=== PATIENT | male | born 1945 | race Caucasian/White ===

== ENCOUNTER → 2016-09-19 | Outpatient (CLI) | payer MEDICARE ==
[2016-09-19 12:57] LABS: Basophils # (A) 0.1 k/uL (0-0.2); Basophils % (A) 1 %; CH 29.2; Eosinophils # (A) 0.2 k/uL (0-0.7); Eosinophils % (A) 3 %; HCT 49.7 % (39.0-53.0); HDW 2.55; Luc # (Auto) 0.18; Luc % (Auto) 2; Lymphocytes # (A) 1.7 k/uL (1.0-4.8); Lymphocytes % (A) 22 %; MCH 30.5 pg (25.0-35.0); MCHC 34.2 g/dL (31.0-37.0); MCV 89.1 fL (80.0-100.0); Mean Platelet Volume 6.9; Monocytes # (A) 0.5 k/uL (0-1.0); Monocytes % (A) 6 %; Neutrophils # (A) 5.1 k/uL (1.3-7.7); Neutrophils % (A) 66 %; RBC 5.58 m/uL (4.30-5.90); RDW 13.3 % (11.5-15.5); WBC 7.6 k/uL (3.8-10.6); WBC (Perox) 7.54
[2016-09-19 13:24] LABS: Appearance,Urine Clear (Clear); Bilirubin,Urine Negative (Negative); Glucose,Urine (UA) Negative (Negative); Ketones,Urine Negative (Negative); Leukocyte Esterase,Urine Negative (Negative); Nitrite,Urine Negative (Negative); Protein,Urine Negative (Negative); Specific Gravity,Urine 1.017 (1.001-1.035); UA Billing (MACRO vs. MICRO) CHEM; Urobilinogen,Urine <2.0 mg/dL (<2.0)
[2016-09-19 13:50] LABS: ALT 45 U/L (21-72); AST 31 U/L (17-59); Alkaline Phosphatase 66 U/L (38-126); Anion Gap 12 mmol/L; Blood Urea Nitrogen 20 mg/dL (9-20); C Reactive Protein <5.0 mg/L (<10.0); Calcium 9.8 mg/dL (8.4-10.2); Carbon Dioxide 27 mmol/L (22-30); Chloride 101 mmol/L (98-107); Creatine Kinase 266 U/L (55-170); Glucose 98 mg/dL (74-99); LDH 441 U/L (313-618); Non-African American GFR(MDRD) >60 (>60 ml/min/1.73 sqM); Phosphorous 3.7 mg/dL (2.5-4.5); Potassium 4.7 mmol/L (3.5-5.1); Sodium 140 mmol/L (137-145); Total Bilirubin 0.8 mg/dL (0.2-1.3); Total Protein 7.4 g/dL (6.3-8.2); Uric Acid 5.9 mg/dL (3.5-8.5)
[2016-09-19 13:51] LABS: Rheumatoid Factor, Qnt 19 IU/mL (<12)
[2016-09-19 14:07] LABS: Erythrocyte Sedimentation Rate 8 mm/hr (0-15)
[2016-09-19 14:54] LABS: Vitamin B12 >1000 pg/mL
[2016-09-19 18:04] LABS: Hemoglobin A1C 5.9 % (4.2-6.1)
[2016-09-19 18:56] LABS: Treponemal Ab Non-Reactive (Non-Reactive)
[2016-09-19 19:34] LABS: ANA w/Reflex to Titer NEGATIVE (NEGATIVE); Cyclic Citrull Pep IgG Unit <0.5 U/mL; Cyclic Citrullinated Pep IgG NEGATIVE (NEGATIVE); Tis Transglutaminase IgA Unit <0.5 AI; Tis Transglutaminase IgG Unit <0.8 U/mL
[2016-09-20 13:12] LABS: HLA B27 NEGATIVE; HLA B27 Comment SEEBELOW
[2016-09-20 13:14] LABS: Vitamin D, 1, 25-Dihydroxy 69 pg/mL (20 - 79)
[2016-09-20 15:32] LABS: Hepatits C Virus RNA, Quant <12 IU/mL (<12); LOG HCV IU/mL <1.08 (<1.08)
[2016-09-22 07:28] LABS: Mis test requested (Blood) 14-3-3 eta Protein
[2016-09-22 14:13] LABS: Lyme IgG/IgM 0.1 Index; Lyme IgG/IgM Interp NEGATIVE (NEGATIVE)
== END | disposition home or self-care (01) ==
LOC: LABWHC1 12:14
PROVIDERS: ATTEND Physical Medicine & Rehabilitation
DX: M51.37 Other intervertebral disc degeneration, lumbosacral region (principal); M47.817 Spondylosis without myelopathy or radiculopathy, lumbosacral region; M41.86 Other forms of scoliosis, lumbar region; G60.3 Idiopathic progressive neuropathy; R20.2 Paresthesia of skin
CPT/HCPCS: 36415; 80053; 81003; 82164; 82306; 82310; 82550; 82553; 82607; 82652; 83036; 83516; 83520; 83615; 83970; 84100; 84165; 84207; 84425; 84439; 84443; 84550; 85025; 85652; 86038; 86060; 86140; 86200; 86235; 86431; 86618; 86780; 86812; 87522

== ENCOUNTER → 2017-06-07 | Outpatient (CLI) | payer MEDICARE ==
[2017-06-07 10:32] LABS: HCT 47.8 % (39.0-53.0); HGB 15.4 gm/dL (13.0-17.5); MCH 28.7 pg (25.0-35.0); MCHC 32.2 g/dL (31.0-37.0); MCV 89.1 fL (80.0-100.0); Mean Platelet Volume 7.3; Platelet Count 215 k/uL (150-450); RBC 5.37 m/uL (4.30-5.90); RDW 13.4 % (11.5-15.5); WBC 7.4 k/uL (3.8-10.6)
[2017-06-07 11:05] LABS: ALT 34 U/L (21-72); AST 24 U/L (17-59); Creatine Kinase 170 U/L (55-170)
== END | disposition home or self-care (01) ==
LOC: LABWHC1 10:00
PROVIDERS: ATTEND Physical Medicine & Rehabilitation
DX: M47.817 Spondylosis without myelopathy or radiculopathy, lumbosacral region (principal); M51.37 Other intervertebral disc degeneration, lumbosacral region; M41.86 Other forms of scoliosis, lumbar region; G60.3 Idiopathic progressive neuropathy; R20.2 Paresthesia of skin
CPT/HCPCS: 36415; 82550; 84450; 84460; 85027

== ENCOUNTER → 2017-08-17 | Outpatient (CLI) | payer MEDICARE ==
[2017-08-17 07:53] LABS: Cholesterol 221 mg/dL (<200); HDL Cholesterol 46 mg/dL (40-60); LDL Cholesterol,Calculated 149 mg/dL (0-99); Triglycerides 128 mg/dL (<150)
== END | disposition home or self-care (01) ==
LOC: LABWHC1 07:14
PROVIDERS: ATTEND Nurse Practitioner Adult Health
DX: E78.5 Hyperlipidemia, unspecified (principal)
CPT/HCPCS: 36415; 80061

== ENCOUNTER → 2018-12-12 | Outpatient (CLI) | payer MEDICARE ==
--- NOTE | 2018-12-18 11:05 | HM ---
HOLTER MONITOR REPORT Patient was monitored for 48 hours. The baseline rhythm is a sinus mechanism with borderline fascicular block. The average rate is 79 beats per minute, minimum 41, maximum 116 beats per minute. Ventricular ectopic activity was present in form of rare single PVCs. Supraventricular ectopic activity was present in the form of rare single PACs, episode of 2-to-1 conduction during the night was noted. No diary was available. CONCLUSION: 1. Sinus mechanism baseline rhythm with borderline fascicular AV block. 2. Episode of 2-to-1 conduction at night. 3. Rare ventricular ectopic activity. 4. Rare supraventricular ectopic activity. 5. No diary was available. MMODL / IJN: [id number] /
== END | disposition home or self-care (01) ==
LOC: RADECHMAIN 12:43
PROVIDERS: ATTEND Family Medicine
DX: I49.9 Cardiac arrhythmia, unspecified (principal); R00.2 Palpitations
CPT/HCPCS: 93225; 93226

== ENCOUNTER → 2018-12-25 | Outpatient (CLI) | payer MEDICARE ==
--- NOTE | 2018-12-25 11:08 | XR ---
EXAMINATION TYPE: XR shoulder complete RT DATE OF EXAM: 12/25/2018 CLINICAL HISTORY: Cyst of bone per order. Sensitive lump per patient. TECHNIQUE: Three views of the right shoulder are obtained. COMPARISON: None. FINDINGS: There is no acute fracture/dislocation evident in the right shoulder. No bony destruction is seen. Severe acromioclavicular joint narrowing. [id number] glenohumeral joint narrowing. The visualized ribs are intact and unremarkable. IMPRESSION: As above. Finding could correlate to capsular hypertrophy from advanced AC joint arthropa thy. Correlate clinically.
[2018-12-25 17:31] LABS: Chol/HDL Ratio 4.31; LDL Cholesterol,Calculated 134.2 mg/dL (0.0-131.0); VLDL Calculation 24.8 mg/dL (5.00-40.00)
== END | disposition home or self-care (01) ==
LOC: LABWHC1 10:02
PROVIDERS: ATTEND Internal Medicine Interventional Cardiology
DX: M25.811 Other specified joint disorders, right shoulder (principal); E78.2 Mixed hyperlipidemia
CPT/HCPCS: 36415; 80061; 84450; 84460

== ENCOUNTER → 2020-01-16 | Outpatient (CLI) | payer MEDICARE | END | disposition home or self-care (01) | LOC: LABWHC1 14:00 | PROVIDERS: ATTEND Internal Medicine Sleep Medicine | DX: B44.81 Allergic bronchopulmonary aspergillosis (principal) | CPT/HCPCS: 36415; 82785; 86001; 86003; 86606; 86609 ==

== ENCOUNTER → 2021-03-14 | Outpatient (CLI) | payer MEDICARE | END | disposition home or self-care (01) | LOC: LABWHC1 13:32 | PROVIDERS: ATTEND Family Medicine | DX: E11.9 Type 2 diabetes mellitus without complications (principal) | CPT/HCPCS: 36415; 83036 ==

== ENCOUNTER → 2021-06-22 | Outpatient (CLI) | payer MEDICARE | END | disposition home or self-care (01) | LOC: LABWHC1 12:32 | PROVIDERS: ATTEND Family Medicine | DX: I10 Essential (primary) hypertension (principal) | CPT/HCPCS: 36415; 83036 ==

== ENCOUNTER → 2021-12-27 | Outpatient (CLI) | payer MEDICARE | END | disposition home or self-care (01) | LOC: LABWHC1 10:43 | PROVIDERS: ATTEND Family Medicine | DX: E11.9 Type 2 diabetes mellitus without complications (principal) | CPT/HCPCS: 36415; 83036 ==

== ENCOUNTER 2022-02-12 02:02 | Observation (INO) | payer MEDICARE ==
[2022-02-12 02:09] VITALS: TEMP 98
[2022-02-12] MEDS ORDERED: methylPREDNISolone SOD SUCCI 125 MG/2 ML VIAL IV STA (02:36)
[2022-02-12] MEDS ORDERED: IPRATROPIUM-ALBUTEROL 3 ML NEB INHALATION STA (02:36)
[2022-02-12] MEDS ORDERED: ASPIRIN 81 MG PO STA (02:37)
[2022-02-12 02:46] LABS: Basophils # (A) 0.1 k/uL (0-0.2); Basophils % (A) 1 %; Eosinophils # (A) 0.1 k/uL (0-0.7); Eosinophils % (A) 1 %; HCT 49.9 % (39.0-53.0); HGB 16.3 gm/dL (13.0-17.5); Lymphocytes % (A) 8 %; MCH 29.8 pg (25.0-35.0); MCHC 32.7 g/dL (31.0-37.0); MCV 91.2 fL (80.0-100.0); Monocytes % (A) 8 %; Neutrophils # (A) 9.8 k/uL (1.3-7.7); Neutrophils % (A) 80 %; Platelet Count 171 k/uL (150-450); RBC 5.47 m/uL (4.30-5.90); RDW 13.2 % (11.5-15.5); WBC 12.2 k/uL (3.8-10.6)
[2022-02-12 02:53] LABS: ALT 43 U/L (4-49); African American GFR (CKD) >90 (>60 ml/min/1.73 sqM); Albumin 4.3 g/dL (3.5-5.0); Anion Gap 8 mmol/L; Blood Urea Nitrogen 29 mg/dL (9-20); Carbon Dioxide 25 mmol/L (22-30); Chloride 101 mmol/L (98-107); Glucose 213 mg/dL (74-99); Non-African American GFR(CKD) 88 (>60 ml/min/1.73 sqM); Sodium 134 mmol/L (137-145); Total Bilirubin 0.8 mg/dL (0.2-1.3); Total Protein 7.1 g/dL (6.3-8.2)
[2022-02-12 03:00] LABS: AST 55 U/L (17-59); Potassium 4.8 mmol/L (3.5-5.1)
[2022-02-12 03:01] LABS: Alkaline Phosphatase 78 U/L (38-126); Magnesium 1.9 mg/dL (1.6-2.3)
[2022-02-12 03:05] LABS: Partial Thromboplastin Time 24.6 sec (22.0-30.0); Prothrombin Time 10.9 sec (9.0-12.0)
--- NOTE | 2022-02-12 04:01 | ED ---
General Adult HPI - General Chief complaint: Chest Pain Stated complaint: SOB, Chest Pain Time Seen by Provider: 02/12/22 02:13 Source: patient, RN notes reviewed, old records reviewed Mode of arrival: ambulatory Limitations: no limitations - History of Present Illness Initial comments: Patient is a 76-year-old male with past medical history remarkable for hypertension, asthma, acid reflux, sleep apnea who presents emergency Department complaining of upper respiratory like infection as well as wheezing for the last 3-4 days. Denies nikolay chest pain but states that he does have some discomfort with coughing. States he has been coughing a lot over the last few days. Denies abdominal pain, nausea, vomiting. Denies diarrhea. Patient was also has upper respiratory infectious symptoms. Denies any productive cough. Endorses rhinorrhea. Endorses wheezing as well. States he is on emergency inhalers at home but states he typically does not need them. Is not on oxygen at home. His no other acute complaints at this time. Presents for further evaluation at this time. - Related Data Home Medications Medication Instructions Recorded Confirmed Albuterol Sulfate [Proair Hfa] 1 - 2 puff INHALATION Q6HR PRN 01/21/16 01/27/16 Ascorbic Acid [Vitamin C] 1,000 mg PO HS 01/21/16 01/31/16 Aspirin [Adult Low Dose Aspirin EC] 162 mg PO HS 01/21/16 01/31/16 Cholecalciferol [Vitamin D3 (25 2,000 unit PO HS 01/21/16 01/31/16 Mcg = 1000 Iu)] Citalopram Hydrobromide 20 mg PO HS 01/21/16 01/31/16 [Citalopram HBr] Cyanocobalamin [Vitamin B-12] 1,000 mcg PO HS 01/21/16 01/31/16 Loratadine [Claritin] 10 mg PO HS 01/21/16 01/31/16 Losartan Potassium [Cozaar] 100 mg PO HS 01/21/16 01/31/16 Magnesium 500 mg PO HS 01/21/16 01/31/16 Montelukast Sodium [Singulair] 10 mg PO HS 01/21/16 01/31/16 Hannacroix-3 Fatty Acids/Fish Oil [Fish 1 each PO HS 01/21/16 01/31/16 Oil 1,000 mg Softgel] Ranitidine HCl [Zantac] 150 mg PO HS 01/21/16 01/31/16 Turmeric Root Extract [Turmeric] 500 mg PO HS 01/21/16 01/31/16 Ubidecarenone [Co Q-10] 300 mg PO HS 01/21/16 01/31/16 Zinc 50 mg PO HS 01/21/16 01/31/16 Allergies Allergy/AdvReac Type Severity Reaction Status Date / Time No Known Allergies Allergy Verified 02/12/22 02:09 Review of Systems ROS Statement: Those systems with pertinent positive or pertinent negative responses have been documented in the HPI. Review of Systems: CONST: Denies fever EYES: Denies blurry vision ENT: Endorses nasal congestion C/V: Denies Chest pain RESP: Endorses wheezing GI: Denies abdominal pain : Denies dysuria SKIN: Denies rash. MSK: Denies joint pain. NEURO: Denies headache ROS Other: All systems not noted in ROS Statement are negative. Past Medical History Past Medical History: Asthma, GERD/Reflux, Hypertension, Sleep Apnea/CPAP/BIPAP Additional Past Medical History / Comment(s): SOB w/exertion, supposed to use CPAP History of Any Multi-Drug Resistant Organisms: None Reported Past Surgical History: Joint Replacement, Orthopedic Surgery Additional Past Surgical History / Comment(s): cataract surg., rotator cuff repair, left knee replaced, benign fatty tumor removed Past Anesthesia/Blood Transfusion Reactions: Previous Problems w/ Anesthesia Additional Past Anesthesia/Blood Transfusion Reaction / Comment(s): developed vertigo few days after surg. Past Psychological History: Anxiety Smoking Status: Never smoker Past Alcohol Use History: Rare Past Drug Use History: None Reported - Past Family History Mother Family Medical History: Cancer General Exam - General Exam Comments Initial Comments: General: Appears in no acute distress. HEAD: Normal with no signs of head trauma. EYES: PERRLA, EOMI, conjunctiva normal, no discharge. ENT: Hearing grossly intact, normal oropharynx. RESPIRATORY: Bilateral end expiratory wheezing. Mild hypoxia on room air. No increased work of breathing. C/V: Irregular rate and rhythm. S1 and S2 auscultated, pulses 2+ and intact throughout ABD: Abd is soft, nontender, nondistended EXT: Normal range of motion, no obvious deformity SKIN: No rashes or lesions observed on exposed skin. NEURO: Alert and oriented 4. Limitations: no limitations Course Vital Signs 02/12/22 02/12/22 02/12/22 02:06 02:25 03:00 Temperature 98 F Pulse Rate 84 88 Respiratory 20 18 16 Rate Blood Pressure 168/99 144/82 O2 Sat by Pulse 92 L 95 Oximetry 02/12/22 02/12/22 02/12/22 03:38 03:44 04:00 Temperature Pulse Rate 79 84 85 Respiratory 16 Rate Blood Pressure 147/87 O2 Sat by Pulse 93 L Oximetry Medical Decision Making - Medical Decision Making Based on the patient's presentation and physical exam, appears he is having an asthma exacerbation on top of an upper respiratory infection. Suspect viral but he is on day 3 of azithromycin at this time. We will obtain carp only workup. He was in agreement this plan. We'll symptomatically treated with IV steroids, breathing treatments. EKG shows new onset atrial fibrillation. Chest x-ray shows no acute cardiopulmonary process. No infiltrate, no pneumothorax, no acute bony traumatic injury. Patient's laboratory studies are remarkable for a mild leukocytosis of 12.2. Troponin is undetectable. BNP is within acceptable limits. Covid influenza negative. On reevaluation, patient remains wheezy but improved. He still is requiring low levels of nasal cannula oxygen to maintain adequate saturations. I discussed with him his workup. I believe he is having an asthma exacerbation as well as incidental finding of new-onset atrial fibrillation. He will be placed on a heparin drip and cardiology will be consulted. He was in agreement this plan. He received aspirin. We'll also continue treatment for his asthma exacerbation with IV steroids as well as DuoNeb. Pulmonology was consulted to evaluate the patient. We'll continue his azithromycin as he was already started on it. He'll be admitted. Patient was in agreement this plan. - Lab Data Result diagrams: 02/12/22 02:37 02/12/22 02:37 Lab Results 02/12/22 02/12/22 02/12/22 Range/Units 02:37 02:37 02:37 WBC 12.2 H (3.8-10.6) k/uL RBC 5.47 (4.30-5.90) m/uL Hgb 16.3 (13.0-17.5) gm/dL Hct 49.9 (39.0-53.0) % MCV 91.2 (80.0-100.0) fL MCH 29.8 (25.0-35.0) pg MCHC 32.7 (31.0-37.0) g/dL RDW 13.2 (11.5-15.5) % Plt Count 171 (150-450) k/uL MPV 9.0 Neutrophils % 80 % Lymphocytes % 8 % Monocytes % 8 % Eosinophils % 1 % Basophils % 1 % Neutrophils # 9.8 H (1.3-7.7) k/uL Lymphocytes # 1.0 (1.0-4.8) k/uL Monocytes # 1.0 (0-1.0) k/uL Eosinophils # 0.1 (0-0.7) k/uL Basophils # 0.1 (0-0.2) k/uL PT 10.9 (9.0-12.0) sec INR 1.0 (<1.2) APTT 24.6 (22.0-30.0) sec Sodium 134 L (137-145) mmol/L Potassium 4.8 (3.5-5.1) mmol/L Chloride 101 (98-107) mmol/L Carbon Dioxide 25 (22-30) mmol/L Anion Gap 8 mmol/L BUN 29 H (9-20) mg/dL Creatinine 0.78 (0.66-1.25) mg/dL Est GFR (CKD-EPI)AfAm >90 (>60 ml/min/1.73 sqM) Est GFR (CKD-EPI)NonAf 88 (>60 ml/min/1.73 sqM) Glucose 213 H (74-99) mg/dL Calcium 9.0 (8.4-10.2) mg/dL Magnesium 1.9 (1.6-2.3) mg/dL Total Bilirubin 0.8 (0.2-1.3) mg/dL AST 55 (17-59) U/L ALT 43 (4-49) U/L Alkaline Phosphatase 78 (38-126) U/L Troponin I (0.000-0.034) ng/mL NT-Pro-B Natriuret Pep pg/mL Total Protein 7.1 (6.3-8.2) g/dL Albumin 4.3 (3.5-5.0) g/dL Coronavirus (PCR) (Not Detectd) Influenza Type A RNA (Not Detectd) Influenza Type B (PCR) (Not Detectd) 02/12/22 02/12/22 02/12/22 Range/Units 02:37 02:37 02:42 WBC (3.8-10.6) k/uL RBC (4.30-5.90) m/uL Hgb (13.0-17.5) gm/dL Hct (39.0-53.0) % MCV (80.0-100.0) fL MCH (25.0-35.0) pg MCHC (31.0-37.0) g/dL RDW (11.5-15.5) % Plt Count (150-450) k/uL MPV Neutrophils % % Lymphocytes % % Monocytes % % Eosinophils % % Basophils % % Neutrophils # (1.3-7.7) k/uL Lymphocytes # (1.0-4.8) k/uL Monocytes # (0-1.0) k/uL Eosinophils # (0-0.7) k/uL Basophils # (0-0.2) k/uL PT (9.0-12.0) sec INR (<1.2) APTT (22.0-30.0) sec Sodium (137-145) mmol/L Potassium (3.5-5.1) mmol/L Chloride (98-107) mmol/L Carbon Dioxide (22-30) mmol/L Anion Gap mmol/L BUN (9-20) mg/dL Creatinine (0.66-1.25) mg/dL Est GFR (CKD-EPI)AfAm (>60 ml/min/1.73 sqM) Est GFR (CKD-EPI)NonAf (>60 ml/min/1.73 sqM) Glucose (74-99) mg/dL Calcium (8.4-10.2) mg/dL Magnesium (1.6-2.3) mg/dL Total Bilirubin (0.2-1.3) mg/dL AST (17-59) U/L ALT (4-49) U/L Alkaline Phosphatase (38-126) U/L Troponin I <0.012 (0.000-0.034) ng/mL NT-Pro-B Natriuret Pep 354 pg/mL Total Protein (6.3-8.2) g/dL Albumin (3.5-5.0) g/dL Coronavirus (PCR) (Not Detectd) Influenza Type A RNA Not Detected (Not Detectd) Influenza Type B (PCR) Not Detected (Not Detectd) 02/12/22 Range/Units 02:42 WBC (3.8-10.6) k/uL RBC (4.30-5.90) m/uL Hgb (13.0-17.5) gm/dL Hct (39.0-53.0) % MCV (80.0-100.0) fL MCH (25.0-35.0) pg MCHC (31.0-37.0) g/dL RDW (11.5-15.5) % Plt Count (150-450) k/uL MPV Neutrophils % % Lymphocytes % % Monocytes % % Eosinophils % % Basophils % % Neutrophils # (1.3-7.7) k/uL Lymphocytes # (1.0-4.8) k/uL Monocytes # (0-1.0) k/uL Eosinophils # (0-0.7) k/uL Basophils # (0-0.2) k/uL PT (9.0-12.0) sec INR (<1.2) APTT (22.0-30.0) sec Sodium (137-145) mmol/L Potassium (3.5-5.1) mmol/L Chloride (98-107) mmol/L Carbon Dioxide (22-30) mmol/L Anion Gap mmol/L BUN (9-20) mg/dL Creatinine (0.66-1.25) mg/dL Est GFR (CKD-EPI)AfAm (>60 ml/min/1.73 sqM) Est GFR (CKD-EPI)NonAf (>60 ml/min/1.73 sqM) Glucose (74-99) mg/dL Calcium (8.4-10.2) mg/dL Magnesium (1.6-2.3) mg/dL Total Bilirubin (0.2-1.3) mg/dL AST (17-59) U/L ALT (4-49) U/L Alkaline Phosphatase (38-126) U/L Troponin I (0.000-0.034) ng/mL NT-Pro-B Natriuret Pep pg/mL Total Protein (6.3-8.2) g/dL Albumin (3.5-5.0) g/dL Coronavirus (PCR) Not Detected (Not Detectd) Influenza Type A RNA (Not Detectd) Influenza Type B (PCR) (Not Detectd) - EKG Data -: EKG Interpreted by Me EKG Comments: 12-lead Electrocardiogram Interpretation Note EKG was reviewed and interpreted by myself. 12-lead ECG performed at 0215 is interpreted by me as revealing atrial fibrillation at a rate of 87 beats per minute. Left axis deviation. QRS duration is 102 ms, QTc is 409 ms.. There were no ST or T wave abnormalities to suggest myocardial ischemia or injury. R wave progression across the precordium was satisfactory. By my interpretation this EKG is non-diagnostic for acute ischemia. No prior EKG in our system. No known history of atrial fibrillation. Disposition Clinical Impression: New onset atrial fibrillation, Asthma exacerbation, Bronchitis Disposition: ADMITTED IP TO THIS HOSP Condition: Stable Referrals: Jaylan Desir MD [Primary Care Provider] - 1-2 days Time of Disposition: 04:30
--- NOTE | 2022-02-12 04:19 | XR ---
EXAMINATION TYPE: XR chest 2V DATE OF EXAM: 02/12/2022 COMPARISON: NONE HISTORY: Short of breath TECHNIQUE: 2 view FINDINGS: Heart is normal. Lungs are clear of consolidation. There are no hilar masses. There are dean st leads. Costophrenic angles are clear. Bony thorax is intact. IMPRESSION: No active cardiopulmonary disease. Normal heart.
[2022-02-12] MEDS ORDERED: NALOXONE 0.4 MG/ML 1 ML VIAL IV PRN (04:31)
[2022-02-12] MEDS ORDERED: HEPARIN SODIUM 1,000 UN/ML (10ML VL) IV PRN (04:31)
[2022-02-12] MEDS ORDERED: HEPARIN SODIUM 1,000 UN/ML (10ML VL) IV ONE (04:31)
[2022-02-12] MEDS ORDERED: ALBUTEROL HFA INHALER INHALATION PRN (04:34)
[2022-02-12] MEDS ORDERED: HEPARIN SOD,PORK IN 0.45% NACL 25,000 UNIT in 0.45% NACL 1 250ML.BAG IV SCH (04:45)
[2022-02-12 06:46] VITALS: BP 145/85; PULSE 96; RESP 20
--- NOTE | 2022-02-12 07:10 | ED ---
Medical Decision Making - Medical Decision Making At the end of my shift, I was notified by nursing that the patient wished to leave AGAINST MEDICAL ADVICE. He had ripped off his nasal cannula oxygen and wanted to leave immediately. States he doesn't think he needs to stay. Wants to manage his oxygenation at home. We did both look at his vital signs off oxygen and he did note that he is at 90% occasionally dipping to 89% on room air. I explained to him that this is dangerous to go home with, and I believe she would benefit from remaining in the hospital to further treat his asthma as well as be evaluated by cardiology for his new onset atrial fibrillation. He did express understanding of this but still wishes to go home. He does not want to stay. He believes he'll be fine at home and wishes to follow up outpatient and not be admitted. He understands that there is risk of if he does leave. He does not have oxygen at home. The patient was apprised of the potential risks of leaving the hospital AGAINST MEDICAL ADVICE, including serious complications, permanent disability, and deat h. At the time of my interview the patient, the patient was alert, oriented, and capable. Patient signed AMA form, which was witnessed and signed by nursing staff, and placed in patient's chart. I urged the patient to return to the hospital as soon as possible to complete evaluation and treatment. I did notify the admitting team that the patient left AMA. - Lab Data Result diagrams: 02/12/22 02:37 02/12/22 02:37 Lab Results 02/12/22 02/12/22 02/12/22 Range/Units 02:37 02:37 02:37 WBC 12.2 H (3.8-10.6) k/uL RBC 5.47 (4.30-5.90) m/uL Hgb 16.3 (13.0-17.5) gm/dL Hct 49.9 (39.0-53.0) % MCV 91.2 (80.0-100.0) fL MCH 29.8 (25.0-35.0) pg MCHC 32.7 (31.0-37.0) g/dL RDW 13.2 (11.5-15.5) % Plt Count 171 (150-450) k/uL MPV 9.0 Neutrophils % 80 % Lymphocytes % 8 % Monocytes % 8 % Eosinophils % 1 % Basophils % 1 % Neutrophils # 9.8 H (1.3-7.7) k/uL Lymphocytes # 1.0 (1.0-4.8) k/uL Monocytes # 1.0 (0-1.0) k/uL Eosinophils # 0.1 (0-0.7) k/uL Basophils # 0.1 (0-0.2) k/uL PT 10.9 (9.0-12.0) sec INR 1.0 (<1.2) APTT 24.6 (22.0-30.0) sec Sodium 134 L (137-145) mmol/L Potassium 4.8 (3.5-5.1) mmol/L Chloride 101 (98-107) mmol/L Carbon Dioxide 25 (22-30) mmol/L Anion Gap 8 mmol/L BUN 29 H (9-20) mg/dL Creatinine 0.78 (0.66-1.25) mg/dL Est GFR (CKD-EPI)AfAm >90 (>60 ml/min/1.73 sqM) Est GFR (CKD-EPI)NonAf 88 (>60 ml/min/1.73 sqM) Glucose 213 H (74-99) mg/dL Calcium 9.0 (8.4-10.2) mg/dL Magnesium 1.9 (1.6-2.3) mg/dL Total Bilirubin 0.8 (0.2-1.3) mg/dL AST 55 (17-59) U/L ALT 43 (4-49) U/L Alkaline Phosphatase 78 (38-126) U/L Troponin I (0.000-0.034) ng/mL NT-Pro-B Natriuret Pep pg/mL Total Protein 7.1 (6.3-8.2) g/dL Albumin 4.3 (3.5-5.0) g/dL Coronavirus (PCR) (Not Detectd) Influenza Type A RNA (Not Detectd) Influenza Type B (PCR) (Not Detectd) 02/12/22 02/12/22 02/12/22 Range/Units 02:37 02:37 02:42 WBC (3.8-10.6) k/uL RBC (4.30-5.90) m/uL Hgb (13.0-17.5) gm/dL Hct (39.0-53.0) % MCV (80.0-100.0) fL MCH (25.0-35.0) pg MCHC (31.0-37.0) g/dL RDW (11.5-15.5) % Plt Count (150-450) k/uL MPV Neutrophils % % Lymphocytes % % Monocytes % % Eosinophils % % Basophils % % Neutrophils # (1.3-7.7) k/uL Lymphocytes # (1.0-4.8) k/uL Monocytes # (0-1.0) k/uL Eosinophils # (0-0.7) k/uL Basophils # (0-0.2) k/uL PT (9.0-12.0) sec INR (<1.2) APTT (22.0-30.0) sec Sodium (137-145) mmol/L Potassium (3.5-5.1) mmol/L Chloride (98-107) mmol/L Carbon Dioxide (22-30) mmol/L Anion Gap mmol/L BUN (9-20) mg/dL Creatinine (0.66-1.25) mg/dL Est GFR (CKD-EPI)AfAm (>60 ml/min/1.73 sqM) Est GFR (CKD-EPI)NonAf (>60 ml/min/1.73 sqM) Glucose (74-99) mg/dL Calcium (8.4-10.2) mg/dL Magnesium (1.6-2.3) mg/dL Total Bilirubin (0.2-1.3) mg/dL AST (17-59) U/L ALT (4-49) U/L Alkaline Phosphatase (38-126) U/L Troponin I <0.012 (0.000-0.034) ng/mL NT-Pro-B Natriuret Pep 354 pg/mL Total Protein (6.3-8.2) g/dL Albumin (3.5-5.0) g/dL Coronavirus (PCR) (Not Detectd) Influenza Type A RNA Not Detected (Not Detectd) Influenza Type B (PCR) Not Detected (Not Detectd) 02/12/22 Range/Units 02:42 WBC (3.8-10.6) k/uL RBC (4.30-5.90) m/uL Hgb (13.0-17.5) gm/dL Hct (39.0-53.0) % MCV (80.0-100.0) fL MCH (25.0-35.0) pg MCHC (31.0-37.0) g/dL RDW (11.5-15.5) % Plt Count (150-450) k/uL MPV Neutrophils % % Lymphocytes % % Monocytes % % Eosinophils % % Basophils % % Neutrophils # (1.3-7.7) k/uL Lymphocytes # (1.0-4.8) k/uL Monocytes # (0-1.0) k/uL Eosinophils # (0-0.7) k/uL Basophils # (0-0.2) k/uL PT (9.0-12.0) sec INR (<1.2) APTT (22.0-30.0) sec Sodium (137-145) mmol/L Potassium (3.5-5.1) mmol/L Chloride (98-107) mmol/L Carbon Dioxide (22-30) mmol/L Anion Gap mmol/L BUN (9-20) mg/dL Creatinine (0.66-1.25) mg/dL Est GFR (CKD-EPI)AfAm (>60 ml/min/1.73 sqM) Est GFR (CKD-EPI)NonAf (>60 ml/min/1.73 sqM) Glucose (74-99) mg/dL Calcium (8.4-10.2) mg/dL Magnesium (1.6-2.3) mg/dL Total Bilirubin (0.2-1.3) mg/dL AST (17-59) U/L ALT (4-49) U/L Alkaline Phosphatase (38-126) U/L Troponin I (0.000-0.034) ng/mL NT-Pro-B Natriuret Pep pg/mL Total Protein (6.3-8.2) g/dL Albumin (3.5-5.0) g/dL Coronavirus (PCR) Not Detected (Not Detectd) Influenza Type A RNA (Not Detectd) Influenza Type B (PCR) (Not Detectd) Disposition Clinical Impression: New onset atrial fibrillation, Asthma exacerbation, Bronchitis, Hypoxia Disposition: Left Against Medical Advice Condition: Undetermined Time of Disposition: :05
[2022-02-12] MEDS ORDERED: AZITHROMYCIN 250 MG TAB PO SCH (09:00)
[2022-02-12] MEDS ORDERED: methylPREDNISolone SOD SUCCI 40 MG/ML 1 ML VIAL IV SCH (15:00)
--- NOTE | 2022-02-13 23:10 | P.DS ---
Providers Date of admission: 02/12/22 04:34 Attending physician: Kinga Morillo Consults: 02/12/22 04:31 Consult Physician Routine Consulting Provider: Tommy Thomas Consult Reason/Comments: asthma vs copd exacerbation. bronchitis Do you want consulting provider notified?: Yes Consult Physician Routine Consulting Provider: [facility] Consult Reason/Comments: new onset atrial fibrillation Do you want consulting provider notified?: Yes Primary care physician: Jaylan Santiago [facility] Hospital Course: Patient was admitted to attending group 02/12/22 at 0427 for new onset atrial fibrillation, asthma vs. COPD. Patient was evaluated by EC physician only. He left the Emergency Center against medical advice 02/12/2022 at 0706. Per records admitting team was notified by EC physician that patient left AMA. Again patient was not evaluated by admitting team prior to patient leaving the emergency center. Patient Condition at Discharge: Undetermined Plan - Discharge Summary New Discharge Prescriptions: No Action Cholecalciferol [Vitamin D3 (25 Mcg = 1000 Iu)] 50 mcg PO HS Zinc 50 mg PO HS Ubidecarenone [Co Q-10] 300 mg PO HS [place]-3 Fatty Acids/Fish Oil [Fish Oil 1,000 mg Softgel] 1 cap PO HS Aspirin [Adult Low Dose Aspirin EC] 81 mg PO HS Ascorbic Acid [Vitamin C] 1,000 mg PO HS sitaGLIPtin [Januvia] 100 mg PO HS Losartan [Cozaar] 50 mg PO HS Gabapentin 600 mg PO BID Albuterol Sulfate [Proair Respiclick] 1 puff INHALATION RT-Q6H PRN PRN Reason: Shortness Of Breath Atorvastatin [Lipitor] 40 mg PO HS metFORMIN HCL ER [Glucophage XR] 500 mg PO BID methylPREDNISolone [Medrol Dose Pack] See Taper PO DIRECTED Azithromycin [Zithromax Z Pack] See Taper PO DAILY Discharge Medication List Ascorbic Acid [Vitamin C] 1,000 mg PO HS 01/21/16 [History] Aspirin [Adult Low Dose Aspirin EC] 81 mg PO HS 01/21/16 [History] Cholecalciferol [Vitamin D3 (25 Mcg = 1000 Iu)] 50 mcg PO HS 01/21/16 [History] [place]-3 Fatty Acids/Fish Oil [Fish Oil 1,000 mg Softgel] 1 cap PO HS 01/21/16 [History] Ubidecarenone [Co Q-10] 300 mg PO HS 01/21/16 [History] Zinc 50 mg PO HS 01/21/16 [History] Albuterol Sulfate [Proair Respiclick] 1 puff INHALATION RT-Q6H PRN 02/12/22 [History] Atorvastatin [Lipitor] 40 mg PO HS 02/12/22 [History] Azithromycin [Zithromax Z Pack] See Taper PO DAILY 02/12/22 [History] Gabapentin 600 mg PO BID 02/12/22 [History] Losartan [Cozaar] 50 mg PO HS 02/12/22 [History] metFORMIN HCL ER [Glucophage XR] 500 mg PO BID 02/12/22 [History] methylPREDNISolone [Medrol Dose Pack] See Taper PO DIRECTED 02/12/22 [History] sitaGLIPtin [Januvia] 100 mg PO HS 02/12/22 [History] Follow up Appointment(s)/Referral(s): Jaylan Desir MD [Primary Care Provider] - 1-2 days Discharge Disposition: Left Against Medical Advice
== END 2022-02-12 07:05 | disposition left against medical advice (07) ==
LOC: EC 02:02 → INTOOBSV 04:34 → 3SCARD 04:34 → UNDODISIN 07:05
PROVIDERS: ADMIT Hospitalist; ATTEND Hospitalist
DX: J45.901 Unspecified asthma with (acute) exacerbation (principal); D72.829 Elevated white blood cell count, unspecified; I10 Essential (primary) hypertension; K21.9 Gastro-esophageal reflux disease without esophagitis; F41.9 Anxiety disorder, unspecified; I48.91 Unspecified atrial fibrillation; Z79.899 Other long term (current) drug therapy; Z98.49 Cataract extraction status, unspecified eye; Z96.652 Presence of left artificial knee joint; Z80.9 Family history of malignant neoplasm, unspecified; Z20.822 Contact with and (suspected) exposure to COVID-19; Z53.29 Procedure and treatment not carried out because of patient's decision for other reasons
CPT/HCPCS: 96374; 96375; 99285; 36415; 94640; 93005; 83880; 80053; 83735; 84484; 85025; 85610; 85730; 87502; 87635; 71046; G0378; J2930; J1644 ×2

== ENCOUNTER 2022-02-12 19:14 | Inpatient (IN) | payer MEDICARE ==
[2022-02-12] MEDS ORDERED: SODIUM CHLORIDE 0.9% 500 ML 500 ML IV STA (19:30)
[2022-02-12 19:40] LABS: Glucose,Whole Blood 321 mg/dL (70-110)
[2022-02-12] MEDS ORDERED: IPRATROPIUM-ALBUTEROL 3 ML NEB INHALATION STA ×2 (19:42→23:25)
[2022-02-12] MEDS ORDERED: ALBUTEROL NEB (CONC) 2.5 MG/0.5 ML INHALATION STA (19:42)
--- NOTE | 2022-02-12 19:43 | ED ---
SOB HPI - General Stated Complaint: SOB Time Seen by Provider: 02/12/22 19:21 Source: patient, RN notes reviewed Mode of arrival: EMS Limitations: no limitations - History of Present Illness Initial Comments: This is a 76-year-old male who arrives after leaving AGAINST MEDICAL ADVICE this morning. Apparently the patient was diagnosed with new onset atrial fibrillation, he was heparinized, then elected to leave AGAINST MEDICAL ADVICE. He comes back in respiratory distress. His called the ambulance is having a hard time breathing. She noted to be hypotensive and hypoxemic on initial vital signs. Heart rate between 100--120. Patient tachypneic at 28 breaths per minute when I see him. Patient himself has no complaints. However due deconditioning may be a poor h istorian. No headache, no fever or chills, no changes in vision or hearing, no sore throat or difficulty with speech, no neck pain, no chest painges in urination or bowel movements, no numbness or tingling, no extremity pain, no skin rashes or lesions. Past medical, surgical, social, and family history reviewed. MD Complaint: shortness of breath - Related Data Home Medications Medication Instructions Recorded Confirmed Ascorbic Acid [Vitamin C] 1,000 mg PO HS 01/21/16 02/12/22 Aspirin [Adult Low Dose Aspirin EC] 81 mg PO HS 01/21/16 02/12/22 Cholecalciferol [Vitamin D3 (25 50 mcg PO HS 01/21/16 02/12/22 Mcg = 1000 Iu)] Adrian-3 Fatty Acids/Fish Oil [Fish 1 cap PO HS 01/21/16 02/12/22 Oil 1,000 mg Softgel] Ubidecarenone [Co Q-10] 300 mg PO HS 01/21/16 02/12/22 Zinc 50 mg PO HS 01/21/16 02/12/22 Albuterol Sulfate [Proair 1 puff INHALATION RT-Q6H PRN 02/12/22 02/12/22 Respiclick] Atorvastatin [Lipitor] 40 mg PO HS 02/12/22 02/12/22 Azithromycin [Zithromax Z Pack] See Taper PO DAILY 02/12/22 02/12/22 Gabapentin 600 mg PO BID 02/12/22 02/12/22 Losartan [Cozaar] 50 mg PO HS 02/12/22 02/12/22 metFORMIN HCL ER [Glucophage XR] 500 mg PO BID 02/12/22 02/12/22 methylPREDNISolone [Medrol Dose See Taper PO DIRECTED 02/12/22 02/12/22 Pack] sitaGLIPtin [Januvia] 100 mg PO HS 02/12/22 02/12/22 Allergies Allergy/AdvReac Type Severity Reaction Status Date / Time Milk Containing Products Allergy Congestion/ Verified 02/12/22 20:46 [Dairy] Cough Review of Systems ROS Statement: Those systems with pertinent positive or pertinent negative responses have been documented in the HPI. ROS Other: All systems not noted in ROS Statement are negative. Past Medical History Past Medical History: Asthma, Heart Failure, Diabetes Mellitus (Not listed initially although the patient is on Januvia and metformin per medication list--02/12/2022), GERD/Reflux, Hypertension, Sleep Apnea/CPAP/BIPAP Additional Past Medical History / Comment(s): SOB w/exertion, supposed to use CPAP History of Any Multi-Drug Resistant Organisms: None Reported Past Surgical History: Joint Replacement, Orthopedic Surgery Additional Past Surgical History / Comment(s): cataract surg., rotator cuff repair, left knee replaced, benign fatty tumor removed Past Anesthesia/Blood Transfusion Reactions: Previous Problems w/ Anesthesia Additional Past Anesthesia/Blood Transfusion Reaction / Comment(s): developed vertigo few days after surg. Past Psychological History: Anxiety Smoking Status: Never smoker Past Alcohol Use History: Rare Past Drug Use History: None Reported - Past Family History Mother Family Medical History: Cancer General Exam - General Exam Comments Initial Comments: Patient noted to be tachycardic, tachypneic, and hypoxemic as well as hypotensive initial evaluation. Capillary refill is about 4 seconds. Patient pale in appearance. Limitations: no limitations General appearance: in distress, obese Head exam: Present: atraumatic, normocephalic, normal inspection Eye exam: Present: normal appearance, PERRL, EOMI. Absent: scleral icterus, conjunctival injection, periorbital swelling ENT exam: Present: normal exam, normal oropharynx, mucous membranes dry, mucous membranes moist, normal external ear exam Neck exam: Present: normal inspection, full ROM. Absent: tenderness, meningismus, lymphadenopathy Respiratory exam: Present: respiratory distress, wheezes, rales, accessory muscle use. Absent: stridor, chest wall tenderness, decreased breath sounds, prolonged expiratory Cardiovascular Exam: Present: tachycardia, irregular rhythm, normal heart sounds. Absent: systolic murmur, diastolic murmur, rubs, gallop, clicks GI/Abdominal exam: Present: soft, normal bowel sounds. Absent: distended, tenderness, guarding, rebound, rigid Rectal exam: Present: normal rectal tone, other (Chaperoned rectal examination reveals brown stool, no evidence of blood). Absent: decreased rectal tone Extremities exam: Present: normal inspection, full ROM, normal capillary refill, pedal edema (Scant). Absent: tenderness, joint swelling, calf tenderness Back exam: Present: normal inspection Neurological exam: Present: alert, oriented X3, CN II-XII intact Psychiatric exam: Present: normal affect, normal mood Skin exam: Present: warm, dry, intact, normal color. Absent: rash Course Vital Signs 02/12/22 02/12/22 02/12/22 19:32 19:38 19:41 Temperature Pulse Rate 124 H 117 H 110 H Respiratory 18 32 H 90 H Rate Blood Pressure 86/60 66/42 O2 Sat by Pulse 90 L 90 L 90 L Oximetry Fraction of Inspired Oxygen (FIO2) 02/12/22 02/12/22 02/12/22 19:48 19:49 19:55 Temperature Pulse Rate 96 Respiratory Rate Blood Pressure O2 Sat by Pulse 97 Oximetry Fraction of 35 Inspired Oxygen (FIO2) 02/12/22 02/12/22 02/12/22 20:01 20:08 20:47 Temperature Pulse Rate 116 H 110 H 95 Respiratory 22 21 Rate Blood Pressure 100/82 102/69 O2 Sat by Pulse 94 L 94 L Oximetry Fraction of Inspired Oxygen (FIO2) 02/12/22 02/12/22 23:22 23:30 Temperature 97.5 F L Pulse Rate 104 H Respiratory 22 Rate Blood Pressure 115/79 O2 Sat by Pulse Oximetry Fraction of 35 Inspired Oxygen (FIO2) - Reevaluation(s) Reevaluation #1: 02/12/22 21:02 Patient has a lactic acid of 5.7. Patient will require the sepsis bolas says he now appears to have pneumonia on the left side. Rocephin ordered. 02/12/22 22:14 Patient was initially seen in room 19. Initial blood pressure was in the mid 86 systolic. Then the patient immediately dropped down into a systolic blood pressure of 66 when I was in the room. Diastolic was in the 40s. 193 blood pressure was 86/60, 193, blood pressure 66/42. 02/12/22 23:35 Reevaluation #2: 02/12/22 21:39 Patient's viral testing positive for RSV. Patient was reevaluated and is feeling much better after breathing treatments, IV fluids, patient sitting up in bed on BiPAP. Capillary refill less than 2 seconds. Patient's skin turgor and color appear to be improving. Patient did get a dose of Zosyn as he had been on Zithromax for symptoms of upper respiratory infection. Chest x-ray shows evidence of left lower lobe pneumonia which was not seen this morning. I would order a computed tomography scan based on the patient's clinical findings to ensure we are not missing something. Patient of course, also has new onset atrial fibrillation. Patient meets criteria for severe sepsis Reevaluation #3: 02/12/22 23:25 Patient reevaluated again and is improved. Patient still wheezing. Still has some respiratory distress. On BiPAP. Vital signs have stabilized. We'll order an ABG and a breathing treatment pending critical care/pulmonary consult. - Consultations Consultation #1: Case discussed in detail with the critical care physician, Dr. Thomas who states that there is no current beds in the ICU. Once the patient held here in the emergency department and he will see him in the morning. Procedures - Sepsis Sepsis Focused Exam #1 Time Sepsis Criteria Met: 21:04 Sepsis Focused Exam Date: 02/12/22 Sepsis Focused Exam Time: 21:05 Sepsis Focused Exam Complete: Yes Vital Signs & RN Notes Reviewed: Yes Capillary Refill: > 2 Seconds: Fingers (Approximately 3 seconds), Toes (3 seconds) Peripheral Pulses: Normal: Radial (R), Radial (L), Posterior Tibialis (R), Posterior Tibialis (L), Dorsalis Pedis (R), Dorsalis Pedis (L) Skin Color: Normal for Patient Respiratory Exam: rhonchi Cardiovascular Exam: tachycardia Medical Decision Making - Medical Decision Making Due to the patient's condition, the ED supervising physician, Dr. Hartley was notified immediately of the patient's condition, he was moved from room 19 to trauma 1. Patient will also be assessed by the ED attending physician. ED physician changeover. Case discussed with Dr. Powell in detail. Patient presented after leaving AGAINST MEDICAL ADVICE this morning. Respiratory distress. Hypotension, tachycardia, tachypnea with hypoxemia. Patient was immediately moved to a trauma room. Started on BiPAP. Fluid bolus was initiated. Patient met criteria for septic shock with hypotension. This was corrected after initial fluid bolus. Ordered a complete fluid bolus based on ideal body weight 2500 mL normal saline. Lab run at 130 hours Chest x-ray showed evidence of left lower lobe pneumonia, RSV was positive, we ordered the heparin protocol. CT ordered at this time--10 PM currently. Patient appears to be much improved. Zosyn was ordered for left lower lobe pneumonia. The patient had been on Zithromax as an outpatient. After discussion with the ED attending physician, we initially heparinized patient. However we're going to hold further heparin with the thought that the patient may have some bleeding into left-sided pleural effusion. We'll plan for reassessment. Patient likely has been in atrial fibrillation for quite some time. Patient admitted to [facility]. Case discussed with Amber Casey - Lab Data Result diagrams: 02/12/22 19:42 02/12/22 19:42 Lab Results 02/12/22 02/12/22 02/12/22 Range/Units 19:15 19:38 19:42 WBC 17.7 H (3.8-10.6) k/uL RBC 4.84 (4.30-5.90) m/uL Hgb 14.3 (13.0-17.5) gm/dL Hct 45.4 (39.0-53.0) % MCV 93.8 (80.0-100.0) fL MCH 29.6 (25.0-35.0) pg MCHC 31.5 (31.0-37.0) g/dL RDW 13.3 (11.5-15.5) % Plt Count 211 (150-450) k/uL MPV 9.5 Neutrophils % 83 % Lymphocytes % 7 % Monocytes % 8 % Eosinophils % 1 % Basophils % 1 % Neutrophils # 14.8 H (1.3-7.7) k/uL Lymphocytes # 1.2 (1.0-4.8) k/uL Monocytes # 1.4 H (0-1.0) k/uL Eosinophils # 0.1 (0-0.7) k/uL Basophils # 0.1 (0-0.2) k/uL Hypochromasia Slight PT (9.0-12.0) sec INR (<1.2) APTT (22.0-30.0) sec Sodium (137-145) mmol/L Potassium (3.5-5.1) mmol/L Chloride (98-107) mmol/L Carbon Dioxide (22-30) mmol/L Anion Gap mmol/L BUN (9-20) mg/dL Creatinine (0.66-1.25) mg/dL Est GFR (CKD-EPI)AfAm (>60 ml/min/1.73 sqM) Est GFR (CKD-EPI)NonAf (>60 ml/min/1.73 sqM) Glucose (74-99) mg/dL POC Glucose (mg/dL) 321 H (70-110) mg/dL POC Glu Equipment Engineer Susanne Oconnor Lactic Ac Sepsis Rflx Plasma Lactic Acid Robles (0.7-2.0) mmol/L Calcium (8.4-10.2) mg/dL Magnesium (1.6-2.3) mg/dL Total Bilirubin (0.2-1.3) mg/dL AST (17-59) U/L ALT (4-49) U/L Alkaline Phosphatase (38-126) U/L Troponin I (0.000-0.034) ng/mL NT-Pro-B Natriuret Pep pg/mL Total Protein (6.3-8.2) g/dL Albumin (3.5-5.0) g/dL TSH (0.465-4.680) mIU/L Stool Occult Blood (Negative) Influenza Type A (PCR) Not Detected (Not Detectd) Influenza Type B (PCR) Not Detected (Not Detectd) RSV (PCR) Detected A (Not Detectd) SARS-CoV-2 (PCR) Not Detected (Not Detectd) 02/12/22 02/12/22 02/12/22 Range/Units 19:42 19:42 19:42 WBC (3.8-10.6) k/uL RBC (4.30-5.90) m/uL Hgb (13.0-17.5) gm/dL Hct (39.0-53.0) % MCV (80.0-100.0) fL MCH (25.0-35.0) pg MCHC (31.0-37.0) g/dL RDW (11.5-15.5) % Plt Count (150-450) k/uL MPV Neutrophils % % Lymphocytes % % Monocytes % % Eosinophils % % Basophils % % Neutrophils # (1.3-7.7) k/uL Lymphocytes # (1.0-4.8) k/uL Monocytes # (0-1.0) k/uL Eosinophils # (0-0.7) k/uL Basophils # (0-0.2) k/uL Hypochromasia PT 11.4 (9.0-12.0) sec INR 1.1 (<1.2) APTT 20.5 L (22.0-30.0) sec Sodium 133 L (137-145) mmol/L Potassium 5.1 (3.5-5.1) mmol/L Chloride 98 (98-107) mmol/L Carbon Dioxide 23 (22-30) mmol/L Anion Gap 12 mmol/L BUN 38 H (9-20) mg/dL Creatinine 1.36 H (0.66-1.25) mg/dL Est GFR (CKD-EPI)AfAm 58 (>60 ml/min/1.73 sqM) Est GFR (CKD-EPI)NonAf 50 (>60 ml/min/1.73 sqM) Glucose 360 H (74-99) mg/dL POC Glucose (mg/dL) (70-110) mg/dL POC Glu Equipment Engineer ID Lactic Ac Sepsis Rflx Plasma Lactic Acid Robles 5.7 H* (0.7-2.0) mmol/L Calcium 8.5 (8.4-10.2) mg/dL Magnesium 1.9 (1.6-2.3) mg/dL Total Bilirubin 0.7 (0.2-1.3) mg/dL AST 43 (17-59) U/L ALT 50 H (4-49) U/L Alkaline Phosphatase 53 (38-126) U/L Troponin I (0.000-0.034) ng/mL NT-Pro-B Natriuret Pep pg/mL Total Protein 6.2 L (6.3-8.2) g/dL Albumin 3.8 (3.5-5.0) g/dL TSH 1.470 (0.465-4.680) mIU/L Stool Occult Blood (Negative) Influenza Type A (PCR) (Not Detectd) Influenza Type B (PCR) (Not Detectd) RSV (PCR) (Not Detectd) SARS-CoV-2 (PCR) (Not Detectd) 02/12/22 02/12/22 02/12/22 Range/Units 19:42 19:42 19:51 WBC (3.8-10.6) k/uL RBC (4.30-5.90) m/uL Hgb (13.0-17.5) gm/dL Hct (39.0-53.0) % MCV (80.0-100.0) fL MCH (25.0-35.0) pg MCHC (31.0-37.0) g/dL RDW (11.5-15.5) % Plt Count (150-450) k/uL MPV Neutrophils % % Lymphocytes % % Monocytes % % Eosinophils % % Basophils % % Neutrophils # (1.3-7.7) k/uL Lymphocytes # (1.0-4.8) k/uL Monocytes # (0-1.0) k/uL Eosinophils # (0-0.7) k/uL Basophils # (0-0.2) k/uL Hypochromasia PT (9.0-12.0) sec INR (<1.2) APTT (22.0-30.0) sec Sodium (137-145) mmol/L Potassium (3.5-5.1) mmol/L Chloride (98-107) mmol/L Carbon Dioxide (22-30) mmol/L Anion Gap mmol/L BUN (9-20) mg/dL Creatinine (0.66-1.25) mg/dL Est GFR (CKD-EPI)AfAm (>60 ml/min/1.73 sqM) Est GFR (CKD-EPI)NonAf (>60 ml/min/1.73 sqM) Glucose (74-99) mg/dL POC Glucose (mg/dL) (70-110) mg/dL POC Glu Equipment Engineer ID Lactic Ac Sepsis Rflx Plasma Lactic Acid Robles (0.7-2.0) mmol/L Calcium (8.4-10.2) mg/dL Magnesium (1.6-2.3) mg/dL Total Bilirubin (0.2-1.3) mg/dL AST (17-59) U/L ALT (4-49) U/L Alkaline Phosphatase (38-126) U/L Troponin I <0.012 (0.000-0.034) ng/mL NT-Pro-B Natriuret Pep 546 pg/mL Total Protein (6.3-8.2) g/dL Albumin (3.5-5.0) g/dL TSH (0.465-4.680) mIU/L Stool Occult Blood Negative (Negative) Influenza Type A (PCR) (Not Detectd) Influenza Type B (PCR) (Not Detectd) RSV (PCR) (Not Detectd) SARS-CoV-2 (PCR) (Not Detectd) 02/12/22 Range/Units 20:02 WBC (3.8-10.6) k/uL RBC (4.30-5.90) m/uL Hgb (13.0-17.5) gm/dL Hct (39.0-53.0) % MCV (80.0-100.0) fL MCH (25.0-35.0) pg MCHC (31.0-37.0) g/dL RDW (11.5-15.5) % Plt Count (150-450) k/uL MPV Neutrophils % % Lymphocytes % % Monocytes % % Eosinophils % % Basophils % % Neutrophils # (1.3-7.7) k/uL Lymphocytes # (1.0-4.8) k/uL Monocytes # (0-1.0) k/uL Eosinophils # (0-0.7) k/uL Basophils # (0-0.2) k/uL Hypochromasia PT (9.0-12.0) sec INR (<1.2) APTT (22.0-30.0) sec Sodium (137-145) mmol/L Potassium (3.5-5.1) mmol/L Chloride (98-107) mmol/L Carbon Dioxide (22-30) mmol/L Anion Gap mmol/L BUN (9-20) mg/dL Creatinine (0.66-1.25) mg/dL Est GFR (CKD-EPI)AfAm (>60 ml/min/1.73 sqM) Est GFR (CKD-EPI)NonAf (>60 ml/min/1.73 sqM) Glucose (74-99) mg/dL POC Glucose (mg/dL) (70-110) mg/dL POC Glu Equipment Engineer ID Lactic Ac Sepsis Rflx Y Plasma Lactic Acid Robles (0.7-2.0) mmol/L Calcium (8.4-10.2) mg/dL Magnesium (1.6-2.3) mg/dL Total Bilirubin (0.2-1.3) mg/dL AST (17-59) U/L ALT (4-49) U/L Alkaline Phosphatase (38-126) U/L Troponin I (0.000-0.034) ng/mL NT-Pro-B Natriuret Pep pg/mL Total Protein (6.3-8.2) g/dL Albumin (3.5-5.0) g/dL TSH (0.465-4.680) mIU/L Stool Occult Blood (Negative) Influenza Type A (PCR) (Not Detectd) Influenza Type B (PCR) (Not Detectd) RSV (PCR) (Not Detectd) SARS-CoV-2 (PCR) (Not Detectd) - EKG Data EKG Comments: EKG done at 1940 and review by the ED attending physician reveals atrial fibrillation with rapid ventricular response, 1 ectopic ventricular beat noted. Weight 119. QRS interval 79 ms, QTC 380 ms. No evidence of acute ST or T-wave changes when compared to the previous study from this morning at 2:15 AM. - Radiology Data Radiology results: report reviewed, image reviewed Radiographic images interpreted by me. Patient has evidence of left lower lobe pneumonia. Concur with radiology interpretation. Critical Care Time Critical Care Time: Yes Total Critical Care Time: 45 Critical Care Time: Evaluation of patient, evaluation patient's response to treatment, interpretation of diagnostic tests, severe sepsis with septic shock. Multiple interventions. Discussion with consultants Disposition Clinical Impression: Septic shock, Left lower lobe pneumonia, Atrial fibrillation with rapid ventricular response, Respiratory syncytial virus, Acute kidney injury Disposition: ADMITTED IP TO THIS HOSP Condition: Critical Is patient prescribed a controlled substance at d/c from ED?: No Referrals: Jaylan Desir MD [Primary Care Provider] - 1-2 days Time of Disposition: 21:51 Decision to Admit Reason: Admit from EC Decision Time: 21:51
[2022-02-12 20:03] LABS: AST 43 U/L (17-59); African American GFR (CKD) 58 (>60 ml/min/1.73 sqM); Albumin 3.8 g/dL (3.5-5.0); Alkaline Phosphatase 53 U/L (38-126); Anion Gap 12 mmol/L; Blood Urea Nitrogen 38 mg/dL (9-20); Calcium 8.5 mg/dL (8.4-10.2); Carbon Dioxide 23 mmol/L (22-30); Chloride 98 mmol/L (98-107); Glucose 360 mg/dL (74-99); Magnesium 1.9 mg/dL (1.6-2.3); Non-African American GFR(CKD) 50 (>60 ml/min/1.73 sqM); Potassium 5.1 mmol/L (3.5-5.1); Sodium 133 mmol/L (137-145); Total Bilirubin 0.7 mg/dL (0.2-1.3); Total Protein 6.2 g/dL (6.3-8.2)
[2022-02-12 20:08] LABS: Basophils # (A) 0.1 k/uL (0-0.2); Basophils % (A) 1 %; Eosinophils # (A) 0.1 k/uL (0-0.7); Eosinophils % (A) 1 %; HCT 45.4 % (39.0-53.0); HGB 14.3 gm/dL (13.0-17.5); Hypochromasia Slight; Lymphocytes # (A) 1.2 k/uL (1.0-4.8); Lymphocytes % (A) 7 %; MCH 29.6 pg (25.0-35.0); MCHC 31.5 g/dL (31.0-37.0); MCV 93.8 fL (80.0-100.0); Mean Platelet Volume 9.5; Monocytes # (A) 1.4 k/uL (0-1.0); Monocytes % (A) 8 %; Neutrophils # (A) 14.8 k/uL (1.3-7.7); Neutrophils % (A) 83 %; Platelet Count 211 k/uL (150-450); RBC 4.84 m/uL (4.30-5.90); RDW 13.3 % (11.5-15.5); WBC 17.7 k/uL (3.8-10.6)
[2022-02-12 20:13] LABS: INR 1.1 (<1.2); Partial Thromboplastin Time 20.5 sec (22.0-30.0); Prothrombin Time 11.4 sec (9.0-12.0)
[2022-02-12 20:16] LABS: ALT 50 U/L (4-49)
--- NOTE | 2022-02-12 20:24 | XR ---
EXAMINATION TYPE: XR chest 1V portable DATE OF EXAM: 02/12/2022 COMPARISON: 02/12/2022 HISTORY: Difficulty breathing TECHNIQUE: FINDINGS: There is some airspace consolidation left lower lobe with left pleural effusion the right l sara is clear. IMPRESSION: Normal heart failure. Heart size is normal. There is left lower lobe pneumonia and left p leural effusion which is a significant change compared to exam earlier today. No heart failure.
[2022-02-12] MEDS ORDERED: AZITHROMYCIN 500 MG in SODIUM CHLORIDE 0.9% 250 ML IVPB STA (21:07)
[2022-02-12] MEDS ORDERED: HEPARIN SODIUM 1,000 UN/ML (10ML VL) IV PRN (21:15)
[2022-02-12] MEDS ORDERED: HEPARIN SODIUM 1,000 UN/ML (10ML VL) IV ONE (21:15)
[2022-02-12] MEDS ORDERED: HEPARIN SOD,PORK IN 0.45% NACL 25,000 UNIT in 0.45% NACL 1 250ML.BAG IV SCH (21:15)
[2022-02-12] MEDS ORDERED: PIPERACILLIN-TAZOBACTAM 3.375 GM in SODIUM CHLORIDE 0.9% 100 ML IVPB ONE (21:30)
[2022-02-12] MEDS ORDERED: LORazepam 2 MG/ML INJ IV STA (21:48)
[2022-02-12] MEDS ORDERED: SODIUM CHLORIDE 0.9% 2,000 ML IV ONE (22:18)
--- NOTE | 2022-02-12 22:45 | CT ---
EXAMINATION TYPE: CT chest angio for PE DATE OF EXAM: 02/12/2022 COMPARISON: None HISTORY: SAMEERA CT DLP: 934.1 mGycm Automated exposure control for dose reduction was used. CONTRAST: Performed with IV Contrast, patient injected with 80 mL of Isovue 370. There are 3-D post processed images. There is a large left pleural effusion. There is left lower lobe atelectasis and infiltrate. Heart si ze is normal. No pericardial effusion. There are no hilar masses. No mediastinal adenopathy. Thoracic aorta is intact. No aneurysm. The ascending aorta measures 3.8 cm. No dissection. Mild increased int erstitial density in the right lung. No evidence of filling defect in the pulmonary arteries. The thoracic spine is intact. No compression fracture. There is mild degenerative spur formation. Chadwick rnum is intact. No evidence of rib fracture. Shoulder joints are intact. 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 IMPRESSION: No evidence of pulmonary embolism. Left large pleural effusion and left lower lobe infiltrate and ate lectasis.
[2022-02-12] MEDS ORDERED: ACETAMINOPHEN TAB 325 MG TAB PO PRN (23:51)
[2022-02-12] MEDS ORDERED: IPRATROPIUM-ALBUTEROL 3 ML NEB INHALATION PRN (23:51)
[2022-02-12] MEDS ORDERED: NALOXONE 0.4 MG/ML 1 ML VIAL IV PRN (23:51)
[2022-02-13 00:31] LABS: ABG Base Excess -2.8 mmol/L; ABG HCO3 23 mmol/L (21-25); ABG Oxygen Saturation 96.6 % (94-97); ABG PCO2 44 mmHg (35-45); ABG PH 7.33 (7.35-7.45); ABG PO2 87 mmHg (83-108); ABG TCO2 25 mmol/L (19-24); Allen Test Performed? Yes
[2022-02-13] MEDS: IPRATROPIUM-ALBUTEROL 3 ML NEB INHALATION SCH ×6 (00:35→19:37)
[2022-02-13] MEDS ORDERED: DEXTROSE 50% SYRINGE 50 ML IVP PRN ×4 (01:14→17:01)
[2022-02-13] MEDS ORDERED: INSULIN ASPART (NovoLOG) 100 UNIT/ML VIAL SQ SCH (01:15)
[2022-02-13 01:20] LABS: Glucose,Whole Blood 305 mg/dL (70-110)
[2022-02-13] MEDS: SODIUM CHLORIDE 0.9% 1,000 ML IV SCH ×3 (01:45→17:14)
[2022-02-13] MEDS: PANTOPRAZOLE 40 MG/10 ML VIAL IV SCH ×2 (03:06→10:45)
[2022-02-13 03:43] LABS: Calcium 8.2 mg/dL (8.4-10.2); Magnesium 1.9 mg/dL (1.6-2.3); Phosphorus 5.4 mg/dL (2.5-4.5); Potassium 4.6 mmol/L (3.5-5.1)
[2022-02-13 03:48] LABS: Partial Thromboplastin Time 21.3 sec (22.0-30.0); Prothrombin Time 10.9 sec (9.0-12.0)
[2022-02-13 03:49] LABS: Basophils % (A) 0 %; Eosinophils % (A) 0 %; HCT 41.5 % (39.0-53.0); HGB 13.3 gm/dL (13.0-17.5); Hypochromasia Slight; Lymphocytes # (A) 1.6 k/uL (1.0-4.8); Lymphocytes % (A) 8 %; MCH 29.7 pg (25.0-35.0); MCV 92.9 fL (80.0-100.0); Monocytes # (A) 1.8 k/uL (0-1.0); Monocytes % (A) 10 %; Neutrophils % (A) 80 %; Platelet Count 206 k/uL (150-450); RBC 4.46 m/uL (4.30-5.90); RDW 13.4 % (11.5-15.5); WBC 18.7 k/uL (3.8-10.6)
[2022-02-13] MEDS ORDERED: PIPERACILLIN-TAZOBACTAM 3.375 GM in SODIUM CHLORIDE 0.9% 100 ML IVPB SCH (06:00)
[2022-02-13 06:39] LABS: Glucose,Whole Blood 254 mg/dL (70-110)
[2022-02-13] MEDS: INSULIN ASPART (NovoLOG) 100 UNIT/ML VIAL SQ SCH ×2 (06:41→12:08)
--- NOTE | 2022-02-13 10:20 | P.CRDCN ---
History of Present Illness Consult date: 02/13/22 Consult reason: atrial fibrillation History of present illness: The patient is a 76-year-old male who presented to the emergency room yesterday with symptoms of an upper respiratory infection. He was found to be positive for RSV as well as having a new diagnosis of atrial fibrillation. He left AGAINST MEDICAL ADVICE after receiving breathing treatments, but returned to the emergency room later that evening with worsening shortness of breath. Chest x- ray shows large left pleural effusion, which was a significant change from initial x-ray. The patient was placed on BiPAP and transferred to the ICU. He is currently on a heparin drip. DIAGNOSTICS: EKG shows A. fib with heart rate in the 120s Chest x-ray shows left lower lobe pneumonia with pleural effusion CT of the chest shows no evidence of pulmonary embolism. Large large pleural effusion and left lower lobe infiltrates. Vital signs: Blood pressure 104/91, heart rate 115, SpO2 92% on BiPAP, respiratory rate 18 Lab data WBC 18.7, hemoglobin 13.3, hematocrit 41.5, platelet 206, sodium 133, potassium 4.6, BUN 39, creatinine 1.16, hemoglobin A1c 9.6, lactic acid 4.2, phosphorus 5.4, magnesium 1.9 PAST MEDICAL HISTORY: Diabetes mellitus, asthma, hypertension, dyslipidemia REVIEW OF SYSTEMS: Positive for fever or chills. Positive for cough or expectoration. No diaphoresis. Patient denies headache, dizziness, blurred vision, double vision. Patient denies any stomach discomfort. No nausea, vomiting. No hematochezia. No hematemesis. Denies any black stools or blood in his stools. Denies dysuria or hematuria. Positive for muscle weakness or numbness. Positive for shortness of breath. Denies chest pain PHYSICAL EXAMINATION: This is a 76-year-old male in mild respiratory distress at the time of my examination. FINAL ASSESSMENT AND PLAN: A. fib with heart rate in the 120s Pneumonia, positive for RSV Hypertension Diabetes mellitus Dyslipidemia PLAN: Continue IV heparin and consider transitioning to oral anticoagulation tomorrow Start cardizem PO for rate control Continue supportive treatment Further recommendations. Based on clinical course I am dictating on behalf of Dr Domingo Mars's history/physical and assessment/plan. Past Medical History Past Medical History: Asthma, COPD, Diabetes Mellitus, GERD/Reflux, Hypertension, Memory Impairment, Sleep Apnea/CPAP/BIPAP Additional Past Medical History / Comment(s): SOB w/exertion, supposed to use CPAP, peripheral neuropathy History of Any Multi-Drug Resistant Organisms: None Reported Past Surgical History: Joint Replacement, Orthopedic Surgery Additional Past Surgical History / Comment(s): cataract surg., rotator cuff repair, left knee replaced, benign fatty tumor removed, broke back without surgery Past Anesthesia/Blood Transfusion Reactions: Previous Problems w/ Anesthesia Additional Past Anesthesia/Blood Transfusion Reaction / Comment(s): developed vertigo few days after surg. Past Psychological History: Anxiety Smoking Status: Former smoker Past Alcohol Use History: Rare Additional Past Alcohol Use History / Comment(s): quit smoking 40 yrs. ago, smoked for 7-8 yrs. Past Drug Use History: None Reported - Past Family History Mother Family Medical History: Cancer Medications and Allergies Home Medications Medication Instructions Recorded Confirmed Type Ascorbic Acid [Vitamin C] 1,000 mg PO HS 01/21/16 02/12/22 History Aspirin [Adult Low Dose Aspirin EC] 81 mg PO HS 01/21/16 02/12/22 History Cholecalciferol [Vitamin D3 (25 50 mcg PO HS 01/21/16 02/12/22 History Mcg = 1000 Iu)] [place]-3 Fatty Acids/Fish Oil [Fish 1 cap PO HS 01/21/16 02/12/22 History Oil 1,000 mg Softgel] Ubidecarenone [Co Q-10] 300 mg PO HS 01/21/16 02/12/22 History Zinc 50 mg PO HS 01/21/16 02/12/22 History Albuterol Sulfate [Proair 1 puff INHALATION RT-Q6H PRN 02/12/22 02/12/22 History Respiclick] Atorvastatin [Lipitor] 40 mg PO HS 02/12/22 02/12/22 History Azithromycin [Zithromax Z Pack] See Taper PO DAILY 02/12/22 02/12/22 History Gabapentin 600 mg PO BID 02/12/22 02/12/22 History Losartan [Cozaar] 50 mg PO HS 02/12/22 02/12/22 History metFORMIN HCL ER [Glucophage XR] 500 mg PO BID 02/12/22 02/12/22 History methylPREDNISolone [Medrol Dose See Taper PO DIRECTED 02/12/22 02/12/22 History Pack] sitaGLIPtin [Januvia] 100 mg PO HS 02/12/22 02/12/22 History Allergies Allergy/AdvReac Type Severity Reaction Status Date / Time Milk Containing Products Allergy Congestion/ Verified 02/12/22 20:46 [Dairy] Cough Physical Exam Vitals: Vital Signs Temp Pulse Resp BP BP Pulse Ox FiO2 02/13/22 07:43 78 18 35 02/13/22 06:00 115 H 14 104/91 92 L 02/13/22 05:30 105 H 26 H 112/78 91 L 02/13/22 05:00 124 H 23 114/95 92 L 35 02/13/22 04:30 121 H 28 H 110/79 93 L 35 02/13/22 04:24 135 H 02/13/22 04:00 97.9 F 107 H 23 121/93 91 L 02/13/22 03:30 123 H 29 H 140/87 91 L 02/13/22 03:00 104 H 24 127/99 93 L 02/13/22 02:45 110 H 27 H 128/77 93 L 02/13/22 02:30 130 H 73 H 130/89 93 L 02/13/22 02:15 114 H 27 H 124/110 93 L 02/13/22 02:00 121 H 28 H 123/85 92 L 02/13/22 01:45 112 H 32 H 132/83 93 L 02/13/22 01:30 97.7 F 114 H 34 H 117/82 92 L 35 02/13/22 01:20 35 02/13/22 01:01 118 H 23 132/104 97 02/13/22 00:40 139 H 26 H 129/86 96 02/13/22 00:29 135 H 02/13/22 00:18 101 H 26 H 116/82 93 L 02/12/22 23:30 97.5 F L 104 H 22 115/79 02/12/22 23:22 35 02/12/22 20:47 95 21 102/69 94 L 02/12/22 20:08 110 H 22 100/82 94 L 02/12/22 20:01 116 H 02/12/22 19:55 97 02/12/22 19:49 96 02/12/22 19:48 35 02/12/22 19:41 110 H 90 H 90 L 02/12/22 19:38 117 H 32 H 66/42 90 L 02/12/22 19:32 124 H 18 86/60 90 L Intake and Output 02/12/22 02/13/22 02/13/22 22:59 06:59 14:59 Intake Total 650 Output Total 350 Balance 300 Intake: IV 650 Sodium Chloride 0.9% 1, 650 000 ml @ 130 mls/hr IV . Q7H42M [facility] Rx#:[id number] Output: Urine 350 Other: Voiding Method Urinal Urinal Weight 117.934 kg 117.934 kg Results 02/13/22 03:21 02/13/22 03:21 Cardiac Enzymes 02/12/22 02/12/22 Range/Units 19:42 19:42 AST 43 (17-59) U/L Troponin I <0.012 (0.000-0.034) ng/mL Coagulation 02/12/22 02/13/22 Range/Units 19:42 03:21 PT 11.4 10.9 (9.0-12.0) sec APTT 20.5 L 21.3 L (22.0-30.0) sec CBC 02/12/22 02/13/22 Range/Units 19:42 03:21 WBC 17.7 H 18.7 H (3.8-10.6) k/uL RBC 4.84 4.46 (4.30-5.90) m/uL Hgb 14.3 13.3 (13.0-17.5) gm/dL Hct 45.4 41.5 (39.0-53.0) % Plt Count 211 206 (150-450) k/uL Comprehensive Metabolic Panel 02/12/22 02/13/22 Range/Units 19:42 03:21 Sodium 133 L 133 L (137-145) mmol/L Potassium 5.1 4.6 (3.5-5.1) mmol/L Chloride 98 99 (98-107) mmol/L Carbon Dioxide 23 25 (22-30) mmol/L BUN 38 H 39 H (9-20) mg/dL Creatinine 1.36 H 1.16 (0.66-1.25) mg/dL Glucose 360 H 302 H (74-99) mg/dL Calcium 8.5 8.2 L (8.4-10.2) mg/dL AST 43 (17-59) U/L ALT 50 H (4-49) U/L Alkaline Phosphatase 53 (38-126) U/L Total Protein 6.2 L (6.3-8.2) g/dL Albumin 3.8 (3.5-5.0) g/dL Current Medications Generic Name Dose Route Start Last Admin Trade Name Freq PRN Reason Stop Dose Admin Acetaminophen 650 mg 02/12/22 23:51 Acetaminophen Tab 325 Mg Tab PO Q4HR PRN Fever and/or Mild Pain Albuterol/Ipratropium 3 ml 02/12/22 23:51 Ipratropium-Albuterol 3 Ml Neb INHALATION RT-Q2H PRN Shortness Of Breath Or Wheezing Albuterol/Ipratropium 3 ml 02/13/22 00:00 02/13/22 07:43 Ipratropium-Albuterol 3 Ml Neb INHALATION 3 ml RT-Q4H ENDER Administration Dextrose/Water 25 ml 02/13/22 01:14 Dextrose 50% Syringe 50 Ml IVP PER PROTOCOL PRN Hypoglycemia Protocol Dextrose/Water 50 ml 02/13/22 01:14 Dextrose 50% Syringe 50 Ml IVP PER PROTOCOL PRN Hypoglycemia Protocol Piperacillin Sod/Tazobactam 100 mls @ 25 mls/hr 02/13/22 06:00 02/13/22 05:55 Sod 3.375 gm/ Sodium Chloride IVPB 25 mls/hr Q8H ENDER Administration Protocol Sodium Chloride 1,000 mls @ 130 mls/hr 02/12/22 23:45 02/13/22 01:45 Saline 0.9% IV 130 mls/hr .Q7H42M ENDER Administration Insulin Aspart 0 unit 02/13/22 07:30 02/13/22 06:41 Insulin Aspart (Novolog) 100 Unit/Ml Vial SQ 6 unit ACHS ENDER Administration Protocol Naloxone HCl 0.2 mg 02/12/22 23:51 Naloxone 0.4 Mg/Ml 1 Ml Vial IV Q2M PRN Opioid Reversal Pantoprazole Sodium 40 mg 02/12/22 23:45 02/13/22 03:06 Pantoprazole 40 Mg/10 Ml Vial IV Not Given DAILY ENDER Intake and Output 02/12/22 02/13/22 02/13/22 22:59 06:59 14:59 Intake Total 650 Output Total 350 Balance 300 Intake: IV 650 Sodium Chloride 0.9% 1, 650 000 ml @ 130 mls/hr IV . Q7H42M [facility] Rx#:[id number] Output: Urine 350 Other: Voiding Method Urinal Urinal Weight 117.934 kg 117.934 kg 02/13/22 03:21 02/13/22 03:21
[2022-02-13] MEDS ORDERED: VANCOMYCIN IV PER PHARMACY 1 EACH MISC MISCELLANE PRN (10:25)
[2022-02-13] MEDS ORDERED: HYDROmorphone 1 MG/ML 1 ML SYRINGE IVP PRN (10:27)
[2022-02-13] MEDS ORDERED: metFORMIN 500 MG TAB PO SCH (10:30)
--- NOTE | 2022-02-13 10:36 | P.CNPUL ---
History of Present Illness Consult date: 02/13/22 Reason for consult: dyspnea, pleural effusion History of present illness: This is a 76-year-old male patient who arrived to the emergency department yesterday at 02/12/2022 1920 PM after leaving the hospital AMA the day before. The patient presented again for shortness of breath. He was also noted to be hypoxic and hypotensive. His heart rate was tachycardic ranging between 100- 120. He was tachypneic. Ejection the patient is obese. The patient is also known to have hypertension, obstructive sleep apnea and history of bronchial ast hma and hypertension. His initial presentation was essentially related to symptoms of URI and wheezing that was going on for the past 3-4 days. He denied having any chest pain. He was having some chest the for discomfort along with coughing. He was seen by Dr. Powell in the emergency department. At that time, his examination was the patient was completing a course of antibiotics that was given Tylenol patient bases in the form of Zithromax. In emergency, the patient was found to be in new onset atrial fibrillation with RVR and he was given a diagnosis of bronchitis and asthma exacerbation. He was advised to stay in the hospital he decided to leave AGAINST MEDICAL ADVICE. He came back to the hospital within 24 hours in the white cell count was elevated at 18.7 with a hemoglobin of 15.3. His blood gas showed a pH of 7.33 with a pCO2 of 44 and pO2 of 87 this was on FiO2 of 35%. Blood sugar was 302 and a sodium level was at 133 with a potassium level of 4.6 and a BUN of 39 and creatinine of 1.1. His viral screen was positive for RSV, influenza and Covid 19 testing was negative. Troponins were negative. ProBNP level was 546. TSH was at 1.4. He was given a CT angiogram that showed no evidence of any pulmonary embolism and there was a moderate-sized left-sided pleural effusion and for now, the patient remained nature fibrillation. His rate is still slightly tachycardic. The patient was receiving IV heparin and this was discontinued Review of Systems Constitutional: Denies chills, Denies fever Eyes: denies as per HPI, denies blurred vision, denies bulging eye, denies decreased vision, denies diplopia, denies discharge, denies dry eye, denies irritation, denies itching, denies pain, denies photophobia, denies loss of peripheral vision, denies loss of vision, denies tunnel vision/blind spots Ears: deny: decreased hearing, ear discharge, earache, tinnitus Ears, nose, mouth and throat: Reports as per HPI Breasts: absent: as per HPI, gynecomastia Cardiovascular: Reports decreased exercise tolerance, Reports dyspnea on exertion, Reports shortness of breath Respiratory: Reports as per HPI, Reports cough, Reports wheezing Gastrointestinal: Reports as per HPI Genitourinary: Reports as per HPI Musculoskeletal: Reports as per HPI Musculoskeletal: absent: ankle pain, ankle stiffness, ankle swelling Integumentary: Reports as per HPI Neurological: Reports as per HPI Psychiatric: Reports as per HPI Endocrine: Reports as per HPI, Reports high blood sugars Hematologic/Lymphatic: Reports as per HPI Allergic/Immunologic: Reports as per HPI Past Medical History Past Medical History: Asthma, COPD, Diabetes Mellitus, GERD/Reflux, Hypertension, Memory Impairment, Sleep Apnea/CPAP/BIPAP Additional Past Medical History / Comment(s): SOB w/exertion, supposed to use CPAP, peripheral neuropathy History of Any Multi-Drug Resistant Organisms: None Reported Past Surgical History: Joint Replacement, Orthopedic Surgery Additional Past Surgical History / Comment(s): cataract surg., rotator cuff repair, left knee replaced, benign fatty tumor removed, broke back without surgery Past Anesthesia/Blood Transfusion Reactions: Previous Problems w/ Anesthesia Additional Past Anesthesia/Blood Transfusion Reaction / Comment(s): developed vertigo few days after surg. Past Psychological History: Anxiety Smoking Status: Former smoker Past Alcohol Use History: Rare Additional Past Alcohol Use History / Comment(s): quit smoking 40 yrs. ago, sm oked for 7-8 yrs. Past Drug Use History: None Reported - Past Family History Mother Family Medical History: Cancer Medications and Allergies Home Medications Medication Instructions Recorded Confirmed Type RX: Ascorbic Acid [Vitamin C] 1,000 mg PO HS 01/21/16 02/12/22 History RX: Aspirin [Adult Low Dose 81 mg PO HS 01/21/16 02/12/22 History Aspirin EC] RX: Cholecalciferol [Vitamin D3 50 mcg PO HS 01/21/16 02/12/22 History (25 Mcg = 1000 Iu)] RX: [place]-3 Fatty Acids/Fish Oil 1 cap PO HS 01/21/16 02/12/22 History [Fish Oil 1,000 mg Softgel] RX: Ubidecarenone [Co Q-10] 300 mg PO HS 01/21/16 02/12/22 History RX: Zinc 50 mg PO HS 01/21/16 02/12/22 History Albuterol Sulfate [Proair 1 puff INHALATION RT-Q6H PRN 02/12/22 02/12/22 History Respiclick] Atorvastatin [Lipitor] 40 mg PO HS 02/12/22 02/12/22 History Azithromycin [Zithromax Z Pack] See Taper PO DAILY 02/12/22 02/12/22 History Losartan [Cozaar] 50 mg PO HS 02/12/22 02/12/22 History RX: Gabapentin 600 mg PO BID 02/12/22 02/12/22 History metFORMIN HCL ER [Glucophage XR] 500 mg PO BID 02/12/22 02/12/22 History methylPREDNISolone [Medrol Dose See Taper PO DIRECTED 02/12/22 02/12/22 History Pack] sitaGLIPtin [Januvia] 100 mg PO HS 02/12/22 02/12/22 History Allergies Allergy/AdvReac Type Severity Reaction Status Date / Time Milk Containing Products Allergy Congestion/ Verified 02/12/22 20:46 [Dairy] Cough Physical Exam Vitals: Vital Signs Temp Pulse Resp BP BP Pulse Ox FiO2 02/13/22 09:30 107 H 29 H 112/91 90 L 02/13/22 09:00 121 H 19 108/84 89 L 02/13/22 08:30 107 H 24 111/89 90 L 02/13/22 08:00 97.9 F 116 H 20 117/83 90 L 02/13/22 07:43 78 18 35 02/13/22 07:00 116 H 24 128/93 92 L 02/13/22 06:30 99 14 112/71 92 L 02/13/22 06:00 115 H 14 104/91 92 L 02/13/22 05:30 105 H 26 H 112/78 91 L 02/13/22 05:00 124 H 23 114/95 92 L 35 02/13/22 04:30 121 H 28 H 110/79 93 L 35 02/13/22 04:24 135 H 02/13/22 04:00 97.9 F 107 H 23 121/93 91 L 02/13/22 03:30 123 H 29 H 140/87 91 L 02/13/22 03:00 104 H 24 127/99 93 L 02/13/22 02:45 110 H 27 H 128/77 93 L 02/13/22 02:30 130 H 73 H 130/89 93 L 02/13/22 02:15 114 H 27 H 124/110 93 L 02/13/22 02:00 121 H 28 H 123/85 92 L 02/13/22 01:45 112 H 32 H 132/83 93 L 02/13/22 01:30 97.7 F 114 H 34 H 117/82 92 L 35 02/13/22 01:20 35 02/13/22 01:01 118 H 23 132/104 97 02/13/22 00:40 139 H 26 H 129/86 96 02/13/22 00:29 135 H 02/13/22 00:18 101 H 26 H 116/82 93 L 02/12/22 23:30 97.5 F L 104 H 22 115/79 02/12/22 23:22 35 02/12/22 20:47 95 21 102/69 94 L 02/12/22 20:08 110 H 22 100/82 94 L 02/12/22 20:01 116 H 02/12/22 19:55 97 02/12/22 19:49 96 02/12/22 19:48 35 02/12/22 19:41 110 H 90 H 90 L 02/12/22 19:38 117 H 32 H 66/42 90 L 02/12/22 19:32 124 H 18 86/60 90 L Intake and Output 02/12/22 02/13/22 02/13/22 22:59 06:59 14:59 Intake Total 650 390 Output Total 350 Balance 300 390 Intake: IV 650 390 Sodium Chloride 0.9% 1, 650 390 000 ml @ 130 mls/hr IV . Q7H42M [facility] Rx#:[id number] Output: Urine 350 Other: Voiding Method Urinal Urinal Weight 117.934 kg 117.934 kg Obese, uncomfortable, in respiratory distress with increased shortness of breath even at rest currently on oxygen at 4 L Head exam was generally normal. There was no scleral icterus or corneal arcus. Mucous membranes were moist. Neck was supple and without jugular venous distension, thyromegaly, or carotid bruits. Carotids were easily palpable bilaterally. There was no adenopathy. Significant crowding of the posterior pharynx and metastatic is 4 Lungs sounds are diminished in left lung base and the patient has dullness to percussion left lung base. The patient also diffuse expiratory wheezes as well as lung briscoe bilaterally. There is also prolongation of the sedation phase of breathing and the patient is breathing in interrupted because of frequent cough Heart sounds are irregular, tachycardic, positive S1-S2, overall heart sounds are distant Abdominal exam revealed normal bowel sounds. The abdomen was soft, non-tender, and without masses, organomegaly, or appreciable enlargement of the abdominal aorta. Examination of the extremities revealed easily palpable radial, femoral and pedal pulses. There was no cyanosis, clubbing or edema. Examination of the skin revealed no evidence of significant rashes, suspicious appearing nevi or other concerning lesions. Neurologically, the patient is awake and alert and the patient does not have any focal neurological deficit. Cranial nerves are essentially intact. Results - Laboratory Findings CBC and BMP: 02/13/22 03:21 02/13/22 03:21 ABG ABG pH 7.33 (7.35-7.45) L 02/13/22 00:29 ABG pCO2 44 mmHg (35-45) 02/13/22 00:29 ABG pO2 87 mmHg (83-108) 02/13/22 00:29 ABG O2 Saturation 96.6 % (94-97) 02/13/22 00:29 PT/INR, D-dimer PT 10.9 sec (9.0-12.0) 02/13/22 03:21 INR 1.0 (<1.2) 02/13/22 03:21 Abnormal lab findings: Abnormal Labs 02/12/22 02/12/22 02/12/22 19:15 19:38 19:42 WBC 17.7 H Neutrophils # 14.8 H Monocytes # 1.4 H APTT ABG pH ABG Total CO2 Sodium BUN Creatinine Glucose POC Glucose (mg/dL) 321 H Hemoglobin A1c Plasma Lactic Acid [place] Calcium Phosphorus ALT Total Protein RSV (PCR) Detected A 02/12/22 02/12/22 02/12/22 19:42 19:42 19:42 WBC Neutrophils # Monocytes # APTT 20.5 L ABG pH ABG Total CO2 Sodium 133 L BUN 38 H Creatinine 1.36 H Glucose 360 H POC Glucose (mg/dL) Hemoglobin A1c Plasma Lactic Acid [place] 5.7 H* Calcium Phosphorus ALT 50 H Total Protein 6.2 L RSV (PCR) 02/13/22 02/13/22 02/13/22 00:29 00:30 01:18 WBC Neutrophils # Monocytes # APTT ABG pH 7.33 L ABG Total CO2 25 H Sodium BUN Creatinine Glucose POC Glucose (mg/dL) 305 H Hemoglobin A1c Plasma Lactic Acid Robles 4.6 H* Calcium Phosphorus ALT Total Protein RSV (PCR) 02/13/22 02/13/22 02/13/22 03:21 03:21 03:21 WBC 18.7 H Neutrophils # 15.0 H Monocytes # 1.8 H APTT 21.3 L ABG pH ABG Total CO2 Sodium 133 L BUN 39 H Creatinine Glucose 302 H POC Glucose (mg/dL) Hemoglobin A1c Plasma Lactic Acid [place] Calcium 8.2 L Phosphorus 5.4 H ALT Total Protein RSV (PCR) 02/13/22 02/13/22 02/13/22 03:21 03:21 06:37 WBC Neutrophils # Monocytes # APTT ABG pH ABG Total CO2 Sodium BUN Creatinine Glucose POC Glucose (mg/dL) 254 H Hemoglobin A1c 9.6 H Plasma Lactic Acid [place] 4.2 H* Calcium Phosphorus ALT Total Protein RSV (PCR) 02/13/22 08:30 WBC Neutrophils # Monocytes # APTT ABG pH ABG Total CO2 Sodium BUN Creatinine Glucose POC Glucose (mg/dL) Hemoglobin A1c Plasma Lactic Acid [place] 3.5 H* Calcium Phosphorus ALT Total Protein RSV (PCR) - Diagnostic Findings Chest x-ray: image reviewed CT scan - chest: image reviewed Assessment and Plan Plan: Acute hypoxic respiratory failure, currently on 4 L of oxygen by nasal cannula Acute pleurisy with extensive pleuritic left-sided chest pain along the left lateral chest wall and shoulder blade, could be pneumonia especially the patient has developed a new onset left-sided pleural effusion that was not present on initial chest x-ray that was done on 02/12/2022. This is a rapid accumulation of left-sided pleural effusion. Underlying bloody effusion/pneumothorax is felt to be less likely Acute lactic acidosis, improving and the patient is currently on IV fluids Acute RSV infection with possible superinfection with a bacteria as the patient's presentation most consistent with an acute bacterial infection Acute I amV left-sided pleural effusion Acute asthma exacerbation secondary to above Acute leukocytosis Acute atrial fibrillation with rapid ventricular response currently off anticoagulation Diabetes mellitus Obesity Obstructive sleep apnea Peripheral neuropathy from diabetes mellitus Plan Keep the patient oxygen and titrate oxygen flow to maintain a saturation above 90% will check pro calcitonin level, check blood culture check urine for Legionella antigen Start the patient on a combination of cefepime and vancomycin Set up this patient for a thoracentesis of the left lung Continue bronchodilators Continue IV Solu-Medrol Restart blood sugar medication and insulin coverage and use insulin drip if needed The patient will need a thoracentesis on the left lung We'll start the patient on IV heparin after thoracentesis. Will not committed to long-term anticoagulants yet We'll continue to follow
[2022-02-13] MEDS: DILTIAZEM ORAL 30 MG TAB PO SCH ×3 (10:44→22:23)
[2022-02-13] MEDS: HYDROmorphone 0.5 MG/0.5 ML SYRINGE IVP PRN ×3 (11:00→20:02)
[2022-02-13] MEDS ORDERED: LIDOCAINE 2% (PF) 20 MG/ML 5 ML VIAL ONE ×2 (11:05→11:06)
[2022-02-13 11:11] VITALS: BMI 35.2
--- NOTE | 2022-02-13 11:18 | P.PCN ---
Date of Procedure: 02/13/22 Preoperative Diagnosis: Left pleural effusion Postoperative Diagnosis: Left hemothorax Anesthesia: local Surgeon: Jordan Martinez Operative Findings: A time out was performed and the chest x-ray was reviewed, the appropriate side was confirmed and marked. My hands were washed immediately prior to the procedure. I wore a surgical cap, mask with protective eyewear, sterile gown and sterile gloves throughout the procedure. The patient was prepped and draped in a sterile manner using chlorhexidine scrub after the appropriate level was percussed and confirmed by ultrasound. 1% lidocaine was used to anesthesize the skin, subcutaneous tissue, superior aspect of the rib periosteum and parietal pleura. A finder needle was then introduced over the superior aspect of the rib to locate the pleural fluid; 2colored fluid was aspirated at a depth of approximately 2 cm. A 10-blade scalpel was used to kanchan the skin at the insertion site. The [id number] needle was then introduced through the skin incision into the pleural space using negative aspiration pressure and the red colometric indicator to confirm appropriate positioning of the needle. The thoracentesis catheter was then threaded without difficulty. 5 ml of blood was aspirated that immediately clotted off and was not possible to do any further drainage. As such, the diagnosis is most consistent with traumatic left-sided pneumothorax
[2022-02-13 11:58] LABS: Glucose,Whole Blood 298 mg/dL (70-110)
[2022-02-13] MEDS: HEPARIN SODIUM,PORCINE/PF 5,000 UNIT/0.5 ML SYRINGE SQ SCH ×2 (11:58→20:57)
[2022-02-13] MEDS: VANCOMYCIN 1,750 MG in SODIUM CHLORIDE 0.9% 500 ML 500 ML IVPB SCH (12:07)
[2022-02-13] MEDS: methylPREDNISolone SOD SUCCI 125 MG/2 ML VIAL IV SCH ×2 (12:08→17:11)
--- NOTE | 2022-02-13 12:30 | P.GSCN ---
History of Present Illness Consult date: 02/13/22 Reason for Consult: Hemothorax Requesting physician: Jordan Martinez History of present illness: This is a 76-year-old gentleman who follows in an outpatient basis with Dr. Desir for primary care. He has a previous medical history of asthma, diabetes, hypertension, sleep apnea, and previous tobacco dependence. He presented to the emergency room yesterday with complaints of shortness of breath and cough. He was found to be in new onset A. fib with RVR as well as having acute eczema exacerbation. He denies any known history of atrial fibrillation and was not on anticoagulation prior to admission. He was to be admitted and placed on heparin with cardiology consult, however patient left AGAINST MEDICAL ADVICE. He reported back to the emergency room via EMS last night with similar complaints, with worsening shortness of breath. He was found to be hypotensive and tachycardic. Serology revealed that he was positive for RSV. WBC was elevated and 17.7, BUN 88, lactic acid 5.7, troponins were negative, BNP negligible. Chest x-ray was completed demonstrating change from the previous x-ray done in the morning. Evening x-ray demonstrated left lower lobe pleural effusion which was not present on prior chest x-ray. CTA of the chest was also completed with no evidence of pulmonary embolism, however there was a large left-sided pleural effusion and left lower lobe infiltrate with atelectasis. Patient was admitted for evaluation and treatment with consult for cardiology for new onset atrial fibrillation, as well as pulmonology for chest x-ray/CT findings. Thoracentesis was attempted today by Dr. Martinez but was unsuccessful as fluid was too thick to be aspirated, felt to have traumatic left-sided hemothorax, although patient denies any trauma. There is bruising present to the left flank area which patient is unsure how it got there. Due to these findings consultation was placed to interventional radiology for pigtail catheter placement for lytic instillation as well as thoracic surgery for potential surgical washout. Review of Systems Review of systems was completed and was negative except as noted. Of note patient is a poor historian, is very short of breath, is oriented to person and place only. - Respiratory Reports as per HPI, Reports cough, Reports dyspnea Past Medical History Past Medical History: Asthma, COPD, Diabetes Mellitus, GERD/Reflux, Hypertension, Memory Impairment, Sleep Apnea/CPAP/BIPAP Additional Past Medical History / Comment(s): SOB w/exertion, supposed to use CPAP, peripheral neuropathy; new onset atrial fibrillation this admission History of Any Multi-Drug Resistant Organisms: None Reported Past Surgical History: Joint Replacement, Orthopedic Surgery Additional Past Surgical History / Comment(s): cataract surg., rotator cuff repair, left knee replaced, benign fatty tumor removed, broke back without surgery Past Anesthesia/Blood Transfusion Reactions: Previous Problems w/ Anesthesia Additional Past Anesthesia/Blood Transfusion Reaction / Comm: developed vertigo few days after surg. Past Psychological History: Anxiety Smoking Status: Former smoker Past Alcohol Use History: Rare Additional Past Alcohol Use History / Comment(s): quit smoking 40 yrs. ago, smoked for 7-8 yrs. Past Drug Use History: None Reported - Past Family History Mother Family Medical History: Cancer Father Family Medical History: CVA/TIA Medications and Allergies Home Medications Medication Instructions Recorded Confirmed Type Ascorbic Acid [Vitamin C] 1,000 mg PO HS 01/21/16 02/12/22 History Aspirin [Adult Low Dose Aspirin EC] 81 mg PO HS 01/21/16 02/12/22 History Cholecalciferol [Vitamin D3 (25 50 mcg PO HS 01/21/16 02/12/22 History Mcg = 1000 Iu)] [place]-3 Fatty Acids/Fish Oil [Fish 1 cap PO HS 01/21/16 02/12/22 History Oil 1,000 mg Softgel] Ubidecarenone [Co Q-10] 300 mg PO HS 01/21/16 02/12/22 History Zinc 50 mg PO HS 01/21/16 02/12/22 History Albuterol Sulfate [Proair 1 puff INHALATION RT-Q6H PRN 02/12/22 02/12/22 History Respiclick] Atorvastatin [Lipitor] 40 mg PO HS 02/12/22 02/12/22 History Azithromycin [Zithromax Z Pack] See Taper PO DAILY 02/12/22 02/12/22 History Gabapentin 600 mg PO BID 02/12/22 02/12/22 History Losartan [Cozaar] 50 mg PO HS 02/12/22 02/12/22 History metFORMIN HCL ER [Glucophage XR] 500 mg PO BID 02/12/22 02/12/22 History methylPREDNISolone [Medrol Dose See Taper PO DIRECTED 02/12/22 02/12/22 History Pack] sitaGLIPtin [Januvia] 100 mg PO HS 02/12/22 02/12/22 History Allergies Allergy/AdvReac Type Severity Reaction Status Date / Time Milk Containing Products Allergy Congestion/ Verified 02/12/22 20:46 [Dairy] Cough Surgical - Exam Vital Signs Pulse Resp BP Pulse Ox 124 H 18 86/60 90 L 02/12/22 19:32 02/12/22 19:32 02/12/22 19:32 02/12/22 19:32 CONSTITUTIONAL: Awake but drowsy, appears short of breath at rest, cooperative, well-developed, well-nourished EYES: Pupils equal, round, reactive to light, normal ocular movement ENT: Moist mucous membranes dry NECK: No masses, no bruits, trachea midline RESPIRATORY: Lungs sounds very diminished on the left side. Respirations somewhat labored. Currently on 3 L nasal cannula with oxygen saturation 91%. Strong cough. No chest wall deformities. No clubbing or cyanosis present CARDIOVASCULAR: S1, S2 present. Tachy, irregular rate and rhythm, uncontrolled atrial fibrillation on telemetry. Palpable peripheral pulses bilaterally. Trace lower extremity edema present. No calf pain or tenderness noted. GASTROINTESTINAL: Abdomen soft, nontender, nondistended without masses or organomegaly noted. There is no rebound or guarding present. Active bowel sounds present 4 quadrants. GENITOURINARY: Deferred INTEGUMENTARY: Skin is warm and dry NEUROLOGIC: Cranial nerves II through XII intact MUSKULOSKELETAL: Able to move all extremities, strength equal bilaterally PSYCHIATRIC: Oriented to person and place, flat affect Results - Labs 02/14/22 05:57 02/14/22 05:57 Abnormal Lab Results - Last 24 Hours (Table) 02/12/22 02/12/22 02/12/22 Range/Units 19:15 19:38 19:42 WBC 17.7 H (3.8-10.6) k/uL Neutrophils # 14.8 H (1.3-7.7) k/uL Monocytes # 1.4 H (0-1.0) k/uL APTT (22.0-30.0) sec ABG pH (7.35-7.45) ABG Total CO2 (19-24) mmol/L Sodium (137-145) mmol/L BUN (9-20) mg/dL Creatinine (0.66-1.25) mg/dL Glucose (74-99) mg/dL POC Glucose (mg/dL) 321 H (70-110) mg/dL Hemoglobin A1c (0.0-6.0) % Plasma Lactic Acid Rob[place] (0.7-2.0) mmol/L Calcium (8.4-10.2) mg/dL Phosphorus (2.5-4.5) mg/dL ALT (4-49) U/L Total Protein (6.3-8.2) g/dL RSV (PCR) Detected A (Not Detectd) 02/12/22 02/12/22 02/12/22 Range/Units 19:42 19:42 19:42 WBC (3.8-10.6) k/uL Neutrophils # (1.3-7.7) k/uL Monocytes # (0-1.0) k/uL APTT 20.5 L (22.0-30.0) sec ABG pH (7.35-7.45) ABG Total CO2 (19-24) mmol/L Sodium 133 L (137-145) mmol/L BUN 38 H (9-20) mg/dL Creatinine 1.36 H (0.66-1.25) mg/dL Glucose 360 H (74-99) mg/dL POC Glucose (mg/dL) (70-110) mg/dL Hemoglobin A1c (0.0-6.0) % Plasma Lactic Acid Robles 5.7 H* (0.7-2.0) mmol/L Calcium (8.4-10.2) mg/dL Phosphorus (2.5-4.5) mg/dL ALT 50 H (4-49) U/L Total Protein 6.2 L (6.3-8.2) g/dL RSV (PCR) (Not Detectd) 02/13/22 02/13/22 02/13/22 Range/Units 00:29 00:30 01:18 WBC (3.8-10.6) k/uL Neutrophils # (1.3-7.7) k/uL Monocytes # (0-1.0) k/uL APTT (22.0-30.0) sec ABG pH 7.33 L (7.35-7.45) ABG Total CO2 25 H (19-24) mmol/L Sodium (137-145) mmol/L BUN (9-20) mg/dL Creatinine (0.66-1.25) mg/dL Glucose (74-99) mg/dL POC Glucose (mg/dL) 305 H (70-110) mg/dL Hemoglobin A1c (0.0-6.0) % Plasma Lactic Acid Robles 4.6 H* (0.7-2.0) mmol/L Calcium (8.4-10.2) mg/dL Phosphorus (2.5-4.5) mg/dL ALT (4-49) U/L Total Protein (6.3-8.2) g/dL RSV (PCR) (Not Detectd) 02/13/22 02/13/22 02/13/22 Range/Units 03:21 03:21 03:21 WBC 18.7 H (3.8-10.6) k/uL Neutrophils # 15.0 H (1.3-7.7) k/uL Monocytes # 1.8 H (0-1.0) k/uL APTT 21.3 L (22.0-30.0) sec ABG pH (7.35-7.45) ABG Total CO2 (19-24) mmol/L Sodium 133 L (137-145) mmol/L BUN 39 H (9-20) mg/dL Creatinine (0.66-1.25) mg/dL Glucose 302 H (74-99) mg/dL POC Glucose (mg/dL) (70-110) mg/dL Hemoglobin A1c (0.0-6.0) % Plasma Lactic Acid Robles (0.7-2.0) mmol/L Calcium 8.2 L (8.4-10.2) mg/dL Phosphorus 5.4 H (2.5-4.5) mg/dL ALT (4-49) U/L Total Protein (6.3-8.2) g/dL RSV (PCR) (Not Detectd) 02/13/22 02/13/22 02/13/22 Range/Units 03:21 03:21 06:37 WBC (3.8-10.6) k/uL Neutrophils # (1.3-7.7) k/uL Monocytes # (0-1.0) k/uL APTT (22.0-30.0) sec ABG pH (7.35-7.45) ABG Total CO2 (19-24) mmol/L Sodium (137-145) mmol/L BUN (9-20) mg/dL Creatinine (0.66-1.25) mg/dL Glucose (74-99) mg/dL POC Glucose (mg/dL) 254 H (70-110) mg/dL Hemoglobin A1c 9.6 H (0.0-6.0) % Plasma Lactic Acid Robles 4.2 H* (0.7-2.0) mmol/L Calcium (8.4-10.2) mg/dL Phosphorus (2.5-4.5) mg/dL ALT (4-49) U/L Total Protein (6.3-8.2) g/dL RSV (PCR) (Not Detectd) 02/13/22 02/13/22 Range/Units 08:30 11:56 WBC (3.8-10.6) k/uL Neutrophils # (1.3-7.7) k/uL Monocytes # (0-1.0) k/uL APTT (22.0-30.0) sec ABG pH (7.35-7.45) ABG Total CO2 (19-24) mmol/L Sodium (137-145) mmol/L BUN (9-20) mg/dL Creatinine (0.66-1.25) mg/dL Glucose (74-99) mg/dL POC Glucose (mg/dL) 298 H (70-110) mg/dL Hemoglobin A1c (0.0-6.0) % Plasma Lactic Acid Robles 3.5 H* (0.7-2.0) mmol/L Calcium (8.4-10.2) mg/dL Phosphorus (2.5-4.5) mg/dL ALT (4-49) U/L Total Protein (6.3-8.2) g/dL RSV (PCR) (Not Detectd) Diabetes panel 02/12/22 02/13/22 02/13/22 Range/Units 19:42 03:21 03:21 Sodium 133 L 133 L (137-145) mmol/L Potassium 5.1 4.6 (3.5-5.1) mmol/L Chloride 98 99 (98-107) mmol/L Carbon Dioxide 23 25 (22-30) mmol/L BUN 38 H 39 H (9-20) mg/dL Creatinine 1.36 H 1.16 (0.66-1.25) mg/dL Glucose 360 H 302 H (74-99) mg/dL Hemoglobin A1c 9.6 H (0.0-6.0) % Calcium 8.5 8.2 L (8.4-10.2) mg/dL AST 43 (17-59) U/L ALT 50 H (4-49) U/L Alkaline Phosphatase 53 (38-126) U/L Total Protein 6.2 L (6.3-8.2) g/dL Albumin 3.8 (3.5-5.0) g/dL Thyroid panel 02/12/22 Range/Units 19:42 TSH 1.470 (0.465-4.680) mIU/L Calcium panel 02/12/22 02/13/22 Range/Units 19:42 03:21 Calcium 8.5 8.2 L (8.4-10.2) mg/dL Phosphorus 5.4 H (2.5-4.5) mg/dL Albumin 3.8 (3.5-5.0) g/dL Pituitary panel 02/12/22 02/13/22 Range/Units 19:42 03:21 Sodium 133 L 133 L (137-145) mmol/L Potassium 5.1 4.6 (3.5-5.1) mmol/L Chloride 98 99 (98-107) mmol/L Carbon Dioxide 23 25 (22-30) mmol/L BUN 38 H 39 H (9-20) mg/dL Creatinine 1.36 H 1.16 (0.66-1.25) mg/dL Glucose 360 H 302 H (74-99) mg/dL Calcium 8.5 8.2 L (8.4-10.2) mg/dL TSH 1.470 (0.465-4.680) mIU/L Adrenal panel 02/12/22 02/13/22 Range/Units 19:42 03:21 Sodium 133 L 133 L (137-145) mmol/L Potassium 5.1 4.6 (3.5-5.1) mmol/L Chloride 98 99 (98-107) mmol/L Carbon Dioxide 23 25 (22-30) mmol/L BUN 38 H 39 H (9-20) mg/dL Creatinine 1.36 H 1.16 (0.66-1.25) mg/dL Glucose 360 H 302 H (74-99) mg/dL Calcium 8.5 8.2 L (8.4-10.2) mg/dL Total Bilirubin 0.7 (0.2-1.3) mg/dL AST 43 (17-59) U/L ALT 50 H (4-49) U/L Alkaline Phosphatase 53 (38-126) U/L Total Protein 6.2 L (6.3-8.2) g/dL Albumin 3.8 (3.5-5.0) g/dL - Imaging Chest x-ray: report reviewed, image reviewed CT scan - chest: report reviewed, image reviewed Assessment and Plan Assessment: 1. Hemothorax, possibly traumatic although patient denies any trauma 2. Acute hypoxic respiratory failure 3. New-onset A. fib with RVR 4. Acute RSV infection 5. Acute asthma exacerbation 6. Shortness of breath secondary to above 7. Lactic acidosis present on admission 8. History of diabetes 9. History of hypertension 10. History of sleep apnea 11. Previous tobacco dependence Plan: The patient was seen and examined at the bedside with Dr. Martinez. Chart/diagnostics were reviewed. The case will be discussed in detail with Dr. Melton. Recommend attempting pigtail catheter placement by interventional radiology in order to thin out the fluid with lytics. Patient is not a good surgical candidate at this time due to current acute respiratory compromise. We will instill lytic therapy if pigtail catheter able to be placed. Management of atrial fibrillation per cardiology. Management of other comorbidities per internal medicine, pulmonology. Wean O2 as tolerated. Thank you Dr. Martinez for this consult. More recommendations to follow based on patient's progress. I have seen and examined this patient, performed the assessment and plan as documented. Number of minutes spent on the patient: 25. YADIRA Bradshaw I have seen and examined the patient, reviewed and agree with the assessment and plan as documented by the nurse practitioner. Number of minutes spent on patient: 35. Dr. Joel Melton MD
--- NOTE | 2022-02-13 15:33 | CT ---
EXAMINATION TYPE: CT chest tube insertion DATE OF EXAM: 02/13/2022 COMPARISON: 02/12/2021 HISTORY: left side chest tube insertion for hemothorax. CT DLP: 1920 mGycm The procedure is discussed with the patient, the risks, complications, benefits and alternatives, wer e discussed and any questions were answered. Informed consent was obtained. The patient is placed i n lateral position on the CT table, prepped and draped in the usual sterile fashion. Utilizing a 22-gauge Chiba needle access into left pleural space was achieved with passage of 0.018 w lorie. Conversion to an 0.035 system. Serial dilation to 8 Russian and placement of an 8 Russian drainage catheter. All elements of maximal barrier technique were utilized. The patient remained stable thro ughout the procedure with no immediate postprocedural complication. IMPRESSION: 1. Successful CT guided chest tube placement for hemothorax.
[2022-02-13 16:06] LABS: Appearance,Urine Clear (Clear); Bilirubin,Urine Negative (Negative); Blood,Urine Negative (Negative); Color,Urine Yellow; Glucose,Urine (UA) 4+ (Negative); Ketones,Urine Trace (Negative); Leukocyte Esterase,Urine Negative (Negative); Nitrite,Urine Negative (Negative); PH, Urine 5.5 (5.0-8.0); Protein,Urine Trace (Negative); Specific Gravity,Urine 1.032 (1.001-1.035); Urobilinogen,Urine <2.0 mg/dL (<2.0)
[2022-02-13 16:31] LABS: Glucose,Whole Blood 443 mg/dL (70-110)
[2022-02-13] MEDS: CEFEPIME 2 GM in SODIUM CHLORIDE 0.9% 100 ML IVPB SCH (16:40)
[2022-02-13] MEDS ORDERED: ALTEPLASE 10 MG in SODIUM CHLORIDE 0.9% 50 ML IRRIGATION ONE (16:45)
[2022-02-13] MEDS ORDERED: DORNASE ALFA 5 MG in SODIUM CHLORIDE 0.9% 50 ML IRRIGATION ONE (16:45)
--- NOTE | 2022-02-13 17:16 | CA ---
Transthoracic Echo Report Name: Ambrocio Govea Age: 76 Gender: M : 1945 Exam Date: 02/13/2022 16:20 Exam Location: [facility] Ht (in): 72 Wt (lb): 260 Ordering Physician: Katelin Astudillo Attending/Referring Phys: [place] Block Setter Yesica Domínguez RDCS Procedure CPT: Indications: Atrial fib RVR, CHF Cardiac Hx: Technical Quality: Technically difficult study Contrast 1: Lumason Total Dose (mL): 3 Contrast 2: Total Dose (mL): MEASUREMENTS (Male / Female) Normal Values 2D ECHO LV Diastolic Diameter PLAX 4.0 cm 4.2 - 5.9 / 3.9 - 5.3 cm LV Systolic Diameter PLAX 2.9 cm IVS Diastolic Thickness 1.4 cm 0.6 - 1.0 / 0.6 - 0.9 cm LVPW Diastolic Thickness 1.3 cm 0.6 - 1.0 / 0.6 - 0.9 cm LV Relative Wall Thickness 0.7 RV Internal Dim ED PLAX 2.6 cm LA Systolic Diameter LX 4.0 cm 3.0 - 4.0 / 2.7 - 3.8 cm M-MODE Aortic Root Diameter MM 3.3 cm MV E Point Septal Separation 0.5 cm AV Cusp Separation MM 2.5 cm DOPPLER AV Peak Velocity 123.6 cm/s AV Peak Gradient 6.1 mmHg MV Area PHT 4.1 cm??? MV Deceleration Time 159.6 ms TR Peak Velocity 239.3 cm/s TR Peak Gradient 22.9 mmHg Right Ventricular Systolic Press 37.8 mmHg FINDINGS Left Ventricle Left ventricular ejection fraction is estimated at 60 %. Moderately increased left ventricular wall thickness. Left ventricular cavity size normal. Right Ventricle Normal right ventricular size. Right ventricular systolic pressure estimated at 37 mm hg. Right Atrium Right atrium not well visualized. Left Atrium Normal left atrial size. Mitral Valve Mitral valve not well visualized. No mitral stenosis, regurgitation or prolapse. Aortic Valve Trileaflet aortic valve. Focal thickening of the aortic valve cusps. Tricuspid Valve Mild tricuspid regurgitation. Tricuspid valve not well visualized. Pulmonic Valve Trace to mild pulmonic regurgitation. Pericardium Normal pericardium. No pericardial effusion. Aorta Normal size aortic root and proximal ascending aorta. CONCLUSIONS Left ventricular ejection fraction 60% Moderately increased left ventricular wall thickness RVSP 37 Mild tricuspid regurgitation RVSP 38 No pericardial effusion Previewed by: Dr. Randy Reece DO (Electronically Signed) Final Date: 13 February 2022 17:16
[2022-02-13 17:28] LABS: Glucose,Whole Blood 281 mg/dL (70-110)
[2022-02-13] MEDS: INSULIN REGULAR 100 UNIT in SODIUM CHLORIDE 0.9% 100 ML IV SCH (17:30)
[2022-02-13 18:49] LABS: Glucose,Whole Blood 271 mg/dL (70-110)
[2022-02-13 20:21] LABS: Glucose,Whole Blood 336 mg/dL (70-110)
[2022-02-13 20:21] LABS: Glucose,Whole Blood 286 mg/dL (70-110)
[2022-02-13] MEDS: ASCORBIC ACID 500 MG TAB PO SCH (20:51)
[2022-02-13] MEDS: GABAPENTIN 300 MG CAP PO SCH (20:51)
[2022-02-13] MEDS: ATORVASTATIN 40 MG TAB PO SCH (20:51)
[2022-02-13] MEDS: ZINC SULFATE 220 MG CAP PO SCH (20:51)
[2022-02-13] MEDS: LOSARTAN 50 MG TAB PO SCH (20:51)
[2022-02-13] MEDS: CHOLECALCIFEROL 25 MCG (1000 IU) TABLET PO SCH (20:51)
[2022-02-13] MEDS: ASPIRIN 81 MG PO SCH (20:57)
[2022-02-13] MEDS ORDERED: LINAGLIPTIN 5 MG TABLET PO SCH (21:00)
[2022-02-13] MEDS ORDERED: NON FORMULARY DRUG (Ubidecarenone [Co Q-10] 300 MG Capsule) PO SCH (21:00)
[2022-02-13] MEDS ORDERED: NON FORMULARY DRUG (Omega-3 Fatty Acids/Fish Oil [Fish Oil 1,000 Mg Softgel] 1 EACH Capsul PO SCH (21:00)
--- NOTE | 2022-02-13 21:00 | HP ---
HISTORY AND PHYSICAL CHIEF COMPLAINT: Shortness of breath. HISTORY OF PRESENT ILLNESS: This is a 76-year-old gentleman with a past medical history of asthma and COPD, was not feeling well over the past several days. The patient came to the ER yesterday and ended up going AMA. Because of increasing shortness of breath, the patient came back, and the patient was found to have left-sided pneumonia as well as pleural effusion. The patient is monitored in the ICU at this time. Dr. Martinez is planning possible thoracocentesis. Otherwise, the patient also had RSV positive. There is no history of any fever, rigor, or chills. The patient is slightly sedated. The patient is complaining of severe pain because of pleurisy. PAST MEDICAL HISTORY: Reviewed and incudes asthma and COPD. The rest of the history and the whole chart is reviewed. HOME MEDICATIONS: Medrol Dosepak. Dose and rest of the medications were reviewed. ALLERGIES: Milk. FAMILY HISTORY: History of cancer. SOCIAL HISTORY: Could not be taken because of change in mental status. REVIEW OF SYSTEMS: Could not be taken because of change in mental status. PHYSICAL EXAMINATION: VITAL SIGNS: Pulse is 121, blood pressure 108/84, respirations 19, the pulse ox is 89% on 3 L. HEENT: Conjunctivae are normal. NECK: No jugular venous distention. CARDIOVASCULAR: S1 and S2. RESPIRATORY: Few scattered rhonchi and crackles. ABDOMEN: Soft and obese. LEGS: No edema. NERVOUS SYSTEM: Diffusely weak. SKIN: No ulcer or rash. JOINTS: No active deformity. LYMPHATICS: No lymphadenopathy. LABORATORY DATA: Reviewed. Lactic acid 4.2. ASSESSMENT: 1. Acute left lower lobe pneumonia, community-acquired, with possible acute hypoxic respiratory failure. 2. Acute respiratory syncytial virus. 3. Left pleural effusion. 4. Asthma and chronic obstructive pulmonary disease acute exacerbation. 5. Diabetes mellitus, type 2. 6. Hypertension. 7. Multiple medical issues. RECOMMENDATIONS AND DISCUSSION: This is a 76-year-old gentleman, who presented with multiple complex medical issues. We will monitor the patient closely. The patient's cefepime has been started. We will continue with bronchodilators and steroids also. Monitor blood sugars closely. Repeat labs. DVT prophylaxis. Proton-pump inhibitors. Prognosis is guarded because of multiple complex medical issues. Further recommendations to follow. MMODL / IJN: [id number] /
[2022-02-13 21:23] LABS: Glucose,Whole Blood 286 mg/dL (70-110)
[2022-02-13 22:20] LABS: Glucose,Whole Blood 257 mg/dL (70-110)
[2022-02-13 23:13] LABS: Glucose,Whole Blood 237 mg/dL (70-110)
--- NOTE | 2022-02-13 23:24 | P.CONS ---
History of Present Illness - Reason for Consult Consult date: 02/13/22 Pneumonia Requesting physician: Kinga Morillo - Chief Complaint Left-sided chest pain and shortness of breath x one day - History of Present Illness Patient is a 76-year male presenting to the ER last night for evaluation of increasing shortness of breath patient was initially diagnosed with A. fib new onset was heparinized however the patient left AGAINST MEDICAL ADVICE patient was subsequently brought back to the hospital for evaluation of increasing shortness of breath patient was noticed to be hypotensive and hypoxic and also tachycardic on arrival to the ER the patient was afebrile and no fever have been recorded subsequently patient did have white out of 17 point 7 repeat is 18.7 with a left shift did have elevated lactic acid creatinine has been n ormal liver exams are normal urine is negative COVID testing was negative he did have positive RSV PCR influenza PCR was negative patient did have a chest x-ray left lower lobe pneumonia and left effusion patient also have a CT angiogram of the chest no evidence of PE diffuse large pleural effusion and left lower lobe infiltrate the patient is status post chest tube placement and noticed to have s ignificant hemothorax patient be started on cefepime and vancomycin,Concerning for pneumonia infectious disease was consulted for further management of antibiotic therapy concerning for sepsis, patient apparently has been complaining of increasing shortness of breath for the last few days patient also have a cough mild to moderate intensity with occasional sputum per the who provided most of the history no history of nausea vomiting diarrhea or choking on the food and no high-grade fever has been recorded at home Review of Systems Positive point has been mentioned in the HPI rest of the systems are negative Past Medical History Past Medical History: Asthma, COPD, Diabetes Mellitus, GERD/Reflux, Hypertension, Memory Impairment, Sleep Apnea/CPAP/BIPAP Additional Past Medical History / Comment(s): SOB w/exertion, supposed to use CPAP, peripheral neuropathy; new onset atrial fibrillation this admission History of Any Multi-Drug Resistant Organisms: None Reported Past Surgical History: Joint Replacement, Orthopedic Surgery Additional Past Surgical History / Comment(s): cataract surg., rotator cuff repair, left knee replaced, benign fatty tumor removed, broke back without surgery Past Anesthesia/Blood Transfusion Reactions: Previous Problems w/ Anesthesia Additional Past Anesthesia/Blood Transfusion Reaction / Comm: developed vertigo few days after surg. Past Psychological History: Anxiety Smoking Status: Former smoker Past Alcohol Use History: Rare Additional Past Alcohol Use History / Comment(s): quit smoking 40 yrs. ago, smoked for 7-8 yrs. Past Drug Use History: None Reported - Past Family History Mother Family Medical History: Cancer Father Family Medical History: CVA/TIA Medications and Allergies Home Medications Medication Instructions Recorded Confirmed Type Ascorbic Acid [Vitamin C] 1,000 mg PO HS 01/21/16 02/12/22 History Aspirin [Adult Low Dose Aspirin EC] 81 mg PO HS 01/21/16 02/12/22 History Cholecalciferol [Vitamin D3 (25 50 mcg PO HS 01/21/16 02/12/22 History Mcg = 1000 Iu)] [place]-3 Fatty Acids/Fish Oil [Fish 1 cap PO HS 01/21/16 02/12/22 History Oil 1,000 mg Softgel] Ubidecarenone [Co Q-10] 300 mg PO HS 01/21/16 02/12/22 History Zinc 50 mg PO HS 01/21/16 02/12/22 History Albuterol Sulfate [Proair 1 puff INHALATION RT-Q6H PRN 02/12/22 02/12/22 History Respiclick] Atorvastatin [Lipitor] 40 mg PO HS 02/12/22 02/12/22 History Azithromycin [Zithromax Z Pack] See Taper PO DAILY 02/12/22 02/12/22 History Gabapentin 600 mg PO BID 02/12/22 02/12/22 History Losartan [Cozaar] 50 mg PO HS 02/12/22 02/12/22 History metFORMIN HCL ER [Glucophage XR] 500 mg PO BID 02/12/22 02/12/22 History methylPREDNISolone [Medrol Dose See Taper PO DIRECTED 02/12/22 02/12/22 History Pack] sitaGLIPtin [Januvia] 100 mg PO HS 02/12/22 02/12/22 History Allergies Allergy/AdvReac Type Severity Reaction Status Date / Time Milk Containing Products Allergy Congestion/ Verified 02/12/22 20:46 [Dairy] Cough Physical Exam Vitals: Vital Signs Temp Pulse Pulse Pulse Resp BP BP 02/13/22 17:30 103 H 20 128/81 02/13/22 17:00 135 H 19 139/83 02/13/22 16:30 101 H 21 155/104 02/13/22 16:28 90 18 02/13/22 16:16 97 18 02/13/22 16:00 101 H 98 106 H 30 H 155/94 02/13/22 15:30 89 18 145/94 02/13/22 15:15 98 20 152/108 02/13/22 15:00 106 H 22 152/108 02/13/22 14:45 107 H 24 02/13/22 14:31 114 H 28 H 148/97 02/13/22 14:00 90 21 124/77 02/13/22 13:30 89 23 131/76 02/13/22 13:00 98 18 125/89 02/13/22 12:30 98 23 109/90 02/13/22 12:00 98.5 F 112 H 24 137/77 02/13/22 11:46 101 H 16 02/13/22 11:34 102 H 16 02/13/22 11:30 113 H 28 H 133/97 02/13/22 11:00 134 H 22 143/93 02/13/22 10:30 115 H 26 H 116/89 02/13/22 10:00 101 H 24 134/83 02/13/22 09:30 107 H 29 H 112/91 02/13/22 09:00 121 H 19 108/84 02/13/22 08:30 107 H 24 111/89 02/13/22 08:00 97.9 F 116 H 20 117/83 02/13/22 07:43 78 18 02/13/22 07:00 116 H 24 128/93 02/13/22 06:30 99 14 112/71 02/13/22 06:00 115 H 14 104/91 02/13/22 05:30 105 H 26 H 112/78 02/13/22 05:00 124 H 23 114/95 02/13/22 04:30 121 H 28 H 110/79 02/13/22 04:24 135 H 02/13/22 04:00 97.9 F 107 H 23 121/93 02/13/22 03:30 123 H 29 H 140/87 02/13/22 03:00 104 H 24 127/99 02/13/22 02:45 110 H 27 H 128/77 02/13/22 02:30 130 H 73 H 130/89 02/13/22 02:15 114 H 27 H 124/110 02/13/22 02:00 121 H 28 H 123/85 02/13/22 01:45 112 H 32 H 132/83 02/13/22 01:30 97.7 F 114 H 34 H 117/82 02/13/22 01:20 02/13/22 01:01 118 H 23 132/104 02/13/22 00:40 139 H 26 H 129/86 02/13/22 00:29 135 H 02/13/22 00:18 101 H 26 H 116/82 02/12/22 23:30 97.5 F L 104 H 22 115/79 02/12/22 23:22 02/12/22 20:47 95 21 102/69 02/12/22 20:08 110 H 22 100/82 02/12/22 20:01 116 H 02/12/22 19:55 02/12/22 19:49 96 02/12/22 19:48 02/12/22 19:41 110 H 90 H 02/12/22 19:38 117 H 32 H 66/42 02/12/22 19:32 124 H 18 86/60 Pulse Ox FiO2 02/13/22 17:30 92 L 02/13/22 17:00 91 L 02/13/22 16:30 91 L 02/13/22 16:28 02/13/22 16:16 92 L 02/13/22 16:00 91 L 02/13/22 15:30 89 L 02/13/22 15:15 92 L 02/13/22 15:00 90 L 02/13/22 14:45 90 L 02/13/22 14:31 90 L 02/13/22 14:00 91 L 02/13/22 13:30 90 L 02/13/22 13:00 90 L 02/13/22 12:30 88 L 02/13/22 12:00 90 L 02/13/22 11:46 02/13/22 11:34 02/13/22 11:30 91 L 02/13/22 11:00 93 L 02/13/22 10:30 92 L 02/13/22 10:00 91 L 02/13/22 09:30 90 L 02/13/22 09:00 89 L 02/13/22 08:30 90 L 02/13/22 08:00 90 L 02/13/22 07:43 35 02/13/22 07:00 92 L 02/13/22 06:30 92 L 02/13/22 06:00 92 L 02/13/22 05:30 91 L 02/13/22 05:00 92 L 35 02/13/22 04:30 93 L 35 02/13/22 04:24 02/13/22 04:00 91 L 02/13/22 03:30 91 L 02/13/22 03:00 93 L 02/13/22 02:45 93 L 02/13/22 02:30 93 L 02/13/22 02:15 93 L 02/13/22 02:00 92 L 02/13/22 01:45 93 L 02/13/22 01:30 92 L 35 02/13/22 01:20 35 02/13/22 01:01 97 02/13/22 00:40 96 02/13/22 00:29 02/13/22 00:18 93 L 02/12/22 23:30 02/12/22 23:22 35 02/12/22 20:47 94 L 02/12/22 20:08 94 L 02/12/22 20:01 02/12/22 19:55 97 02/12/22 19:49 02/12/22 19:48 35 02/12/22 19:41 90 L 02/12/22 19:38 90 L 02/12/22 19:32 90 L Intake and Output 02/13/22 02/13/22 02/13/22 06:59 14:59 22:59 Intake Total 650 1408 130 Output Total 350 505 Balance 300 1408 -375 Intake: IV 650 910 130 Sodium Chloride 0.9% 1, 650 910 130 000 ml @ 60 mls/hr IV . [id number] [facility] Rx#:[id number] Intake, IV Titration 498 Amount Vancomycin 1,750 mg In 498 Sodium Chloride 0.9% 500 ml 500 ml @ 167 mls/hr IVPB Q16H [facility] Rx#: [id number] Output: Chest Tube Drainage 155 Chest Tube Left Posterior 155 Chest Urine 350 350 Other: Voiding Method Urinal Urinal Urinal Weight 117.934 kg 117.934 kg GENERAL DESCRIPTION: An elderly male lying in bed, no distress. No tachypnea or accessory muscle of respiration use. HEENT: Shows Pallor , no scleral icterus. Oral mucous membrane is dry. No pharyngeal erythema or thrush NECK: Trachea central, no thyromegaly. LUNGS: Unlabored breathing. Decreased breaths in the bases. No wheeze or crackle. HEART: S1, S2, regular rate and rhythm. No loud murmur ABDOMEN: Soft, no tenderness , guarding or rigidity, no organomegaly EXTREMITIES: No edema of feet. SKIN: No rash, no masses palpable. NEUROLOGICAL: The patient is awake, alert, oriented x3, mood and affect normal. Results CBC & Chem 7: 02/16/22 08:20 02/16/22 08:20 Labs: Abnormal Lab Results - Last 24 Hours (Table) 02/12/22 02/12/22 02/12/22 Range/Units 19:15 19:38 19:42 WBC 17.7 H (3.8-10.6) k/uL Neutrophils # 14.8 H (1.3-7.7) k/uL Monocytes # 1.4 H (0-1.0) k/uL APTT (22.0-30.0) sec ABG pH (7.35-7.45) ABG Total CO2 (19-24) mmol/L Sodium (137-145) mmol/L BUN (9-20) mg/dL Creatinine (0.66-1.25) mg/dL Glucose (74-99) mg/dL POC Glucose (mg/dL) 321 H (70-110) mg/dL Hemoglobin A1c (0.0-6.0) % Plasma Lactic Acid Robles (0.7-2.0) mmol/L Calcium (8.4-10.2) mg/dL Phosphorus (2.5-4.5) mg/dL ALT (4-49) U/L Total Protein (6.3-8.2) g/dL Urine Protein (Negative) Urine Glucose (UA) (Negative) Urine Ketones (Negative) RSV (PCR) Detected A (Not Detectd) 02/12/22 02/12/22 02/12/22 Range/Units 19:42 19:42 19:42 WBC (3.8-10.6) k/uL Neutrophils # (1.3-7.7) k/uL Monocytes # (0-1.0) k/uL APTT 20.5 L (22.0-30.0) sec ABG pH (7.35-7.45) ABG Total CO2 (19-24) mmol/L Sodium 133 L (137-145) mmol/L BUN 38 H (9-20) mg/dL Creatinine 1.36 H (0.66-1.25) mg/dL Glucose 360 H (74-99) mg/dL POC Glucose (mg/dL) (70-110) mg/dL Hemoglobin A1c (0.0-6.0) % Plasma Lactic Acid Robles 5.7 H* (0.7-2.0) mmol/L Calcium (8.4-10.2) mg/dL Phosphorus (2.5-4.5) mg/dL ALT 50 H (4-49) U/L Total Protein 6.2 L (6.3-8.2) g/dL Urine Protein (Negative) Urine Glucose (UA) (Negative) Urine Ketones (Negative) RSV (PCR) (Not Detectd) 02/13/22 02/13/22 02/13/22 Range/Units 00:29 00:30 01:18 WBC (3.8-10.6) k/uL Neutrophils # (1.3-7.7) k/uL Monocytes # (0-1.0) k/uL APTT (22.0-30.0) sec ABG pH 7.33 L (7.35-7.45) ABG Total CO2 25 H (19-24) mmol/L Sodium (137-145) mmol/L BUN (9-20) mg/dL Creatinine (0.66-1.25) mg/dL Glucose (74-99) mg/dL POC Glucose (mg/dL) 305 H (70-110) mg/dL Hemoglobin A1c (0.0-6.0) % Plasma Lactic Acid Rob[place] 4.6 H* (0.7-2.0) mmol/L Calcium (8.4-10.2) mg/dL Phosphorus (2.5-4.5) mg/dL ALT (4-49) U/L Total Protein (6.3-8.2) g/dL Urine Protein (Negative) Urine Glucose (UA) (Negative) Urine Ketones (Negative) RSV (PCR) (Not Detectd) 02/13/22 02/13/22 02/13/22 Range/Units 03:21 03:21 03:21 WBC 18.7 H (3.8-10.6) k/uL Neutrophils # 15.0 H (1.3-7.7) k/uL Monocytes # 1.8 H (0-1.0) k/uL APTT 21.3 L (22.0-30.0) sec ABG pH (7.35-7.45) ABG Total CO2 (19-24) mmol/L Sodium 133 L (137-145) mmol/L BUN 39 H (9-20) mg/dL Creatinine (0.66-1.25) mg/dL Glucose 302 H (74-99) mg/dL POC Glucose (mg/dL) (70-110) mg/dL Hemoglobin A1c (0.0-6.0) % Plasma Lactic Acid Robles (0.7-2.0) mmol/L Calcium 8.2 L (8.4-10.2) mg/dL Phosphorus 5.4 H (2.5-4.5) mg/dL ALT (4-49) U/L Total Protein (6.3-8.2) g/dL Urine Protein (Negative) Urine Glucose (UA) (Negative) Urine Ketones (Negative) RSV (PCR) (Not Detectd) 02/13/22 02/13/22 02/13/22 Range/Units 03:21 03:21 06:37 WBC (3.8-10.6) k/uL Neutrophils # (1.3-7.7) k/uL Monocytes # (0-1.0) k/uL APTT (22.0-30.0) sec ABG pH (7.35-7.45) ABG Total CO2 (19-24) mmol/L Sodium (137-145) mmol/L BUN (9-20) mg/dL Creatinine (0.66-1.25) mg/dL Glucose (74-99) mg/dL POC Glucose (mg/dL) 254 H (70-110) mg/dL Hemoglobin A1c 9.6 H (0.0-6.0) % Plasma Lactic Acid Robles 4.2 H* (0.7-2.0) mmol/L Calcium (8.4-10.2) mg/dL Phosphorus (2.5-4.5) mg/dL ALT (4-49) U/L Total Protein (6.3-8.2) g/dL Urine Protein (Negative) Urine Glucose (UA) (Negative) Urine Ketones (Negative) RSV (PCR) (Not Detectd) 02/13/22 02/13/22 02/13/22 Range/Units 08:30 11:56 16:29 WBC (3.8-10.6) k/uL Neutrophils # (1.3-7.7) k/uL Monocytes # (0-1.0) k/uL APTT (22.0-30.0) sec ABG pH (7.35-7.45) ABG Total CO2 (19-24) mmol/L Sodium (137-145) mmol/L BUN (9-20) mg/dL Creatinine (0.66-1.25) mg/dL Glucose (74-99) mg/dL POC Glucose (mg/dL) 298 H 443 H (70-110) mg/dL Hemoglobin A1c (0.0-6.0) % Plasma Lactic Acid Robles 3.5 H* (0.7-2.0) mmol/L Calcium (8.4-10.2) mg/dL Phosphorus (2.5-4.5) mg/dL ALT (4-49) U/L Total Protein (6.3-8.2) g/dL Urine Protein (Negative) Urine Glucose (UA) (Negative) Urine Ketones (Negative) RSV (PCR) (Not Detectd) 02/13/22 02/13/22 Range/Units 17:25 Unknown WBC (3.8-10.6) k/uL Neutrophils # (1.3-7.7) k/uL Monocytes # (0-1.0) k/uL APTT (22.0-30.0) sec ABG pH (7.35-7.45) ABG Total CO2 (19-24) mmol/L Sodium (137-145) mmol/L BUN (9-20) mg/dL Creatinine (0.66-1.25) mg/dL Glucose (74-99) mg/dL POC Glucose (mg/dL) 281 H (70-110) mg/dL Hemoglobin A1c (0.0-6.0) % Plasma Lactic Acid Rob[place] (0.7-2.0) mmol/L Calcium (8.4-10.2) mg/dL Phosphorus (2.5-4.5) mg/dL ALT (4-49) U/L Total Protein (6.3-8.2) g/dL Urine Protein Trace H (Negative) Urine Glucose (UA) 4+ H (Negative) Urine Ketones Trace H (Negative) RSV (PCR) (Not Detectd) Assessment and Plan (1) Left lower lobe pneumonia Current Visit: Yes Status: Acute Code(s): J18.9 - PNEUMONIA, UNSPECIFIED ORGANISM SNOMED Code(s): 553476026 Plan: 1patient presented to hospital with increasing shortness of breath which is likely multifactorial in this patient noticed to have a significant left-sided pleural effusion s/p chest tube placement with evidence of mostly bloody drainage on insertion of the chest tube questionably traumatic as the patient did have a significant bruising to that area however no clear history of any fall underlying pneumonia less likely but not entirely excluded. 2we will obtain sputum for gram stain and culture check a CRP and a procalcitonin level. 3continue with the vancomycin and cefepime will waiting for conditions to stabilize and culture to finalize 4treatment for RSV will be mostly supportive Family the bedside question were answered We will follow on clinical condition and cultures to further adjust medication if needed Thank you for this consultation will follow this patient along with you Time with Patient: Greater than 30
[2022-02-14] MEDS: methylPREDNISolone SOD SUCCI 125 MG/2 ML VIAL IV SCH ×4 (00:15→18:14)
[2022-02-14] MEDS: CEFEPIME 2 GM in SODIUM CHLORIDE 0.9% 100 ML IVPB SCH ×3 (00:16→15:58)
[2022-02-14] MEDS: SODIUM CHLORIDE 0.9% 1,000 ML IV SCH (00:16)
[2022-02-14 00:24] LABS: Glucose,Whole Blood 196 mg/dL (70-110)
[2022-02-14] MEDS: IPRATROPIUM-ALBUTEROL 3 ML NEB INHALATION SCH ×7 (00:53→19:33)
[2022-02-14 01:27] LABS: Glucose,Whole Blood 207 mg/dL (70-110)
[2022-02-14 02:31] LABS: Glucose,Whole Blood 188 mg/dL (70-110)
[2022-02-14] MEDS: VANCOMYCIN 1,750 MG in SODIUM CHLORIDE 0.9% 500 ML 500 ML IVPB SCH (03:22)
[2022-02-14 03:34] LABS: Glucose,Whole Blood 178 mg/dL (70-110)
[2022-02-14] MEDS: INSULIN REGULAR 100 UNIT in SODIUM CHLORIDE 0.9% 100 ML IV SCH ×2 (04:32→14:02)
[2022-02-14 04:36] LABS: Glucose,Whole Blood 161 mg/dL (70-110)
[2022-02-14 05:22] LABS: Glucose,Whole Blood 159 mg/dL (70-110)
[2022-02-14 06:34] LABS: Glucose,Whole Blood 153 mg/dL (70-110)
[2022-02-14 06:51] LABS: Basophils # (A) 0.1 k/uL (0-0.2); Basophils % (A) 1 %; Eosinophils # (A) 0.1 k/uL (0-0.7); Eosinophils % (A) 0 %; HCT 35.9 % (39.0-53.0); HGB 12.1 gm/dL (13.0-17.5); Lymphocytes # (A) 1.2 k/uL (1.0-4.8); Lymphocytes % (A) 4 %; MCH 30.5 pg (25.0-35.0); MCHC 33.7 g/dL (31.0-37.0); MCV 90.5 fL (80.0-100.0); Mean Platelet Volume 10.2; Monocytes # (A) 1.3 k/uL (0-1.0); Monocytes % (A) 5 %; Neutrophils # (A) 23.3 k/uL (1.3-7.7); Neutrophils % (A) 89 %; Platelet Count 206 k/uL (150-450); RBC 3.97 m/uL (4.30-5.90); RDW 13.3 % (11.5-15.5); WBC 26.3 k/uL (3.8-10.6)
[2022-02-14 07:06] LABS: ALT 29 U/L (4-49); AST 31 U/L (17-59); African American GFR (CKD) >90 (>60 ml/min/1.73 sqM); Albumin 3.2 g/dL (3.5-5.0); Alkaline Phosphatase 35 U/L (38-126); Anion Gap 7 mmol/L; Blood Urea Nitrogen 32 mg/dL (9-20); Calcium 8.3 mg/dL (8.4-10.2); Carbon Dioxide 27 mmol/L (22-30); Chloride 101 mmol/L (98-107); Glucose 158 mg/dL (74-99); Non-African American GFR(CKD) >90 (>60 ml/min/1.73 sqM); Sodium 135 mmol/L (137-145); Total Bilirubin 0.8 mg/dL (0.2-1.3); Total Protein 5.4 g/dL (6.3-8.2)
--- NOTE | 2022-02-14 07:59 | XR ---
EXAMINATION TYPE: XR chest 1V portable DATE OF EXAM: 02/14/2022 6:06 AM COMPARISON: Chest radiographs from 02/12/2022, CTA chest 02/12/2022, CT chest tube insertion 02/14/20. TECHNIQUE: XR chest 1V portable Frontal view of the chest. CLINICAL INDICATION:Male, 76 years old with history of Reassess hemothorax; FINDINGS: Lungs/Pleura: Low lung volumes. No sizable pneumothorax. Small left pleural effusion. No new focal co nsolidation. Pulmonary vascularity: Unremarkable. Heart/mediastinum: Cardiomediastinal silhouette is enlarged and stable. Atherosclerotic calcificatio ns are seen in the aorta. Musculoskeletal: No acute osseous pathology. Other findings: None Lines/Tubes: Pigtail catheter overlies the left lower lung. IMPRESSION: 1. Small left pleural effusion with pigtail catheter in place. 2. Low lung volumes with cardiomegaly.
[2022-02-14] MEDS ORDERED: ALTEPLASE 10 MG in SODIUM CHLORIDE 0.9% 50 ML IRRIGATION ONE (08:09)
[2022-02-14] MEDS ORDERED: DORNASE ALFA 5 MG in SODIUM CHLORIDE 0.9% 50 ML IRRIGATION ONE (08:09)
[2022-02-14] MEDS: GABAPENTIN 300 MG CAP PO SCH (08:31)
[2022-02-14] MEDS: DILTIAZEM ORAL 30 MG TAB PO SCH ×2 (08:31→18:10)
[2022-02-14 09:07] LABS: Glucose,Whole Blood 258 mg/dL (70-110)
[2022-02-14] MEDS: DEXMEDETOMIDINE/0.9% NACL(PMX) 400 MCG in EMPTY BAG 1 BAG IV SCH ×3 (09:08→23:40)
[2022-02-14] MEDS: HEPARIN SODIUM,PORCINE/PF 5,000 UNIT/0.5 ML SYRINGE SQ SCH ×2 (09:17→21:35)
--- NOTE | 2022-02-14 09:29 | P.PN ---
Subjective Progress Note Date: 02/14/22 The patient is 76-year-old male who is currently admitted to the hospital with RSV infection and A. fib with RVR. He was also found to have a large left pleural effusion. CT surgery was consulted as bedside chest tube could not be placed. It is assumed that this is a traumatic hemothorax. He underwent chest tube placement yesterday through interventional radiology. Follow-up chest x- ray today shows significant improvement with small left pleural effusion. He was also started on oral Cardizem yesterday. His heart rates have been better controlled overnight. PHYSICAL EXAMINATION: This is a 76-year-old male in mild respiratory distress at the time of my examination. VITALS: Blood pressure 142/58, heart rate 95, SpO2 in the low 90s on 70% and 50 L high flow nasal cannula TELEMETRY: Persistent atrial fibrillation with heart rates in the 90s to low 100s LABS: Sodium 135, potassium 5.0, BUN 32, creatinine 0.67, AST 31, ALT 29, WBC 26.3, hemoglobin 12.1, hematocrit 35.9, platelet 206 IMPRESSION: A. fib with heart rate in the 120s Pneumonia, positive for RSV Hypertension Diabetes mellitus Dyslipidemia PLAN: Start oral anticoagulation after chest tube removal Continue oral Cardizem for rate control Continue supportive treatment Further recommendations. Based on clinical course I am dictating on behalf of Dr Domingo Mars's history/physical and assessment/plan. Objective - Vital Signs Vital signs: Vital Signs Temp 98.5 F 02/13/22 12:00 Pulse 92 02/14/22 08:33 Resp 20 02/14/22 05:00 BP 142/58 02/14/22 07:00 Pulse Ox 86 L 02/14/22 07:00 FiO2 70 02/14/22 07:34 Intake & Output 02/13/22 02/14/22 02/14/22 18:59 06:59 18:59 Intake Total 1217.203 2837.123 Output Total 1255 900 950 Balance 286.687 263.123 -950 Weight 117.934 kg Intake: IV 1040 60 Sodium Chloride 0.9% 1, 1040 60 000 ml @ 60 mls/hr IV . [id number] Rx#:[id number] Intake, IV Titration 201.516 9204.123 Amount Cefepime 2 gm In Sodium 100 Chloride 0.9% 100 ml @ 25 mls/hr IVPB Q8HR [facility] Rx# :[id number] Insulin Regular 100 unit 3.687 83.123 In Sodium Chloride 0.9% 100 ml @ Titrate IV .Q0M [facility] Rx#:[id number] Sodium Chloride 0.9% 1, 420 000 ml @ 60 mls/hr IV . [id number] [facility] Rx#:[id number] Vancomycin 1,750 mg In 498 500 Sodium Chloride 0.9% 500 ml 500 ml @ 167 mls/hr IVPB Q16H [facility] Rx#: [id number] Output: Chest Tube Drainage 755 950 Chest Tube Left Posterior 755 950 Chest Urine 500 900 Other: Voiding Method Urinal Urinal - Labs CBC & Chem 7: 02/14/22 05:57 02/14/22 05:57 Labs: Abnormal Lab Results - Last 24 Hours (Table) 02/13/22 02/13/22 02/13/22 Range/Units 03:21 11:56 16:29 WBC (3.8-10.6) k/uL RBC (4.30-5.90) m/uL Hgb (13.0-17.5) gm/dL Hct (39.0-53.0) % Neutrophils # (1.3-7.7) k/uL Monocytes # (0-1.0) k/uL Sodium (137-145) mmol/L BUN (9-20) mg/dL Glucose (74-99) mg/dL POC Glucose (mg/dL) 298 H 443 H (70-110) mg/dL Calcium (8.4-10.2) mg/dL Alkaline Phosphatase (38-126) U/L Total Protein (6.3-8.2) g/dL Albumin (3.5-5.0) g/dL Procalcitonin 0.16 H (0.02-0.09) ng/mL Urine Protein (Negative) Urine Glucose (UA) (Negative) Urine Ketones (Negative) 02/13/22 02/13/22 02/13/22 Range/Units 17:25 18:47 20:15 WBC (3.8-10.6) k/uL RBC (4.30-5.90) m/uL Hgb (13.0-17.5) gm/dL Hct (39.0-53.0) % Neutrophils # (1.3-7.7) k/uL Monocytes # (0-1.0) k/uL Sodium (137-145) mmol/L BUN (9-20) mg/dL Glucose (74-99) mg/dL POC Glucose (mg/dL) 281 H 271 H 286 H (70-110) mg/dL Calcium (8.4-10.2) mg/dL Alkaline Phosphatase (38-126) U/L Total Protein (6.3-8.2) g/dL Albumin (3.5-5.0) g/dL Procalcitonin (0.02-0.09) ng/mL Urine Protein (Negative) Urine Glucose (UA) (Negative) Urine Ketones (Negative) 02/13/22 02/13/22 02/13/22 Range/Units 20:17 21:22 22:19 WBC (3.8-10.6) k/uL RBC (4.30-5.90) m/uL Hgb (13.0-17.5) gm/dL Hct (39.0-53.0) % Neutrophils # (1.3-7.7) k/uL Monocytes # (0-1.0) k/uL Sodium (137-145) mmol/L BUN (9-20) mg/dL Glucose (74-99) mg/dL POC Glucose (mg/dL) 336 H 286 H 257 H (70-110) mg/dL Calcium (8.4-10.2) mg/dL Alkaline Phosphatase (38-126) U/L Total Protein (6.3-8.2) g/dL Albumin (3.5-5.0) g/dL Procalcitonin (0.02-0.09) ng/mL Urine Protein (Negative) Urine Glucose (UA) (Negative) Urine Ketones (Negative) 02/13/22 02/13/22 02/14/22 Range/Units 23:12 Unknown 00:23 WBC (3.8-10.6) k/uL RBC (4.30-5.90) m/uL Hgb (13.0-17.5) gm/dL Hct (39.0-53.0) % Neutrophils # (1.3-7.7) k/uL Monocytes # (0-1.0) k/uL Sodium (137-145) mmol/L BUN (9-20) mg/dL Glucose (74-99) mg/dL POC Glucose (mg/dL) 237 H 196 H (70-110) mg/dL Calcium (8.4-10.2) mg/dL Alkaline Phosphatase (38-126) U/L Total Protein (6.3-8.2) g/dL Albumin (3.5-5.0) g/dL Procalcitonin (0.02-0.09) ng/mL Urine Protein Trace H (Negative) Urine Glucose (UA) 4+ H (Negative) Urine Ketones Trace H (Negative) 02/14/22 02/14/22 02/14/22 Range/Units 01:26 02:29 03:32 WBC (3.8-10.6) k/uL RBC (4.30-5.90) m/uL Hgb (13.0-17.5) gm/dL Hct (39.0-53.0) % Neutrophils # (1.3-7.7) k/uL Monocytes # (0-1.0) k/uL Sodium (137-145) mmol/L BUN (9-20) mg/dL Glucose (74-99) mg/dL POC Glucose (mg/dL) 207 H 188 H 178 H (70-110) mg/dL Calcium (8.4-10.2) mg/dL Alkaline Phosphatase (38-126) U/L Total Protein (6.3-8.2) g/dL Albumin (3.5-5.0) g/dL Procalcitonin (0.02-0.09) ng/mL Urine Protein (Negative) Urine Glucose (UA) (Negative) Urine Ketones (Negative) 02/14/22 02/14/22 02/14/22 Range/Units 04:34 05:20 05:57 WBC 26.3 H (3.8-10.6) k/uL RBC 3.97 L (4.30-5.90) m/uL Hgb 12.1 L (13.0-17.5) gm/dL Hct 35.9 L (39.0-53.0) % Neutrophils # 23.3 H (1.3-7.7) k/uL Monocytes # 1.3 H (0-1.0) k/uL Sodium (137-145) mmol/L BUN (9-20) mg/dL Glucose (74-99) mg/dL POC Glucose (mg/dL) 161 H 159 H (70-110) mg/dL Calcium (8.4-10.2) mg/dL Alkaline Phosphatase (38-126) U/L Total Protein (6.3-8.2) g/dL Albumin (3.5-5.0) g/dL Procalcitonin (0.02-0.09) ng/mL Urine Protein (Negative) Urine Glucose (UA) (Negative) Urine Ketones (Negative) 02/14/22 02/14/22 02/14/22 Range/Units 05:57 06:33 09:05 WBC (3.8-10.6) k/uL RBC (4.30-5.90) m/uL Hgb (13.0-17.5) gm/dL Hct (39.0-53.0) % Neutrophils # (1.3-7.7) k/uL Monocytes # (0-1.0) k/uL Sodium 135 L (137-145) mmol/L BUN 32 H (9-20) mg/dL Glucose 158 H (74-99) mg/dL POC Glucose (mg/dL) 153 H 258 H (70-110) mg/dL Calcium 8.3 L (8.4-10.2) mg/dL Alkaline Phosphatase 35 L (38-126) U/L Total Protein 5.4 L (6.3-8.2) g/dL Albumin 3.2 L (3.5-5.0) g/dL Procalcitonin (0.02-0.09) ng/mL Urine Protein (Negative) Urine Glucose (UA) (Negative) Urine Ketones (Negative) Microbiology - Last 24 Hours (Table) 02/13/22 00:30 Blood Culture - Preliminary Blood No Growth after 24 hours 02/13/22 00:15 Blood Culture - Preliminary Blood No Growth after 24 hours 02/13/22 17:37 Sputum Culture - Preliminary Sputum
[2022-02-14] MEDS: PANTOPRAZOLE 40 MG/10 ML VIAL IV SCH (09:37)
--- NOTE | 2022-02-14 10:07 | CDI ---
Documentation Clarification Form Date: 02/14/2022 09:48:00 AM From: Melba Tovar CCS, CCDS Admit Date: 02/13/2022 12:29:00 AM Patient Name: Ambrocio Govea Visit Number: [id number] Discharge Date: ATTENTION: The Clinical Documentation Specialists (CDI) and [facility] Coding Staff appreciate your assistance in clarifying documentation. Please respond to the clarification below the line at the bottom and electronically sign. The CDI & [facility] Coding staff will review the response and follow-up if needed. Please note: Queries are made part of the Legal Health Record. If you have any questions, please contact the author of this message via ITS. Dr. Kinga Morillo: The patient presented with the following clinical indicators. Additional clarification regarding the etiology/cause of the clinical indicators is requested. Sepsis is documented in the 02/12 ED Note: Patient will require the Sepsis bolus, now appears to have Pneumonia on the left side. Patient meets criteria for Severe Sepsis. Treat severe Sepsis and Septic Shock. Sepsis is also documented in the 02/13 Infectious Disease Consult: Concerning for Pneumonia infectious disease was consulted for further management of antibiotic therapy concerning for Sepsis. History/Risk Factors per the 02/13 H/P: Asthma, COPD, Hypertension, Diabetes Mellitus Type 2. Clinical Indicators: Presented to the ED on 02/12 via EMS with SOB. The patient was in the ED this morning, diagnosed with New Onset Atrial Fibrillation, was Heparinized and left AMA. Comes back in respiratory distress. Hypotensive & Hypoxemic, Tachypneic & Tachycardic. Admit with Septic Shock, Left lower lobe Pneumonia, Atrial Fibrillation with RVR, RSV +, HELADIO. 02/12 VS: T ( ), P 124, R 18, 32; BP 86/60, 66/42; PO 90 2% venti mask, BMI: 35.3. 02/12 LAB: WBC 17.7, Neutrophils 14.8, Monocytes 1.4; APTT 20.5; Na 133, BUN 38, Creatinine 1.36, Glucose 360, Lactic Acid 5.7, ALT 50, BNP 546, Total Protein 6.2. Serology: Infl A/B: negative, RSV +, COVID: neg. 02/12 CXR: Normal heart, Left lower lobe pneumonia and left pleural effusion. No heart failure. Treatment 02/12 - : Blood glucose monitoring, Blood cultures, Sputum culture, O2 ventimask - 2Lnc - 35% BiPAP, IV Na Chl 500 mls @ 999 mls/hr q31M, INH Ventolin 5 mg x1, INH Duoneb 3ml x1, IV Heparin drip, IV Zosyn/Tazobactam 100 mls @ 25 mls/hr x1, IV Ativan 0.5 mg x1, IV Na Chl 2,000 mls @ 999 mls/hr q2H. Consults: Pulmonary/Critical Care: ICU, Septic shock, Pneumonia, HELADIO; Infectious Disease: Pneumonia; Cardiothoracic Surgery: Hemothorax; Cardiology: New onset Atrial Fibrillation, Sepsis. In your professional opinion, please clarify if these findings signify one of the following conditions: [ ] Sepsis POA [ ] Sepsis, Not POA [ ] Severe Sepsis with Septic Shock [ ] Sepsis ruled out [ ] Other, please specify: [ ] Unable to determine (Template Last Reviewed: April 2020) Sepsis POA MTDD
[2022-02-14 10:08] LABS: Glucose,Whole Blood 275 mg/dL (70-110)
--- NOTE | 2022-02-14 10:14 | CDI ---
Documentation Clarification Form Date: 02/14/2022 10:10:00 AM From: Melba Tovar CCS, CCDS Admit Date: 02/13/2022 12:29:00 AM Patient Name: Ambrocio Govea Visit Number: [id number] Discharge Date: ATTENTION: The Clinical Documentation Specialists (CDI) and [facility] Coding Staff appreciate your assistance in clarifying documentation. Please respond to the clarification below the line at the bottom and electronically sign. The CDI & [facility] Coding staff will review the response and follow-up if needed. Please note: Queries are made part of the Legal Health Record. If you have any questions, please contact the author of this message via ITS. Dr. Jordan Martinez: Per the 02/12 ED Note, the 02/13 Cardiology Consult and the 02/13 Pulmonary Consult, the patient has a history of Asthma. Per the 02/13 Pulmonary Consult: Acute asthma exacerbation is documented without further specificity of the type of Asthma. Additional clarification regarding the Type of Asthma is requested. History/Risk Factors per the 02/13 H/P: Asthma, COPD, Hypertension, Diabetes Mellitus Type 2. Clinical Indicators: Presented to the ED on 02/12 via EMS with SOB. The patient was in the ED this morning, diagnosed with New Onset Atrial Fibrillation, was Heparinized and left AMA. Comes back in respiratory distress, Wheezing, Hypotensive & Hypoxemic, Tachypneic & Tachycardic. Admit with Septic Shock, Left lower lobe Pneumonia, Atrial Fibrillation with RVR, RSV +, HELADIO. 02/12 VS: T ( ), P 124, R 18, 32; BP 86/60, 66/42; PO 90 2% venti mask, BMI: 35.3. 02/12 LAB: WBC 17.7, Neutrophils 14.8, Monocytes 1.4; APTT 20.5; Na 133, BUN 38, Creatinine 1.36, Glucose 360, Lactic Acid 5.7, ALT 50, BNP 546, Total Protein 6.2. Serology: Infl A/B: negative, RSV +, COVID: neg. 02/12 CXR: Normal heart, Left lower lobe pneumonia and left pleural effusion. No heart failure. Treatment 02/12 - : Blood glucose monitoring, Blood cultures, Sputum culture, O2 ventimask - 2Lnc - 35% BiPAP, IV Na Chl 500 mls @ 999 mls/hr q31M, INH Ventolin 5 mg x1, INH Duoneb 3ml x1, IV Heparin drip, IV Zosyn/Tazobactam 100 mls @ 25 mls/hr x1, IV Ativan 0.5 mg x1, IV Na Chl 2,000 mls @ 999 mls/hr q2H. Please clarify the Type and Severity of Asthma, if known: [ ] Extrinsic asthma [ ] with exacerbation [ ] without exacerbation [ ] Intrinsic asthma [ ] with exacerbation [ ] without exacerbation [ ] Mild intermittent asthma [ ] with exacerbation [ ] without exacerbation [ ] Mild persistent asthma [ ] with exacerbation [ ] without exacerbation [ ] Moderate persistent asthma [ ] with exacerbation [ ] without exacerbation [x ] Severe persistent asthma [ x] with exacerbation [ ] without exacerbation [ ] Other, please specify ____ [ ] Unable to determine (Template Last Revised: May 2020) MTDD
--- NOTE | 2022-02-14 10:25 | P.PN ---
Subjective Progress Note Date: 02/14/22 Principal diagnosis: Hemothorax, possibly traumatic, acute hypoxic respiratory failure, new-onset A. fib with RVR, acute RSV infection, acute asthma exacerbation, lactic acidosis p resent on admission. History of diabetes, hypertension, sleep apnea, previous tobacco dependence POD #1 placement of left-sided pigtail catheter by interventional radiology The patient was seen and examined this morning sitting up in bed on AirVo. Remains in atrial fibrillation, mild respiratory distress with increasing oxygen demands. Remains somewhat confused and agitated. Left pigtail catheter was placed yesterday by interventional radiology, patient has had 1.75 L of bloody drainage so far after instillation of alteplase/dornase yesterday. Chest x-ray reviewed, appears slightly improved. Objective - Vital Signs Vital signs: Vital Signs Temp 98.5 F 02/13/22 12:00 Pulse 92 02/14/22 08:33 Resp 20 02/14/22 05:00 BP 142/58 02/14/22 07:00 Pulse Ox 86 L 02/14/22 07:00 FiO2 70 02/14/22 07:34 Intake & Output 02/13/22 02/14/22 02/14/22 18:59 06:59 18:59 Intake Total 6467.924 5545.123 Output Total 1255 900 950 Balance 286.687 263.123 -950 Weight 117.934 kg Intake: IV 1040 60 Sodium Chloride 0.9% 1, 1040 60 000 ml @ 60 mls/hr IV . [id number] [facility] Rx#:[id number] Intake, IV Titration 095.781 7885.123 Amount Cefepime 2 gm In Sodium 100 Chloride 0.9% 100 ml @ 25 mls/hr IVPB Q8HR [facility] Rx# :[id number] Insulin Regular 100 unit 3.687 83.123 In Sodium Chloride 0.9% 100 ml @ Titrate IV .Q0M [facility] Rx#:[id number] Sodium Chloride 0.9% 1, 420 000 ml @ 60 mls/hr IV . [id number] [facility] Rx#:[id number] Vancomycin 1,750 mg In 498 500 Sodium Chloride 0.9% 500 ml 500 ml @ 167 mls/hr IVPB Q16H [facility] Rx#: [id number] Output: Chest Tube Drainage 755 950 Chest Tube Left Posterior 755 950 Chest Urine 500 900 Other: Voiding Method Urinal Urinal - Exam CONSTITUTIONAL: Appears somewhat comfortable although fidgety/slightly agitated RESPIRATORY: Lungs sounds diminished bilaterally with expiratory wheezes present. Respirations even, slightly labored. Currently on AirVo 50 L/m/70% FiO2 with oxygen saturation mid 90s. Strong cough. CARDIOVASCULAR: S1, S2 present. Irregular rate and rhythm, atrial fibrillation on telemetry. Palpable peripheral pulses bilaterally. Bilateral lower extremity trace edema present. No calf pain or tenderness noted. GASTROINTESTINAL: Abdomen soft, nontender, nondistended. Active bowel sounds present 4 quadrants. GENITOURINARY: Continues to void INTEGUMENTARY: Skin is warm and dry NEUROLOGIC: Cranial nerves II through XII intact MUSKULOSKELETAL: Able to move all extremities, strength equal bilaterally PSYCHIATRIC: Alert and oriented to person, place, flat affect INVASIVE LINES AND TUBES: Left sided pigtail catheter present and connected to wall suction, no air leaks present, 950 mL bloody drainage overnight, 1750 mL since insertion yesterday - Allied health notes Allied health notes reviewed: nursing - Labs CBC & Chem 7: 02/14/22 05:57 02/14/22 05:57 Labs: Abnormal Lab Results - Last 24 Hours (Table) 02/13/22 02/13/22 02/13/22 Range/Units 03:21 11:56 16:29 WBC (3.8-10.6) k/uL RBC (4.30-5.90) m/uL Hgb (13.0-17.5) gm/dL Hct (39.0-53.0) % Neutrophils # (1.3-7.7) k/uL Monocytes # (0-1.0) k/uL Sodium (137-145) mmol/L BUN (9-20) mg/dL Glucose (74-99) mg/dL POC Glucose (mg/dL) 298 H 443 H (70-110) mg/dL Calcium (8.4-10.2) mg/dL Alkaline Phosphatase (38-126) U/L Total Protein (6.3-8.2) g/dL Albumin (3.5-5.0) g/dL Procalcitonin 0.16 H (0.02-0.09) ng/mL Urine Protein (Negative) Urine Glucose (UA) (Negative) Urine Ketones (Negative) 02/13/22 02/13/22 02/13/22 Range/Units 17:25 18:47 20:15 WBC (3.8-10.6) k/uL RBC (4.30-5.90) m/uL Hgb (13.0-17.5) gm/dL Hct (39.0-53.0) % Neutrophils # (1.3-7.7) k/uL Monocytes # (0-1.0) k/uL Sodium (137-145) mmol/L BUN (9-20) mg/dL Glucose (74-99) mg/dL POC Glucose (mg/dL) 281 H 271 H 286 H (70-110) mg/dL Calcium (8.4-10.2) mg/dL Alkaline Phosphatase (38-126) U/L Total Protein (6.3-8.2) g/dL Albumin (3.5-5.0) g/dL Procalcitonin (0.02-0.09) ng/mL Urine Protein (Negative) Urine Glucose (UA) (Negative) Urine Ketones (Negative) 02/13/22 02/13/22 02/13/22 Range/Units 20:17 21:22 22:19 WBC (3.8-10.6) k/uL RBC (4.30-5.90) m/uL Hgb (13.0-17.5) gm/dL Hct (39.0-53.0) % Neutrophils # (1.3-7.7) k/uL Monocytes # (0-1.0) k/uL Sodium (137-145) mmol/L BUN (9-20) mg/dL Glucose (74-99) mg/dL POC Glucose (mg/dL) 336 H 286 H 257 H (70-110) mg/dL Calcium (8.4-10.2) mg/dL Alkaline Phosphatase (38-126) U/L Total Protein (6.3-8.2) g/dL Albumin (3.5-5.0) g/dL Procalcitonin (0.02-0.09) ng/mL Urine Protein (Negative) Urine Glucose (UA) (Negative) Urine Ketones (Negative) 02/13/22 02/13/22 02/14/22 Range/Units 23:12 Unknown 00:23 WBC (3.8-10.6) k/uL RBC (4.30-5.90) m/uL Hgb (13.0-17.5) gm/dL Hct (39.0-53.0) % Neutrophils # (1.3-7.7) k/uL Monocytes # (0-1.0) k/uL Sodium (137-145) mmol/L BUN (9-20) mg/dL Glucose (74-99) mg/dL POC Glucose (mg/dL) 237 H 196 H (70-110) mg/dL Calcium (8.4-10.2) mg/dL Alkaline Phosphatase (38-126) U/L Total Protein (6.3-8.2) g/dL Albumin (3.5-5.0) g/dL Procalcitonin (0.02-0.09) ng/mL Urine Protein Trace H (Negative) Urine Glucose (UA) 4+ H (Negative) Urine Ketones Trace H (Negative) 02/14/22 02/14/22 02/14/22 Range/Units 01:26 02:29 03:32 WBC (3.8-10.6) k/uL RBC (4.30-5.90) m/uL Hgb (13.0-17.5) gm/dL Hct (39.0-53.0) % Neutrophils # (1.3-7.7) k/uL Monocytes # (0-1.0) k/uL Sodium (137-145) mmol/L BUN (9-20) mg/dL Glucose (74-99) mg/dL POC Glucose (mg/dL) 207 H 188 H 178 H (70-110) mg/dL Calcium (8.4-10.2) mg/dL Alkaline Phosphatase (38-126) U/L Total Protein (6.3-8.2) g/dL Albumin (3.5-5.0) g/dL Procalcitonin (0.02-0.09) ng/mL Urine Protein (Negative) Urine Glucose (UA) (Negative) Urine Ketones (Negative) 02/14/22 02/14/22 02/14/22 Range/Units 04:34 05:20 05:57 WBC 26.3 H (3.8-10.6) k/uL RBC 3.97 L (4.30-5.90) m/uL Hgb 12.1 L (13.0-17.5) gm/dL Hct 35.9 L (39.0-53.0) % Neutrophils # 23.3 H (1.3-7.7) k/uL Monocytes # 1.3 H (0-1.0) k/uL Sodium (137-145) mmol/L BUN (9-20) mg/dL Glucose (74-99) mg/dL POC Glucose (mg/dL) 161 H 159 H (70-110) mg/dL Calcium (8.4-10.2) mg/dL Alkaline Phosphatase (38-126) U/L Total Protein (6.3-8.2) g/dL Albumin (3.5-5.0) g/dL Procalcitonin (0.02-0.09) ng/mL Urine Protein (Negative) Urine Glucose (UA) (Negative) Urine Ketones (Negative) 02/14/22 02/14/22 02/14/22 Range/Units 05:57 06:33 09:05 WBC (3.8-10.6) k/uL RBC (4.30-5.90) m/uL Hgb (13.0-17.5) gm/dL Hct (39.0-53.0) % Neutrophils # (1.3-7.7) k/uL Monocytes # (0-1.0) k/uL Sodium 135 L (137-145) mmol/L BUN 32 H (9-20) mg/dL Glucose 158 H (74-99) mg/dL POC Glucose (mg/dL) 153 H 258 H (70-110) mg/dL Calcium 8.3 L (8.4-10.2) mg/dL Alkaline Phosphatase 35 L (38-126) U/L Total Protein 5.4 L (6.3-8.2) g/dL Albumin 3.2 L (3.5-5.0) g/dL Procalcitonin (0.02-0.09) ng/mL Urine Protein (Negative) Urine Glucose (UA) (Negative) Urine Ketones (Negative) 02/14/22 Range/Units 10:06 WBC (3.8-10.6) k/uL RBC (4.30-5.90) m/uL Hgb (13.0-17.5) gm/dL Hct (39.0-53.0) % Neutrophils # (1.3-7.7) k/uL Monocytes # (0-1.0) k/uL Sodium (137-145) mmol/L BUN (9-20) mg/dL Glucose (74-99) mg/dL POC Glucose (mg/dL) 275 H (70-110) mg/dL Calcium (8.4-10.2) mg/dL Alkaline Phosphatase (38-126) U/L Total Protein (6.3-8.2) g/dL Albumin (3.5-5.0) g/dL Procalcitonin (0.02-0.09) ng/mL Urine Protein (Negative) Urine Glucose (UA) (Negative) Urine Ketones (Negative) Microbiology - Last 24 Hours (Table) 02/13/22 17:37 Gram Stain - Preliminary Sputum Sputum Culture - Preliminary 02/13/22 00:30 Blood Culture - Preliminary Blood No Growth after 24 hours 02/13/22 00:15 Blood Culture - Preliminary Blood No Growth after 24 hours - Imaging and Cardiology Chest x-ray: report reviewed, image reviewed Assessment and Plan Assessment: 1. Hemothorax, possibly traumatic although patient denies any trauma, status post left-sided pigtail catheter placement with drainage of bloody fluid 2. Acute hypoxic respiratory failure, currently on AirVo 3. New-onset A. fib with RVR 4. Acute RSV infection 5. Acute asthma exacerbation 6. Shortness of breath secondary to above 7. Lactic acidosis present on admission 8. History of diabetes 9. History of hypertension 10. History of sleep apnea 11. Previous tobacco dependence Plan: 1. Alteplase/dornase instilled again today, second dose. Clamp tube for 1 hour dwell time then continue to suction 2. No indication for surgical washout 3. Wean O2 as tolerated 4. A. fib management per cardiology. No anticoagulation chest tube removed 5. Management of other comorbidities per internal medicine, pulmonology 6. More recommendations to follow
[2022-02-14 11:15] LABS: Glucose,Whole Blood 286 mg/dL (70-110)
[2022-02-14 12:07] LABS: Glucose,Whole Blood 237 mg/dL (70-110)
[2022-02-14 12:58] LABS: Glucose,Whole Blood 193 mg/dL (70-110)
[2022-02-14 13:55] LABS: Glucose,Whole Blood 149 mg/dL (70-110)
--- NOTE | 2022-02-14 15:02 | P.PN ---
Subjective Progress Note Date: 02/14/22 This is a 76-year-old male patient who arrived to the emergency department yesterday at 02/12/2022 1920 PM after leaving the hospital AMA the day before. The patient presented again for shortness of breath. He was also noted to be hypoxic and hypotensive. His heart rate was tachycardic ranging between 100- 120. He was tachypneic. Ejection the patient is obese. The patient is also known to have hypertension, obstructive sleep apnea and history of bronchial asthma and hypertension. His initial presentation was essentially related to symptoms of URI and wheezing that was going on for the past 3-4 days. He denied having any chest pain. He was having some chest the for discomfort along with coughing. He was seen by Dr. Powell in the emergency department. At that time, his examination was the patient was completing a course of antibiotics that was given Tylenol patient bases in the form of Zithromax. In emergency, the patient was found to be in new onset atrial fibrillation with RVR and he was given a diagnosis of bronchitis and asthma exacerbation. He was advised to stay in the hospital he decided to leave AGAINST MEDICAL ADVICE. He came back to the hospital within 24 hours in the white cell count was elevated at 18.7 with a hemoglobin of 15.3. His blood gas showed a pH of 7.33 with a pCO2 of 44 and pO2 of 87 this was on FiO2 of 35%. Blood sugar was 302 and a sodium level was at 133 with a potassium level of 4.6 and a BUN of 39 and creatinine of 1.1. His viral screen was positive for RSV, influenza and Covid 19 testing was negative. Troponins were negative. ProBNP level was 546. TSH was at 1.4. He was given a CT angiogram that showed no evidence of any pulmonary embolism and there was a moderate-sized left-sided pleural effusion and for now, the patient remained nature fibrillation. His rate is still slightly tachycardic. The patient was receiving IV heparin and this was discontinued On today's evaluation of 02/14/2022, the patient is being seen for a follow-up. Earlier today, the patient became slightly agitated and he became restless. I ordered Precedex. The medication was not started as the patient's mentation gradually improved and agitation settled down. Note that, the patient had a traumatic bloody left-sided pleural effusion. I I attempted to do a thoracentesis and I was unable to pull any bloody effusion. The blood was well formed. A pigtail catheter was inserted. He was infused into the leftand the patient immediately had a 1 L output coming out from the left chest tube. The repeat chest x-ray from today, shows improvement in the volume status and the my motion of the left-sided pleural effusion. A second treatment will be done today. Meanwhile, the patient was transitioned to high flow oxygen and the patient is currently on 50 L an FiO2 of 75%. His pro calcitonin level is at 0.16. There is an obvious bruise over the left lateral chest area and is a traumatic pleural effusion other than Malignant. Meanwhile, the patient was started on insulin drip at 10 units an hour for that blood sugar control. The patient is on normal saline at rate of 50 mL an hour. The patient wasn't thousand 26 with a hemoglobin of 12.1 and a platelet of 206, and the patient has a sodium of 135 with a potassium level of 5 and a BUN of 32 with a creatinine of 0.6. The patient is less short of breath compared to yesterday. The patient remains on DuoNeb about treatments [id number]. The patient remains on IV cefepime. The patient remains on IV Solu-Medrol 60 mg IV push every 6 hours. Objective - Vital Signs Vital signs: Vital Signs Temp 98.5 F 02/13/22 12:00 Pulse 92 02/14/22 08:33 Resp 20 02/14/22 05:00 BP 142/58 02/14/22 07:00 Pulse Ox 86 L 02/14/22 07:00 FiO2 70 02/14/22 07:34 Intake & Output 02/13/22 02/14/22 02/14/22 18:59 06:59 18:59 Intake Total 9375.040 6120.123 Output Total 1255 900 950 Balance 286.687 263.123 -950 Weight 117.934 kg Intake: IV 1040 60 Sodium Chloride 0.9% 1, 1040 60 000 ml @ 60 mls/hr IV . [id number] [facility] Rx#:[id number] Intake, IV Titration 541.161 8803.123 Amount Cefepime 2 gm In Sodium 100 Chloride 0.9% 100 ml @ 25 mls/hr IVPB Q8HR [facility] Rx# :[id number] Insulin Regular 100 unit 3.687 83.123 In Sodium Chloride 0.9% 100 ml @ Titrate IV .Q0M [facility] Rx#:[id number] Sodium Chloride 0.9% 1, 420 000 ml @ 60 mls/hr IV . [id number] [facility] Rx#:[id number] Vancomycin 1,750 mg In 498 500 Sodium Chloride 0.9% 500 ml 500 ml @ 167 mls/hr IVPB Q16H [facility] Rx#: [id number] Output: Chest Tube Drainage 755 950 Chest Tube Left Posterior 755 950 Chest Urine 500 900 Other: Voiding Method Urinal Urinal - Exam Obese, uncomfortable, in respiratory distress with increased shortness of breath even at rest currently on oxygen at airvo 50liters, Fio0 75% Head exam was generally normal. There was no scleral icterus or corneal arcus. Mucous membranes were moist. Neck was supple and without jugular venous distension, thyromegaly, or carotid bruits. Carotids were easily palpable bilaterally. There was no adenopathy. Significant crowding of the posterior pharynx and metastatic is 4 Lungs sounds are diminished in left lung base and the patient has dullness to percussion left lung base. The patient also diffuse expiratory wheezes as well as lung briscoe bilaterally. There is also prolongation of the sedation phase of breathing and the patient is breathing in interrupted because of frequent cough , the patient has a left-sided chest tube in place with bloody output. Heart sounds are irregular, tachycardic, positive S1-S2, overall heart sounds ar e distant Abdominal exam revealed normal bowel sounds. The abdomen was soft, non-tender, and without masses, organomegaly, or appreciable enlargement of the abdominal aorta. Examination of the extremities revealed easily palpable radial, femoral and pedal pulses. There was no cyanosis, clubbing or edema. Examination of the skin revealed no evidence of significant rashes, suspicious appearing nevi or other concerning lesions. Neurologically, the patient is awake and alert and the patient does not have any focal neurological deficit. Cranial nerves are essentially intact. - Labs CBC & Chem 7: 02/14/22 05:57 02/14/22 05:57 Labs: Abnormal Lab Results - Last 24 Hours (Table) 02/13/22 02/13/22 02/13/22 Range/Units 03:21 03:21 08:30 WBC (3.8-10.6) k/uL RBC (4.30-5.90) m/uL Hgb (13.0-17.5) gm/dL Hct (39.0-53.0) % Neutrophils # (1.3-7.7) k/uL Monocytes # (0-1.0) k/uL Sodium (137-145) mmol/L BUN (9-20) mg/dL Glucose (74-99) mg/dL POC Glucose (mg/dL) (70-110) mg/dL Hemoglobin A1c 9.6 H (0.0-6.0) % Plasma Lactic Acid Robles 3.5 H* (0.7-2.0) mmol/L Calcium (8.4-10.2) mg/dL Alkaline Phosphatase (38-126) U/L Total Protein (6.3-8.2) g/dL Albumin (3.5-5.0) g/dL Procalcitonin 0.16 H (0.02-0.09) ng/mL Urine Protein (Negative) Urine Glucose (UA) (Negative) Urine Ketones (Negative) 02/13/22 02/13/22 02/13/22 Range/Units 11:56 16:29 17:25 WBC (3.8-10.6) k/uL RBC (4.30-5.90) m/uL Hgb (13.0-17.5) gm/dL Hct (39.0-53.0) % Neutrophils # (1.3-7.7) k/uL Monocytes # (0-1.0) k/uL Sodium (137-145) mmol/L BUN (9-20) mg/dL Glucose (74-99) mg/dL POC Glucose (mg/dL) 298 H 443 H 281 H (70-110) mg/dL Hemoglobin A1c (0.0-6.0) % Plasma Lactic Acid Robles (0.7-2.0) mmol/L Calcium (8.4-10.2) mg/dL Alkaline Phosphatase (38-126) U/L Total Protein (6.3-8.2) g/dL Albumin (3.5-5.0) g/dL Procalcitonin (0.02-0.09) ng/mL Urine Protein (Negative) Urine Glucose (UA) (Negative) Urine Ketones (Negative) 02/13/22 02/13/22 02/13/22 Range/Units 18:47 20:15 20:17 WBC (3.8-10.6) k/uL RBC (4.30-5.90) m/uL Hgb (13.0-17.5) gm/dL Hct (39.0-53.0) % Neutrophils # (1.3-7.7) k/uL Monocytes # (0-1.0) k/uL Sodium (137-145) mmol/L BUN (9-20) mg/dL Glucose (74-99) mg/dL POC Glucose (mg/dL) 271 H 286 H 336 H (70-110) mg/dL Hemoglobin A1c (0.0-6.0) % Plasma Lactic Acid Robles (0.7-2.0) mmol/L Calcium (8.4-10.2) mg/dL Alkaline Phosphatase (38-126) U/L Total Protein (6.3-8.2) g/dL Albumin (3.5-5.0) g/dL Procalcitonin (0.02-0.09) ng/mL Urine Protein (Negative) Urine Glucose (UA) (Negative) Urine Ketones (Negative) 02/13/22 02/13/22 02/13/22 Range/Units 21:22 22:19 23:12 WBC (3.8-10.6) k/uL RBC (4.30-5.90) m/uL Hgb (13.0-17.5) gm/dL Hct (39.0-53.0) % Neutrophils # (1.3-7.7) k/uL Monocytes # (0-1.0) k/uL Sodium (137-145) mmol/L BUN (9-20) mg/dL Glucose (74-99) mg/dL POC Glucose (mg/dL) 286 H 257 H 237 H (70-110) mg/dL Hemoglobin A1c (0.0-6.0) % Plasma Lactic Acid Robles (0.7-2.0) mmol/L Calcium (8.4-10.2) mg/dL Alkaline Phosphatase (38-126) U/L Total Protein (6.3-8.2) g/dL Albumin (3.5-5.0) g/dL Procalcitonin (0.02-0.09) ng/mL Urine Protein (Negative) Urine Glucose (UA) (Negative) Urine Ketones (Negative) 02/13/22 02/14/22 02/14/22 Range/Units Unknown 00:23 01:26 WBC (3.8-10.6) k/uL RBC (4.30-5.90) m/uL Hgb (13.0-17.5) gm/dL Hct (39.0-53.0) % Neutrophils # (1.3-7.7) k/uL Monocytes # (0-1.0) k/uL Sodium (137-145) mmol/L BUN (9-20) mg/dL Glucose (74-99) mg/dL POC Glucose (mg/dL) 196 H 207 H (70-110) mg/dL Hemoglobin A1c (0.0-6.0) % Plasma Lactic Acid Robles (0.7-2.0) mmol/L Calcium (8.4-10.2) mg/dL Alkaline Phosphatase (38-126) U/L Total Protein (6.3-8.2) g/dL Albumin (3.5-5.0) g/dL Procalcitonin (0.02-0.09) ng/mL Urine Protein Trace H (Negative) Urine Glucose (UA) 4+ H (Negative) Urine Ketones Trace H (Negative) 02/14/22 02/14/22 02/14/22 Range/Units 02:29 03:32 04:34 WBC (3.8-10.6) k/uL RBC (4.30-5.90) m/uL Hgb (13.0-17.5) gm/dL Hct (39.0-53.0) % Neutrophils # (1.3-7.7) k/uL Monocytes # (0-1.0) k/uL Sodium (137-145) mmol/L BUN (9-20) mg/dL Glucose (74-99) mg/dL POC Glucose (mg/dL) 188 H 178 H 161 H (70-110) mg/dL Hemoglobin A1c (0.0-6.0) % Plasma Lactic Acid Robles (0.7-2.0) mmol/L Calcium (8.4-10.2) mg/dL Alkaline Phosphatase (38-126) U/L Total Protein (6.3-8.2) g/dL Albumin (3.5-5.0) g/dL Procalcitonin (0.02-0.09) ng/mL Urine Protein (Negative) Urine Glucose (UA) (Negative) Urine Ketones (Negative) 02/14/22 02/14/22 02/14/22 Range/Units 05:20 05:57 05:57 WBC 26.3 H (3.8-10.6) k/uL RBC 3.97 L (4.30-5.90) m/uL Hgb 12.1 L (13.0-17.5) gm/dL Hct 35.9 L (39.0-53.0) % Neutrophils # 23.3 H (1.3-7.7) k/uL Monocytes # 1.3 H (0-1.0) k/uL Sodium 135 L (137-145) mmol/L BUN 32 H (9-20) mg/dL Glucose 158 H (74-99) mg/dL POC Glucose (mg/dL) 159 H (70-110) mg/dL Hemoglobin A1c (0.0-6.0) % Plasma Lactic Acid Robles (0.7-2.0) mmol/L Calcium 8.3 L (8.4-10.2) mg/dL Alkaline Phosphatase 35 L (38-126) U/L Total Protein 5.4 L (6.3-8.2) g/dL Albumin 3.2 L (3.5-5.0) g/dL Procalcitonin (0.02-0.09) ng/mL Urine Protein (Negative) Urine Glucose (UA) (Negative) Urine Ketones (Negative) 02/14/22 Range/Units 06:33 WBC (3.8-10.6) k/uL RBC (4.30-5.90) m/uL Hgb (13.0-17.5) gm/dL Hct (39.0-53.0) % Neutrophils # (1.3-7.7) k/uL Monocytes # (0-1.0) k/uL Sodium (137-145) mmol/L BUN (9-20) mg/dL Glucose (74-99) mg/dL POC Glucose (mg/dL) 153 H (70-110) mg/dL Hemoglobin A1c (0.0-6.0) % Plasma Lactic Acid Robles (0.7-2.0) mmol/L Calcium (8.4-10.2) mg/dL Alkaline Phosphatase (38-126) U/L Total Protein (6.3-8.2) g/dL Albumin (3.5-5.0) g/dL Procalcitonin (0.02-0.09) ng/mL Urine Protein (Negative) Urine Glucose (UA) (Negative) Urine Ketones (Negative) Microbiology - Last 24 Hours (Table) 02/13/22 00:30 Blood Culture - Preliminary Blood No Growth after 24 hours 02/13/22 00:15 Blood Culture - Preliminary Blood No Growth after 24 hours 02/13/22 17:37 Sputum Culture - Preliminary Sputum Assessment and Plan Plan: Acute hypoxic respiratory failure, currently on airvo 50 liters, fio2 75% L of oxygen by nasal cannula Acute traumatic left-sided bloody pleural effusion/hemothorax post pigtail catheter insertion with TPA infusion with adequate drainage of the left-sided pleural effusion fluids/pneumothorax and the patient showed improvement in the chest x-ray findings on today's evaluation. Acute lactic acidosis, improving and the patient is currently on IV fluids, improved Acute RSV infection with possible superinfection with a bacteria as the patient's presentation most consistent with an acute bacterial infection Acute asthma exacerbation secondary to above, the patient has severe persistent chronic bronchial asthma Acute leukocytosis, secondary to above Acute atrial fibrillation with rapid ventricular response currently off anticoagulation, rate is under better control Diabetes mellitus, with certain use hyperglycemia and the patient is currently on insulin drip Obesity Obstructive sleep apnea 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 Keep the patient in intensive care unit for now for further monitoring. Will monitor the white cell count. Will monitor his overall progress.
[2022-02-14 15:07] LABS: Glucose,Whole Blood 119 mg/dL (70-110)
[2022-02-14] MEDS ORDERED: VANCOMYCIN 1,750 MG in SODIUM CHLORIDE 0.9% 500 ML 500 ML IVPB SCH (16:00)
[2022-02-14 16:04] LABS: Glucose,Whole Blood 184 mg/dL (70-110)
[2022-02-14 16:40] LABS: Glucose,Whole Blood 162 mg/dL (70-110)
[2022-02-14 17:33] LABS: ABG Base Excess 2.8 mmol/L; ABG HCO3 28 mmol/L (21-25); ABG Oxygen Saturation 89.6 % (94-97); ABG PCO2 51 mmHg (35-45); ABG PH 7.35 (7.35-7.45); ABG TCO2 30 mmol/L (19-24); Allen Test Performed? Yes
[2022-02-14 17:35] LABS: ABG PO2 56 mmHg (83-108)
[2022-02-14 18:14] LABS: Glucose,Whole Blood 142 mg/dL (70-110)
[2022-02-14 18:59] LABS: Glucose,Whole Blood 139 mg/dL (70-110)
[2022-02-14 20:15] LABS: Glucose,Whole Blood 235 mg/dL (70-110)
[2022-02-14 21:24] LABS: Glucose,Whole Blood 243 mg/dL (70-110)
[2022-02-14] MEDS: ASPIRIN 81 MG PO SCH (21:34)
[2022-02-14 21:59] LABS: ABG Base Excess 1.3 mmol/L; ABG HCO3 28 mmol/L (21-25); ABG PCO2 62 mmHg (35-45); ABG PH 7.27 (7.35-7.45); ABG PO2 88 mmHg (83-108); ABG TCO2 30 mmol/L (19-24); Allen Test Performed? Yes
[2022-02-14 23:00] LABS: Glucose,Whole Blood 268 mg/dL (70-110)
[2022-02-15] MEDS: IPRATROPIUM-ALBUTEROL 3 ML NEB INHALATION SCH ×6 (00:33→21:59)
[2022-02-15] MEDS ORDERED: HALOPERIDOL LACTATE 5 MG/ML 1 ML VIAL IVP PRN (00:36)
[2022-02-15 00:37] LABS: Glucose,Whole Blood 226 mg/dL (70-110)
[2022-02-15 01:03] LABS: Glucose,Whole Blood 222 mg/dL (70-110)
[2022-02-15 02:13] LABS: Glucose,Whole Blood 181 mg/dL (70-110)
[2022-02-15] MEDS: CHOLECALCIFEROL 25 MCG (1000 IU) TABLET PO SCH ×2 (02:32→23:29)
[2022-02-15] MEDS: ASCORBIC ACID 500 MG TAB PO SCH ×2 (02:32→23:29)
[2022-02-15] MEDS: ATORVASTATIN 40 MG TAB PO SCH ×2 (02:32→23:30)
[2022-02-15] MEDS: LOSARTAN 50 MG TAB PO SCH ×2 (02:33→23:29)
[2022-02-15] MEDS: GABAPENTIN 300 MG CAP PO SCH ×4 (02:33→23:30)
[2022-02-15] MEDS: DILTIAZEM ORAL 30 MG TAB PO SCH ×4 (02:33→23:29)
[2022-02-15] MEDS: ZINC SULFATE 220 MG CAP PO SCH ×2 (02:33→23:32)
[2022-02-15] MEDS: CEFEPIME 2 GM in SODIUM CHLORIDE 0.9% 100 ML IVPB SCH ×3 (02:37→16:34)
[2022-02-15] MEDS: methylPREDNISolone SOD SUCCI 125 MG/2 ML VIAL IV SCH ×5 (02:38→23:32)
--- NOTE | 2022-02-15 02:46 | PN ---
PROGRESS NOTE DATE OF SERVICE: 02/14/2022 SUBJECTIVE: This 76-year-old gentleman was admitted with acute left lower pneumonia, also had left pleural effusion. The patient had a pigtail catheter introduced on the left side by Radiology, about 1.75 L bloody drainage was noted. The patient was also confused as well and combative. PAST MEDICAL HISTORY: Reviewed. REVIEW OF SYSTEMS: A 14-point review is negative as mentioned earlier. CURRENT MEDICATIONS: Reviewed include DuoNeb, dose and rest of medications noted. PHYSICAL EXAMINATION: VITAL SIGNS: Pulse is 76, blood pressure 180/50, respirations 18. HEENT: Conjunctivae normal. NECK: No JVD. CARDIOVASCULAR: S1, S2 muffled. RESPIRATIONS: Bilateral scattered rhonchi and crackles. ABDOMEN: Soft. NERVOUS SYSTEM: No focal deficits. LABS: Accu-Cheks noted, rest of the labs are noted. Chest x-ray noted personally. ASSESSMENT: 1. Acute left lower lobe pneumonia, possibly community-acquired with possible acute hypoxic respiratory failure. 2. Left pneumothorax, status post pigtail catheter drainage. 3. Acute RSV infection. 4. Asthma, chronic obstructive pulmonary disease acute exacerbation. 5. Diabetes mellitus, type 2. 6. Hypertension. 7. Multiple medical issues. RECOMMENDATIONS: Recommended to continue current management and continue symptomatic treatment. Continue with drainage. Add small dose of Risperdal. Prognosis guarded because of multiple complex medical issues, antibiotics, follow the cultures. Infectious Disease following the patient closely. Further recommendations to follow. Dr. Martinez is also following the patient in ICU for further condition. See orders for details. MMODL / IJN: [id number] /
[2022-02-15] MEDS: DEXMEDETOMIDINE/0.9% NACL(PMX) 400 MCG in EMPTY BAG 1 BAG IV SCH ×5 (03:00→13:41)
[2022-02-15 03:04] LABS: Glucose,Whole Blood 159 mg/dL (70-110)
[2022-02-15 04:06] LABS: Glucose,Whole Blood 139 mg/dL (70-110)
[2022-02-15 05:09] LABS: Glucose,Whole Blood 185 mg/dL (70-110)
[2022-02-15] MEDS: SODIUM CHLORIDE 0.9% 1,000 ML IV SCH (05:33)
[2022-02-15 06:07] LABS: Glucose,Whole Blood 173 mg/dL (70-110)
[2022-02-15 07:02] LABS: Glucose,Whole Blood 201 mg/dL (70-110)
[2022-02-15 07:58] LABS: Basophils # (A) 0.1 k/uL (0-0.2); Basophils % (A) 0 %; Eosinophils # (A) 0.2 k/uL (0-0.7); Eosinophils % (A) 1 %; HCT 35.7 % (39.0-53.0); Hypochromasia Moderate; Lymphocytes # (A) 1.3 k/uL (1.0-4.8); Lymphocytes % (A) 5 %; MCH 29.4 pg (25.0-35.0); MCHC 30.9 g/dL (31.0-37.0); MCV 95.1 fL (80.0-100.0); Mean Platelet Volume 9.2; Monocytes % (A) 4 %; Neutrophils # (A) 23.9 k/uL (1.3-7.7); Neutrophils % (A) 90 %; Platelet Count 203 k/uL (150-450); RBC 3.75 m/uL (4.30-5.90); RDW 13.5 % (11.5-15.5); WBC 26.6 k/uL (3.8-10.6)
[2022-02-15 08:07] LABS: Glucose,Whole Blood 157 mg/dL (70-110)
[2022-02-15 08:12] LABS: African American GFR (CKD) >90 (>60 ml/min/1.73 sqM); Anion Gap 4 mmol/L; Blood Urea Nitrogen 46 mg/dL (9-20); Calcium 7.5 mg/dL (8.4-10.2); Carbon Dioxide 28 mmol/L (22-30); Chloride 102 mmol/L (98-107); Glucose 182 mg/dL (74-99); Non-African American GFR(CKD) 84 (>60 ml/min/1.73 sqM); Potassium 5.8 mmol/L (3.5-5.1); Sodium 134 mmol/L (137-145)
[2022-02-15] MEDS: HEPARIN SODIUM,PORCINE/PF 5,000 UNIT/0.5 ML SYRINGE SQ SCH ×2 (08:13→23:32)
--- NOTE | 2022-02-15 08:21 | XR ---
EXAMINATION TYPE: XR chest 1V portable DATE OF EXAM: 02/15/2022 6:24 AM COMPARISON: Chest radiograph from one day prior. TECHNIQUE: XR chest 1V portable Portable AP radiograph of the chest. CLINICAL INDICATION:Male, 76 years old with history of effusion; FINDINGS: Lungs/Pleura: There is no evidence of focal consolidation, or pneumothorax. No definitive large effus ion identified bilaterally low lung volumes are present. Pulmonary vascularity: Unremarkable. Heart/mediastinum: Cardiomediastinal silhouette is enlarged and stable. Atherosclerotic calcificatio ns are seen in the aorta. Musculoskeletal: No acute osseous pathology. Lines: Left pigtail catheter is in stable position. IMPRESSION: Stable left pigtail catheter without large pleural effusion identified. No pneumothorax.
[2022-02-15 08:51] LABS: Glucose,Whole Blood 162 mg/dL (70-110)
[2022-02-15] MEDS: PANTOPRAZOLE 40 MG/10 ML VIAL IV SCH (08:51)
[2022-02-15] MEDS: INSULIN REGULAR 100 UNIT in SODIUM CHLORIDE 0.9% 100 ML IV SCH (09:22)
[2022-02-15 10:01] LABS: Glucose,Whole Blood 177 mg/dL (70-110)
--- NOTE | 2022-02-15 10:17 | P.PN ---
Subjective Progress Note Date: 02/15/22 Principal diagnosis: Hemothorax, possibly traumatic, acute hypoxic respiratory failure, new-onset A. fib with RVR, acute RSV infection, acute asthma exacerbation, lactic acidosis p resent on admission. History of diabetes, hypertension, sleep apnea, previous tobacco dependence POD #2 placement of left-sided pigtail catheter by interventional radiology The patient was seen and examined this morning laying in bed on bipap. Remains in atrial fibrillation, less respiratory distress. Apparently he became very agitated overnight with multiple phone caused to the family as well as to Dr. Martinez, ultimately he was made a no code. Left pigtail catheter in place, patient had 550 mL of bloody drainage in the last 24 hours. Chest x-ray reviewed, appears improved. Pigtail catheter will likely be pulled tomorrow per pulmonology, no lytics to be instilled today. Objective - Vital Signs Vital signs: Vital Signs Temp 97.7 F 02/15/22 08:00 Pulse 76 02/15/22 10:00 Resp 27 H 02/15/22 10:00 BP 111/76 02/15/22 10:00 Pulse Ox 94 L 02/15/22 10:00 FiO2 75 02/15/22 08:00 Intake & Output 02/14/22 02/15/22 02/15/22 18:59 06:59 18:59 Intake Total 4553.964 8369.583 450.408 Output Total 2300 670 635 Balance -792.573 479.583 -184.592 Weight 135.5 kg Intake: IV 860 760 340 Cefepime 2 gm In Sodium 200 100 100 Chloride 0.9% 100 ml @ 25 mls/hr IVPB Q8HR [facility] Rx# :[id number] Sodium Chloride 0.9% 1, 660 660 240 000 ml @ 60 mls/hr IV . [id number] [facility] Rx#:[id number] Intake, IV Titration 197.427 389.583 110.408 Amount Dexmedetomidine/0.9% NaCl 62.407 346.583 99.950 (Pmx) 400 mcg In Empty Bag 1 bag @ 0.2 MCG/KG/HR 5.897 mls/hr IV .[id number] [facility] Rx#:[id number] Insulin Regular 100 unit 135.020 43.00 10.458 In Sodium Chloride 0.9% 100 ml @ Titrate IV .Q0M [facility] Rx#:[id number] Oral 450 Output: Chest Tube Drainage 1200 Chest Tube Left Posterior 1200 Chest Drainage 310 Left Posterior Chest 310 Urine 1100 670 325 Other: Voiding Method External Catheter Indwelling Catheter # Voids 1 - Exam CONSTITUTIONAL: Appears somewhat comfortable laying in bed on BiPAP RESPIRATORY: Lungs sounds diminished bilaterally. Respirations even, non-lab ored. Currently on BiPAP, 50% FiO2, 12/5, with oxygen saturation low 90s. CARDIOVASCULAR: S1, S2 present. Irregular rate and rhythm, atrial fibrillation on telemetry. Palpable peripheral pulses bilaterally. Bilateral lower extremity trace edema present. No calf pain or tenderness noted. GASTROINTESTINAL: Abdomen soft, nontender, nondistended. Active bowel sounds present 4 quadrants. GENITOURINARY: Santana catheter present with clear yellow urine INTEGUMENTARY: Skin is warm and dry NEUROLOGIC: Cranial nerves II through XII intact MUSKULOSKELETAL: Able to move all extremities, strength equal bilaterally PSYCHIATRIC: Alert and oriented to person, place, flat affect INVASIVE LINES AND TUBES: Left sided pigtail catheter present and connected to wall suction, no air leaks present, 550 mL bloody drainage in the last 24 hours - Allied health notes Allied health notes reviewed: nursing - Labs CBC & Chem 7: 02/15/22 07:40 02/15/22 07:40 Labs: Abnormal Lab Results - Last 24 Hours (Table) 02/14/22 02/14/22 02/14/22 Range/Units 11:14 12:06 12:57 WBC (3.8-10.6) k/uL RBC (4.30-5.90) m/uL Hgb (13.0-17.5) gm/dL Hct (39.0-53.0) % MCHC (31.0-37.0) g/dL Neutrophils # (1.3-7.7) k/uL ABG pH (7.35-7.45) ABG pCO2 (35-45) mmHg ABG pO2 (83-108) mmHg ABG HCO3 (21-25) mmol/L ABG Total CO2 (19-24) mmol/L ABG O2 Saturation (94-97) % Sodium (137-145) mmol/L Potassium (3.5-5.1) mmol/L BUN (9-20) mg/dL Glucose (74-99) mg/dL POC Glucose (mg/dL) 286 H 237 H 193 H (70-110) mg/dL Calcium (8.4-10.2) mg/dL 02/14/22 02/14/22 02/14/22 Range/Units 13:53 15:05 16:03 WBC (3.8-10.6) k/uL RBC (4.30-5.90) m/uL Hgb (13.0-17.5) gm/dL Hct (39.0-53.0) % MCHC (31.0-37.0) g/dL Neutrophils # (1.3-7.7) k/uL ABG pH (7.35-7.45) ABG pCO2 (35-45) mmHg ABG pO2 (83-108) mmHg ABG HCO3 (21-25) mmol/L ABG Total CO2 (19-24) mmol/L ABG O2 Saturation (94-97) % Sodium (137-145) mmol/L Potassium (3.5-5.1) mmol/L BUN (9-20) mg/dL Glucose (74-99) mg/dL POC Glucose (mg/dL) 149 H 119 H 184 H (70-110) mg/dL Calcium (8.4-10.2) mg/dL 02/14/22 02/14/22 02/14/22 Range/Units 16:39 17:29 18:12 WBC (3.8-10.6) k/uL RBC (4.30-5.90) m/uL Hgb (13.0-17.5) gm/dL Hct (39.0-53.0) % MCHC (31.0-37.0) g/dL Neutrophils # (1.3-7.7) k/uL ABG pH (7.35-7.45) ABG pCO2 51 H (35-45) mmHg ABG pO2 56 L* (83-108) mmHg ABG HCO3 28 H (21-25) mmol/L ABG Total CO2 30 H (19-24) mmol/L ABG O2 Saturation 89.6 L (94-97) % Sodium (137-145) mmol/L Potassium (3.5-5.1) mmol/L BUN (9-20) mg/dL Glucose (74-99) mg/dL POC Glucose (mg/dL) 162 H 142 H (70-110) mg/dL Calcium (8.4-10.2) mg/dL 02/14/22 02/14/22 02/14/22 Range/Units 18:58 20:13 21:22 WBC (3.8-10.6) k/uL RBC (4.30-5.90) m/uL Hgb (13.0-17.5) gm/dL Hct (39.0-53.0) % MCHC (31.0-37.0) g/dL Neutrophils # (1.3-7.7) k/uL ABG pH (7.35-7.45) ABG pCO2 (35-45) mmHg ABG pO2 (83-108) mmHg ABG HCO3 (21-25) mmol/L ABG Total CO2 (19-24) mmol/L ABG O2 Saturation (94-97) % Sodium (137-145) mmol/L Potassium (3.5-5.1) mmol/L BUN (9-20) mg/dL Glucose (74-99) mg/dL POC Glucose (mg/dL) 139 H 235 H 243 H (70-110) mg/dL Calcium (8.4-10.2) mg/dL 02/14/22 02/14/22 02/15/22 Range/Units 21:53 22:59 00:35 WBC (3.8-10.6) k/uL RBC (4.30-5.90) m/uL Hgb (13.0-17.5) gm/dL Hct (39.0-53.0) % MCHC (31.0-37.0) g/dL Neutrophils # (1.3-7.7) k/uL ABG pH 7.27 L (7.35-7.45) ABG pCO2 62 H (35-45) mmHg ABG pO2 (83-108) mmHg ABG HCO3 28 H (21-25) mmol/L ABG Total CO2 30 H (19-24) mmol/L ABG O2 Saturation (94-97) % Sodium (137-145) mmol/L Potassium (3.5-5.1) mmol/L BUN (9-20) mg/dL Glucose (74-99) mg/dL POC Glucose (mg/dL) 268 H 226 H (70-110) mg/dL Calcium (8.4-10.2) mg/dL 02/15/22 02/15/22 02/15/22 Range/Units 01:01 02:11 03:03 WBC (3.8-10.6) k/uL RBC (4.30-5.90) m/uL Hgb (13.0-17.5) gm/dL Hct (39.0-53.0) % MCHC (31.0-37.0) g/dL Neutrophils # (1.3-7.7) k/uL ABG pH (7.35-7.45) ABG pCO2 (35-45) mmHg ABG pO2 (83-108) mmHg ABG HCO3 (21-25) mmol/L ABG Total CO2 (19-24) mmol/L ABG O2 Saturation (94-97) % Sodium (137-145) mmol/L Potassium (3.5-5.1) mmol/L BUN (9-20) mg/dL Glucose (74-99) mg/dL POC Glucose (mg/dL) 222 H 181 H 159 H (70-110) mg/dL Calcium (8.4-10.2) mg/dL 02/15/22 02/15/22 02/15/22 Range/Units 04:04 05:07 06:04 WBC (3.8-10.6) k/uL RBC (4.30-5.90) m/uL Hgb (13.0-17.5) gm/dL Hct (39.0-53.0) % MCHC (31.0-37.0) g/dL Neutrophils # (1.3-7.7) k/uL ABG pH (7.35-7.45) ABG pCO2 (35-45) mmHg ABG pO2 (83-108) mmHg ABG HCO3 (21-25) mmol/L ABG Total CO2 (19-24) mmol/L ABG O2 Saturation (94-97) % Sodium (137-145) mmol/L Potassium (3.5-5.1) mmol/L BUN (9-20) mg/dL Glucose (74-99) mg/dL POC Glucose (mg/dL) 139 H 185 H 173 H (70-110) mg/dL Calcium (8.4-10.2) mg/dL 02/15/22 02/15/22 02/15/22 Range/Units 07:01 07:40 07:40 WBC 26.6 H (3.8-10.6) k/uL RBC 3.75 L (4.30-5.90) m/uL Hgb 11.0 L (13.0-17.5) gm/dL Hct 35.7 L (39.0-53.0) % MCHC 30.9 L (31.0-37.0) g/dL Neutrophils # 23.9 H (1.3-7.7) k/uL ABG pH (7.35-7.45) ABG pCO2 (35-45) mmHg ABG pO2 (83-108) mmHg ABG HCO3 (21-25) mmol/L ABG Total CO2 (19-24) mmol/L ABG O2 Saturation (94-97) % Sodium 134 L (137-145) mmol/L Potassium 5.8 H (3.5-5.1) mmol/L BUN 46 H (9-20) mg/dL Glucose 182 H (74-99) mg/dL POC Glucose (mg/dL) 201 H (70-110) mg/dL Calcium 7.5 L (8.4-10.2) mg/dL 02/15/22 02/15/22 02/15/22 Range/Units 08:05 08:50 09:59 WBC (3.8-10.6) k/uL RBC (4.30-5.90) m/uL Hgb (13.0-17.5) gm/dL Hct (39.0-53.0) % MCHC (31.0-37.0) g/dL Neutrophils # (1.3-7.7) k/uL ABG pH (7.35-7.45) ABG pCO2 (35-45) mmHg ABG pO2 (83-108) mmHg ABG HCO3 (21-25) mmol/L ABG Total CO2 (19-24) mmol/L ABG O2 Saturation (94-97) % Sodium (137-145) mmol/L Potassium (3.5-5.1) mmol/L BUN (9-20) mg/dL Glucose (74-99) mg/dL POC Glucose (mg/dL) 157 H 162 H 177 H (70-110) mg/dL Calcium (8.4-10.2) mg/dL Microbiology - Last 24 Hours (Table) 02/13/22 00:30 Blood Culture - Preliminary Blood No Growth after 48 hours 02/13/22 00:15 Blood Culture - Preliminary Blood No Growth after 48 hours 02/13/22 17:37 Gram Stain - Preliminary Sputum Sputum Culture - Preliminary - Imaging and Cardiology Chest x-ray: report reviewed, image reviewed Assessment and Plan Assessment: 1. Hemothorax, possibly traumatic although patient denies any trauma, status post left-sided pigtail catheter placement with drainage of bloody fluid 2. Acute hypoxic respiratory failure, currently on AirVo 3. New-onset A. fib with RVR 4. Acute RSV infection 5. Acute asthma exacerbation 6. Shortness of breath secondary to above 7. Lactic acidosis present on admission 8. History of diabetes 9. History of hypertension 10. History of sleep apnea 11. Previous tobacco dependence Plan: 1. No lytics today. Pigtail catheter likely to be discontinued tomorrow per pulmonology 2. No indication for surgical washout 3. Wean O2 as tolerated 4. A. fib management per cardiology. No anticoagulation chest tube removed 5. Management of other comorbidities per internal medicine, pulmonology 6. Will sign off, please reconsult if needed
[2022-02-15 11:00] LABS: ABG Base Excess 3.8 mmol/L; ABG HCO3 30 mmol/L (21-25); ABG Oxygen Saturation 95.7 % (94-97); ABG PCO2 56 mmHg (35-45); ABG PH 7.33 (7.35-7.45); ABG PO2 75 mmHg (83-108); ABG TCO2 31 mmol/L (19-24)
[2022-02-15 11:03] LABS: Allen Test Performed? Yes
[2022-02-15 11:23] LABS: Glucose,Whole Blood 202 mg/dL (70-110)
[2022-02-15] MEDS: THIAMINE 100 MG TAB PO SCH (12:12)
[2022-02-15] MEDS: FOLIC ACID 1 MG TAB PO SCH (12:12)
[2022-02-15] MEDS: MULTIVITAMINS, THERA 1 EACH TAB PO SCH (12:12)
[2022-02-15 13:07] LABS: Glucose,Whole Blood 221 mg/dL (70-110)
[2022-02-15 13:55] LABS: Glucose,Whole Blood 197 mg/dL (70-110)
[2022-02-15 15:07] LABS: Glucose,Whole Blood 176 mg/dL (70-110)
[2022-02-15 16:06] LABS: Glucose,Whole Blood 156 mg/dL (70-110)
--- NOTE | 2022-02-15 16:24 | P.PN ---
Subjective Progress Note Date: 02/15/22 This is a 76-year-old male patient who arrived to the emergency department yesterday at 02/12/2022 1920 PM after leaving the hospital AMA the day before. The patient presented again for shortness of breath. He was also noted to be hypoxic and hypotensive. His heart rate was tachycardic ranging between 100- 120. He was tachypneic. Ejection the patient is obese. The patient is also known to have hypertension, obstructive sleep apnea and history of bronchial asthma and hypertension. His initial presentation was essentially related to symptoms of URI and wheezing that was going on for the past 3-4 days. He denied having any chest pain. He was having some chest the for discomfort along with coughing. He was seen by Dr. Powell in the emergency department. At that time, his examination was the patient was completing a course of antibiotics that was given Tylenol patient bases in the form of Zithromax. In emergency, the patient was found to be in new onset atrial fibrillation with RVR and he was given a diagnosis of bronchitis and asthma exacerbation. He was advised to stay in the hospital he decided to leave AGAINST MEDICAL ADVICE. He came back to the hospital within 24 hours in the white cell count was elevated at 18.7 with a hemoglobin of 15.3. His blood gas showed a pH of 7.33 with a pCO2 of 44 and pO2 of 87 this was on FiO2 of 35%. Blood sugar was 302 and a sodium level was at 133 with a potassium level of 4.6 and a BUN of 39 and creatinine of 1.1. His viral screen was positive for RSV, influenza and Covid 19 testing was negative. Troponins were negative. ProBNP level was 546. TSH was at 1.4. He was given a CT angiogram that showed no evidence of any pulmonary embolism and there was a moderate-sized left-sided pleural effusion and for now, the patient remained nature fibrillation. His rate is still slightly tachycardic. The patient was receiving IV heparin and this was discontinued On today's evaluation of 02/14/2022, the patient is being seen for a follow-up. Earlier today, the patient became slightly agitated and he became restless. I ordered Precedex. The medication was not started as the patient's mentation gradually improved and agitation settled down. Note that, the patient had a traumatic bloody left-sided pleural effusion. I I attempted to do a thoracentesis and I was unable to pull any bloody effusion. The blood was well formed. A pigtail catheter was inserted. He was infused into the leftand the patient immediately had a 1 L output coming out from the left chest tube. The repeat chest x-ray from today, shows improvement in the volume status and the my motion of the left-sided pleural effusion. A second treatment will be done today. Meanwhile, the patient was transitioned to high flow oxygen and the patient is currently on 50 L an FiO2 of 75%. His pro calcitonin level is at 0.16. There is an obvious bruise over the left lateral chest area and is a traumatic pleural effusion other than Malignant. Meanwhile, the patient was started on insulin drip at 10 units an hour for that blood sugar control. The patient is on normal saline at rate of 50 mL an hour. The patient wasn't thousand 26 with a hemoglobin of 12.1 and a platelet of 206, and the patient has a sodium of 135 with a potassium level of 5 and a BUN of 32 with a creatinine of 0.6. The patient is less short of breath compared to yesterday. The patient remains on DuoNeb about treatments [id number]. The patient remains on IV cefepime. The patient remains on IV Solu-Medrol 60 mg IV push every 6 hours. on 02/15/2022, the patient is being seen for a follow-up. Overnight, the patient became progressively more agitated and intermedius. I made recommendations for this patient to be intubated. However, the patient's family decided not to and a switch the CODE STATUS to DNR/DNI. Based on that, the patient was kept on Precedex forAnd the patient was started on a BiPAP treatment. The high flow oxygen was discontinued. The patient otherwise is doing well for now. This morning, he is while sedated. The patient is on a BiP AP at a pressure of 12/5 cm of water with FiO2 of 75%. His tidal volume generated on the machine is more than 500 and his minute ventilation is around 12 L/m. His chest tube output has been only 350 mL over the past 12 hours. I reviewed the chest x-ray from today and there is no sizable left-sided pleural effusion. In fact left hemidiaphragm can be seen adequately. There is cardiomegaly. The patient also has some limited atelectatic changes in lung base bilaterally more so on the left. The patient remains on IV cefepime. The patient remains on IV Solu-Medrol 60 mg every 6 hours. The patient remains on DuoNeb nebulized treatments [id number]. The patient remains on insulin drip for blood sugar control. A follow-up blood gas was done and the patient was found to have a pH of 7.33 with a pCO2 of 56 and pO2 of 75. The white cycles of 26 with a hemoglobin of 11 and a platelet count of 203. The patient also had a sodium level of 134, potassium level of 5.8, BUN of 46 and a creatinine of 0.88. Blood sugars at 182. Cultures are all negative for now. The patient tested positive for RSV. He is arousable. He withdraws to painful stimulation. The Precedex those will need to be tapered off . Noted the patient also received a dose of Haldol overnight. Objective - Vital Signs Vital signs: Vital Signs Temp 97.7 F 02/15/22 08:00 Pulse 84 02/15/22 09:00 Resp 24 02/15/22 09:00 BP 111/76 02/15/22 09:00 Pulse Ox 93 L 02/15/22 09:00 FiO2 75 02/15/22 08:00 Intake & Output 02/14/22 02/15/22 02/15/22 18:59 06:59 18:59 Intake Total 1638.413 5013.583 381.759 Output Total 2300 670 535 Balance -792.573 479.583 -153.241 Weight 135.5 kg Intake: IV 860 760 280 Cefepime 2 gm In Sodium 200 100 100 Chloride 0.9% 100 ml @ 25 mls/hr IVPB Q8HR [facility] Rx# :[id number] Sodium Chloride 0.9% 1, 660 660 180 000 ml @ 60 mls/hr IV . [id number] [facility] Rx#:[id number] Intake, IV Titration 197.427 389.583 101.759 Amount Dexmedetomidine/0.9% NaCl 62.407 346.583 91.301 (Pmx) 400 mcg In Empty Bag 1 bag @ 0.2 MCG/KG/HR 5.897 mls/hr IV .[id number] [facility] Rx#:[id number] Insulin Regular 100 unit 135.020 43.00 10.458 In Sodium Chloride 0.9% 100 ml @ Titrate IV .Q0M [facility] Rx#:[id number] Oral 450 Output: Chest Tube Drainage 1200 Chest Tube Left Posterior 1200 Chest Drainage 310 Left Posterior Chest 310 Urine 1100 670 225 Other: Voiding Method External Catheter Indwelling Catheter # Voids 1 - Exam Obese, uncomfortable, in respiratory distress with increased shortness of breath even at rest currently on BiPAP at a pressures of 12/5 cm of water Head exam was generally normal. There was no scleral icterus or corneal arcus. Mucous membranes were moist. Neck was supple and without jugular venous distension, thyromegaly, or carotid bruits. Carotids were easily palpable bilaterally. There was no adenopathy. Significant crowding of the posterior pharynx and metastatic is 4 Lungs sounds are diminished in left lung base and the patient has dullness to percussion left lung base. The patient also diffuse expiratory wheezes as well as lung briscoe bilaterally. There is also prolongation of the sedation phase of breathing and the patient is breathing in interrupted because of frequent cough , the patient has a left-sided chest tube in place with bloody output. Heart sounds are irregular, tachycardic, positive S1-S2, overall heart sounds are distant Abdominal exam revealed normal bowel sounds. The abdomen was soft, non-tender, and without masses, organomegaly, or appreciable enlargement of the abdominal aorta. Examination of the extremities revealed easily palpable radial, femoral and pedal pulses. There was no cyanosis, clubbing or edema. Examination of the skin revealed no evidence of significant rashes, suspicious appearing nevi or other concerning lesions. Neurologically, the patient is awake and alert and the patient does not have any focal neurological deficit. Cranial nerves are essentially intact.the patient is sedated with Precedex - Labs CBC & Chem 7: 02/15/22 07:40 02/15/22 07:40 Labs: Abnormal Lab Results - Last 24 Hours (Table) 02/14/22 02/14/22 02/14/22 Range/Units 10:06 11:14 12:06 WBC (3.8-10.6) k/uL RBC (4.30-5.90) m/uL Hgb (13.0-17.5) gm/dL Hct (39.0-53.0) % MCHC (31.0-37.0) g/dL Neutrophils # (1.3-7.7) k/uL ABG pH (7.35-7.45) ABG pCO2 (35-45) mmHg ABG pO2 (83-108) mmHg ABG HCO3 (21-25) mmol/L ABG Total CO2 (19-24) mmol/L ABG O2 Saturation (94-97) % Sodium (137-145) mmol/L Potassium (3.5-5.1) mmol/L BUN (9-20) mg/dL Glucose (74-99) mg/dL POC Glucose (mg/dL) 275 H 286 H 237 H (70-110) mg/dL Calcium (8.4-10.2) mg/dL 02/14/22 02/14/22 02/14/22 Range/Units 12:57 13:53 15:05 WBC (3.8-10.6) k/uL RBC (4.30-5.90) m/uL Hgb (13.0-17.5) gm/dL Hct (39.0-53.0) % MCHC (31.0-37.0) g/dL Neutrophils # (1.3-7.7) k/uL ABG pH (7.35-7.45) ABG pCO2 (35-45) mmHg ABG pO2 (83-108) mmHg ABG HCO3 (21-25) mmol/L ABG Total CO2 (19-24) mmol/L ABG O2 Saturation (94-97) % Sodium (137-145) mmol/L Potassium (3.5-5.1) mmol/L BUN (9-20) mg/dL Glucose (74-99) mg/dL POC Glucose (mg/dL) 193 H 149 H 119 H (70-110) mg/dL Calcium (8.4-10.2) mg/dL 02/14/22 02/14/22 02/14/22 Range/Units 16:03 16:39 17:29 WBC (3.8-10.6) k/uL RBC (4.30-5.90) m/uL Hgb (13.0-17.5) gm/dL Hct (39.0-53.0) % MCHC (31.0-37.0) g/dL Neutrophils # (1.3-7.7) k/uL ABG pH (7.35-7.45) ABG pCO2 51 H (35-45) mmHg ABG pO2 56 L* (83-108) mmHg ABG HCO3 28 H (21-25) mmol/L ABG Total CO2 30 H (19-24) mmol/L ABG O2 Saturation 89.6 L (94-97) % Sodium (137-145) mmol/L Potassium (3.5-5.1) mmol/L BUN (9-20) mg/dL Glucose (74-99) mg/dL POC Glucose (mg/dL) 184 H 162 H (70-110) mg/dL Calcium (8.4-10.2) mg/dL 02/14/22 02/14/22 02/14/22 Range/Units 18:12 18:58 20:13 WBC (3.8-10.6) k/uL RBC (4.30-5.90) m/uL Hgb (13.0-17.5) gm/dL Hct (39.0-53.0) % MCHC (31.0-37.0) g/dL Neutrophils # (1.3-7.7) k/uL ABG pH (7.35-7.45) ABG pCO2 (35-45) mmHg ABG pO2 (83-108) mmHg ABG HCO3 (21-25) mmol/L ABG Total CO2 (19-24) mmol/L ABG O2 Saturation (94-97) % Sodium (137-145) mmol/L Potassium (3.5-5.1) mmol/L BUN (9-20) mg/dL Glucose (74-99) mg/dL POC Glucose (mg/dL) 142 H 139 H 235 H (70-110) mg/dL Calcium (8.4-10.2) mg/dL 02/14/22 02/14/22 02/14/22 Range/Units 21:22 21:53 22:59 WBC (3.8-10.6) k/uL RBC (4.30-5.90) m/uL Hgb (13.0-17.5) gm/dL Hct (39.0-53.0) % MCHC (31.0-37.0) g/dL Neutrophils # (1.3-7.7) k/uL ABG pH 7.27 L (7.35-7.45) ABG pCO2 62 H (35-45) mmHg ABG pO2 (83-108) mmHg ABG HCO3 28 H (21-25) mmol/L ABG Total CO2 30 H (19-24) mmol/L ABG O2 Saturation (94-97) % Sodium (137-145) mmol/L Potassium (3.5-5.1) mmol/L BUN (9-20) mg/dL Glucose (74-99) mg/dL POC Glucose (mg/dL) 243 H 268 H (70-110) mg/dL Calcium (8.4-10.2) mg/dL 02/15/22 02/15/22 02/15/22 Range/Units 00:35 01:01 02:11 WBC (3.8-10.6) k/uL RBC (4.30-5.90) m/uL Hgb (13.0-17.5) gm/dL Hct (39.0-53.0) % MCHC (31.0-37.0) g/dL Neutrophils # (1.3-7.7) k/uL ABG pH (7.35-7.45) ABG pCO2 (35-45) mmHg ABG pO2 (83-108) mmHg ABG HCO3 (21-25) mmol/L ABG Total CO2 (19-24) mmol/L ABG O2 Saturation (94-97) % Sodium (137-145) mmol/L Potassium (3.5-5.1) mmol/L BUN (9-20) mg/dL Glucose (74-99) mg/dL POC Glucose (mg/dL) 226 H 222 H 181 H (70-110) mg/dL Calcium (8.4-10.2) mg/dL 02/15/22 02/15/22 02/15/22 Range/Units 03:03 04:04 05:07 WBC (3.8-10.6) k/uL RBC (4.30-5.90) m/uL Hgb (13.0-17.5) gm/dL Hct (39.0-53.0) % MCHC (31.0-37.0) g/dL Neutrophils # (1.3-7.7) k/uL ABG pH (7.35-7.45) ABG pCO2 (35-45) mmHg ABG pO2 (83-108) mmHg ABG HCO3 (21-25) mmol/L ABG Total CO2 (19-24) mmol/L ABG O2 Saturation (94-97) % Sodium (137-145) mmol/L Potassium (3.5-5.1) mmol/L BUN (9-20) mg/dL Glucose (74-99) mg/dL POC Glucose (mg/dL) 159 H 139 H 185 H (70-110) mg/dL Calcium (8.4-10.2) mg/dL 02/15/22 02/15/22 02/15/22 Range/Units 06:04 07:01 07:40 WBC 26.6 H (3.8-10.6) k/uL RBC 3.75 L (4.30-5.90) m/uL Hgb 11.0 L (13.0-17.5) gm/dL Hct 35.7 L (39.0-53.0) % MCHC 30.9 L (31.0-37.0) g/dL Neutrophils # 23.9 H (1.3-7.7) k/uL ABG pH (7.35-7.45) ABG pCO2 (35-45) mmHg ABG pO2 (83-108) mmHg ABG HCO3 (21-25) mmol/L ABG Total CO2 (19-24) mmol/L ABG O2 Saturation (94-97) % Sodium (137-145) mmol/L Potassium (3.5-5.1) mmol/L BUN (9-20) mg/dL Glucose (74-99) mg/dL POC Glucose (mg/dL) 173 H 201 H (70-110) mg/dL Calcium (8.4-10.2) mg/dL 02/15/22 02/15/22 02/15/22 Range/Units 07:40 08:05 08:50 WBC (3.8-10.6) k/uL RBC (4.30-5.90) m/uL Hgb (13.0-17.5) gm/dL Hct (39.0-53.0) % MCHC (31.0-37.0) g/dL Neutrophils # (1.3-7.7) k/uL ABG pH (7.35-7.45) ABG pCO2 (35-45) mmHg ABG pO2 (83-108) mmHg ABG HCO3 (21-25) mmol/L ABG Total CO2 (19-24) mmol/L ABG O2 Saturation (94-97) % Sodium 134 L (137-145) mmol/L Potassium 5.8 H (3.5-5.1) mmol/L BUN 46 H (9-20) mg/dL Glucose 182 H (74-99) mg/dL POC Glucose (mg/dL) 157 H 162 H (70-110) mg/dL Calcium 7.5 L (8.4-10.2) mg/dL Microbiology - Last 24 Hours (Table) 02/13/22 00:30 Blood Culture - Preliminary Blood No Growth after 48 hours 02/13/22 00:15 Blood Culture - Preliminary Blood No Growth after 48 hours 02/13/22 17:37 Gram Stain - Preliminary Sputum Sputum Culture - Preliminary Assessment and Plan Plan: Acute hypoxic respiratory failure, currently on Bipap 12/5 , 75%, there is no significant decompensation the patient's respiratory status. I wanted to intubate the patient yesterday. Nevertheless, the patient's family opted to make him a DO NOT INTUBATE CODE STATUS. As such, we kept him on Precedex which is still running at a rate of 0.8 microvascular kilogram per hour. The patient is also on a BiPAP at pressures of 12/5 cm of water with FiO2 of 75%. Acute traumatic left-sided bloody pleural effusion/hemothorax post pigtail catheter insertion with TPA infusion with adequate drainage of the left-sided pleural effusion fluids/pneumothorax and the patient showed improvement and output since the last shift is in order of 310 mL. The patient has already received a total of 2 doses of TPA instilled through the pigtail catheter. Encephalopathy/delirium, consider possibility of alcohol withdrawal. The patient is currently on Precedex Acute lactic acidosis, improving and the patient is currently on IV fluids, improved Acute RSV infection with possible superinfection with a bacteria as the patient's presentation most consistent with an acute bacterial infection Acute asthma exacerbation secondary to above, the patient has severe persistent chronic bronchial asthma Acute leukocytosis, secondary to above Acute atrial fibrillation with rapid ventricular response currently off ant icoagulation, rate is under better control Diabetes mellitus, with certain use hyperglycemia and the patient is currently on insulin drip @ 2 Units/hr Obesity Obstructive sleep apnea 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 We may remove the chest tube tomorrow if the fluid output remains minimal. DuoNeb Cultures are negative for now Continue cefepime Continue insulin drip for blood sugar control Continue bronchodilators Continue IV Solu-Medrol Precedex for agitation Keep the patient in intensive care unit for now for further monitoring. Will monitor the white cell count. Will monitor his overall progress. cor status is DNR/DNI as the patient's family did not want any intubation critical care evaluation that was done in more than 30 minutes, long-term prognosis poor based above-mentioned comorbidities Time with Patient: Greater than 30
[2022-02-15 17:03] LABS: Glucose,Whole Blood 144 mg/dL (70-110)
[2022-02-15 18:00] LABS: Glucose,Whole Blood 161 mg/dL (70-110)
[2022-02-15 19:00] LABS: Glucose,Whole Blood 146 mg/dL (70-110)
[2022-02-15 20:14] LABS: Glucose,Whole Blood 151 mg/dL (70-110)
[2022-02-15] MEDS ORDERED: NOREPINEPHRINE 4 MG in SODIUM CHLORIDE 0.9% 250 ML IV SCH (21:00)
[2022-02-15 21:18] LABS: Glucose,Whole Blood 130 mg/dL (70-110)
[2022-02-15 22:12] LABS: Glucose,Whole Blood 140 mg/dL (70-110)
[2022-02-15 23:23] LABS: Glucose,Whole Blood 138 mg/dL (70-110)
[2022-02-15] MEDS: ASPIRIN 81 MG PO SCH (23:29)
[2022-02-15 23:59] LABS: Glucose,Whole Blood 141 mg/dL (70-110)
--- NOTE | 2022-02-16 00:28 | PN ---
PROGRESS NOTE DATE OF SERVICE: 02/15/2022 SUBJECTIVE: This 76-year-old gentleman, admitted with RSV pneumonia as well as community-acquired pneumonia. He is on antibiotics. Patient also has hemothorax, patient on mechanical ventilation. The patient is closely monitored. PAST MEDICAL HISTORY: Reviewed. REVIEW OF SYSTEMS: Not taken as the patient is drowsy. HOME MEDICATIONS: Reviewed include DuoNeb, dose and rest of medication noted. PHYSICAL EXAMINATION: VITAL SIGNS: Pulse is 71, blood pressure 120/85, respirations 30. HEENT: Conjunctivae normal. NECK: No JVD. CARDIOVASCULAR: S1, S2 RESPIRATIONS: Breath sounds diminished at the bases. Few scattered rhonchi and crackles. ABDOMEN: Soft, nontender. LEGS: No edema. NERVOUS SYSTEM: Nonfocal. LYMPHATICS: No lymphadenopathy. LABS: Reviewed. ASSESSMENT: 1. Acute left lower pneumonia, possibly community-acquired with possible acute hypoxic respiratory failure, on high-flow nasal oxygen. 2. Left hemothorax, status post pigtail catheter drainage. 3. Acute RSV infection. 4. Asthma, chronic obstructive pulmonary disease acute exacerbation. 5. Diabetes mellitus, type 2. 6. Hypertension. 7. Multiple medical issues. RECOMMENDATIONS: Recommended to continue current medications. Continue bronchodilators. Continue rest of medications. Continue the antibiotics. Continue with high-flow oxygen. Closely follow with Dr. Martinez. The patient will be closely monitor in the ICU. Guarded prognosis. MMODL / IJN: [id number] /
[2022-02-16] MEDS: CEFEPIME 2 GM in SODIUM CHLORIDE 0.9% 100 ML IVPB SCH ×4 (00:36→23:24)
[2022-02-16 01:01] LABS: Glucose,Whole Blood 187 mg/dL (70-110)
[2022-02-16] MEDS: SODIUM CHLORIDE 0.9% 1,000 ML IV SCH ×2 (01:17→21:13)
[2022-02-16] MEDS: DEXMEDETOMIDINE/0.9% NACL(PMX) 400 MCG in EMPTY BAG 1 BAG IV SCH ×4 (01:17→17:22)
[2022-02-16 02:07] LABS: Glucose,Whole Blood 200 mg/dL (70-110)
[2022-02-16 03:01] LABS: Glucose,Whole Blood 173 mg/dL (70-110)
[2022-02-16] MEDS: IPRATROPIUM-ALBUTEROL 3 ML NEB INHALATION SCH ×7 (04:05→23:19)
[2022-02-16 04:07] LABS: Glucose,Whole Blood 150 mg/dL (70-110)
[2022-02-16 05:07] LABS: Glucose,Whole Blood 161 mg/dL (70-110)
[2022-02-16] MEDS: INSULIN REGULAR 100 UNIT in SODIUM CHLORIDE 0.9% 100 ML IV SCH (06:00)
[2022-02-16] MEDS: methylPREDNISolone SOD SUCCI 125 MG/2 ML VIAL IV SCH ×2 (06:00→20:54)
[2022-02-16 06:08] LABS: Glucose,Whole Blood 150 mg/dL (70-110)
[2022-02-16 06:57] LABS: Glucose,Whole Blood 173 mg/dL (70-110)
--- NOTE | 2022-02-16 07:41 | XR ---
EXAMINATION TYPE: XR chest 1V portable DATE OF EXAM: 02/16/2022 COMPARISON: 02/15/2022 HISTORY: Shortness of breath TECHNIQUE: Single frontal view of the chest is obtained. FINDINGS: The retrocardiac opacity seen on the prior study has cleared in the interval. The heart si ze is normal. There is persistent mild to moderate pulmonary vascular congestion. There is no large p leural effusion and no pneumothorax. There are chronic rotator cuff tears of both shoulders. IMPRESSION: 1. Resolution of the retrocardiac opacity. 2. Persistent mild to moderate pulmonary vascular congestion.
[2022-02-16 08:29] LABS: Glucose,Whole Blood 164 mg/dL (70-110)
[2022-02-16] MEDS: HEPARIN SODIUM,PORCINE/PF 5,000 UNIT/0.5 ML SYRINGE SQ SCH ×2 (08:34→21:13)
[2022-02-16 09:04] LABS: ALT 30 U/L (4-49); AST 36 U/L (17-59); African American GFR (CKD) >90 (>60 ml/min/1.73 sqM); Albumin 2.9 g/dL (3.5-5.0); Alkaline Phosphatase 32 U/L (38-126); Anion Gap 5 mmol/L; Blood Urea Nitrogen 35 mg/dL (9-20); Calcium 7.5 mg/dL (8.4-10.2); Carbon Dioxide 28 mmol/L (22-30); Chloride 102 mmol/L (98-107); Glucose 157 mg/dL (74-99); Non-African American GFR(CKD) >90 (>60 ml/min/1.73 sqM); Potassium 4.7 mmol/L (3.5-5.1); Sodium 135 mmol/L (137-145); Total Protein 5.2 g/dL (6.3-8.2)
[2022-02-16 09:04] LABS: Glucose,Whole Blood 145 mg/dL (70-110)
[2022-02-16] MEDS: GABAPENTIN 300 MG CAP PO SCH ×2 (09:21→20:53)
[2022-02-16 09:27] LABS: Basophils # (A) 0.1 k/uL (0-0.2); Basophils % (A) 0 %; Eosinophils % (A) 0 %; HCT 33.2 % (39.0-53.0); HGB 10.4 gm/dL (13.0-17.5); Hypochromasia Moderate; Lymphocytes # (A) 0.8 k/uL (1.0-4.8); Lymphocytes % (A) 4 %; MCH 29.8 pg (25.0-35.0); MCHC 31.4 g/dL (31.0-37.0); MCV 94.8 fL (80.0-100.0); Mean Platelet Volume 8.7; Monocytes # (A) 0.7 k/uL (0-1.0); Monocytes % (A) 4 %; Neutrophils # (A) 17.3 k/uL (1.3-7.7); Neutrophils % (A) 91 %; Platelet Count 185 k/uL (150-450); RDW 13.5 % (11.5-15.5)
[2022-02-16] MEDS: DILTIAZEM ORAL 30 MG TAB PO SCH ×3 (09:51→20:55)
[2022-02-16] MEDS ORDERED: FUROSEMIDE 10 MG/ML 4 ML VIAL IV STA (10:13)
[2022-02-16 11:00] LABS: Glucose,Whole Blood 175 mg/dL (70-110)
[2022-02-16] MEDS: PANTOPRAZOLE 40 MG/10 ML VIAL IV SCH (12:26)
[2022-02-16] MEDS: THIAMINE 100 MG TAB PO SCH ×2 (12:27→12:33)
[2022-02-16] MEDS: FOLIC ACID 1 MG TAB PO SCH ×2 (12:27→12:33)
[2022-02-16] MEDS: MULTIVITAMINS, THERA 1 EACH TAB PO SCH ×2 (12:27→12:33)
[2022-02-16 12:56] LABS: Glucose,Whole Blood 148 mg/dL (70-110)
--- NOTE | 2022-02-16 14:53 | P.PN ---
Subjective Progress Note Date: 02/16/22 This is a 76-year-old male patient who arrived to the emergency department yesterday at 02/12/2022 1920 PM after leaving the hospital AMA the day before. The patient presented again for shortness of breath. He was also noted to be hypoxic and hypotensive. His heart rate was tachycardic ranging between 100- 120. He was tachypneic. Ejection the patient is obese. The patient is also known to have hypertension, obstructive sleep apnea and history of bronchial asthma and hypertension. His initial presentation was essentially related to symptoms of URI and wheezing that was going on for the past 3-4 days. He denied having any chest pain. He was having some chest the for discomfort along with coughing. He was seen by Dr. Powell in the emergency department. At that time, his examination was the patient was completing a course of antibiotics that was given Tylenol patient bases in the form of Zithromax. In emergency, the patient was found to be in new onset atrial fibrillation with RVR and he was given a diagnosis of bronchitis and asthma exacerbation. He was advised to stay in the hospital he decided to leave AGAINST MEDICAL ADVICE. He came back to the hospital within 24 hours in the white cell count was elevated at 18.7 with a hemoglobin of 15.3. His blood gas showed a pH of 7.33 with a pCO2 of 44 and pO2 of 87 this was on FiO2 of 35%. Blood sugar was 302 and a sodium level was at 133 with a potassium level of 4.6 and a BUN of 39 and creatinine of 1.1. His viral screen was positive for RSV, influenza and Covid 19 testing was negative. Troponins were negative. ProBNP level was 546. TSH was at 1.4. He was given a CT angiogram that showed no evidence of any pulmonary embolism and there was a moderate-sized left-sided pleural effusion and for now, the patient remained nature fibrillation. His rate is still slightly tachycardic. The patient was receiving IV heparin and this was discontinued On today's evaluation of 02/14/2022, the patient is being seen for a follow-up. Earlier today, the patient became slightly agitated and he became restless. I ordered Precedex. The medication was not started as the patient's mentation gradually improved and agitation settled down. Note that, the patient had a traumatic bloody left-sided pleural effusion. I I attempted to do a thoracentesis and I was unable to pull any bloody effusion. The blood was well formed. A pigtail catheter was inserted. He was infused into the leftand the patient immediately had a 1 L output coming out from the left chest tube. The repeat chest x-ray from today, shows improvement in the volume status and the my motion of the left-sided pleural effusion. A second treatment will be done today. Meanwhile, the patient was transitioned to high flow oxygen and the patient is currently on 50 L an FiO2 of 75%. His pro calcitonin level is at 0.16. There is an obvious bruise over the left lateral chest area and is a traumatic pleural effusion other than Malignant. Meanwhile, the patient was started on insulin drip at 10 units an hour for that blood sugar control. The patient is on normal saline at rate of 50 mL an hour. The patient wasn't thousand 26 with a hemoglobin of 12.1 and a platelet of 206, and the patient has a sodium of 135 with a potassium level of 5 and a BUN of 32 with a creatinine of 0.6. The patient is less short of breath compared to yesterday. The patient remains on DuoNeb about treatments [id number]. The patient remains on IV cefepime. The patient remains on IV Solu-Medrol 60 mg IV push every 6 hours. on 02/15/2022, the patient is being seen for a follow-up. Overnight, the patient became progressively more agitated and intermedius. I made recommendations for this patient to be intubated. However, the patient's family decided not to and a switch the CODE STATUS to DNR/DNI. Based on that, the patient was kept on Precedex forAnd the patient was started on a BiPAP treatment. The high flow oxygen was discontinued. The patient otherwise is doing well for now. This morning, he is while sedated. The patient is on a BiP AP at a pressure of 12/5 cm of water with FiO2 of 75%. His tidal volume generated on the machine is more than 500 and his minute ventilation is around 12 L/m. His chest tube output has been only 350 mL over the past 12 hours. I reviewed the chest x-ray from today and there is no sizable left-sided pleural effusion. In fact left hemidiaphragm can be seen adequately. There is cardiomegaly. The patient also has some limited atelectatic changes in lung base bilaterally more so on the left. The patient remains on IV cefepime. The patient remains on IV Solu-Medrol 60 mg every 6 hours. The patient remains on DuoNeb nebulized treatments [id number]. The patient remains on insulin drip for blood sugar control. A follow-up blood gas was done and the patient was found to have a pH of 7.33 with a pCO2 of 56 and pO2 of 75. The white cycles of 26 with a hemoglobin of 11 and a platelet count of 203. The patient also had a sodium level of 134, potassium level of 5.8, BUN of 46 and a creatinine of 0.88. Blood sugars at 182. Cultures are all negative for now. The patient tested positive for RSV. He is arousable. He withdraws to painful stimulation. The Precedex those will need to be tapered off . Noted the patient also received a dose of Haldol overnight. On 02/16/2022, the patient is being seen for a follow-up. This morning, the patient seems to much more comfortable. Note that yesterday, the patient was started on Precedex which is still running at 0.5 mcg/kg/h. The patient is also receiving Estrada as-needed basis. He seems to more appropriate. His current mental status is stable and the patient is following some simple commands. He remains drowsy or sleepy and the Precedex to be tapered. Meanwhile, the patient's left-sided chest tube was not draining at all and there is adequate expansion of the left lung on follow-up chest x-ray. No evidence of any ongoing issues with hemothorax. No major bronchospasm wheezing on today's evaluation. The chest x-ray showing some mild pulmonary vascular congestion. The white cell count was at 19 with a hemoglobin of 10.4 and a platelet count of 185. Sodium is at 135 and a potassium level is at 4.7 with a BUN of 35 and a creatinine of 0.6. The patient is otherwise doing better less agitated compared to yesterday. Remains on bronchodilators. Remains on steroids. Remains on IV cefepime. Cultures are negative thus far. His cardiac rhythm is atrial fibrillation with a controlled rate. The patient also is an insulin drip for blood sugar control. Objective - Vital Signs Vital signs: Vital Signs Temp 96.3 F L 02/16/22 12:00 Pulse 75 02/16/22 12:00 Resp 21 02/16/22 12:00 BP 140/76 02/16/22 12:00 Pulse Ox 95 02/16/22 12:00 FiO2 50 02/16/22 11:09 Intake & Output 02/15/22 02/16/22 02/16/22 18:59 06:59 18:59 Intake Total 6617.919 4059.416 484.275 Output Total 1635 1225 475 Balance -523.621 -79.584 9.275 Weight 137.5 kg Intake: IV 920 880 400 Cefepime 2 gm In Sodium 200 100 100 Chloride 0.9% 100 ml @ 25 mls/hr IVPB Q8HR [facility] Rx# :[id number] Sodium Chloride 0.9% 1, 720 780 300 000 ml @ 10 mls/hr IV . Q24H [facility] Rx#:[id number] Intake, IV Titration 191.379 265.416 84.275 Amount Dexmedetomidine/0.9% NaCl 170.121 176.216 84.275 (Pmx) 400 mcg In Empty Bag 1 bag @ 0.2 MCG/KG/HR 5.897 mls/hr IV .[id number] [facility] Rx#:[id number] Insulin Regular 100 unit 21.258 89.200 In Sodium Chloride 0.9% 100 ml @ Titrate IV .Q0M [facility] Rx#:[id number] Output: Chest Tube Drainage 50 130 Chest Tube Left Posterior 50 130 Chest Drainage 310 Left Posterior Chest 310 Urine 1275 1095 475 Other: Voiding Method Indwelling Catheter Indwelling Catheter - Exam Obese, uncomfortable, in respiratory distress with increased shortness of breath even at rest currently on BiPAP at a pressures of 12/5 cm of water, with an FiO2 of 50%. The patient is able to generate adequate volumes while being on a BiPAP without any major leaks. Head exam was generally normal. There was no scleral icterus or corneal arcus. Mucous membranes were moist. Neck was supple and without jugular venous distension, thyromegaly, or carotid bruits. Carotids were easily palpable bilaterally. There was no adenopathy. Significant crowding of the posterior pharynx and metastatic is 4 Lungs sounds are diminished in left lung base and the patient has dullness to percussion left lung base. The patient also diffuse expiratory wheezes as well as lung briscoe bilaterally. There is also prolongation of the sedation phase of breathing and the patient is breathing in interrupted because of frequent cough , the patient has a left-sided chest tube in place with bloody output. Heart sounds are irregular, tachycardic, positive S1-S2, overall heart sounds are distant Abdominal exam revealed normal bowel sounds. The abdomen was soft, non-tender, and without masses, organomegaly, or appreciable enlargement of the abdominal aorta. Examination of the extremities revealed easily palpable radial, femoral and pedal pulses. There was no cyanosis, clubbing or edema. Examination of the skin revealed no evidence of significant rashes, suspicious appearing nevi or other concerning lesions. Neurologically, the patient is awake and alert and the patient does not have any focal neurological deficit. Cranial nerves are essentially intact.the patient is sedated with Precedex - Labs CBC & Chem 7: 02/16/22 08:20 02/16/22 08:20 Labs: Abnormal Lab Results - Last 24 Hours (Table) 02/15/22 02/15/22 02/15/22 Range/Units 15:04 16:04 17:00 WBC (3.8-10.6) k/uL RBC (4.30-5.90) m/uL Hgb (13.0-17.5) gm/dL Hct (39.0-53.0) % Neutrophils # (1.3-7.7) k/uL Lymphocytes # (1.0-4.8) k/uL Sodium (137-145) mmol/L BUN (9-20) mg/dL Glucose (74-99) mg/dL POC Glucose (mg/dL) 176 H 156 H 144 H (70-110) mg/dL Calcium (8.4-10.2) mg/dL Alkaline Phosphatase (38-126) U/L Total Protein (6.3-8.2) g/dL Albumin (3.5-5.0) g/dL 02/15/22 02/15/22 02/15/22 Range/Units 17:58 18:59 20:13 WBC (3.8-10.6) k/uL RBC (4.30-5.90) m/uL Hgb (13.0-17.5) gm/dL Hct (39.0-53.0) % Neutrophils # (1.3-7.7) k/uL Lymphocytes # (1.0-4.8) k/uL Sodium (137-145) mmol/L BUN (9-20) mg/dL Glucose (74-99) mg/dL POC Glucose (mg/dL) 161 H 146 H 151 H (70-110) mg/dL Calcium (8.4-10.2) mg/dL Alkaline Phosphatase (38-126) U/L Total Protein (6.3-8.2) g/dL Albumin (3.5-5.0) g/dL 02/15/22 02/15/22 02/15/22 Range/Units 21:17 22:10 23:22 WBC (3.8-10.6) k/uL RBC (4.30-5.90) m/uL Hgb (13.0-17.5) gm/dL Hct (39.0-53.0) % Neutrophils # (1.3-7.7) k/uL Lymphocytes # (1.0-4.8) k/uL Sodium (137-145) mmol/L BUN (9-20) mg/dL Glucose (74-99) mg/dL POC Glucose (mg/dL) 130 H 140 H 138 H (70-110) mg/dL Calcium (8.4-10.2) mg/dL Alkaline Phosphatase (38-126) U/L Total Protein (6.3-8.2) g/dL Albumin (3.5-5.0) g/dL 02/15/22 02/16/22 02/16/22 Range/Units 23:58 00:59 02:05 WBC (3.8-10.6) k/uL RBC (4.30-5.90) m/uL Hgb (13.0-17.5) gm/dL Hct (39.0-53.0) % Neutrophils # (1.3-7.7) k/uL Lymphocytes # (1.0-4.8) k/uL Sodium (137-145) mmol/L BUN (9-20) mg/dL Glucose (74-99) mg/dL POC Glucose (mg/dL) 141 H 187 H 200 H (70-110) mg/dL Calcium (8.4-10.2) mg/dL Alkaline Phosphatase (38-126) U/L Total Protein (6.3-8.2) g/dL Albumin (3.5-5.0) g/dL 02/16/22 02/16/22 02/16/22 Range/Units 02:58 04:06 05:05 WBC (3.8-10.6) k/uL RBC (4.30-5.90) m/uL Hgb (13.0-17.5) gm/dL Hct (39.0-53.0) % Neutrophils # (1.3-7.7) k/uL Lymphocytes # (1.0-4.8) k/uL Sodium (137-145) mmol/L BUN (9-20) mg/dL Glucose (74-99) mg/dL POC Glucose (mg/dL) 173 H 150 H 161 H (70-110) mg/dL Calcium (8.4-10.2) mg/dL Alkaline Phosphatase (38-126) U/L Total Protein (6.3-8.2) g/dL Albumin (3.5-5.0) g/dL 02/16/22 02/16/22 02/16/22 Range/Units 06:06 06:55 08:20 WBC 19.0 H (3.8-10.6) k/uL RBC 3.50 L (4.30-5.90) m/uL Hgb 10.4 L (13.0-17.5) gm/dL Hct 33.2 L (39.0-53.0) % Neutrophils # 17.3 H (1.3-7.7) k/uL Lymphocytes # 0.8 L (1.0-4.8) k/uL Sodium (137-145) mmol/L BUN (9-20) mg/dL Glucose (74-99) mg/dL POC Glucose (mg/dL) 150 H 173 H (70-110) mg/dL Calcium (8.4-10.2) mg/dL Alkaline Phosphatase (38-126) U/L Total Protein (6.3-8.2) g/dL Albumin (3.5-5.0) g/dL 02/16/22 02/16/22 02/16/22 Range/Units 08:20 08:27 09:02 WBC (3.8-10.6) k/uL RBC (4.30-5.90) m/uL Hgb (13.0-17.5) gm/dL Hct (39.0-53.0) % Neutrophils # (1.3-7.7) k/uL Lymphocytes # (1.0-4.8) k/uL Sodium 135 L (137-145) mmol/L BUN 35 H (9-20) mg/dL Glucose 157 H (74-99) mg/dL POC Glucose (mg/dL) 164 H 145 H (70-110) mg/dL Calcium 7.5 L (8.4-10.2) mg/dL Alkaline Phosphatase 32 L (38-126) U/L Total Protein 5.2 L (6.3-8.2) g/dL Albumin 2.9 L (3.5-5.0) g/dL 02/16/22 02/16/22 Range/Units 10:58 12:54 WBC (3.8-10.6) k/uL RBC (4.30-5.90) m/uL Hgb (13.0-17.5) gm/dL Hct (39.0-53.0) % Neutrophils # (1.3-7.7) k/uL Lymphocytes # (1.0-4.8) k/uL Sodium (137-145) mmol/L BUN (9-20) mg/dL Glucose (74-99) mg/dL POC Glucose (mg/dL) 175 H 148 H (70-110) mg/dL Calcium (8.4-10.2) mg/dL Alkaline Phosphatase (38-126) U/L Total Protein (6.3-8.2) g/dL Albumin (3.5-5.0) g/dL Microbiology - Last 24 Hours (Table) 02/13/22 00:15 Blood Culture - Preliminary Blood No Growth after 72 hours 02/13/22 00:30 Blood Culture - Preliminary Blood No Growth after 72 hours 02/14/22 13:19 Blood Culture - Preliminary Blood No Growth after 24 hours 02/13/22 17:37 Gram Stain - Final Sputum Sputum Culture - Final Assessment and Plan Plan: Acute hypoxic respiratory failure, currently on Bipap 02/27 , 50 %, and the patient's condition is stable while being on a BiPAP. He is also on Precedex to control his agitation and maintain 60 with BiPAP. Chest x-ray shows resolution opacity in the left sciatica still in place. Acute traumatic left-sided bloody pleural effusion/hemothorax post pigtail catheter insertion with TPA infusion 2 with adequate evacuation a left-sided pneumothorax Encephalopathy/delirium, consider possibility of alcohol withdrawal. The patient is currently on Precedex and Haldol, improving Acute lactic acidosis, improving and the patient is currently on IV fluids, improved Acute RSV infection with possible superinfection with a bacteria as the pat ient's presentation most consistent with an acute bacterial infection Acute asthma exacerbation secondary to above, the patient has severe persistent chronic bronchial asthma, improving Acute leukocytosis, secondary to above, improved compared to yesterday Acute atrial fibrillation with rapid ventricular response currently off anticoagulation, rate is under better control Diabetes mellitus, with certain use hyperglycemia and the patient is currently on insulin drip @ 2 Units/hr Obesity Obstructive sleep apnea 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 This is at the bedside. Clinically improved. Repeat labs in the morning. We'll keep in ICU for another 24 hours. DNR/DNI CODE STATUS. critical care evaluation that was done in more than 30 minutes, long-term prognosis poor based above-mentioned comorbidities Time with Patient: Greater than 30
[2022-02-16 15:15] LABS: Glucose,Whole Blood 121 mg/dL (70-110)
[2022-02-16 16:03] LABS: Glucose,Whole Blood 134 mg/dL (70-110)
[2022-02-16 17:04] LABS: Glucose,Whole Blood 187 mg/dL (70-110)
[2022-02-16 18:04] LABS: Glucose,Whole Blood 212 mg/dL (70-110)
[2022-02-16 18:58] LABS: Glucose,Whole Blood 249 mg/dL (70-110)
[2022-02-16 20:33] LABS: Glucose,Whole Blood 215 mg/dL (70-110)
[2022-02-16] MEDS: ASCORBIC ACID 500 MG TAB PO SCH (20:52)
[2022-02-16] MEDS: ATORVASTATIN 40 MG TAB PO SCH (20:53)
[2022-02-16] MEDS: ASPIRIN 81 MG PO SCH (20:53)
[2022-02-16] MEDS: LOSARTAN 50 MG TAB PO SCH (20:53)
[2022-02-16] MEDS: CHOLECALCIFEROL 25 MCG (1000 IU) TABLET PO SCH (20:53)
[2022-02-16] MEDS: ZINC SULFATE 220 MG CAP PO SCH (20:54)
[2022-02-16 21:36] LABS: Glucose,Whole Blood 211 mg/dL (70-110)
--- NOTE | 2022-02-16 22:42 | P.PN ---
Subjective Progress Note Date: 02/14/22 Principal diagnosis: Pneumonia Patient is a 76-year-old male presenting to the hospital with increasing shortness of breath with new onset A. fib left-sided effusion status post chest tube mostly bloodstained secretion. On today's evaluation that is 02/14/2022, the patient is afebrile patient is currently on high flow nasal cannula oxygen denies any worsening chest pain or cough or sputum production no vomiting or diarrhea Objective - Vital Signs Vital signs: Vital Signs Temp 97.7 F 02/14/22 08:00 Pulse 85 02/14/22 13:00 Resp 18 02/14/22 13:00 BP 89/65 02/14/22 13:00 Pulse Ox 91 L 02/14/22 13:00 FiO2 70 02/14/22 10:38 Intake & Output 02/13/22 02/14/22 02/14/22 18:59 06:59 18:59 Intake Total 6503.990 1168.123 961.178 Output Total 8770 138 0649 Balance 286.687 263.123 -538.822 Weight 117.934 kg Intake: IV 1040 60 400 Cefepime 2 gm In Sodium 100 Chloride 0.9% 100 ml @ 25 mls/hr IVPB Q8HR [facility] Rx# :[id number] Sodium Chloride 0.9% 1, 1040 60 300 000 ml @ 60 mls/hr IV . [id number] [facility] Rx#:[id number] Intake, IV Titration 056.514 2165.123 111.178 Amount Cefepime 2 gm In Sodium 100 Chloride 0.9% 100 ml @ 25 mls/hr IVPB Q8HR [facility] Rx# :[id number] Dexmedetomidine/0.9% NaCl 27.028 (Pmx) 400 mcg In Empty Bag 1 bag @ 0.2 MCG/KG/HR 5.897 mls/hr IV .[id number] [facility] Rx#:[id number] Insulin Regular 100 unit 3.687 83.123 84.150 In Sodium Chloride 0.9% 100 ml @ Titrate IV .Q0M [facility] Rx#:[id number] Sodium Chloride 0.9% 1, 420 000 ml @ 60 mls/hr IV . [id number] [facility] Rx#:[id number] Vancomycin 1,750 mg In 498 500 Sodium Chloride 0.9% 500 ml 500 ml @ 167 mls/hr IVPB Q16H [facility] Rx#: [id number] Oral 450 Output: Chest Tube Drainage 755 1050 Chest Tube Left Posterior 755 1050 Chest Urine 500 900 450 Other: Voiding Method Urinal Urinal External Catheter # Voids 1 - Exam GENERAL DESCRIPTION: An elderly male lying in bed in no distress RESPIRATORY SYSTEM: Unlabored breathing , decreased breath sounds at bases HEART: S1 S2 regular rate and rhythm , ABDOMEN: Soft , no tenderness EXTREMITIES: No edema feet - Labs CBC & Chem 7: 02/16/22 08:20 02/16/22 08:20 Labs: Abnormal Lab Results - Last 24 Hours (Table) 02/13/22 02/13/22 02/13/22 Range/Units 03:21 16:29 17:25 WBC (3.8-10.6) k/uL RBC (4.30-5.90) m/uL Hgb (13.0-17.5) gm/dL Hct (39.0-53.0) % Neutrophils # (1.3-7.7) k/uL Monocytes # (0-1.0) k/uL Sodium (137-145) mmol/L BUN (9-20) mg/dL Glucose (74-99) mg/dL POC Glucose (mg/dL) 443 H 281 H (70-110) mg/dL Calcium (8.4-10.2) mg/dL Alkaline Phosphatase (38-126) U/L Total Protein (6.3-8.2) g/dL Albumin (3.5-5.0) g/dL Procalcitonin 0.16 H (0.02-0.09) ng/mL Urine Protein (Negative) Urine Glucose (UA) (Negative) Urine Ketones (Negative) 02/13/22 02/13/22 02/13/22 Range/Units 18:47 20:15 20:17 WBC (3.8-10.6) k/uL RBC (4.30-5.90) m/uL Hgb (13.0-17.5) gm/dL Hct (39.0-53.0) % Neutrophils # (1.3-7.7) k/uL Monocytes # (0-1.0) k/uL Sodium (137-145) mmol/L BUN (9-20) mg/dL Glucose (74-99) mg/dL POC Glucose (mg/dL) 271 H 286 H 336 H (70-110) mg/dL Calcium (8.4-10.2) mg/dL Alkaline Phosphatase (38-126) U/L Total Protein (6.3-8.2) g/dL Albumin (3.5-5.0) g/dL Procalcitonin (0.02-0.09) ng/mL Urine Protein (Negative) Urine Glucose (UA) (Negative) Urine Ketones (Negative) 02/13/22 02/13/22 02/13/22 Range/Units 21:22 22:19 23:12 WBC (3.8-10.6) k/uL RBC (4.30-5.90) m/uL Hgb (13.0-17.5) gm/dL Hct (39.0-53.0) % Neutrophils # (1.3-7.7) k/uL Monocytes # (0-1.0) k/uL Sodium (137-145) mmol/L BUN (9-20) mg/dL Glucose (74-99) mg/dL POC Glucose (mg/dL) 286 H 257 H 237 H (70-110) mg/dL Calcium (8.4-10.2) mg/dL Alkaline Phosphatase (38-126) U/L Total Protein (6.3-8.2) g/dL Albumin (3.5-5.0) g/dL Procalcitonin (0.02-0.09) ng/mL Urine Protein (Negative) Urine Glucose (UA) (Negative) Urine Ketones (Negative) 02/13/22 02/14/22 02/14/22 Range/Units Unknown 00:23 01:26 WBC (3.8-10.6) k/uL RBC (4.30-5.90) m/uL Hgb (13.0-17.5) gm/dL Hct (39.0-53.0) % Neutrophils # (1.3-7.7) k/uL Monocytes # (0-1.0) k/uL Sodium (137-145) mmol/L BUN (9-20) mg/dL Glucose (74-99) mg/dL POC Glucose (mg/dL) 196 H 207 H (70-110) mg/dL Calcium (8.4-10.2) mg/dL Alkaline Phosphatase (38-126) U/L Total Protein (6.3-8.2) g/dL Albumin (3.5-5.0) g/dL Procalcitonin (0.02-0.09) ng/mL Urine Protein Trace H (Negative) Urine Glucose (UA) 4+ H (Negative) Urine Ketones Trace H (Negative) 02/14/22 02/14/22 02/14/22 Range/Units 02:29 03:32 04:34 WBC (3.8-10.6) k/uL RBC (4.30-5.90) m/uL Hgb (13.0-17.5) gm/dL Hct (39.0-53.0) % Neutrophils # (1.3-7.7) k/uL Monocytes # (0-1.0) k/uL Sodium (137-145) mmol/L BUN (9-20) mg/dL Glucose (74-99) mg/dL POC Glucose (mg/dL) 188 H 178 H 161 H (70-110) mg/dL Calcium (8.4-10.2) mg/dL Alkaline Phosphatase (38-126) U/L Total Protein (6.3-8.2) g/dL Albumin (3.5-5.0) g/dL Procalcitonin (0.02-0.09) ng/mL Urine Protein (Negative) Urine Glucose (UA) (Negative) Urine Ketones (Negative) 02/14/22 02/14/22 02/14/22 Range/Units 05:20 05:57 05:57 WBC 26.3 H (3.8-10.6) k/uL RBC 3.97 L (4.30-5.90) m/uL Hgb 12.1 L (13.0-17.5) gm/dL Hct 35.9 L (39.0-53.0) % Neutrophils # 23.3 H (1.3-7.7) k/uL Monocytes # 1.3 H (0-1.0) k/uL Sodium 135 L (137-145) mmol/L BUN 32 H (9-20) mg/dL Glucose 158 H (74-99) mg/dL POC Glucose (mg/dL) 159 H (70-110) mg/dL Calcium 8.3 L (8.4-10.2) mg/dL Alkaline Phosphatase 35 L (38-126) U/L Total Protein 5.4 L (6.3-8.2) g/dL Albumin 3.2 L (3.5-5.0) g/dL Procalcitonin (0.02-0.09) ng/mL Urine Protein (Negative) Urine Glucose (UA) (Negative) Urine Ketones (Negative) 02/14/22 02/14/22 02/14/22 Range/Units 06:33 09:05 10:06 WBC (3.8-10.6) k/uL RBC (4.30-5.90) m/uL Hgb (13.0-17.5) gm/dL Hct (39.0-53.0) % Neutrophils # (1.3-7.7) k/uL Monocytes # (0-1.0) k/uL Sodium (137-145) mmol/L BUN (9-20) mg/dL Glucose (74-99) mg/dL POC Glucose (mg/dL) 153 H 258 H 275 H (70-110) mg/dL Calcium (8.4-10.2) mg/dL Alkaline Phosphatase (38-126) U/L Total Protein (6.3-8.2) g/dL Albumin (3.5-5.0) g/dL Procalcitonin (0.02-0.09) ng/mL Urine Protein (Negative) Urine Glucose (UA) (Negative) Urine Ketones (Negative) 02/14/22 02/14/22 02/14/22 Range/Units 11:14 12:06 12:57 WBC (3.8-10.6) k/uL RBC (4.30-5.90) m/uL Hgb (13.0-17.5) gm/dL Hct (39.0-53.0) % Neutrophils # (1.3-7.7) k/uL Monocytes # (0-1.0) k/uL Sodium (137-145) mmol/L BUN (9-20) mg/dL Glucose (74-99) mg/dL POC Glucose (mg/dL) 286 H 237 H 193 H (70-110) mg/dL Calcium (8.4-10.2) mg/dL Alkaline Phosphatase (38-126) U/L Total Protein (6.3-8.2) g/dL Albumin (3.5-5.0) g/dL Procalcitonin (0.02-0.09) ng/mL Urine Protein (Negative) Urine Glucose (UA) (Negative) Urine Ketones (Negative) Microbiology - Last 24 Hours (Table) 02/13/22 17:37 Gram Stain - Preliminary Sputum Sputum Culture - Preliminary 02/13/22 00:30 Blood Culture - Preliminary Blood No Growth after 24 hours 02/13/22 00:15 Blood Culture - Preliminary Blood No Growth after 24 hours Assessment and Plan (1) Left lower lobe pneumonia Current Visit: Yes Status: Acute Code(s): J18.9 - PNEUMONIA, UNSPECIFIED ORGANISM SNOMED Code(s): 756217315 (2) Respiratory syncytial virus Current Visit: Yes Status: Acute Code(s): B33.8 - OTHER SPECIFIED VIRAL DISEASES SNOMED Code(s): 18681249 Plan: 1patient presented to hospital with increasing shortness of breath which is likely multifactorial in this patient noticed to have a significant left-sided pleural effusion s/p chest tube placement with evidence of mostly bloody drainage on insertion of the chest tube questionably traumatic as the patient did have a significant bruising to that area however no clear history of any fall underlying pneumonia less likely but not entirely excluded. 2 sputum for gram stain and culture are currently pending, procalcitonin level is mildly elevated at 0.16. 3patient to continue with the vancomycin and cefepime will waiting for conditions to stabilize and culture to finalize 4treatment for RSV will be mostly supportive
--- NOTE | 2022-02-16 22:44 | P.PN ---
Subjective This is a pleasant 76 years old male with multiple medical problems admitted with acute hypoxic respiratory failure, currently is on BiPAP and well of BiPAP he is on 8 L/m of oxygen via nasal cannula. His CT of the chest was negative for PE but showing left lower lobe infiltrate and pleural effusion, ejection fraction 60% Currently covered with cefepime and insulin drip and IV Solu-Medrol 40 mg twice daily Also he is on multiple vitamins D, vitamin C and zinc. For his arcus V bilateral infection. Patient remains on BiPAP this morning while his monitored in the ICU WBC 19,000, hemoglobin 10 Objective - Vital Signs Vital signs: Vital Signs Temp 97.8 F 02/16/22 04:00 Pulse 65 02/16/22 08:23 Resp 20 02/16/22 08:23 BP 111/65 02/16/22 07:00 Pulse Ox 99 02/16/22 08:14 FiO2 50 02/16/22 08:16 Intake & Output 02/15/22 02/16/22 02/16/22 18:59 06:59 18:59 Intake Total 0816.664 6599.416 Output Total 1635 1225 Balance -523.621 -79.584 Weight 137.5 kg Intake: IV 920 880 Cefepime 2 gm In Sodium 200 100 Chloride 0.9% 100 ml @ 25 mls/hr IVPB Q8HR [facility] Rx# :[id number] Sodium Chloride 0.9% 1, 720 780 000 ml @ 60 mls/hr IV . [id number] [facility] Rx#:[id number] Intake, IV Titration 191.379 265.416 Amount Dexmedetomidine/0.9% NaCl 170.121 176.216 (Pmx) 400 mcg In Empty Bag 1 bag @ 0.2 MCG/KG/HR 5.897 mls/hr IV .[id number] [facility] Rx#:[id number] Insulin Regular 100 unit 21.258 89.200 In Sodium Chloride 0.9% 100 ml @ Titrate IV .Q0M [facility] Rx#:[id number] Output: Chest Tube Drainage 50 130 Chest Tube Left Posterior 50 130 Chest Drainage 310 Left Posterior Chest 310 Urine 1275 1095 Other: Voiding Method Indwelling Catheter Indwelling Catheter - Exam -GENERAL: The patient is awake but confused, not in any acute distress. Well developed, well nourished. HEENT: Pupils are round and equally reacting to light. EOMI. No scleral icterus. No conjunctival pallor. Normocephalic, atraumatic. No pharyngeal erythema. No thyromegaly. CARDIOVASCULAR: S1 and S2 present. No murmurs, rubs, or gallops. -PULMONARY: Chest is clear to auscultation scattered wheezing or crepitation, especially on the left side ABDOMEN: Soft, nontender, nondistended, normoactive bowel sounds. No palpable organomegaly. MUSCULOSKELETAL: No joint swelling or deformity. EXTREMITIES: No cyanosis, clubbing, or pedal edema. NEUROLOGICAL: Gross neurological examination did not reveal any focal deficits. SKIN: No rashes. no petechiae. - Labs CBC & Chem 7: 02/16/22 08:20 02/16/22 08:20 Labs: Abnormal Lab Results - Last 24 Hours (Table) 02/15/22 02/15/22 02/15/22 Range/Units 09:59 10:59 11:22 WBC (3.8-10.6) k/uL RBC (4.30-5.90) m/uL Hgb (13.0-17.5) gm/dL Hct (39.0-53.0) % Neutrophils # (1.3-7.7) k/uL Lymphocytes # (1.0-4.8) k/uL ABG pH 7.33 L (7.35-7.45) ABG pCO2 56 H (35-45) mmHg ABG pO2 75 L (83-108) mmHg ABG HCO3 30 H (21-25) mmol/L ABG Total CO2 31 H (19-24) mmol/L Sodium (137-145) mmol/L BUN (9-20) mg/dL Glucose (74-99) mg/dL POC Glucose (mg/dL) 177 H 202 H (70-110) mg/dL Calcium (8.4-10.2) mg/dL Alkaline Phosphatase (38-126) U/L Total Protein (6.3-8.2) g/dL Albumin (3.5-5.0) g/dL 02/15/22 02/15/22 02/15/22 Range/Units 13:05 13:53 15:04 WBC (3.8-10.6) k/uL RBC (4.30-5.90) m/uL Hgb (13.0-17.5) gm/dL Hct (39.0-53.0) % Neutrophils # (1.3-7.7) k/uL Lymphocytes # (1.0-4.8) k/uL ABG pH (7.35-7.45) ABG pCO2 (35-45) mmHg ABG pO2 (83-108) mmHg ABG HCO3 (21-25) mmol/L ABG Total CO2 (19-24) mmol/L Sodium (137-145) mmol/L BUN (9-20) mg/dL Glucose (74-99) mg/dL POC Glucose (mg/dL) 221 H 197 H 176 H (70-110) mg/dL Calcium (8.4-10.2) mg/dL Alkaline Phosphatase (38-126) U/L Total Protein (6.3-8.2) g/dL Albumin (3.5-5.0) g/dL 02/15/22 02/15/22 02/15/22 Range/Units 16:04 17:00 17:58 WBC (3.8-10.6) k/uL RBC (4.30-5.90) m/uL Hgb (13.0-17.5) gm/dL Hct (39.0-53.0) % Neutrophils # (1.3-7.7) k/uL Lymphocytes # (1.0-4.8) k/uL ABG pH (7.35-7.45) ABG pCO2 (35-45) mmHg ABG pO2 (83-108) mmHg ABG HCO3 (21-25) mmol/L ABG Total CO2 (19-24) mmol/L Sodium (137-145) mmol/L BUN (9-20) mg/dL Glucose (74-99) mg/dL POC Glucose (mg/dL) 156 H 144 H 161 H (70-110) mg/dL Calcium (8.4-10.2) mg/dL Alkaline Phosphatase (38-126) U/L Total Protein (6.3-8.2) g/dL Albumin (3.5-5.0) g/dL 02/15/22 02/15/22 02/15/22 Range/Units 18:59 20:13 21:17 WBC (3.8-10.6) k/uL RBC (4.30-5.90) m/uL Hgb (13.0-17.5) gm/dL Hct (39.0-53.0) % Neutrophils # (1.3-7.7) k/uL Lymphocytes # (1.0-4.8) k/uL ABG pH (7.35-7.45) ABG pCO2 (35-45) mmHg ABG pO2 (83-108) mmHg ABG HCO3 (21-25) mmol/L ABG Total CO2 (19-24) mmol/L Sodium (137-145) mmol/L BUN (9-20) mg/dL Glucose (74-99) mg/dL POC Glucose (mg/dL) 146 H 151 H 130 H (70-110) mg/dL Calcium (8.4-10.2) mg/dL Alkaline Phosphatase (38-126) U/L Total Protein (6.3-8.2) g/dL Albumin (3.5-5.0) g/dL 02/15/22 02/15/22 02/15/22 Range/Units 22:10 23:22 23:58 WBC (3.8-10.6) k/uL RBC (4.30-5.90) m/uL Hgb (13.0-17.5) gm/dL Hct (39.0-53.0) % Neutrophils # (1.3-7.7) k/uL Lymphocytes # (1.0-4.8) k/uL ABG pH (7.35-7.45) ABG pCO2 (35-45) mmHg ABG pO2 (83-108) mmHg ABG HCO3 (21-25) mmol/L ABG Total CO2 (19-24) mmol/L Sodium (137-145) mmol/L BUN (9-20) mg/dL Glucose (74-99) mg/dL POC Glucose (mg/dL) 140 H 138 H 141 H (70-110) mg/dL Calcium (8.4-10.2) mg/dL Alkaline Phosphatase (38-126) U/L Total Protein (6.3-8.2) g/dL Albumin (3.5-5.0) g/dL 02/16/22 02/16/22 02/16/22 Range/Units 00:59 02:05 02:58 WBC (3.8-10.6) k/uL RBC (4.30-5.90) m/uL Hgb (13.0-17.5) gm/dL Hct (39.0-53.0) % Neutrophils # (1.3-7.7) k/uL Lymphocytes # (1.0-4.8) k/uL ABG pH (7.35-7.45) ABG pCO2 (35-45) mmHg ABG pO2 (83-108) mmHg ABG HCO3 (21-25) mmol/L ABG Total CO2 (19-24) mmol/L Sodium (137-145) mmol/L BUN (9-20) mg/dL Glucose (74-99) mg/dL POC Glucose (mg/dL) 187 H 200 H 173 H (70-110) mg/dL Calcium (8.4-10.2) mg/dL Alkaline Phosphatase (38-126) U/L Total Protein (6.3-8.2) g/dL Albumin (3.5-5.0) g/dL 02/16/22 02/16/22 02/16/22 Range/Units 04:06 05:05 06:06 WBC (3.8-10.6) k/uL RBC (4.30-5.90) m/uL Hgb (13.0-17.5) gm/dL Hct (39.0-53.0) % Neutrophils # (1.3-7.7) k/uL Lymphocytes # (1.0-4.8) k/uL ABG pH (7.35-7.45) ABG pCO2 (35-45) mmHg ABG pO2 (83-108) mmHg ABG HCO3 (21-25) mmol/L ABG Total CO2 (19-24) mmol/L Sodium (137-145) mmol/L BUN (9-20) mg/dL Glucose (74-99) mg/dL POC Glucose (mg/dL) 150 H 161 H 150 H (70-110) mg/dL Calcium (8.4-10.2) mg/dL Alkaline Phosphatase (38-126) U/L Total Protein (6.3-8.2) g/dL Albumin (3.5-5.0) g/dL 11/02/16/22 02/16/22 Range/Units 06:55 08:20 08:20 WBC 19.0 H (3.8-10.6) k/uL RBC 3.50 L (4.30-5.90) m/uL Hgb 10.4 L (13.0-17.5) gm/dL Hct 33.2 L (39.0-53.0) % Neutrophils # 17.3 H (1.3-7.7) k/uL Lymphocytes # 0.8 L (1.0-4.8) k/uL ABG pH (7.35-7.45) ABG pCO2 (35-45) mmHg ABG pO2 (83-108) mmHg ABG HCO3 (21-25) mmol/L ABG Total CO2 (19-24) mmol/L Sodium 135 L (137-145) mmol/L BUN 35 H (9-20) mg/dL Glucose 157 H (74-99) mg/dL POC Glucose (mg/dL) 173 H (70-110) mg/dL Calcium 7.5 L (8.4-10.2) mg/dL Alkaline Phosphatase 32 L (38-126) U/L Total Protein 5.2 L (6.3-8.2) g/dL Albumin 2.9 L (3.5-5.0) g/dL 02/16/22 02/16/22 Range/Units 08:27 09:02 WBC (3.8-10.6) k/uL RBC (4.30-5.90) m/uL Hgb (13.0-17.5) gm/dL Hct (39.0-53.0) % Neutrophils # (1.3-7.7) k/uL Lymphocytes # (1.0-4.8) k/uL ABG pH (7.35-7.45) ABG pCO2 (35-45) mmHg ABG pO2 (83-108) mmHg ABG HCO3 (21-25) mmol/L ABG Total CO2 (19-24) mmol/L Sodium (137-145) mmol/L BUN (9-20) mg/dL Glucose (74-99) mg/dL POC Glucose (mg/dL) 164 H 145 H (70-110) mg/dL Calcium (8.4-10.2) mg/dL Alkaline Phosphatase (38-126) U/L Total Protein (6.3-8.2) g/dL Albumin (3.5-5.0) g/dL Microbiology - Last 24 Hours (Table) 02/13/22 00:15 Blood Culture - Preliminary Blood No Growth after 72 hours 02/13/22 00:30 Blood Culture - Preliminary Blood No Growth after 72 hours 02/14/22 13:19 Blood Culture - Preliminary Blood No Growth after 24 hours 02/13/22 17:37 Gram Stain - Final Sputum Sputum Culture - Final Assessment and Plan Assessment: Left lower lobe pneumonia Acute COPD exacerbation Acute hypoxemic respiratory failure Metabolic/toxic encephalopathy Alcohol abuse and risk of fall, withdrawal RSV bilateral infection A. fib and RVR, not on anticoagulation Diabetes mellitus with hyperglycemia Plan: Continue with cefepime Continue with insulin drip Continue on IV Solu-Medrol Patient is on multiple vitamins Pulmonary team and infectious disease consult Labs and medication were reviewed.. Continue same treatment. Continue with symptomatic treatment. Resume home medication. Monitor lytes and vitals. DVT and GI prophylaxis. Further recommendations as per clinical course of the patient DVT prophylaxis: Subcutaneous heparin GI Prophylaxis: Ppi PT/OT: Pending Prognosis is guarded
--- NOTE | 2022-02-16 22:44 | P.PN ---
Subjective Progress Note Date: 02/15/22 Principal diagnosis: Pneumonia Patient is a 76-year-old male presenting to the hospital with increasing shortness of breath with new onset A. fib left-sided effusion status post chest tube mostly bloodstained secretion. On today's evaluation that is 02/15/2022, the patient remains to be afebrile patient is currently on BiPAP, the patient is lethargic and not good historian no vomiting or diarrhea has been reported by the nursing staff Objective - Vital Signs Vital signs: Vital Signs Temp 97.8 F 02/15/22 12:00 Pulse 67 02/15/22 13:00 Resp 69 H 02/15/22 13:00 BP 122/83 02/15/22 13:00 Pulse Ox 94 L 02/15/22 13:00 FiO2 75 02/15/22 12:00 Intake & Output 02/14/22 02/15/22 02/15/22 18:59 06:59 18:59 Intake Total 7722.916 4353.583 641.208 Output Total 2300 670 1085 Balance -792.573 479.583 -443.792 Weight 135.5 kg Intake: IV 860 760 520 Cefepime 2 gm In Sodium 200 100 100 Chloride 0.9% 100 ml @ 25 mls/hr IVPB Q8HR [facility] Rx# :[id number] Sodium Chloride 0.9% 1, 660 660 420 000 ml @ 60 mls/hr IV . [id number] [facility] Rx#:[id number] Intake, IV Titration 197.427 389.583 121.208 Amount Dexmedetomidine/0.9% NaCl 62.407 346.583 99.950 (Pmx) 400 mcg In Empty Bag 1 bag @ 0.2 MCG/KG/HR 5.897 mls/hr IV .[id number] [facility] Rx#:[id number] Insulin Regular 100 unit 135.020 43.00 21.258 In Sodium Chloride 0.9% 100 ml @ Titrate IV .Q0M [facility] Rx#:[id number] Oral 450 Output: Chest Tube Drainage 1200 50 Chest Tube Left Posterior 1200 50 Chest Drainage 310 Left Posterior Chest 310 Urine 1100 670 725 Other: Voiding Method External Catheter Indwelling Catheter Indwelling Catheter # Voids 1 - Exam GENERAL DESCRIPTION: An elderly male lying in bed in no distress RESPIRATORY SYSTEM: Unlabored breathing , decreased breath sounds at bases HEART: S1 S2 regular rate and rhythm , ABDOMEN: Soft , no tenderness EXTREMITIES: No edema feet - Labs CBC & Chem 7: 02/16/22 08:20 02/16/22 08:20 Labs: Abnormal Lab Results - Last 24 Hours (Table) 02/14/22 02/14/22 02/14/22 Range/Units 13:53 15:05 16:03 WBC (3.8-10.6) k/uL RBC (4.30-5.90) m/uL Hgb (13.0-17.5) gm/dL Hct (39.0-53.0) % MCHC (31.0-37.0) g/dL Neutrophils # (1.3-7.7) k/uL ABG pH (7.35-7.45) ABG pCO2 (35-45) mmHg ABG pO2 (83-108) mmHg ABG HCO3 (21-25) mmol/L ABG Total CO2 (19-24) mmol/L ABG O2 Saturation (94-97) % Sodium (137-145) mmol/L Potassium (3.5-5.1) mmol/L BUN (9-20) mg/dL Glucose (74-99) mg/dL POC Glucose (mg/dL) 149 H 119 H 184 H (70-110) mg/dL Calcium (8.4-10.2) mg/dL 02/14/22 02/14/22 02/14/22 Range/Units 16:39 17:29 18:12 WBC (3.8-10.6) k/uL RBC (4.30-5.90) m/uL Hgb (13.0-17.5) gm/dL Hct (39.0-53.0) % MCHC (31.0-37.0) g/dL Neutrophils # (1.3-7.7) k/uL ABG pH (7.35-7.45) ABG pCO2 51 H (35-45) mmHg ABG pO2 56 L* (83-108) mmHg ABG HCO3 28 H (21-25) mmol/L ABG Total CO2 30 H (19-24) mmol/L ABG O2 Saturation 89.6 L (94-97) % Sodium (137-145) mmol/L Potassium (3.5-5.1) mmol/L BUN (9-20) mg/dL Glucose (74-99) mg/dL POC Glucose (mg/dL) 162 H 142 H (70-110) mg/dL Calcium (8.4-10.2) mg/dL 02/14/22 02/14/22 02/14/22 Range/Units 18:58 20:13 21:22 WBC (3.8-10.6) k/uL RBC (4.30-5.90) m/uL Hgb (13.0-17.5) gm/dL Hct (39.0-53.0) % MCHC (31.0-37.0) g/dL Neutrophils # (1.3-7.7) k/uL ABG pH (7.35-7.45) ABG pCO2 (35-45) mmHg ABG pO2 (83-108) mmHg ABG HCO3 (21-25) mmol/L ABG Total CO2 (19-24) mmol/L ABG O2 Saturation (94-97) % Sodium (137-145) mmol/L Potassium (3.5-5.1) mmol/L BUN (9-20) mg/dL Glucose (74-99) mg/dL POC Glucose (mg/dL) 139 H 235 H 243 H (70-110) mg/dL Calcium (8.4-10.2) mg/dL 02/14/22 02/14/22 02/15/22 Range/Units 21:53 22:59 00:35 WBC (3.8-10.6) k/uL RBC (4.30-5.90) m/uL Hgb (13.0-17.5) gm/dL Hct (39.0-53.0) % MCHC (31.0-37.0) g/dL Neutrophils # (1.3-7.7) k/uL ABG pH 7.27 L (7.35-7.45) ABG pCO2 62 H (35-45) mmHg ABG pO2 (83-108) mmHg ABG HCO3 28 H (21-25) mmol/L ABG Total CO2 30 H (19-24) mmol/L ABG O2 Saturation (94-97) % Sodium (137-145) mmol/L Potassium (3.5-5.1) mmol/L BUN (9-20) mg/dL Glucose (74-99) mg/dL POC Glucose (mg/dL) 268 H 226 H (70-110) mg/dL Calcium (8.4-10.2) mg/dL 02/15/22 02/15/22 02/15/22 Range/Units 01:01 02:11 03:03 WBC (3.8-10.6) k/uL RBC (4.30-5.90) m/uL Hgb (13.0-17.5) gm/dL Hct (39.0-53.0) % MCHC (31.0-37.0) g/dL Neutrophils # (1.3-7.7) k/uL ABG pH (7.35-7.45) ABG pCO2 (35-45) mmHg ABG pO2 (83-108) mmHg ABG HCO3 (21-25) mmol/L ABG Total CO2 (19-24) mmol/L ABG O2 Saturation (94-97) % Sodium (137-145) mmol/L Potassium (3.5-5.1) mmol/L BUN (9-20) mg/dL Glucose (74-99) mg/dL POC Glucose (mg/dL) 222 H 181 H 159 H (70-110) mg/dL Calcium (8.4-10.2) mg/dL 02/15/22 02/15/22 02/15/22 Range/Units 04:04 05:07 06:04 WBC (3.8-10.6) k/uL RBC (4.30-5.90) m/uL Hgb (13.0-17.5) gm/dL Hct (39.0-53.0) % MCHC (31.0-37.0) g/dL Neutrophils # (1.3-7.7) k/uL ABG pH (7.35-7.45) ABG pCO2 (35-45) mmHg ABG pO2 (83-108) mmHg ABG HCO3 (21-25) mmol/L ABG Total CO2 (19-24) mmol/L ABG O2 Saturation (94-97) % Sodium (137-145) mmol/L Potassium (3.5-5.1) mmol/L BUN (9-20) mg/dL Glucose (74-99) mg/dL POC Glucose (mg/dL) 139 H 185 H 173 H (70-110) mg/dL Calcium (8.4-10.2) mg/dL 02/15/22 02/15/22 02/15/22 Range/Units 07:01 07:40 07:40 WBC 26.6 H (3.8-10.6) k/uL RBC 3.75 L (4.30-5.90) m/uL Hgb 11.0 L (13.0-17.5) gm/dL Hct 35.7 L (39.0-53.0) % MCHC 30.9 L (31.0-37.0) g/dL Neutrophils # 23.9 H (1.3-7.7) k/uL ABG pH (7.35-7.45) ABG pCO2 (35-45) mmHg ABG pO2 (83-108) mmHg ABG HCO3 (21-25) mmol/L ABG Total CO2 (19-24) mmol/L ABG O2 Saturation (94-97) % Sodium 134 L (137-145) mmol/L Potassium 5.8 H (3.5-5.1) mmol/L BUN 46 H (9-20) mg/dL Glucose 182 H (74-99) mg/dL POC Glucose (mg/dL) 201 H (70-110) mg/dL Calcium 7.5 L (8.4-10.2) mg/dL 02/15/22 02/15/22 02/15/22 Range/Units 08:05 08:50 09:59 WBC (3.8-10.6) k/uL RBC (4.30-5.90) m/uL Hgb (13.0-17.5) gm/dL Hct (39.0-53.0) % MCHC (31.0-37.0) g/dL Neutrophils # (1.3-7.7) k/uL ABG pH (7.35-7.45) ABG pCO2 (35-45) mmHg ABG pO2 (83-108) mmHg ABG HCO3 (21-25) mmol/L ABG Total CO2 (19-24) mmol/L ABG O2 Saturation (94-97) % Sodium (137-145) mmol/L Potassium (3.5-5.1) mmol/L BUN (9-20) mg/dL Glucose (74-99) mg/dL POC Glucose (mg/dL) 157 H 162 H 177 H (70-110) mg/dL Calcium (8.4-10.2) mg/dL 02/15/22 02/15/22 02/15/22 Range/Units 10:59 11:22 13:05 WBC (3.8-10.6) k/uL RBC (4.30-5.90) m/uL Hgb (13.0-17.5) gm/dL Hct (39.0-53.0) % MCHC (31.0-37.0) g/dL Neutrophils # (1.3-7.7) k/uL ABG pH 7.33 L (7.35-7.45) ABG pCO2 56 H (35-45) mmHg ABG pO2 75 L (83-108) mmHg ABG HCO3 30 H (21-25) mmol/L ABG Total CO2 31 H (19-24) mmol/L ABG O2 Saturation (94-97) % Sodium (137-145) mmol/L Potassium (3.5-5.1) mmol/L BUN (9-20) mg/dL Glucose (74-99) mg/dL POC Glucose (mg/dL) 202 H 221 H (70-110) mg/dL Calcium (8.4-10.2) mg/dL Microbiology - Last 24 Hours (Table) 02/13/22 00:30 Blood Culture - Preliminary Blood No Growth after 48 hours 02/13/22 00:15 Blood Culture - Preliminary Blood No Growth after 48 hours 02/13/22 17:37 Gram Stain - Preliminary Sputum Sputum Culture - Preliminary Assessment and Plan (1) Left lower lobe pneumonia Current Visit: Yes Status: Acute Code(s): J18.9 - PNEUMONIA, UNSPECIFIED ORGANISM SNOMED Code(s): 523608885 (2) Respiratory syncytial virus Current Visit: Yes Status: Acute Code(s): B33.8 - OTHER SPECIFIED VIRAL DISEASES SNOMED Code(s): 95198229 Plan: 1patient presented to hospital with increasing shortness of breath which is likely multifactorial in this patient noticed to have a significant left-sided pleural effusion s/p chest tube placement with evidence of mostly bloody drainage on insertion of the chest tube questionably traumatic as the patient did have a significant bruising to that area however no clear history of any fall underlying pneumonia less likely but not entirely excluded. 2 sputum for gram stain and culture are currently pending, procalcitonin level is mildly elevated at 0.16. 3patient respiratory status remains to be guarded, to continue with the vancomycin and cefepime will waiting for conditions to stabilize and culture to finalize
--- NOTE | 2022-02-16 22:45 | P.PN ---
Subjective Progress Note Date: 02/16/22 Principal diagnosis: Pneumonia Patient is a 76-year-old male presenting to the hospital with increasing shortness of breath with new onset A. fib left-sided effusion status post chest tube mostly bloodstained secretion. On today's evaluation that is 02/16/2022, the patient continues to be afebrile patient remains to be BiPAP dependent, the patient is lethargic and not good historian no vomiting diarrhea or any other changes has been reported by the nursing staff Objective - Vital Signs Vital signs: Vital Signs Temp 98.1 F 02/16/22 20:00 Pulse 75 02/16/22 21:00 Resp 26 H 02/16/22 21:00 BP 126/90 02/16/22 21:00 Pulse Ox 95 02/16/22 21:32 FiO2 50 02/16/22 20:05 Intake & Output 02/16/22 02/16/22 02/17/22 06:59 18:59 06:59 Intake Total 2881.477 3050.699 98.539 Output Total 1225 2550 330 Balance -79.584 -1517.301 -231.461 Weight 137.5 kg Intake: IV 880 560 30 Cefepime 2 gm In Sodium 100 200 Chloride 0.9% 100 ml @ 25 mls/hr IVPB Q8HR [facility] Rx# :[id number] Sodium Chloride 0.9% 1, 780 360 30 000 ml @ 10 mls/hr IV . Q24H [facility] Rx#:[id number] Intake, IV Titration 265.416 222.699 68.539 Amount Dexmedetomidine/0.9% NaCl 176.216 156.757 56.806 (Pmx) 400 mcg In Empty Bag 1 bag @ 0.2 MCG/KG/HR 5.897 mls/hr IV .[id number] [facility] Rx#:[id number] Insulin Regular 100 unit 89.200 65.942 11.733 In Sodium Chloride 0.9% 100 ml @ Titrate IV .Q0M [facility] Rx#:[id number] Oral 250 Output: Chest Tube Drainage 130 Chest Tube Left Posterior 130 Chest Urine 1095 2550 330 Other: Voiding Method Indwelling Catheter Indwelling Catheter - Exam GENERAL DESCRIPTION: An elderly male lying in bed in no distress RESPIRATORY SYSTEM: Unlabored breathing , decreased breath sounds at bases HEART: S1 S2 regular rate and rhythm , ABDOMEN: Soft , no tenderness EXTREMITIES: No edema feet - Labs CBC & Chem 7: 02/16/22 08:20 02/16/22 08:20 Labs: Abnormal Lab Results - Last 24 Hours (Table) 02/15/22 02/15/22 02/15/22 Range/Units 22:10 23:22 23:58 WBC (3.8-10.6) k/uL RBC (4.30-5.90) m/uL Hgb (13.0-17.5) gm/dL Hct (39.0-53.0) % Neutrophils # (1.3-7.7) k/uL Lymphocytes # (1.0-4.8) k/uL Sodium (137-145) mmol/L BUN (9-20) mg/dL Glucose (74-99) mg/dL POC Glucose (mg/dL) 140 H 138 H 141 H (70-110) mg/dL Calcium (8.4-10.2) mg/dL Alkaline Phosphatase (38-126) U/L Total Protein (6.3-8.2) g/dL Albumin (3.5-5.0) g/dL 02/16/22 02/16/22 02/16/22 Range/Units 00:59 02:05 02:58 WBC (3.8-10.6) k/uL RBC (4.30-5.90) m/uL Hgb (13.0-17.5) gm/dL Hct (39.0-53.0) % Neutrophils # (1.3-7.7) k/uL Lymphocytes # (1.0-4.8) k/uL Sodium (137-145) mmol/L BUN (9-20) mg/dL Glucose (74-99) mg/dL POC Glucose (mg/dL) 187 H 200 H 173 H (70-110) mg/dL Calcium (8.4-10.2) mg/dL Alkaline Phosphatase (38-126) U/L Total Protein (6.3-8.2) g/dL Albumin (3.5-5.0) g/dL 02/16/22 02/16/22 02/16/22 Range/Units 04:06 05:05 06:06 WBC (3.8-10.6) k/uL RBC (4.30-5.90) m/uL Hgb (13.0-17.5) gm/dL Hct (39.0-53.0) % Neutrophils # (1.3-7.7) k/uL Lymphocytes # (1.0-4.8) k/uL Sodium (137-145) mmol/L BUN (9-20) mg/dL Glucose (74-99) mg/dL POC Glucose (mg/dL) 150 H 161 H 150 H (70-110) mg/dL Calcium (8.4-10.2) mg/dL Alkaline Phosphatase (38-126) U/L Total Protein (6.3-8.2) g/dL Albumin (3.5-5.0) g/dL 02/16/22 02/16/22 02/16/22 Range/Units 06:55 08:20 08:20 WBC 19.0 H (3.8-10.6) k/uL RBC 3.50 L (4.30-5.90) m/uL Hgb 10.4 L (13.0-17.5) gm/dL Hct 33.2 L (39.0-53.0) % Neutrophils # 17.3 H (1.3-7.7) k/uL Lymphocytes # 0.8 L (1.0-4.8) k/uL Sodium 135 L (137-145) mmol/L BUN 35 H (9-20) mg/dL Glucose 157 H (74-99) mg/dL POC Glucose (mg/dL) 173 H (70-110) mg/dL Calcium 7.5 L (8.4-10.2) mg/dL Alkaline Phosphatase 32 L (38-126) U/L Total Protein 5.2 L (6.3-8.2) g/dL Albumin 2.9 L (3.5-5.0) g/dL 02/16/22 02/16/22 02/16/22 Range/Units 08:27 09:02 10:58 WBC (3.8-10.6) k/uL RBC (4.30-5.90) m/uL Hgb (13.0-17.5) gm/dL Hct (39.0-53.0) % Neutrophils # (1.3-7.7) k/uL Lymphocytes # (1.0-4.8) k/uL Sodium (137-145) mmol/L BUN (9-20) mg/dL Glucose (74-99) mg/dL POC Glucose (mg/dL) 164 H 145 H 175 H (70-110) mg/dL Calcium (8.4-10.2) mg/dL Alkaline Phosphatase (38-126) U/L Total Protein (6.3-8.2) g/dL Albumin (3.5-5.0) g/dL 02/16/22 02/16/22 02/16/22 Range/Units 12:54 15:14 16:01 WBC (3.8-10.6) k/uL RBC (4.30-5.90) m/uL Hgb (13.0-17.5) gm/dL Hct (39.0-53.0) % Neutrophils # (1.3-7.7) k/uL Lymphocytes # (1.0-4.8) k/uL Sodium (137-145) mmol/L BUN (9-20) mg/dL Glucose (74-99) mg/dL POC Glucose (mg/dL) 148 H 121 H 134 H (70-110) mg/dL Calcium (8.4-10.2) mg/dL Alkaline Phosphatase (38-126) U/L Total Protein (6.3-8.2) g/dL Albumin (3.5-5.0) g/dL 02/16/22 02/16/22 02/16/22 Range/Units 17:02 18:02 18:56 WBC (3.8-10.6) k/uL RBC (4.30-5.90) m/uL Hgb (13.0-17.5) gm/dL Hct (39.0-53.0) % Neutrophils # (1.3-7.7) k/uL Lymphocytes # (1.0-4.8) k/uL Sodium (137-145) mmol/L BUN (9-20) mg/dL Glucose (74-99) mg/dL POC Glucose (mg/dL) 187 H 212 H 249 H (70-110) mg/dL Calcium (8.4-10.2) mg/dL Alkaline Phosphatase (38-126) U/L Total Protein (6.3-8.2) g/dL Albumin (3.5-5.0) g/dL 02/16/22 02/16/22 Range/Units 20:30 21:35 WBC (3.8-10.6) k/uL RBC (4.30-5.90) m/uL Hgb (13.0-17.5) gm/dL Hct (39.0-53.0) % Neutrophils # (1.3-7.7) k/uL Lymphocytes # (1.0-4.8) k/uL Sodium (137-145) mmol/L BUN (9-20) mg/dL Glucose (74-99) mg/dL POC Glucose (mg/dL) 215 H 211 H (70-110) mg/dL Calcium (8.4-10.2) mg/dL Alkaline Phosphatase (38-126) U/L Total Protein (6.3-8.2) g/dL Albumin (3.5-5.0) g/dL Microbiology - Last 24 Hours (Table) 02/14/22 13:19 Blood Culture - Preliminary Blood No Growth after 48 hours 02/13/22 00:15 Blood Culture - Preliminary Blood No Growth after 72 hours 02/13/22 00:30 Blood Culture - Preliminary Blood No Growth after 72 hours Assessment and Plan (1) Left lower lobe pneumonia Current Visit: Yes Status: Acute Code(s): J18.9 - PNEUMONIA, UNSPECIFIED ORGANISM SNOMED Code(s): 565463475 (2) Respiratory syncytial virus Current Visit: Yes Status: Acute Code(s): B33.8 - OTHER SPECIFIED VIRAL DISEASES SNOMED Code(s): 44027843 Plan: 1patient presented to hospital with increasing shortness of breath which is likely multifactorial in this patient noticed to have a significant left-sided pleural effusion s/p chest tube placement with evidence of mostly bloody drainage on insertion of the chest tube questionably traumatic as the patient did have a significant bruising to that area however no clear history of any fall underlying pneumonia less likely but not entirely excluded. 2 sputum for gram stain and negative for any resistant pathogen, procalcitonin level is mildly elevated at 0.16. 3patient to continue with cefepime along with supportive treatment and monitor clinical course closely
[2022-02-16 23:00] LABS: Glucose,Whole Blood 234 mg/dL (70-110)
[2022-02-17] LABS: Glucose,Whole Blood 220 mg/dL (70-110)
[2022-02-17] MEDS: INSULIN REGULAR 100 UNIT in SODIUM CHLORIDE 0.9% 100 ML IV SCH (00:07)
[2022-02-17 00:59] LABS: Glucose,Whole Blood 156 mg/dL (70-110)
[2022-02-17 02:02] LABS: Glucose,Whole Blood 145 mg/dL (70-110)
[2022-02-17 03:01] LABS: Glucose,Whole Blood 231 mg/dL (70-110)
[2022-02-17] MEDS: IPRATROPIUM-ALBUTEROL 3 ML NEB INHALATION SCH ×6 (03:58→23:13)
[2022-02-17 03:59] LABS: Glucose,Whole Blood 260 mg/dL (70-110)
[2022-02-17 05:00] LABS: Glucose,Whole Blood 195 mg/dL (70-110)
[2022-02-17 05:58] LABS: Glucose,Whole Blood 189 mg/dL (70-110)
[2022-02-17 06:51] LABS: Glucose,Whole Blood 179 mg/dL (70-110)
[2022-02-17 08:00] LABS: Glucose,Whole Blood 161 mg/dL (70-110)
[2022-02-17] MEDS: methylPREDNISolone SOD SUCCI 125 MG/2 ML VIAL IV SCH (08:18)
[2022-02-17] MEDS: GABAPENTIN 300 MG CAP PO SCH ×2 (08:20→19:54)
[2022-02-17] MEDS: DILTIAZEM ORAL 30 MG TAB PO SCH ×3 (08:21→19:54)
[2022-02-17] MEDS: CEFEPIME 2 GM in SODIUM CHLORIDE 0.9% 100 ML IVPB SCH ×3 (08:22→23:29)
[2022-02-17] MEDS: HEPARIN SODIUM,PORCINE/PF 5,000 UNIT/0.5 ML SYRINGE SQ SCH ×2 (08:22→19:54)
[2022-02-17] MEDS: PANTOPRAZOLE 40 MG/10 ML VIAL IV SCH (08:22)
--- NOTE | 2022-02-17 09:16 | XR ---
EXAMINATION TYPE: XR chest 1V portable DATE OF EXAM: 02/17/2022 Comparison: 02/16/2022 Clinical History: 76-year-old male pleural effusion Findings: Low lung volumes with crowded vascular markings. Heart size is accentuated likely borderline enlarged . Patchy retrocardiac and left basilar opacity is similar. Interstitial is similar to slightly improv ed. There may be trace effusion on the left. The previous left-sided pigtail pleural catheter at the lung bases no longer seen. Impression: Previous left basilar pigtail pleural catheter no longer seen. There may be a trace left pleural effu kimmy. Marked hypoventilatory changes. Patchy left basilar opacity remains.
[2022-02-17 09:26] LABS: Glucose,Whole Blood 268 mg/dL (70-110)
[2022-02-17] MEDS ORDERED: FUROSEMIDE 10 MG/ML 4 ML VIAL IV STA (09:55)
--- NOTE | 2022-02-17 10:01 | P.PN ---
Subjective Progress Note Date: 02/17/22 This is a 76-year-old male patient who arrived to the emergency department yesterday at 02/12/2022 1920 PM after leaving the hospital AMA the day before. The patient presented again for shortness of breath. He was also noted to be hypoxic and hypotensive. His heart rate was tachycardic ranging between 100- 120. He was tachypneic. Ejection the patient is obese. The patient is also known to have hypertension, obstructive sleep apnea and history of bronchial asthma and hypertension. His initial presentation was essentially related to symptoms of URI and wheezing that was going on for the past 3-4 days. He denied having any chest pain. He was having some chest the for discomfort along with coughing. He was seen by Dr. Powell in the emergency department. At that time, his examination was the patient was completing a course of antibiotics that was given Tylenol patient bases in the form of Zithromax. In emergency, the patient was found to be in new onset atrial fibrillation with RVR and he was given a diagnosis of bronchitis and asthma exacerbation. He was advised to stay in the hospital he decided to leave AGAINST MEDICAL ADVICE. He came back to the hospital within 24 hours in the white cell count was elevated at 18.7 with a hemoglobin of 15.3. His blood gas showed a pH of 7.33 with a pCO2 of 44 and pO2 of 87 this was on FiO2 of 35%. Blood sugar was 302 and a sodium level was at 133 with a potassium level of 4.6 and a BUN of 39 and creatinine of 1.1. His viral screen was positive for RSV, influenza and Covid 19 testing was negative. Troponins were negative. ProBNP level was 546. TSH was at 1.4. He was given a CT angiogram that showed no evidence of any pulmonary embolism and there was a moderate-sized left-sided pleural effusion and for now, the patient remained nature fibrillation. His rate is still slightly tachycardic. The patient was receiving IV heparin and this was discontinued On today's evaluation of 02/14/2022, the patient is being seen for a follow-up. Earlier today, the patient became slightly agitated and he became restless. I ordered Precedex. The medication was not started as the patient's mentation gradually improved and agitation settled down. Note that, the patient had a traumatic bloody left-sided pleural effusion. I I attempted to do a thoracentesis and I was unable to pull any bloody effusion. The blood was well formed. A pigtail catheter was inserted. He was infused into the leftand the patient immediately had a 1 L output coming out from the left chest tube. The repeat chest x-ray from today, shows improvement in the volume status and the my motion of the left-sided pleural effusion. A second treatment will be done today. Meanwhile, the patient was transitioned to high flow oxygen and the patient is currently on 50 L an FiO2 of 75%. His pro calcitonin level is at 0.16. There is an obvious bruise over the left lateral chest area and is a traumatic pleural effusion other than Malignant. Meanwhile, the patient was started on insulin drip at 10 units an hour for that blood sugar control. The patient is on normal saline at rate of 50 mL an hour. The patient wasn't thousand 26 with a hemoglobin of 12.1 and a platelet of 206, and the patient has a sodium of 135 with a potassium level of 5 and a BUN of 32 with a creatinine of 0.6. The patient is less short of breath compared to yesterday. The patient remains on DuoNeb about treatments [id number]. The patient remains on IV cefepime. The patient remains on IV Solu-Medrol 60 mg IV push every 6 hours. on 02/15/2022, the patient is being seen for a follow-up. Overnight, the patient became progressively more agitated and intermedius. I made recommendations for this patient to be intubated. However, the patient's family decided not to and a switch the CODE STATUS to DNR/DNI. Based on that, the patient was kept on Precedex forAnd the patient was started on a BiPAP treatment. The high flow oxygen was discontinued. The patient otherwise is doing well for now. This morning, he is while sedated. The patient is on a BiP AP at a pressure of 12/5 cm of water with FiO2 of 75%. His tidal volume generated on the machine is more than 500 and his minute ventilation is around 12 L/m. His chest tube output has been only 350 mL over the past 12 hours. I reviewed the chest x-ray from today and there is no sizable left-sided pleural effusion. In fact left hemidiaphragm can be seen adequately. There is cardiomegaly. The patient also has some limited atelectatic changes in lung base bilaterally more so on the left. The patient remains on IV cefepime. The patient remains on IV Solu-Medrol 60 mg every 6 hours. The patient remains on DuoNeb nebulized treatments [id number]. The patient remains on insulin drip for blood sugar control. A follow-up blood gas was done and the patient was found to have a pH of 7.33 with a pCO2 of 56 and pO2 of 75. The white cycles of 26 with a hemoglobin of 11 and a platelet count of 203. The patient also had a sodium level of 134, potassium level of 5.8, BUN of 46 and a creatinine of 0.88. Blood sugars at 182. Cultures are all negative for now. The patient tested positive for RSV. He is arousable. He withdraws to painful stimulation. The Precedex those will need to be tapered off . Noted the patient also received a dose of Haldol overnight. On 02/16/2022, the patient is being seen for a follow-up. This morning, the patient seems to much more comfortable. Note that yesterday, the patient was started on Precedex which is still running at 0.5 mcg/kg/h. The patient is also receiving Estrada as-needed basis. He seems to more appropriate. His current mental status is stable and the patient is following some simple commands. He remains drowsy or sleepy and the Precedex to be tapered. Meanwhile, the patient's left-sided chest tube was not draining at all and there is adequate expansion of the left lung on follow-up chest x-ray. No evidence of any ongoing issues with hemothorax. No major bronchospasm wheezing on today's evaluation. The chest x-ray showing some mild pulmonary vascular congestion. The white cell count was at 19 with a hemoglobin of 10.4 and a platelet count of 185. Sodium is at 135 and a potassium level is at 4.7 with a BUN of 35 and a creatinine of 0.6. The patient is otherwise doing better less agitated compared to yesterday. Remains on bronchodilators. Remains on steroids. Remains on IV cefepime. Cultures are negative thus far. His cardiac rhythm is atrial fibrillation with a controlled rate. The patient also is an insulin drip for blood sugar control. 02/17/2022, the patient's off Precedex and he was taken off Precedex this morning at around 1 AM. The patient was also taken off the BiPAP at around 2 AM and is currently on 6 L O2 nasal cannula. Chest x-ray shows no the recommendation of the left-sided hemothorax. He is also a 2. His calm and comfortable. He remained nature fibrillation. He remains on insulin drip at 8 units an hour. Less focused spastic and less wheezy on today's evaluation. Sitting up on a chair and is calm and comfortable. His blood work is still pending for now. Chest x-ray from today was noted. No fever. No chills. No other significant events. Chest tube was removed yesterday. Objective - Vital Signs Vital signs: Vital Signs Temp 97.8 F 02/17/22 08:00 Pulse 129 H 02/17/22 09:00 Resp 19 02/17/22 09:00 BP 108/65 02/17/22 09:00 Pulse Ox 93 L 02/17/22 09:00 FiO2 50 02/16/22 20:05 Intake & Output 02/16/22 02/17/22 02/17/22 18:59 06:59 18:59 Intake Total 1032.699 371.056 31.25 Output Total 2550 1310 175 Balance -1517.301 -938.944 -143.75 Weight 137.7 kg Intake: IV 560 230 10 Cefepime 2 gm In Sodium 200 100 Chloride 0.9% 100 ml @ 25 mls/hr IVPB Q8HR [facility] Rx# :[id number] Sodium Chloride 0.9% 1, 360 130 10 000 ml @ 10 mls/hr IV . Q24H [facility] Rx#:[id number] Intake, IV Titration 222.699 141.056 21.25 Amount Dexmedetomidine/0.9% NaCl 156.757 80.294 (Pmx) 400 mcg In Empty Bag 1 bag @ 0.2 MCG/KG/HR 5.897 mls/hr IV .[id number] [facility] Rx#:[id number] Insulin Regular 100 unit 65.942 60.762 21.25 In Sodium Chloride 0.9% 100 ml @ Titrate IV .Q0M [facility] Rx#:[id number] Oral 250 Output: Urine 2550 1310 175 Other: Voiding Method Indwelling Catheter Indwelling Catheter - Exam Obese, calm and comfortable and the patient is currently off Precedex and off the BiPAP on 6 L O2 nasal cannula Head exam was generally normal. There was no scleral icterus or corneal arcus. Mucous membranes were moist. Neck was supple and without jugular venous distension, thyromegaly, or carotid bruits. Carotids were easily palpable bilaterally. There was no adenopathy. Significant crowding of the posterior pharynx and metastatic is 4 Lungs sounds are diminished in left lung base and the patient has dullness to percussion left lung base. The patient has minimal expiratory wheezes as well as lung briscoe bilaterally. There is also prolongation of the sedation phase of breathing and the patient is breathing in interrupted because of frequent cough , the patient has a left-sided chest tube has been removed Heart sounds are irregular, tachycardic, positive S1-S2, overall heart sounds are distant Abdominal exam revealed normal bowel sounds. The abdomen was soft, non-tender, and without masses, organomegaly, or appreciable enlargement of the abdominal aorta. Examination of the extremities revealed easily palpable radial, femoral and pedal pulses. There was no cyanosis, clubbing or edema. Examination of the skin revealed no evidence of significant rashes, suspicious appearing nevi or other concerning lesions. Neurologically, the patient is awake and alert and he is away 2 and his moldable 4 extremities without any limitation - Labs CBC & Chem 7: 02/16/22 08:20 02/16/22 08:20 Labs: Abnormal Lab Results - Last 24 Hours (Table) 02/16/22 02/16/22 02/16/22 Range/Units 10:58 12:54 15:14 POC Glucose (mg/dL) 175 H 148 H 121 H (70-110) mg/dL 02/16/22 02/16/22 02/16/22 Range/Units 16:01 17:02 18:02 POC Glucose (mg/dL) 134 H 187 H 212 H (70-110) mg/dL 02/16/22 02/16/22 02/16/22 Range/Units 18:56 20:30 21:35 POC Glucose (mg/dL) 249 H 215 H 211 H (70-110) mg/dL 02/16/22 02/16/22 02/17/22 Range/Units 22:58 23:58 00:58 POC Glucose (mg/dL) 234 H 220 H 156 H (70-110) mg/dL 02/17/22 02/17/22 02/17/22 Range/Units 02:01 02:58 03:57 POC Glucose (mg/dL) 145 H 231 H 260 H (70-110) mg/dL 02/17/22 02/17/22 02/17/22 Range/Units 04:57 05:57 06:49 POC Glucose (mg/dL) 195 H 189 H 179 H (70-110) mg/dL 02/17/22 02/17/22 Range/Units 07:58 09:25 POC Glucose (mg/dL) 161 H 268 H (70-110) mg/dL Microbiology - Last 24 Hours (Table) 02/13/22 00:30 Blood Culture - Preliminary Blood No Growth after 96 hours 02/13/22 00:15 Blood Culture - Preliminary Blood No Growth after 96 hours 02/14/22 13:19 Blood Culture - Preliminary Blood No Growth after 48 hours Assessment and Plan Plan: Acute hypoxic respiratory failure, currently on oxygen at 6 L and the patient was taken off the BiPAP Acute traumatic left-sided bloody pleural effusion/hemothorax post pigtail catheter insertion with TPA infusion 2 with adequate evacuation a left-sided pneumothorax, recovered and the chest tube has been removed Encephalopathy/delirium, consider possibility of alcohol withdrawal. The patient is improving and the patient is currently off Precedex Acute lactic acidosis, improving and the patient is currently on IV fluids, improved Acute RSV infection with possible superinfection with a bacteria as the patient's presentation most consistent with an acute bacterial infection Acute asthma exacerbation secondary to above, the patient has severe persistent chronic bronchial asthma, improving Acute leukocytosis, secondary to above, improved compared to yesterday Acute atrial fibrillation with rapid ventricular response currently off anticoagulation, rate is under better control Diabetes mellitus, with certain use hyperglycemia and the patient is currently on insulin drip @ 2 Units/hr Obesity Obstructive sleep apnea Peripheral neuropathy from diabetes mellitus Plan Wean the FiO2 as tolerated to maintain saturation above 90% Chest tube was not removed Continue IV cefepime Stop the insulin drip and put the patient on Levemir insulin 20 units and a sliding scale coverage Discontinue the IV Solu-Medrol and put the patient prednisone burst taper starting with 40 mg Start The patient metoprolol for rate control 25 mg by mouth twice a day No coagulation for now as the patient the recent hemothorax Give the patient does of Lasix 40 mg IV push Continue the rest of the supportive care. This is at the bedside. Clinically improved. Repeat labs in the morning. We'll keep in ICU for another 24 hours. DNR/DNI CODE STATUS.
[2022-02-17] MEDS ORDERED: DEXTROSE 50% SYRINGE 50 ML IVP PRN ×2 (10:33)
[2022-02-17 10:35] LABS: Glucose,Whole Blood 268 mg/dL (70-110)
[2022-02-17] MEDS: METOPROLOL TARTRATE 25 MG TAB PO SCH ×2 (10:36→19:53)
[2022-02-17] MEDS: INSULIN DETEMIR (LEVEMIR) 100 UNIT/ML SYR SQ SCH (11:17)
[2022-02-17] MEDS: FOLIC ACID 1 MG TAB PO SCH (11:55)
[2022-02-17] MEDS: THIAMINE 100 MG TAB PO SCH (11:55)
[2022-02-17] MEDS: MULTIVITAMINS, THERA 1 EACH TAB PO SCH (11:55)
[2022-02-17 11:59] LABS: Glucose,Whole Blood 268 mg/dL (70-110)
[2022-02-17] MEDS: INSULIN ASPART (NovoLOG) 100 UNIT/ML VIAL SQ SCH ×3 (12:02→19:55)
[2022-02-17 12:21] LABS: HCT 37.3 % (39.0-53.0); Hypochromasia Slight; MCH 29.9 pg (25.0-35.0); MCHC 32.3 g/dL (31.0-37.0); MCV 92.7 fL (80.0-100.0); Mean Platelet Volume 9.1; Platelet Count 267 k/uL (150-450); RBC 4.02 m/uL (4.30-5.90); RDW 14.1 % (11.5-15.5); WBC 23.5 k/uL (3.8-10.6)
[2022-02-17 12:42] LABS: African American GFR (CKD) >90 (>60 ml/min/1.73 sqM); Anion Gap 7 mmol/L; Blood Urea Nitrogen 35 mg/dL (9-20); Calcium 7.8 mg/dL (8.4-10.2); Carbon Dioxide 30 mmol/L (22-30); Chloride 96 mmol/L (98-107); Glucose 285 mg/dL (74-99); Non-African American GFR(CKD) 87 (>60 ml/min/1.73 sqM); Potassium 4.7 mmol/L (3.5-5.1); Sodium 133 mmol/L (137-145)
[2022-02-17 13:30] LABS: Glucose,Whole Blood 356 mg/dL (70-110)
[2022-02-17] MEDS ORDERED: INSULIN DETEMIR (LEVEMIR) 100 UNIT/ML SYR SQ ONE ×2 (14:30→15:02)
[2022-02-17 15:28] LABS: Band Neutrophils % 1 %; Lymphocytes # (M) 1.41 k/uL (1.0-4.8); Metamyelocytes # (M) 0.24 k/uL (0); Metamyelocytes % 1 %; Monocytes # (M) 1.88 k/uL (0-1.0); Myelocytes # (M) 0.24 k/uL (0); Myelocytes % 1 %; Neutrophils % (M) 85 %; Nucleated Red Blood Cells 0 /100 WBC (0-0); Total Cells Counted 200
[2022-02-17 16:07] LABS: Glucose,Whole Blood 220 mg/dL (70-110)
[2022-02-17 16:50] LABS: Glucose,Whole Blood 235 mg/dL (70-110)
[2022-02-17 19:50] LABS: Glucose,Whole Blood 307 mg/dL (70-110)
[2022-02-17] MEDS: ASCORBIC ACID 500 MG TAB PO SCH (19:53)
[2022-02-17] MEDS: ASPIRIN 81 MG PO SCH (19:53)
[2022-02-17] MEDS: ZINC SULFATE 220 MG CAP PO SCH (19:53)
[2022-02-17] MEDS: CHOLECALCIFEROL 25 MCG (1000 IU) TABLET PO SCH (19:54)
[2022-02-17] MEDS: ATORVASTATIN 40 MG TAB PO SCH (19:54)
[2022-02-17] MEDS: LOSARTAN 50 MG TAB PO SCH (19:55)
--- NOTE | 2022-02-17 21:22 | P.PN ---
Subjective This is a pleasant 76 years old male with multiple medical problems admitted with acute hypoxic respiratory failure, currently is on BiPAP and well of BiPAP he is on 8 L/m of oxygen via nasal cannula. His CT of the chest was negative for PE but showing left lower lobe infiltrate and pleural effusion, ejection fraction 60% Currently covered with cefepime and insulin drip and IV Solu-Medrol 40 mg twice daily Also he is on multiple vitamins D, vitamin C and zinc. For his arcus V bilateral infection. Patient remains on BiPAP this morning while his monitored in the ICU WBC 19,000, hemoglobin 10 02/17/2022 Patient currently feels better, less dyspneic, oxygen requirement down to 3 L/m, Slightly tachycardic Glucose more than 200, insulin drip and switched to Levemir 20 units Continue with IV cefepime and prednisone 40 mg starting today Objective - Vital Signs Vital signs: Vital Signs Temp 97.8 F 02/17/22 08:00 Pulse 129 H 02/17/22 09:00 Resp 19 02/17/22 09:00 BP 108/65 02/17/22 09:00 Pulse Ox 93 L 02/17/22 09:00 FiO2 50 02/16/22 20:05 Intake & Output 02/16/22 02/17/22 02/17/22 18:59 06:59 18:59 Intake Total 1032.699 371.056 31.25 Output Total 2550 1310 175 Balance -1517.301 -938.944 -143.75 Weight 137.7 kg Intake: IV 560 230 10 Cefepime 2 gm In Sodium 200 100 Chloride 0.9% 100 ml @ 25 mls/hr IVPB Q8HR [facility] Rx# :[id number] Sodium Chloride 0.9% 1, 360 130 10 000 ml @ 10 mls/hr IV . Q24H [facility] Rx#:[id number] Intake, IV Titration 222.699 141.056 21.25 Amount Dexmedetomidine/0.9% NaCl 156.757 80.294 (Pmx) 400 mcg In Empty Bag 1 bag @ 0.2 MCG/KG/HR 5.897 mls/hr IV .[id number] [facility] Rx#:[id number] Insulin Regular 100 unit 65.942 60.762 21.25 In Sodium Chloride 0.9% 100 ml @ Titrate IV .Q0M [facility] Rx#:[id number] Oral 250 Output: Urine 2550 1310 175 Other: Voiding Method Indwelling Catheter Indwelling Catheter - Exam -GENERAL: The patient is awake but confused, not in any acute distress. Well developed, well nourished. HEENT: Pupils are round and equally reacting to light. EOMI. No scleral icterus. No conjunctival pallor. Normocephalic, atraumatic. No pharyngeal erythema. No thyromegaly. CARDIOVASCULAR: S1 and S2 present. No murmurs, rubs, or gallops. -PULMONARY: Chest is clear to auscultation scattered wheezing or crepitation, especially on the left side ABDOMEN: Soft, nontender, nondistended, normoactive bowel sounds. No palpable organomegaly. MUSCULOSKELETAL: No joint swelling or deformity. EXTREMITIES: No cyanosis, clubbing, or pedal edema. NEUROLOGICAL: Gross neurological examination did not reveal any focal deficits. SKIN: No rashes. no petechiae. - Labs CBC & Chem 7: 02/17/22 11:51 02/17/22 11:51 Labs: Abnormal Lab Results - Last 24 Hours (Table) 02/16/22 02/16/22 02/16/22 Range/Units 10:58 12:54 15:14 POC Glucose (mg/dL) 175 H 148 H 121 H (70-110) mg/dL 02/16/22 02/16/22 02/16/22 Range/Units 16:01 17:02 18:02 POC Glucose (mg/dL) 134 H 187 H 212 H (70-110) mg/dL 02/16/22 02/16/22 02/16/22 Range/Units 18:56 20:30 21:35 POC Glucose (mg/dL) 249 H 215 H 211 H (70-110) mg/dL 02/16/22 02/16/22 02/17/22 Range/Units 22:58 23:58 00:58 POC Glucose (mg/dL) 234 H 220 H 156 H (70-110) mg/dL 02/17/22 02/17/22 02/17/22 Range/Units 02:01 02:58 03:57 POC Glucose (mg/dL) 145 H 231 H 260 H (70-110) mg/dL 02/17/22 02/17/22 02/17/22 Range/Units 04:57 05:57 06:49 POC Glucose (mg/dL) 195 H 189 H 179 H (70-110) mg/dL 02/17/22 02/17/22 Range/Units 07:58 09:25 POC Glucose (mg/dL) 161 H 268 H (70-110) mg/dL Microbiology - Last 24 Hours (Table) 02/13/22 00:30 Blood Culture - Preliminary Blood No Growth after 96 hours 02/13/22 00:15 Blood Culture - Preliminary Blood No Growth after 96 hours 02/14/22 13:19 Blood Culture - Preliminary Blood No Growth after 48 hours Assessment and Plan Assessment: Left lower lobe pneumonia Acute COPD exacerbation Acute hypoxemic respiratory failure Metabolic/toxic encephalopathy Alcohol abuse and risk of fall, withdrawal RSV bilateral infection A. fib and RVR, not on anticoagulation Diabetes mellitus with hyperglycemia Plan: Continue with antibiotics Continue with insulin Levemir and insulin sliding scale Continue on oral steroids Patient is on multiple vitamins Pulmonary team and infectious disease consult Labs and medication were reviewed.. Continue same treatment. Continue with symptomatic treatment. Resume home medication. Monitor lytes and vitals. DVT and GI prophylaxis. Further recommendations as per clinical course of the patient DVT prophylaxis: Subcutaneous heparin GI Prophylaxis: Ppi PT/OT: Pending Prognosis is guarded
[2022-02-17] MEDS: SODIUM CHLORIDE 0.9% 1,000 ML IV SCH (23:29)
--- NOTE | 2022-02-17 23:53 | P.PN ---
Subjective Progress Note Date: 02/17/22 Principal diagnosis: Pneumonia Patient is a 76-year-old male presenting to the hospital with increasing shortness of breath with new onset A. fib left-sided effusion status post chest tube mostly bloodstained secretion. On today's evaluation that is 02/17/2022 patient remains to be afebrile, the patient is more awake and alert is currently breathing comfortably on nasal cannula oxygen with FiO2 down to 50% patient denies having any chest pain and no worsening cough or sputum production no abdominal pain no diarrhea Objective - Vital Signs Vital signs: Vital Signs Temp 97.8 F 02/17/22 08:00 Pulse 89 02/17/22 11:24 Resp 20 02/17/22 11:00 BP 137/91 02/17/22 11:00 Pulse Ox 96 02/17/22 11:00 FiO2 50 02/17/22 11:01 Intake & Output 02/16/22 02/17/22 02/17/22 18:59 06:59 18:59 Intake Total 1032.699 371.056 156.25 Output Total 2550 1310 175 Balance -1517.301 -938.944 -18.75 Weight 137.7 kg Intake: IV 560 230 135 Cefepime 2 gm In Sodium 200 100 Chloride 0.9% 100 ml @ 25 mls/hr IVPB Q8HR [facility] Rx# :[id number] Sodium Chloride 0.9% 1, 360 130 135 000 ml @ 10 mls/hr IV . Q24H [facility] Rx#:[id number] Intake, IV Titration 222.699 141.056 21.25 Amount Dexmedetomidine/0.9% NaCl 156.757 80.294 (Pmx) 400 mcg In Empty Bag 1 bag @ 0.2 MCG/KG/HR 5.897 mls/hr IV .[id number] [facility] Rx#:[id number] Insulin Regular 100 unit 65.942 60.762 21.25 In Sodium Chloride 0.9% 100 ml @ Titrate IV .Q0M [facility] Rx#:[id number] Oral 250 Output: Urine 2550 1310 175 Other: Voiding Method Indwelling Catheter Indwelling Catheter - Exam GENERAL DESCRIPTION: An elderly male lying in bed in no distress RESPIRATORY SYSTEM: Unlabored breathing , decreased breath sounds at bases HEART: S1 S2 regular rate and rhythm , ABDOMEN: Soft , no tenderness EXTREMITIES: No edema feet - Labs CBC & Chem 7: 02/17/22 11:51 02/17/22 11:51 Labs: Abnormal Lab Results - Last 24 Hours (Table) 02/16/22 02/16/22 02/16/22 Range/Units 15:14 16:01 17:02 WBC (3.8-10.6) k/uL RBC (4.30-5.90) m/uL Hgb (13.0-17.5) gm/dL Hct (39.0-53.0) % Sodium (137-145) mmol/L Chloride (98-107) mmol/L BUN (9-20) mg/dL Glucose (74-99) mg/dL POC Glucose (mg/dL) 121 H 134 H 187 H (70-110) mg/dL Calcium (8.4-10.2) mg/dL 02/16/22 02/16/22 02/16/22 Range/Units 18:02 18:56 20:30 WBC (3.8-10.6) k/uL RBC (4.30-5.90) m/uL Hgb (13.0-17.5) gm/dL Hct (39.0-53.0) % Sodium (137-145) mmol/L Chloride (98-107) mmol/L BUN (9-20) mg/dL Glucose (74-99) mg/dL POC Glucose (mg/dL) 212 H 249 H 215 H (70-110) mg/dL Calcium (8.4-10.2) mg/dL 02/16/22 02/16/22 02/16/22 Range/Units 21:35 22:58 23:58 WBC (3.8-10.6) k/uL RBC (4.30-5.90) m/uL Hgb (13.0-17.5) gm/dL Hct (39.0-53.0) % Sodium (137-145) mmol/L Chloride (98-107) mmol/L BUN (9-20) mg/dL Glucose (74-99) mg/dL POC Glucose (mg/dL) 211 H 234 H 220 H (70-110) mg/dL Calcium (8.4-10.2) mg/dL 02/17/22 02/17/22 02/17/22 Range/Units 00:58 02:01 02:58 WBC (3.8-10.6) k/uL RBC (4.30-5.90) m/uL Hgb (13.0-17.5) gm/dL Hct (39.0-53.0) % Sodium (137-145) mmol/L Chloride (98-107) mmol/L BUN (9-20) mg/dL Glucose (74-99) mg/dL POC Glucose (mg/dL) 156 H 145 H 231 H (70-110) mg/dL Calcium (8.4-10.2) mg/dL 02/17/22 02/17/22 02/17/22 Range/Units 03:57 04:57 05:57 WBC (3.8-10.6) k/uL RBC (4.30-5.90) m/uL Hgb (13.0-17.5) gm/dL Hct (39.0-53.0) % Sodium (137-145) mmol/L Chloride (98-107) mmol/L BUN (9-20) mg/dL Glucose (74-99) mg/dL POC Glucose (mg/dL) 260 H 195 H 189 H (70-110) mg/dL Calcium (8.4-10.2) mg/dL 02/17/22 02/17/22 02/17/22 Range/Units 06:49 07:58 09:25 WBC (3.8-10.6) k/uL RBC (4.30-5.90) m/uL Hgb (13.0-17.5) gm/dL Hct (39.0-53.0) % Sodium (137-145) mmol/L Chloride (98-107) mmol/L BUN (9-20) mg/dL Glucose (74-99) mg/dL POC Glucose (mg/dL) 179 H 161 H 268 H (70-110) mg/dL Calcium (8.4-10.2) mg/dL 02/17/22 02/17/22 02/17/22 Range/Units 10:33 11:51 11:51 WBC 23.5 H (3.8-10.6) k/uL RBC 4.02 L (4.30-5.90) m/uL Hgb 12.0 L (13.0-17.5) gm/dL Hct 37.3 L (39.0-53.0) % Sodium 133 L (137-145) mmol/L Chloride 96 L (98-107) mmol/L BUN 35 H (9-20) mg/dL Glucose 285 H (74-99) mg/dL POC Glucose (mg/dL) 268 H (70-110) mg/dL Calcium 7.8 L (8.4-10.2) mg/dL 02/17/22 Range/Units 11:58 WBC (3.8-10.6) k/uL RBC (4.30-5.90) m/uL Hgb (13.0-17.5) gm/dL Hct (39.0-53.0) % Sodium (137-145) mmol/L Chloride (98-107) mmol/L BUN (9-20) mg/dL Glucose (74-99) mg/dL POC Glucose (mg/dL) 268 H (70-110) mg/dL Calcium (8.4-10.2) mg/dL Microbiology - Last 24 Hours (Table) 02/13/22 00:30 Blood Culture - Preliminary Blood No Growth after 96 hours 02/13/22 00:15 Blood Culture - Preliminary Blood No Growth after 96 hours 02/14/22 13:19 Blood Culture - Preliminary Blood No Growth after 48 hours Assessment and Plan (1) Left lower lobe pneumonia Current Visit: Yes Status: Acute Code(s): J18.9 - PNEUMONIA, UNSPECIFIED ORGANISM SNOMED Code(s): 221223134 (2) Respiratory syncytial virus Current Visit: Yes Status: Acute Code(s): B33.8 - OTHER SPECIFIED VIRAL DISEASES SNOMED Code(s): 95328133 Plan: 1patient presented to hospital with increasing shortness of breath which is likely multifactorial in this patient noticed to have a significant left-sided pleural effusion s/p chest tube placement with evidence of mostly bloody drainage on insertion of the chest tube questionably traumatic as the patient did have a significant bruising to that area however no clear history of any fall underlying pneumonia less likely but not entirely excluded. 2 sputum for gram stain and negative for any resistant pathogen, procalcitonin level is mildly elevated at 0.16. 3Patient has shown some clinical improvement and will continue cefepime while monitor clinical course closely. 4leukocytosis more likely steroids related and will monitor closely Time with Patient: Less than 30
[2022-02-18] MEDS: IPRATROPIUM-ALBUTEROL 3 ML NEB INHALATION SCH ×5 (03:27→19:20)
[2022-02-18 06:04] LABS: Glucose,Whole Blood 190 mg/dL (70-110)
[2022-02-18] MEDS: INSULIN DETEMIR (LEVEMIR) 100 UNIT/ML SYR SQ SCH (06:22)
[2022-02-18] MEDS: INSULIN ASPART (NovoLOG) 100 UNIT/ML VIAL SQ SCH ×4 (06:22→20:54)
[2022-02-18 07:13] LABS: Basophils # (A) 0.1 k/uL (0-0.2); Basophils % (A) 0 %; Eosinophils # (A) 0.2 k/uL (0-0.7); Eosinophils % (A) 1 %; HCT 36.5 % (39.0-53.0); Hypochromasia Slight; Lymphocytes # (A) 2.3 k/uL (1.0-4.8); Lymphocytes % (A) 12 %; MCH 30.6 pg (25.0-35.0); MCV 92.7 fL (80.0-100.0); Mean Platelet Volume 8.7; Monocytes # (A) 1.3 k/uL (0-1.0); Monocytes % (A) 6 %; Neutrophils # (A) 16.1 k/uL (1.3-7.7); Neutrophils % (A) 80 %; Platelet Count 256 k/uL (150-450); RBC 3.93 m/uL (4.30-5.90); WBC 20.1 k/uL (3.8-10.6)
[2022-02-18 07:28] LABS: ALT 57 U/L (4-49); AST 63 U/L (17-59); African American GFR (CKD) >90 (>60 ml/min/1.73 sqM); Albumin 3.2 g/dL (3.5-5.0); Alkaline Phosphatase 49 U/L (38-126); Anion Gap 2 mmol/L; Blood Urea Nitrogen 32 mg/dL (9-20); Calcium 7.8 mg/dL (8.4-10.2); Carbon Dioxide 38 mmol/L (22-30); Chloride 97 mmol/L (98-107); Glucose 174 mg/dL (74-99); Non-African American GFR(CKD) >90 (>60 ml/min/1.73 sqM); Potassium 4.6 mmol/L (3.5-5.1); Sodium 137 mmol/L (137-145); Total Bilirubin 1.8 mg/dL (0.2-1.3); Total Protein 5.5 g/dL (6.3-8.2)
[2022-02-18] MEDS: PANTOPRAZOLE 40 MG/10 ML VIAL IV SCH (08:35)
[2022-02-18] MEDS: CEFEPIME 2 GM in SODIUM CHLORIDE 0.9% 100 ML IVPB SCH ×3 (08:35→23:28)
[2022-02-18] MEDS: HEPARIN SODIUM,PORCINE/PF 5,000 UNIT/0.5 ML SYRINGE SQ SCH ×2 (08:35→22:52)
[2022-02-18] MEDS: DILTIAZEM ORAL 30 MG TAB PO SCH ×3 (08:36→22:53)
[2022-02-18] MEDS: METOPROLOL TARTRATE 25 MG TAB PO SCH (08:36)
[2022-02-18] MEDS: GABAPENTIN 300 MG CAP PO SCH ×2 (08:36→22:51)
[2022-02-18] MEDS ORDERED: predniSONE 20 MG TAB PO SCH (09:00)
--- NOTE | 2022-02-18 10:51 | P.PN ---
Subjective Progress Note Date: 02/18/22 This is a 76-year-old male patient who arrived to the emergency department yesterday at 02/12/2022 1920 PM after leaving the hospital AMA the day before. The patient presented again for shortness of breath. He was also noted to be hypoxic and hypotensive. His heart rate was tachycardic ranging between 100- 120. He was tachypneic. Ejection the patient is obese. The patient is also known to have hypertension, obstructive sleep apnea and history of bronchial asthma and hypertension. His initial presentation was essentially related to symptoms of URI and wheezing that was going on for the past 3-4 days. He denied having any chest pain. He was having some chest the for discomfort along with coughing. He was seen by Dr. Powell in the emergency department. At that time, his examination was the patient was completing a course of antibiotics that was given Tylenol patient bases in the form of Zithromax. In emergency, the patient was found to be in new onset atrial fibrillation with RVR and he was given a diagnosis of bronchitis and asthma exacerbation. He was advised to stay in the hospital he decided to leave AGAINST MEDICAL ADVICE. He came back to the hospital within 24 hours in the white cell count was elevated at 18.7 with a hemoglobin of 15.3. His blood gas showed a pH of 7.33 with a pCO2 of 44 and pO2 of 87 this was on FiO2 of 35%. Blood sugar was 302 and a sodium level was at 133 with a potassium level of 4.6 and a BUN of 39 and creatinine of 1.1. His viral screen was positive for RSV, influenza and Covid 19 testing was negative. Troponins were negative. ProBNP level was 546. TSH was at 1.4. He was given a CT angiogram that showed no evidence of any pulmonary embolism and there was a moderate-sized left-sided pleural effusion and for now, the patient remained nature fibrillation. His rate is still slightly tachycardic. The patient was receiving IV heparin and this was discontinued On today's evaluation of 02/14/2022, the patient is being seen for a follow-up. Earlier today, the patient became slightly agitated and he became restless. I ordered Precedex. The medication was not started as the patient's mentation gradually improved and agitation settled down. Note that, the patient had a traumatic bloody left-sided pleural effusion. I I attempted to do a thoracentesis and I was unable to pull any bloody effusion. The blood was well formed. A pigtail catheter was inserted. He was infused into the leftand the patient immediately had a 1 L output coming out from the left chest tube. The repeat chest x-ray from today, shows improvement in the volume status and the my motion of the left-sided pleural effusion. A second treatment will be done today. Meanwhile, the patient was transitioned to high flow oxygen and the patient is currently on 50 L an FiO2 of 75%. His pro calcitonin level is at 0.16. There is an obvious bruise over the left lateral chest area and is a traumatic pleural effusion other than Malignant. Meanwhile, the patient was started on insulin drip at 10 units an hour for that blood sugar control. The patient is on normal saline at rate of 50 mL an hour. The patient wasn't thousand 26 with a hemoglobin of 12.1 and a platelet of 206, and the patient has a sodium of 135 with a potassium level of 5 and a BUN of 32 with a creatinine of 0.6. The patient is less short of breath compared to yesterday. The patient remains on DuoNeb about treatments [id number]. The patient remains on IV cefepime. The patient remains on IV Solu-Medrol 60 mg IV push every 6 hours. on 02/15/2022, the patient is being seen for a follow-up. Overnight, the patient became progressively more agitated and intermedius. I made recommendations for this patient to be intubated. However, the patient's family decided not to and a switch the CODE STATUS to DNR/DNI. Based on that, the patient was kept on Precedex forAnd the patient was started on a BiPAP treatment. The high flow oxygen was discontinued. The patient otherwise is doing well for now. This morning, he is while sedated. The patient is on a BiP AP at a pressure of 12/5 cm of water with FiO2 of 75%. His tidal volume generated on the machine is more than 500 and his minute ventilation is around 12 L/m. His chest tube output has been only 350 mL over the past 12 hours. I reviewed the chest x-ray from today and there is no sizable left-sided pleural effusion. In fact left hemidiaphragm can be seen adequately. There is cardiomegaly. The patient also has some limited atelectatic changes in lung base bilaterally more so on the left. The patient remains on IV cefepime. The patient remains on IV Solu-Medrol 60 mg every 6 hours. The patient remains on DuoNeb nebulized treatments [id number]. The patient remains on insulin drip for blood sugar control. A follow-up blood gas was done and the patient was found to have a pH of 7.33 with a pCO2 of 56 and pO2 of 75. The white cycles of 26 with a hemoglobin of 11 and a platelet count of 203. The patient also had a sodium level of 134, potassium level of 5.8, BUN of 46 and a creatinine of 0.88. Blood sugars at 182. Cultures are all negative for now. The patient tested positive for RSV. He is arousable. He withdraws to painful stimulation. The Precedex those will need to be tapered off . Noted the patient also received a dose of Haldol overnight. On 02/16/2022, the patient is being seen for a follow-up. This morning, the patient seems to much more comfortable. Note that yesterday, the patient was started on Precedex which is still running at 0.5 mcg/kg/h. The patient is also receiving Estrada as-needed basis. He seems to more appropriate. His current mental status is stable and the patient is following some simple commands. He remains drowsy or sleepy and the Precedex to be tapered. Meanwhile, the patient's left-sided chest tube was not draining at all and there is adequate expansion of the left lung on follow-up chest x-ray. No evidence of any ongoing issues with hemothorax. No major bronchospasm wheezing on today's evaluation. The chest x-ray showing some mild pulmonary vascular congestion. The white cell count was at 19 with a hemoglobin of 10.4 and a platelet count of 185. Sodium is at 135 and a potassium level is at 4.7 with a BUN of 35 and a creatinine of 0.6. The patient is otherwise doing better less agitated compared to yesterday. Remains on bronchodilators. Remains on steroids. Remains on IV cefepime. Cultures are negative thus far. His cardiac rhythm is atrial fibrillation with a controlled rate. The patient also is an insulin drip for blood sugar control. 02/17/2022, the patient's off Precedex and he was taken off Precedex this morning at around 1 AM. The patient was also taken off the BiPAP at around 2 AM and is currently on 6 L O2 nasal cannula. Chest x-ray shows no the recommendation of the left-sided hemothorax. He is also a 2. His calm and comfortable. He remained nature fibrillation. He remains on insulin drip at 8 units an hour. Less focused spastic and less wheezy on today's evaluation. Sitting up on a chair and is calm and comfortable. His blood work is still pending for now. Chest x-ray from today was noted. No fever. No chills. No other significant events. Chest tube was removed yesterday. 02/18/2022, the patient remains off Precedex for the past 24 hours. He is very calm and comfortable. Neurologically, he is alert and oriented 3. Is following commands appropriately. He remains weak. He is not utilizing the BiPAP in the morning. He is currently on oxygen at 3 L. His FiO2 has been gradually weaned off. The left-sided chest tube has been removed. The left- sided pneumothorax was evacuated successfully. The patient was obviously improving. He was much less bronchospastic and wheezy on yesterday's evaluation. Based on that, I made some adjustments and I took him off the IV Solu-Medrol and start the patient on a prednisone burst taper. I was hoping that this will also improve his blood sugar control. On today's evaluation, his blood sugars under better control. He is on on Levemir insulin 20 units and a sliding scale coverage. He is still on IV antibiotics, and the patient remains on IV cefepime. Cultures have been negative. Meanwhile, the white cell count is down to 20.1 and hemoglobin is at 12. He has a BUN 32 with a creatinine of 0.7 and a sodium level is at 137. No chest x-ray from today. No fever. No chills. No falls. His cardiac rhythm is atrial fibrillation. No anticoagulants for now especially with his recent fall and traumatic pneumothorax. Objective - Vital Signs Vital signs: Vital Signs Temp 98.0 F 02/18/22 08:00 Pulse 88 02/18/22 10:00 Resp 21 02/18/22 10:00 BP 135/101 02/18/22 10:00 Pulse Ox 94 L 02/18/22 10:00 FiO2 50 02/17/22 11:01 Intake & Output 02/17/22 02/18/22 02/18/22 18:59 06:59 18:59 Intake Total 121.25 160 180 Output Total 2750 1225 290 Balance -2628.75 -1065 -110 Weight 136.5 kg Intake: IV 100 160 180 Cefepime 2 gm In Sodium 100 Chloride 0.9% 100 ml @ 25 mls/hr IVPB Q8HR [facility] Rx# :[id number] Sodium Chloride 0.9% 1, 100 160 80 000 ml @ 10 mls/hr IV . Q24H [facility] Rx#:[id number] Intake, IV Titration 21.25 Amount Insulin Regular 100 unit 21.25 In Sodium Chloride 0.9% 100 ml @ Titrate IV .Q0M [facility] Rx#:[id number] Output: Urine 2750 1225 290 Other: Voiding Method Indwelling Catheter Indwelling Catheter Indwelling Catheter # Voids 1 - Exam Obese, calm and comfortable and the patient is currently off Precedex and off the BiPAP on 3 L O2 nasal cannula Head exam was generally normal. There was no scleral icterus or corneal arcus. Mucous membranes were moist. Neck was supple and without jugular venous distension, thyromegaly, or carotid bruits. Carotids were easily palpable bilaterally. There was no adenopathy. Significant crowding of the posterior pharynx and metastatic is 4 Lungs sounds are diminished in left lung base and the patient has dullness to percussion left lung base. The patient has minimal expiratory wheezes as well as lung briscoe bilaterally. There is also prolongation of the sedation phase of breathing and the patient is breathing in interrupted because of frequent cough , the patient has a left-sided chest tube has been removed Heart sounds are irregular, tachycardic, positive S1-S2, overall heart sounds are distant Abdominal exam revealed normal bowel sounds. The abdomen was soft, non-tender, and without masses, organomegaly, or appreciable enlargement of the abdominal aorta. Examination of the extremities revealed easily palpable radial, femoral and pedal pulses. There was no cyanosis, clubbing or edema. Examination of the skin revealed no evidence of significant rashes, suspicious appearing nevi or other concerning lesions. Neurologically, the patient is awake and alert and he is away 2 and his moldable 4 extremities without any limitation - Labs CBC & Chem 7: 02/18/22 07:00 02/18/22 07:00 Labs: Abnormal Lab Results - Last 24 Hours (Table) 02/17/22 02/17/22 02/17/22 Range/Units 11:51 11:51 11:58 WBC 23.5 H (3.8-10.6) k/uL RBC 4.02 L (4.30-5.90) m/uL Hgb 12.0 L (13.0-17.5) gm/dL Hct 37.3 L (39.0-53.0) % Neutrophils # (1.3-7.7) k/uL Neutrophils # (Manual) 20.20 H (1.3-7.7) k/uL Monocytes # (0-1.0) k/uL Monocytes # (Manual) 1.88 H (0-1.0) k/uL Metamyelocytes # (Man) 0.24 H (0) k/uL Myelocytes # (Manual) 0.24 H (0) k/uL Sodium 133 L (137-145) mmol/L Chloride 96 L (98-107) mmol/L Carbon Dioxide (22-30) mmol/L BUN 35 H (9-20) mg/dL Glucose 285 H (74-99) mg/dL POC Glucose (mg/dL) 268 H (70-110) mg/dL Calcium 7.8 L (8.4-10.2) mg/dL Total Bilirubin (0.2-1.3) mg/dL AST (17-59) U/L ALT (4-49) U/L Total Protein (6.3-8.2) g/dL Albumin (3.5-5.0) g/dL 02/17/22 02/17/22 02/17/22 Range/Units 13:29 16:05 16:49 WBC (3.8-10.6) k/uL RBC (4.30-5.90) m/uL Hgb (13.0-17.5) gm/dL Hct (39.0-53.0) % Neutrophils # (1.3-7.7) k/uL Neutrophils # (Manual) (1.3-7.7) k/uL Monocytes # (0-1.0) k/uL Monocytes # (Manual) (0-1.0) k/uL Metamyelocytes # (Man) (0) k/uL Myelocytes # (Manual) (0) k/uL Sodium (137-145) mmol/L Chloride (98-107) mmol/L Carbon Dioxide (22-30) mmol/L BUN (9-20) mg/dL Glucose (74-99) mg/dL POC Glucose (mg/dL) 356 H 220 H 235 H (70-110) mg/dL Calcium (8.4-10.2) mg/dL Total Bilirubin (0.2-1.3) mg/dL AST (17-59) U/L ALT (4-49) U/L Total Protein (6.3-8.2) g/dL Albumin (3.5-5.0) g/dL 02/17/22 02/18/22 02/18/22 Range/Units 19:47 06:01 07:00 WBC 20.1 H (3.8-10.6) k/uL RBC 3.93 L (4.30-5.90) m/uL Hgb 12.0 L (13.0-17.5) gm/dL Hct 36.5 L (39.0-53.0) % Neutrophils # 16.1 H (1.3-7.7) k/uL Neutrophils # (Manual) (1.3-7.7) k/uL Monocytes # 1.3 H (0-1.0) k/uL Monocytes # (Manual) (0-1.0) k/uL Metamyelocytes # (Man) (0) k/uL Myelocytes # (Manual) (0) k/uL Sodium (137-145) mmol/L Chloride (98-107) mmol/L Carbon Dioxide (22-30) mmol/L BUN (9-20) mg/dL Glucose (74-99) mg/dL POC Glucose (mg/dL) 307 H 190 H (70-110) mg/dL Calcium (8.4-10.2) mg/dL Total Bilirubin (0.2-1.3) mg/dL AST (17-59) U/L ALT (4-49) U/L Total Protein (6.3-8.2) g/dL Albumin (3.5-5.0) g/dL 02/18/22 Range/Units 07:00 WBC (3.8-10.6) k/uL RBC (4.30-5.90) m/uL Hgb (13.0-17.5) gm/dL Hct (39.0-53.0) % Neutrophils # (1.3-7.7) k/uL Neutrophils # (Manual) (1.3-7.7) k/uL Monocytes # (0-1.0) k/uL Monocytes # (Manual) (0-1.0) k/uL Metamyelocytes # (Man) (0) k/uL Myelocytes # (Manual) (0) k/uL Sodium (137-145) mmol/L Chloride 97 L (98-107) mmol/L Carbon Dioxide 38 H (22-30) mmol/L BUN 32 H (9-20) mg/dL Glucose 174 H (74-99) mg/dL POC Glucose (mg/dL) (70-110) mg/dL Calcium 7.8 L (8.4-10.2) mg/dL Total Bilirubin 1.8 H (0.2-1.3) mg/dL AST 63 H (17-59) U/L ALT 57 H (4-49) U/L Total Protein 5.5 L (6.3-8.2) g/dL Albumin 3.2 L (3.5-5.0) g/dL Microbiology - Last 24 Hours (Table) 02/13/22 00:15 Blood Culture - Preliminary Blood No Growth after 120 hours 02/13/22 00:30 Blood Culture - Preliminary Blood No Growth after 120 hours 02/14/22 13:19 Blood Culture - Preliminary Blood No Growth after 72 hours Assessment and Plan Plan: Acute hypoxic respiratory failure, currently on oxygen at 3 L and the patient was taken off the BiPAP Acute traumatic left-sided bloody pleural effusion/hemothorax post pigtail catheter insertion with TPA infusion 2 with adequate evacuation a left-sided pneumothorax, recovered and the chest tube has been removed Encephalopathy/delirium, consider possibility of alcohol withdrawal. The patient is improving and the patient is currently off Precedex > 24 hours Acute lactic acidosis, improving and the patient is currently on IV fluids, improved Acute RSV infection with possible superinfection with a bacteria as the patient's presentation most consistent with an acute bacterial infection Acute asthma exacerbation secondary to above, the patient has severe persistent chronic bronchial asthma, improving Acute leukocytosis, secondary to above, improved compared to yesterday Acute atrial fibrillation with rapid ventricular response currently off anticoagulation, rate is under better control Diabetes mellitus Obesity Obstructive sleep apnea Peripheral neuropathy from diabetes mellitus Plan Wean the FiO2 as tolerated to maintain saturation above 90% Chest tube was removed Continue IV cefepime prednisone to 20 mg, aspart of the burst taper Levemir insulin 20 units daily Increase metoprolol to 50 mg twice a day No coagulation for now as the patient the recent hemothorax Give the patient another dose of Lasix 40 mg IV push Continue the rest of the supportive care. This is at the bedside. Clinically improved. Repeat labs in the morning. . DNR/DNI CODE STATUS. Transferred to medical floor
[2022-02-18] MEDS ORDERED: FUROSEMIDE 10 MG/ML 4 ML VIAL IV STA (11:07)
[2022-02-18] MEDS: FOLIC ACID 1 MG TAB PO SCH (11:19)
[2022-02-18] MEDS: THIAMINE 100 MG TAB PO SCH (11:19)
[2022-02-18] MEDS: MULTIVITAMINS, THERA 1 EACH TAB PO SCH (11:19)
[2022-02-18 11:26] LABS: Glucose,Whole Blood 203 mg/dL (70-110)
[2022-02-18 16:14] LABS: Glucose,Whole Blood 233 mg/dL (70-110)
[2022-02-18] MEDS ORDERED: METOPROLOL TARTRATE 25 MG TAB PO STA (17:03)
--- NOTE | 2022-02-18 18:30 | P.PN ---
Subjective This is a pleasant 76 years old male with multiple medical problems admitted with acute hypoxic respiratory failure, currently is on BiPAP and well of BiPAP he is on 8 L/m of oxygen via nasal cannula. His CT of the chest was negative for PE but showing left lower lobe infiltrate and pleural effusion, ejection fraction 60% Currently covered with cefepime and insulin drip and IV Solu-Medrol 40 mg twice daily Also he is on multiple vitamins D, vitamin C and zinc. For his arcus V bilateral infection. Patient remains on BiPAP this morning while his monitored in the ICU WBC 19,000, hemoglobin 10 02/17/2022 Patient currently feels better, less dyspneic, oxygen requirement down to 3 L/m, Slightly tachycardic Glucose more than 200, insulin drip and switched to Levemir 20 units Continue with IV cefepime and prednisone 40 mg starting today 02/18/2022 Reason status improving every day. Patient on 3 L saturating 99% Prednisone is a started at lower dose 20 mg with plan for to prepping discharge. Remains on antibiotics. Cefepime still have significant leukocytosis of 20,000. Patient starting to get up his diet we will add NovoLog 4 units with meals, continue with Levemir 20 units daily. Patient is subcutaneous heparin for DVT prophylaxis stable over several days, no whole anticoagulation per pulmonary team for recent hemothorax, patient has history of A. fib Objective - Vital Signs Vital signs: Vital Signs Temp 98.0 F 02/18/22 08:00 Pulse 104 H 02/18/22 09:00 Resp 22 02/18/22 09:00 BP 102/76 02/18/22 09:00 Pulse Ox 95 02/18/22 09:00 FiO2 50 02/17/22 11:01 Intake & Output 02/17/22 02/18/22 02/18/22 18:59 06:59 18:59 Intake Total 121.25 160 160 Output Total 2750 1225 150 Balance -2628.75 -1065 10 Weight 136.5 kg Intake: IV 100 160 160 Cefepime 2 gm In Sodium 100 Chloride 0.9% 100 ml @ 25 mls/hr IVPB Q8HR [facility] Rx# :[id number] Sodium Chloride 0.9% 1, 100 160 60 000 ml @ 10 mls/hr IV . Q24H [facility] Rx#:[id number] Intake, IV Titration 21.25 Amount Insulin Regular 100 unit 21.25 In Sodium Chloride 0.9% 100 ml @ Titrate IV .Q0M [facility] Rx#:[id number] Output: Urine 2750 1225 150 Other: Voiding Method Indwelling Catheter Indwelling Catheter Indwelling Catheter # Voids 1 - Exam -GENERAL: The patient is awake but confused, not in any acute distress. Well developed, well nourished. HEENT: Pupils are round and equally reacting to light. EOMI. No scleral icterus. No conjunctival pallor. Normocephalic, atraumatic. No pharyngeal erythema. No thyromegaly. CARDIOVASCULAR: S1 and S2 present. No murmurs, rubs, or gallops. -PULMONARY: Chest is clear to auscultation scattered wheezing or crepitation, especially on the left side ABDOMEN: Soft, nontender, nondistended, normoactive bowel sounds. No palpable organomegaly. MUSCULOSKELETAL: No joint swelling or deformity. EXTREMITIES: No cyanosis, clubbing, or pedal edema. NEUROLOGICAL: Gross neurological examination did not reveal any focal deficits. SKIN: No rashes. no petechiae. - Labs CBC & Chem 7: 02/18/22 07:00 02/18/22 16:43 Labs: Abnormal Lab Results - Last 24 Hours (Table) 02/17/22 02/17/22 02/17/22 Range/Units 10:33 11:51 11:51 WBC 23.5 H (3.8-10.6) k/uL RBC 4.02 L (4.30-5.90) m/uL Hgb 12.0 L (13.0-17.5) gm/dL Hct 37.3 L (39.0-53.0) % Neutrophils # (1.3-7.7) k/uL Neutrophils # (Manual) 20.20 H (1.3-7.7) k/uL Monocytes # (0-1.0) k/uL Monocytes # (Manual) 1.88 H (0-1.0) k/uL Metamyelocytes # (Man) 0.24 H (0) k/uL Myelocytes # (Manual) 0.24 H (0) k/uL Sodium 133 L (137-145) mmol/L Chloride 96 L (98-107) mmol/L Carbon Dioxide (22-30) mmol/L BUN 35 H (9-20) mg/dL Glucose 285 H (74-99) mg/dL POC Glucose (mg/dL) 268 H (70-110) mg/dL Calcium 7.8 L (8.4-10.2) mg/dL Total Bilirubin (0.2-1.3) mg/dL AST (17-59) U/L ALT (4-49) U/L Total Protein (6.3-8.2) g/dL Albumin (3.5-5.0) g/dL 02/17/22 02/17/22 02/17/22 Range/Units 11:58 13:29 16:05 WBC (3.8-10.6) k/uL RBC (4.30-5.90) m/uL Hgb (13.0-17.5) gm/dL Hct (39.0-53.0) % Neutrophils # (1.3-7.7) k/uL Neutrophils # (Manual) (1.3-7.7) k/uL Monocytes # (0-1.0) k/uL Monocytes # (Manual) (0-1.0) k/uL Metamyelocytes # (Man) (0) k/uL Myelocytes # (Manual) (0) k/uL Sodium (137-145) mmol/L Chloride (98-107) mmol/L Carbon Dioxide (22-30) mmol/L BUN (9-20) mg/dL Glucose (74-99) mg/dL POC Glucose (mg/dL) 268 H 356 H 220 H (70-110) mg/dL Calcium (8.4-10.2) mg/dL Total Bilirubin (0.2-1.3) mg/dL AST (17-59) U/L ALT (4-49) U/L Total Protein (6.3-8.2) g/dL Albumin (3.5-5.0) g/dL 02/17/22 02/17/22 02/18/22 Range/Units 16:49 19:47 06:01 WBC (3.8-10.6) k/uL RBC (4.30-5.90) m/uL Hgb (13.0-17.5) gm/dL Hct (39.0-53.0) % Neutrophils # (1.3-7.7) k/uL Neutrophils # (Manual) (1.3-7.7) k/uL Monocytes # (0-1.0) k/uL Monocytes # (Manual) (0-1.0) k/uL Metamyelocytes # (Man) (0) k/uL Myelocytes # (Manual) (0) k/uL Sodium (137-145) mmol/L Chloride (98-107) mmol/L Carbon Dioxide (22-30) mmol/L BUN (9-20) mg/dL Glucose (74-99) mg/dL POC Glucose (mg/dL) 235 H 307 H 190 H (70-110) mg/dL Calcium (8.4-10.2) mg/dL Total Bilirubin (0.2-1.3) mg/dL AST (17-59) U/L ALT (4-49) U/L Total Protein (6.3-8.2) g/dL Albumin (3.5-5.0) g/dL 02/18/22 02/18/22 Range/Units 07:00 07:00 WBC 20.1 H (3.8-10.6) k/uL RBC 3.93 L (4.30-5.90) m/uL Hgb 12.0 L (13.0-17.5) gm/dL Hct 36.5 L (39.0-53.0) % Neutrophils # 16.1 H (1.3-7.7) k/uL Neutrophils # (Manual) (1.3-7.7) k/uL Monocytes # 1.3 H (0-1.0) k/uL Monocytes # (Manual) (0-1.0) k/uL Metamyelocytes # (Man) (0) k/uL Myelocytes # (Manual) (0) k/uL Sodium (137-145) mmol/L Chloride 97 L (98-107) mmol/L Carbon Dioxide 38 H (22-30) mmol/L BUN 32 H (9-20) mg/dL Glucose 174 H (74-99) mg/dL POC Glucose (mg/dL) (70-110) mg/dL Calcium 7.8 L (8.4-10.2) mg/dL Total Bilirubin 1.8 H (0.2-1.3) mg/dL AST 63 H (17-59) U/L ALT 57 H (4-49) U/L Total Protein 5.5 L (6.3-8.2) g/dL Albumin 3.2 L (3.5-5.0) g/dL Microbiology - Last 24 Hours (Table) 02/13/22 00:15 Blood Culture - Preliminary Blood No Growth after 120 hours 02/13/22 00:30 Blood Culture - Preliminary Blood No Growth after 120 hours 02/14/22 13:19 Blood Culture - Preliminary Blood No Growth after 72 hours Assessment and Plan Assessment: Left lower lobe pneumonia Acute COPD exacerbation Acute hypoxemic respiratory failure Metabolic/toxic encephalopathy Alcohol abuse and risk of fall, withdrawal RSV bilateral infection A. fib and RVR, not on anticoagulation Diabetes mellitus with hyperglycemia Plan: Continue with antibiotics Continue with insulin Levemir and insulin sliding scale and developed with meals Continue on oral steroids Patient is on multiple vitamins Pulmonary team and infectious disease consult Labs and medication were reviewed.. Continue same treatment. Continue with symptomatic treatment. Resume home medication. Monitor lytes and vitals. DVT and GI prophylaxis. Further recommendations as per clinical course of the patient DVT prophylaxis: Subcutaneous heparin GI Prophylaxis: Ppi PT/OT: Pending Prognosis is guarded
[2022-02-18 20:53] LABS: Glucose,Whole Blood 217 mg/dL (70-110)
[2022-02-18] MEDS: CHOLECALCIFEROL 25 MCG (1000 IU) TABLET PO SCH (22:51)
[2022-02-18] MEDS: ZINC SULFATE 220 MG CAP PO SCH (22:51)
[2022-02-18] MEDS: LOSARTAN 50 MG TAB PO SCH (22:51)
[2022-02-18] MEDS: ASPIRIN 81 MG PO SCH (22:52)
[2022-02-18] MEDS: ATORVASTATIN 40 MG TAB PO SCH (22:52)
[2022-02-18] MEDS: ASCORBIC ACID 500 MG TAB PO SCH (22:52)
[2022-02-18] MEDS: SODIUM CHLORIDE 0.9% 1,000 ML IV SCH (22:53)
[2022-02-18] MEDS: METOPROLOL TARTRATE 50 MG TAB PO SCH (22:53)
--- NOTE | 2022-02-19 00:17 | P.PN ---
Subjective Progress Note Date: 02/18/22 Principal diagnosis: Pneumonia Patient is a 76-year-old male presenting to the hospital with increasing shortness of breath with new onset A. fib left-sided effusion status post chest tube mostly bloodstained secretion, the patient's chest tube has been discontinued subsequently. On today's evaluation that is 02/18/2022 patient continues to be afebrile, the patient is breathing comfortably on room air patient denies having any worsening chest pain occasional cough no sputum production no abdominal pain or diarrhea Objective - Vital Signs Vital signs: Vital Signs Temp 98.5 F 02/18/22 16:00 Pulse 113 H 02/18/22 16:00 Resp 17 02/18/22 16:00 BP 113/84 02/18/22 16:00 Pulse Ox 99 02/18/22 16:00 FiO2 50 02/17/22 11:01 Intake & Output 02/17/22 02/18/22 02/18/22 18:59 06:59 18:59 Intake Total 121.25 160 270 Output Total 2750 1225 2655 Balance -4858.75 1068 -8396 Weight 136.5 kg Intake: IV 100 160 250 Cefepime 2 gm In Sodium 100 Chloride 0.9% 100 ml @ 25 mls/hr IVPB Q8HR [facility] Rx# :[id number] Sodium Chloride 0.9% 1, 100 160 150 000 ml @ 10 mls/hr IV . Q24H [facility] Rx#:[id number] Intake, IV Titration 21.25 20 Amount Insulin Regular 100 unit 21.25 In Sodium Chloride 0.9% 100 ml @ Titrate IV .Q0M [facility] Rx#:[id number] Sodium Chloride 0.9% 1, 20 000 ml @ 10 mls/hr IV . Q24H [facility] Rx#:[id number] Output: Urine 2750 1225 2655 Other: Voiding Method Indwelling Catheter Indwelling Catheter Indwelling Catheter # Voids 1 - Exam GENERAL DESCRIPTION: An elderly male lying in bed in no distress RESPIRATORY SYSTEM: Unlabored breathing , decreased breath sounds at bases HEART: S1 S2 regular rate and rhythm , ABDOMEN: Soft , no tenderness EXTREMITIES: No edema feet - Labs CBC & Chem 7: 02/18/22 07:00 02/18/22 16:43 Labs: Abnormal Lab Results - Last 24 Hours (Table) 1102/18/22 02/18/22 Range/Units 19:47 06:01 07:00 WBC 20.1 H (3.8-10.6) k/uL RBC 3.93 L (4.30-5.90) m/uL Hgb 12.0 L (13.0-17.5) gm/dL Hct 36.5 L (39.0-53.0) % Neutrophils # 16.1 H (1.3-7.7) k/uL Monocytes # 1.3 H (0-1.0) k/uL Chloride (98-107) mmol/L Carbon Dioxide (22-30) mmol/L BUN (9-20) mg/dL Glucose (74-99) mg/dL POC Glucose (mg/dL) 307 H 190 H (70-110) mg/dL Calcium (8.4-10.2) mg/dL Total Bilirubin (0.2-1.3) mg/dL AST (17-59) U/L ALT (4-49) U/L Total Protein (6.3-8.2) g/dL Albumin (3.5-5.0) g/dL 02/18/22 02/18/22 02/18/22 Range/Units 07:00 11:25 16:12 WBC (3.8-10.6) k/uL RBC (4.30-5.90) m/uL Hgb (13.0-17.5) gm/dL Hct (39.0-53.0) % Neutrophils # (1.3-7.7) k/uL Monocytes # (0-1.0) k/uL Chloride 97 L (98-107) mmol/L Carbon Dioxide 38 H (22-30) mmol/L BUN 32 H (9-20) mg/dL Glucose 174 H (74-99) mg/dL POC Glucose (mg/dL) 203 H 233 H (70-110) mg/dL Calcium 7.8 L (8.4-10.2) mg/dL Total Bilirubin 1.8 H (0.2-1.3) mg/dL AST 63 H (17-59) U/L ALT 57 H (4-49) U/L Total Protein 5.5 L (6.3-8.2) g/dL Albumin 3.2 L (3.5-5.0) g/dL Microbiology - Last 24 Hours (Table) 02/14/22 13:19 Blood Culture - Preliminary Blood No Growth after 96 hours 02/13/22 00:15 Blood Culture - Preliminary Blood No Growth after 120 hours 02/13/22 00:30 Blood Culture - Preliminary Blood No Growth after 120 hours Assessment and Plan (1) Left lower lobe pneumonia Current Visit: Yes Status: Acute Code(s): J18.9 - PNEUMONIA, UNSPECIFIED ORGANISM SNOMED Code(s): 798852224 (2) Respiratory syncytial virus Current Visit: Yes Status: Acute Code(s): B33.8 - OTHER SPECIFIED VIRAL DISEASES SNOMED Code(s): 38495290 Plan: 1patient presented to hospital with increasing shortness of breath which is likely multifactorial in this patient noticed to have a significant left-sided pleural effusion s/p chest tube placement with evidence of mostly bloody draina ge on insertion of the chest tube questionably traumatic as the patient did have a significant bruising to that area however no clear history of any fall underlying pneumonia less likely but not entirely excluded. 2 sputum for gram stain and negative for any resistant pathogen, procalcitonin level is mildly elevated at 0.16. 3Patient slowly clinically improving and will continue cefepime while monitor clinical course closely. Family the bedside questions were answered Time with Patient: Less than 30
[2022-02-19] MEDS: IPRATROPIUM-ALBUTEROL 3 ML NEB INHALATION SCH ×5 (03:37→20:26)
[2022-02-19 06:22] LABS: Glucose,Whole Blood 163 mg/dL (70-110)
[2022-02-19 06:41] LABS: African American GFR (CKD) >90 (>60 ml/min/1.73 sqM); Anion Gap 3 mmol/L; Blood Urea Nitrogen 29 mg/dL (9-20); Calcium 7.6 mg/dL (8.4-10.2); Carbon Dioxide 36 mmol/L (22-30); Chloride 96 mmol/L (98-107); Glucose 146 mg/dL (74-99); Non-African American GFR(CKD) 89 (>60 ml/min/1.73 sqM); Potassium 4.1 mmol/L (3.5-5.1); Sodium 135 mmol/L (137-145)
[2022-02-19] MEDS: INSULIN ASPART (NovoLOG) 100 UNIT/ML VIAL SQ SCH ×7 (06:48→21:29)
[2022-02-19 06:56] LABS: HCT 36.8 % (39.0-53.0); HGB 11.8 gm/dL (13.0-17.5); Hypochromasia Slight; MCH 29.5 pg (25.0-35.0); MCV 92.2 fL (80.0-100.0); Mean Platelet Volume 8.8; Platelet Count 203 k/uL (150-450); RDW 14.4 % (11.5-15.5); WBC 16.6 k/uL (3.8-10.6)
[2022-02-19 07:52] LABS: Glucose,Whole Blood 138 mg/dL (70-110)
[2022-02-19] MEDS: HEPARIN SODIUM,PORCINE/PF 5,000 UNIT/0.5 ML SYRINGE SQ SCH ×2 (09:41→21:30)
[2022-02-19] MEDS: INSULIN DETEMIR (LEVEMIR) 100 UNIT/ML SYR SQ SCH (09:41)
[2022-02-19] MEDS: CEFEPIME 2 GM in SODIUM CHLORIDE 0.9% 100 ML IVPB SCH ×3 (09:42→23:54)
[2022-02-19] MEDS: predniSONE 20 MG TAB PO SCH (09:43)
[2022-02-19] MEDS: METOPROLOL TARTRATE 50 MG TAB PO SCH ×2 (09:43→21:30)
[2022-02-19] MEDS: GABAPENTIN 300 MG CAP PO SCH ×2 (09:43→21:29)
--- NOTE | 2022-02-19 10:53 | P.PN ---
Subjective This is a pleasant 76 years old male with multiple medical problems admitted with acute hypoxic respiratory failure, currently is on BiPAP and well of BiPAP he is on 8 L/m of oxygen via nasal cannula. His CT of the chest was negative for PE but showing left lower lobe infiltrate and pleural effusion, ejection fraction 60% Currently covered with cefepime and insulin drip and IV Solu-Medrol 40 mg twice daily Also he is on multiple vitamins D, vitamin C and zinc. For his arcus V bilateral infection. Patient remains on BiPAP this morning while his monitored in the ICU WBC 19,000, hemoglobin 10 02/17/2022 Patient currently feels better, less dyspneic, oxygen requirement down to 3 L/m, Slightly tachycardic Glucose more than 200, insulin drip and switched to Levemir 20 units Continue with IV cefepime and prednisone 40 mg starting today 02/18/2022 Reason status improving every day. Patient on 3 L saturating 99% Prednisone is a started at lower dose 20 mg with plan for to prepping discharge. Remains on antibiotics. Cefepime still have significant leukocytosis of 20,000. Patient starting to get up his diet we will add NovoLog 4 units with meals, continue with Levemir 20 units daily. Patient is subcutaneous heparin for DVT prophylaxis stable over several days, no whole anticoagulation per pulmonary team for recent hemothorax, patient has history of A. fib 02/19/2022 Patient breathing is quiet at rest with no significant tachypnea, he is saturating 91% on 4 L oxygen. MRSA Vitas looks stable Leukocytosis improving down to 16,000, hemoglobin 11.8 Glucose controlled Remains on IV cefepime and prednisone 20 mg. No anticoagulation per medical billing and coding specialist for recent history of hemothorax Objective - Vital Signs Vital signs: Vital Signs Temp 97.6 F 02/19/22 08:00 Pulse 90 02/19/22 08:32 Resp 20 02/19/22 08:00 BP 129/77 02/19/22 08:00 Pulse Ox 91 L 02/19/22 08:20 FiO2 50 02/17/22 11:01 Intake & Output 02/18/22 02/19/22 02/19/22 18:59 06:59 18:59 Intake Total 400 20 Output Total 2820 1050 Balance -2420 -1030 Intake: IV 380 20 Cefepime 2 gm In Sodium 200 Chloride 0.9% 100 ml @ 25 mls/hr IVPB Q8HR [facility] Rx# :[id number] Sodium Chloride 0.9% 1, 180 20 000 ml @ 10 mls/hr IV . Q24H [facility] Rx#:[id number] Intake, IV Titration 20 Amount Sodium Chloride 0.9% 1, 20 000 ml @ 10 mls/hr IV . Q24H [facility] Rx#:[id number] Output: Urine 2820 1050 Other: Voiding Method Indwelling Catheter Indwelling Catheter Indwelling Catheter - Exam -GENERAL: The patient is awake but confused, not in any acute distress. Well developed, well nourished. HEENT: Pupils are round and equally reacting to light. EOMI. No scleral icterus. No conjunctival pallor. Normocephalic, atraumatic. No pharyngeal erythema. No thyromegaly. CARDIOVASCULAR: S1 and S2 present. No murmurs, rubs, or gallops. -PULMONARY: Chest is clear to auscultation scattered wheezing or crepitation, especially on the left side ABDOMEN: Soft, nontender, nondistended, normoactive bowel sounds. No palpable organomegaly. MUSCULOSKELETAL: No joint swelling or deformity. EXTREMITIES: No cyanosis, clubbing, or pedal edema. NEUROLOGICAL: Gross neurological examination did not reveal any focal deficits. SKIN: No rashes. no petechiae. - Labs CBC & Chem 7: 02/19/22 05:58 02/19/22 05:58 Labs: Abnormal Lab Results - Last 24 Hours (Table) 02/18/22 02/18/22 02/18/22 Range/Units 11:25 16:12 20:51 WBC (3.8-10.6) k/uL RBC (4.30-5.90) m/uL Hgb (13.0-17.5) gm/dL Hct (39.0-53.0) % Sodium (137-145) mmol/L Chloride (98-107) mmol/L Carbon Dioxide (22-30) mmol/L BUN (9-20) mg/dL Glucose (74-99) mg/dL POC Glucose (mg/dL) 203 H 233 H 217 H (70-110) mg/dL Calcium (8.4-10.2) mg/dL 02/19/22 02/19/22 02/19/22 Range/Units 05:58 05:58 06:20 WBC 16.6 H (3.8-10.6) k/uL RBC 4.00 L (4.30-5.90) m/uL Hgb 11.8 L (13.0-17.5) gm/dL Hct 36.8 L (39.0-53.0) % Sodium 135 L (137-145) mmol/L Chloride 96 L (98-107) mmol/L Carbon Dioxide 36 H (22-30) mmol/L BUN 29 H (9-20) mg/dL Glucose 146 H (74-99) mg/dL POC Glucose (mg/dL) 163 H (70-110) mg/dL Calcium 7.6 L (8.4-10.2) mg/dL 02/19/22 Range/Units 07:51 WBC (3.8-10.6) k/uL RBC (4.30-5.90) m/uL Hgb (13.0-17.5) gm/dL Hct (39.0-53.0) % Sodium (137-145) mmol/L Chloride (98-107) mmol/L Carbon Dioxide (22-30) mmol/L BUN (9-20) mg/dL Glucose (74-99) mg/dL POC Glucose (mg/dL) 138 H (70-110) mg/dL Calcium (8.4-10.2) mg/dL Microbiology - Last 24 Hours (Table) 02/13/22 00:30 Blood Culture - Final Blood No Growth after 144 hours 02/13/22 00:15 Blood Culture - Final Blood No Growth after 144 hours 02/14/22 13:19 Blood Culture - Preliminary Blood No Growth after 96 hours Assessment and Plan Assessment: Left lower lobe pneumonia Acute COPD exacerbation Acute hypoxemic respiratory failure Metabolic/toxic encephalopathy Alcohol abuse and risk of fall, withdrawal RSV bilateral infection A. fib and RVR, not on anticoagulation Diabetes mellitus with hyperglycemia Plan: Continue with antibiotics Continue with insulin Levemir and insulin sliding scale and developed with meals Continue on oral steroids Patient is on multiple vitamins Pulmonary team and infectious disease consult Labs and medication were reviewed.. Continue same treatment. Continue with symptomatic treatment. Resume home medication. Monitor lytes and vitals. DVT and GI prophylaxis. Further recommendations as per clinical course of the patient DVT prophylaxis: Subcutaneous heparin GI Prophylaxis: Ppi PT/OT: Pending Prognosis is guarded
[2022-02-19] MEDS: PANTOPRAZOLE 40 MG/10 ML VIAL IV SCH (11:07)
[2022-02-19] MEDS: DILTIAZEM ORAL 30 MG TAB PO SCH ×3 (11:07→23:54)
[2022-02-19 11:12] LABS: Glucose,Whole Blood 234 mg/dL (70-110)
[2022-02-19] MEDS: MULTIVITAMINS, THERA 1 EACH TAB PO SCH (12:39)
[2022-02-19] MEDS: THIAMINE 100 MG TAB PO SCH (12:39)
[2022-02-19] MEDS: FOLIC ACID 1 MG TAB PO SCH (12:39)
--- NOTE | 2022-02-19 14:50 | P.PN ---
Subjective Progress Note Date: 02/19/22 This is a 76-year-old male patient who arrived to the emergency department yesterday at 02/12/2022 1920 PM after leaving the hospital AMA the day before. The patient presented again for shortness of breath. He was also noted to be hypoxic and hypotensive. His heart rate was tachycardic ranging between 100- 120. He was tachypneic. Ejection the patient is obese. The patient is also known to have hypertension, obstructive sleep apnea and history of bronchial asthma and hypertension. His initial presentation was essentially related to symptoms of URI and wheezing that was going on for the past 3-4 days. He denied having any chest pain. He was having some chest the for discomfort along with coughing. He was seen by Dr. Powell in the emergency department. At that time, his examination was the patient was completing a course of antibiotics that was given Tylenol patient bases in the form of Zithromax. In emergency, the patient was found to be in new onset atrial fibrillation with RVR and he was given a diagnosis of bronchitis and asthma exacerbation. He was advised to stay in the hospital he decided to leave AGAINST MEDICAL ADVICE. He came back to the hospital within 24 hours in the white cell count was elevated at 18.7 with a hemoglobin of 15.3. His blood gas showed a pH of 7.33 with a pCO2 of 44 and pO2 of 87 this was on FiO2 of 35%. Blood sugar was 302 and a sodium level was at 133 with a potassium level of 4.6 and a BUN of 39 and creatinine of 1.1. His viral screen was positive for RSV, influenza and Covid 19 testing was negative. Troponins were negative. ProBNP level was 546. TSH was at 1.4. He was given a CT angiogram that showed no evidence of any pulmonary embolism and there was a moderate-sized left-sided pleural effusion and for now, the patient remained nature fibrillation. His rate is still slightly tachycardic. The patient was receiving IV heparin and this was discontinued On today's evaluation of 02/14/2022, the patient is being seen for a follow-up. Earlier today, the patient became slightly agitated and he became restless. I ordered Precedex. The medication was not started as the patient's mentation gradually improved and agitation settled down. Note that, the patient had a traumatic bloody left-sided pleural effusion. I I attempted to do a thoracentesis and I was unable to pull any bloody effusion. The blood was well formed. A pigtail catheter was inserted. He was infused into the leftand the patient immediately had a 1 L output coming out from the left chest tube. The repeat chest x-ray from today, shows improvement in the volume status and the my motion of the left-sided pleural effusion. A second treatment will be done today. Meanwhile, the patient was transitioned to high flow oxygen and the patient is currently on 50 L an FiO2 of 75%. His pro calcitonin level is at 0.16. There is an obvious bruise over the left lateral chest area and is a traumatic pleural effusion other than Malignant. Meanwhile, the patient was started on insulin drip at 10 units an hour for that blood sugar control. The patient is on normal saline at rate of 50 mL an hour. The patient wasn't thousand 26 with a hemoglobin of 12.1 and a platelet of 206, and the patient has a sodium of 135 with a potassium level of 5 and a BUN of 32 with a creatinine of 0.6. The patient is less short of breath compared to yesterday. The patient remains on DuoNeb about treatments [id number]. The patient remains on IV cefepime. The patient remains on IV Solu-Medrol 60 mg IV push every 6 hours. on 02/15/2022, the patient is being seen for a follow-up. Overnight, the patient became progressively more agitated and intermedius. I made recommendations for this patient to be intubated. However, the patient's family decided not to and a switch the CODE STATUS to DNR/DNI. Based on that, the patient was kept on Precedex forAnd the patient was started on a BiPAP treatment. The high flow oxygen was discontinued. The patient otherwise is doing well for now. This morning, he is while sedated. The patient is on a BiP AP at a pressure of 12/5 cm of water with FiO2 of 75%. His tidal volume generated on the machine is more than 500 and his minute ventilation is around 12 L/m. His chest tube output has been only 350 mL over the past 12 hours. I reviewed the chest x-ray from today and there is no sizable left-sided pleural effusion. In fact left hemidiaphragm can be seen adequately. There is cardiomegaly. The patient also has some limited atelectatic changes in lung base bilaterally more so on the left. The patient remains on IV cefepime. The patient remains on IV Solu-Medrol 60 mg every 6 hours. The patient remains on DuoNeb nebulized treatments [id number]. The patient remains on insulin drip for blood sugar control. A follow-up blood gas was done and the patient was found to have a pH of 7.33 with a pCO2 of 56 and pO2 of 75. The white cycles of 26 with a hemoglobin of 11 and a platelet count of 203. The patient also had a sodium level of 134, potassium level of 5.8, BUN of 46 and a creatinine of 0.88. Blood sugars at 182. Cultures are all negative for now. The patient tested positive for RSV. He is arousable. He withdraws to painful stimulation. The Precedex those will need to be tapered off . Noted the patient also received a dose of Haldol overnight. On 02/16/2022, the patient is being seen for a follow-up. This morning, the patient seems to much more comfortable. Note that yesterday, the patient was started on Precedex which is still running at 0.5 mcg/kg/h. The patient is also receiving Estrada as-needed basis. He seems to more appropriate. His current mental status is stable and the patient is following some simple commands. He remains drowsy or sleepy and the Precedex to be tapered. Meanwhile, the patient's left-sided chest tube was not draining at all and there is adequate expansion of the left lung on follow-up chest x-ray. No evidence of any ongoing issues with hemothorax. No major bronchospasm wheezing on today's evaluation. The chest x-ray showing some mild pulmonary vascular congestion. The white cell count was at 19 with a hemoglobin of 10.4 and a platelet count of 185. Sodium is at 135 and a potassium level is at 4.7 with a BUN of 35 and a creatinine of 0.6. The patient is otherwise doing better less agitated compared to yesterday. Remains on bronchodilators. Remains on steroids. Remains on IV cefepime. Cultures are negative thus far. His cardiac rhythm is atrial fibrillation with a controlled rate. The patient also is an insulin drip for blood sugar control. 02/17/2022, the patient's off Precedex and he was taken off Precedex this morning at around 1 AM. The patient was also taken off the BiPAP at around 2 AM and is currently on 6 L O2 nasal cannula. Chest x-ray shows no the recommendation of the left-sided hemothorax. He is also a 2. His calm and comfortable. He remained nature fibrillation. He remains on insulin drip at 8 units an hour. Less focused spastic and less wheezy on today's evaluation. Sitting up on a chair and is calm and comfortable. His blood work is still pending for now. Chest x-ray from today was noted. No fever. No chills. No other significant events. Chest tube was removed yesterday. 02/18/2022, the patient remains off Precedex for the past 24 hours. He is very calm and comfortable. Neurologically, he is alert and oriented 3. Is following commands appropriately. He remains weak. He is not utilizing the BiPAP in the morning. He is currently on oxygen at 3 L. His FiO2 has been gradually weaned off. The left-sided chest tube has been removed. The left- sided pneumothorax was evacuated successfully. The patient was obviously improving. He was much less bronchospastic and wheezy on yesterday's evaluation. Based on that, I made some adjustments and I took him off the IV Solu-Medrol and start the patient on a prednisone burst taper. I was hoping that this will also improve his blood sugar control. On today's evaluation, his blood sugars under better control. He is on on Levemir insulin 20 units and a sliding scale coverage. He is still on IV antibiotics, and the patient remains on IV cefepime. Cultures have been negative. Meanwhile, the white cell count is down to 20.1 and hemoglobin is at 12. He has a BUN 32 with a creatinine of 0.7 and a sodium level is at 137. No chest x-ray from today. No fever. No chills. No falls. His cardiac rhythm is atrial fibrillation. No anticoagulants for now especially with his recent fall and traumatic pneumothorax. 02/19/2022, no new complaints and the patient remains on a medical floor. He is on oxygen at 3 L. No fever. No chills. No night sweats. Remains on IV cefepime. The white cell count today's of 16.6 with a hemoglobin of 11.8 and a platelet count of 203. BUN is 29 and a creatinine of 0.7 and a sodium level is at 135. The patient is on DuoNeb about treatments [id number]. The patient is also on prednisone burst taper and the start him on 20 mg of predn isone daily basis. He is on Levemir insulin 20 units and NovoLog 4 units with meals and a sliding scale coverage. He is a bit weak and needs to gradually increase level of activity as tolerated. No other significant events overnight. He remains in atrial fibrillation. No falls. To coagulation. Objective - Vital Signs Vital signs: Vital Signs Temp 97.6 F 02/19/22 08:00 Pulse 88 02/19/22 12:11 Resp 20 02/19/22 08:00 BP 129/77 02/19/22 08:00 Pulse Ox 91 L 02/19/22 08:20 FiO2 50 02/17/22 11:01 Intake & Output 02/18/22 02/19/22 02/19/22 18:59 06:59 18:59 Intake Total 400 20 Output Total 2820 1050 Balance -2420 -1030 Intake: IV 380 20 Cefepime 2 gm In Sodium 200 Chloride 0.9% 100 ml @ 25 mls/hr IVPB Q8HR [facility] Rx# :[id number] Sodium Chloride 0.9% 1, 180 20 000 ml @ 10 mls/hr IV . Q24H [facility] Rx#:[id number] Intake, IV Titration 20 Amount Sodium Chloride 0.9% 1, 20 000 ml @ 10 mls/hr IV . Q24H [facility] Rx#:[id number] Output: Urine 2820 1050 Other: Voiding Method Indwelling Catheter Indwelling Catheter Indwelling Catheter - Exam Obese, calm and comfortable and the patient is currently off Precedex and off the BiPAP on 3 L O2 nasal cannula Head exam was generally normal. There was no scleral icterus or corneal arcus. Mucous membranes were moist. Neck was supple and without jugular venous distension, thyromegaly, or carotid bruits. Carotids were easily palpable bilaterally. There was no adenopathy. Significant crowding of the posterior pharynx and metastatic is 4 Lungs sounds are diminished in left lung base and the patient has dullness to percussion left lung base. The patient has minimal expiratory wheezes as well as lung briscoe bilaterally. There is also prolongation of the sedation phase of breathing and the patient is breathing in interrupted because of frequent cough , the patient has a left-sided chest tube has been removed Heart sounds are irregular, tachycardic, positive S1-S2, overall heart sounds are distant Abdominal exam revealed normal bowel sounds. The abdomen was soft, non-tender, and without masses, organomegaly, or appreciable enlargement of the abdominal aorta. Examination of the extremities revealed easily palpable radial, femoral and pedal pulses. There was no cyanosis, clubbing or edema. Examination of the skin revealed no evidence of significant rashes, suspicious appearing nevi or other concerning lesions. Neurologically, the patient is awake and alert and he is away 2 and his moldable 4 extremities without any limitation - Labs CBC & Chem 7: 02/19/22 05:58 02/19/22 05:58 Labs: Abnormal Lab Results - Last 24 Hours (Table) 02/18/22 02/18/22 02/19/22 Range/Units 16:12 20:51 05:58 WBC 16.6 H (3.8-10.6) k/uL RBC 4.00 L (4.30-5.90) m/uL Hgb 11.8 L (13.0-17.5) gm/dL Hct 36.8 L (39.0-53.0) % Sodium (137-145) mmol/L Chloride (98-107) mmol/L Carbon Dioxide (22-30) mmol/L BUN (9-20) mg/dL Glucose (74-99) mg/dL POC Glucose (mg/dL) 233 H 217 H (70-110) mg/dL Calcium (8.4-10.2) mg/dL 02/19/22 02/19/22 02/19/22 Range/Units 05:58 06:20 07:51 WBC (3.8-10.6) k/uL RBC (4.30-5.90) m/uL Hgb (13.0-17.5) gm/dL Hct (39.0-53.0) % Sodium 135 L (137-145) mmol/L Chloride 96 L (98-107) mmol/L Carbon Dioxide 36 H (22-30) mmol/L BUN 29 H (9-20) mg/dL Glucose 146 H (74-99) mg/dL POC Glucose (mg/dL) 163 H 138 H (70-110) mg/dL Calcium 7.6 L (8.4-10.2) mg/dL 02/19/22 Range/Units 11:10 WBC (3.8-10.6) k/uL RBC (4.30-5.90) m/uL Hgb (13.0-17.5) gm/dL Hct (39.0-53.0) % Sodium (137-145) mmol/L Chloride (98-107) mmol/L Carbon Dioxide (22-30) mmol/L BUN (9-20) mg/dL Glucose (74-99) mg/dL POC Glucose (mg/dL) 234 H (70-110) mg/dL Calcium (8.4-10.2) mg/dL Microbiology - Last 24 Hours (Table) 02/13/22 00:30 Blood Culture - Final Blood No Growth after 144 hours 02/13/22 00:15 Blood Culture - Final Blood No Growth after 144 hours 02/14/22 13:19 Blood Culture - Preliminary Blood No Growth after 96 hours Assessment and Plan Plan: Acute hypoxic respiratory failure, currently on oxygen at 4 L Acute traumatic left-sided bloody pleural effusion/hemothorax post pigtail catheter insertion with TPA infusion 2 with adequate evacuation a left-sided pneumothorax, recovered and the chest tube has been removed, no anticoagulants for now Encephalopathy/delirium, improved Acute lactic acidosis, improving and the patient is currently on IV fluids, improved Acute RSV infection with possible superinfection with a bacteria as the patient's presentation most consistent with an acute bacterial infection Acute asthma exacerbation secondary to above, the patient has severe persistent chronic bronchial asthma, improving Acute leukocytosis, secondary to above, improved compared to yesterday Acute atrial fibrillation with rapid ventricular response currently off anticoagulation, rate is under better control Diabetes mellitus Obesity Obstructive sleep apnea Peripheral neuropathy from diabetes mellitus Plan Wean the FiO2 as tolerated to maintain saturation above 90% Chest tube was removed Continue IV cefepime prednisone to 20 mg, aspart of the burst taper metoprolol to 50 mg twice a day No coagulation for now as the patient the recent hemothorax Continue the rest of the supportive care. This is at the bedside. Clinically improved. Repeat labs in the morning. . DNR/DNI CODE STATUS.
--- NOTE | 2022-02-19 16:16 | P.PN ---
Subjective Progress Note Date: 02/19/22 Principal diagnosis: Pneumonia Patient is a 76-year-old male presenting to the hospital with increasing shortness of breath with new onset A. fib left-sided effusion status post chest tube mostly bloodstained secretion, the patient's chest tube has been discontinued subsequently. On today's evaluation that is 02/19/2022 patient remains to be afebrile, the patient is breathing comfortably currently on a 4 L nasal cannula, the patient did have occasional cough but no sputum production, the patient denies nausea no vomiting no abdominal pain or diarrhea Objective - Vital Signs Vital signs: Vital Signs Temp 97.6 F 02/19/22 08:00 Pulse 88 02/19/22 12:11 Resp 20 02/19/22 08:00 BP 129/77 02/19/22 08:00 Pulse Ox 91 L 02/19/22 08:20 FiO2 50 02/17/22 11:01 Intake & Output 02/18/22 02/19/22 02/19/22 18:59 06:59 18:59 Intake Total 400 20 Output Total 2820 1050 Balance -2420 -1030 Intake: IV 380 20 Cefepime 2 gm In Sodium 200 Chloride 0.9% 100 ml @ 25 mls/hr IVPB Q8HR [facility] Rx# :[id number] Sodium Chloride 0.9% 1, 180 20 000 ml @ 10 mls/hr IV . Q24H [facility] Rx#:[id number] Intake, IV Titration 20 Amount Sodium Chloride 0.9% 1, 20 000 ml @ 10 mls/hr IV . Q24H [facility] Rx#:[id number] Output: Urine 2820 1050 Other: Voiding Method Indwelling Catheter Indwelling Catheter Indwelling Catheter - Exam GENERAL DESCRIPTION: An elderly male lying in bed in no distress RESPIRATORY SYSTEM: Unlabored breathing , decreased breath sounds at bases HEART: S1 S2 regular rate and rhythm , ABDOMEN: Soft , no tenderness EXTREMITIES: No edema feet - Labs CBC & Chem 7: 02/19/22 05:58 02/19/22 05:58 Labs: Abnormal Lab Results - Last 24 Hours (Table) 02/18/22 02/18/22 02/19/22 Range/Units 16:12 20:51 05:58 WBC 16.6 H (3.8-10.6) k/uL RBC 4.00 L (4.30-5.90) m/uL Hgb 11.8 L (13.0-17.5) gm/dL Hct 36.8 L (39.0-53.0) % Sodium (137-145) mmol/L Chloride (98-107) mmol/L Carbon Dioxide (22-30) mmol/L BUN (9-20) mg/dL Glucose (74-99) mg/dL POC Glucose (mg/dL) 233 H 217 H (70-110) mg/dL Calcium (8.4-10.2) mg/dL 02/19/22 02/19/22 02/19/22 Range/Units 05:58 06:20 07:51 WBC (3.8-10.6) k/uL RBC (4.30-5.90) m/uL Hgb (13.0-17.5) gm/dL Hct (39.0-53.0) % Sodium 135 L (137-145) mmol/L Chloride 96 L (98-107) mmol/L Carbon Dioxide 36 H (22-30) mmol/L BUN 29 H (9-20) mg/dL Glucose 146 H (74-99) mg/dL POC Glucose (mg/dL) 163 H 138 H (70-110) mg/dL Calcium 7.6 L (8.4-10.2) mg/dL 02/19/22 Range/Units 11:10 WBC (3.8-10.6) k/uL RBC (4.30-5.90) m/uL Hgb (13.0-17.5) gm/dL Hct (39.0-53.0) % Sodium (137-145) mmol/L Chloride (98-107) mmol/L Carbon Dioxide (22-30) mmol/L BUN (9-20) mg/dL Glucose (74-99) mg/dL POC Glucose (mg/dL) 234 H (70-110) mg/dL Calcium (8.4-10.2) mg/dL Microbiology - Last 24 Hours (Table) 02/13/22 00:30 Blood Culture - Final Blood No Growth after 144 hours 02/13/22 00:15 Blood Culture - Final Blood No Growth after 144 hours 02/14/22 13:19 Blood Culture - Preliminary Blood No Growth after 96 hours Assessment and Plan (1) Left lower lobe pneumonia Current Visit: Yes Status: Acute Code(s): J18.9 - PNEUMONIA, UNSPECIFIED ORGANISM SNOMED Code(s): 224084529 (2) Respiratory syncytial virus Current Visit: Yes Status: Acute Code(s): B33.8 - OTHER SPECIFIED VIRAL DISEASES SNOMED Code(s): 78303942 Plan: 1patient presented to hospital with increasing shortness of breath which is likely multifactorial in this patient noticed to have a significant left-sided pleural effusion s/p chest tube placement with evidence of mostly bloody drainage on insertion of the chest tube questionably traumatic as the patient did have a significant bruising to that area however no clear history of any fall underlying pneumonia less likely but not entirely excluded. 2 sputum for gram stain and negative for any resistant pathogen, procalcitonin level is mildly elevated at 0.16. 3Patient has shown clinical improvement will continue cefepime and hopefully finishing therapy with oral antibiotics Time with Patient: Less than 30
[2022-02-19 16:43] LABS: Glucose,Whole Blood 211 mg/dL (70-110)
[2022-02-19 20:56] LABS: Glucose,Whole Blood 159 mg/dL (70-110)
[2022-02-19] MEDS: CHOLECALCIFEROL 25 MCG (1000 IU) TABLET PO SCH (21:29)
[2022-02-19] MEDS: ASCORBIC ACID 500 MG TAB PO SCH (21:29)
[2022-02-19] MEDS: LOSARTAN 50 MG TAB PO SCH (21:30)
[2022-02-19] MEDS: ASPIRIN 81 MG PO SCH (21:30)
[2022-02-19] MEDS: ZINC SULFATE 220 MG CAP PO SCH (21:30)
[2022-02-19] MEDS: ATORVASTATIN 40 MG TAB PO SCH (21:30)
[2022-02-19] MEDS: SODIUM CHLORIDE 0.9% 1,000 ML IV SCH (21:31)
[2022-02-19] MEDS ORDERED: PROMETHAZINE 25 MG TAB PO PRN (23:36)
[2022-02-20] MEDS: IPRATROPIUM-ALBUTEROL 3 ML NEB INHALATION SCH ×6 (03:56→23:24)
[2022-02-20 06:36] LABS: Glucose,Whole Blood 158 mg/dL (70-110)
[2022-02-20] MEDS: INSULIN ASPART (NovoLOG) 100 UNIT/ML VIAL SQ SCH ×7 (06:46→21:51)
--- NOTE | 2022-02-20 08:09 | XR ---
EXAMINATION TYPE: XR chest 1V portable DATE OF EXAM: 02/20/2022 COMPARISON: 02/17/2022 INDICATION: Pneumonia TECHNIQUE: Single frontal view of the chest is obtained. FINDINGS: The heart size is upper limits for normal. The pulmonary vasculature is normal. The lungs are clear. Review of inspiration is somewhat limited. There is elevation of the right diaphragm. IMPRESSION: 1. No acute pulmonary process. Limited inspiration on the current exam.
[2022-02-20] MEDS: HEPARIN SODIUM,PORCINE/PF 5,000 UNIT/0.5 ML SYRINGE SQ SCH ×2 (08:52→21:51)
[2022-02-20] MEDS: GABAPENTIN 300 MG CAP PO SCH ×2 (08:52→21:51)
[2022-02-20] MEDS: PANTOPRAZOLE 40 MG/10 ML VIAL IV SCH (08:52)
[2022-02-20] MEDS: INSULIN DETEMIR (LEVEMIR) 100 UNIT/ML SYR SQ SCH (08:52)
[2022-02-20] MEDS: CEFEPIME 2 GM in SODIUM CHLORIDE 0.9% 100 ML IVPB SCH ×2 (08:52→17:28)
[2022-02-20] MEDS: METOPROLOL TARTRATE 50 MG TAB PO SCH ×2 (08:53→21:52)
[2022-02-20] MEDS: DILTIAZEM ORAL 30 MG TAB PO SCH ×3 (08:53→21:52)
[2022-02-20] MEDS: predniSONE 20 MG TAB PO SCH (08:53)
[2022-02-20] MEDS: THIAMINE 100 MG TAB PO SCH (08:53)
[2022-02-20 09:14] LABS: HGB 12.9 gm/dL (13.0-17.5); Hypochromasia Slight; MCH 30.1 pg (25.0-35.0); MCHC 32.3 g/dL (31.0-37.0); MCV 93.2 fL (80.0-100.0); Mean Platelet Volume 8.2; Platelet Count 232 k/uL (150-450); RBC 4.29 m/uL (4.30-5.90); RDW 14.1 % (11.5-15.5); WBC 17.6 k/uL (3.8-10.6)
[2022-02-20 09:35] LABS: African American GFR (CKD) >90 (>60 ml/min/1.73 sqM); Anion Gap 2 mmol/L; Blood Urea Nitrogen 28 mg/dL (9-20); Calcium 8.1 mg/dL (8.4-10.2); Carbon Dioxide 38 mmol/L (22-30); Chloride 95 mmol/L (98-107); Glucose 149 mg/dL (74-99); Non-African American GFR(CKD) 84 (>60 ml/min/1.73 sqM); Potassium 4.5 mmol/L (3.5-5.1); Sodium 135 mmol/L (137-145)
[2022-02-20 11:12] LABS: Band Neutrophils % 2 %; Eosinophils # (M) 0.88 k/uL (0-0.7); Lymphocytes # (M) 2.99 k/uL (1.0-4.8); Metamyelocytes # (M) 0.18 k/uL (0); Metamyelocytes % 1 %; Monocytes # (M) 1.23 k/uL (0-1.0); Myelocytes # (M) 0.18 k/uL (0); Myelocytes % 1 %; Neutrophils % (M) 69 %; Nucleated Red Blood Cells 0 /100 WBC (0-0); Total Cells Counted 200
[2022-02-20 11:13] LABS: Anisocytosis (M) Present
[2022-02-20 11:14] LABS: Polychromasia Present
--- NOTE | 2022-02-20 11:26 | P.PN ---
Subjective This is a pleasant 76 years old male with multiple medical problems admitted with acute hypoxic respiratory failure, currently is on BiPAP and well of BiPAP he is on 8 L/m of oxygen via nasal cannula. His CT of the chest was negative for PE but showing left lower lobe infiltrate and pleural effusion, ejection fraction 60% Currently covered with cefepime and insulin drip and IV Solu-Medrol 40 mg twice daily Also he is on multiple vitamins D, vitamin C and zinc. For his arcus V bilateral infection. Patient remains on BiPAP this morning while his monitored in the ICU WBC 19,000, hemoglobin 10 02/17/2022 Patient currently feels better, less dyspneic, oxygen requirement down to 3 L/m, Slightly tachycardic Glucose more than 200, insulin drip and switched to Levemir 20 units Continue with IV cefepime and prednisone 40 mg starting today 02/18/2022 Reason status improving every day. Patient on 3 L saturating 99% Prednisone is a started at lower dose 20 mg with plan for to prepping discharge. Remains on antibiotics. Cefepime still have significant leukocytosis of 20,000. Patient starting to get up his diet we will add NovoLog 4 units with meals, continue with Levemir 20 units daily. Patient is subcutaneous heparin for DVT prophylaxis stable over several days, no whole anticoagulation per pulmonary team for recent hemothorax, patient has history of A. fib 02/19/2022 Patient breathing is quiet at rest with no significant tachypnea, he is saturating 91% on 4 L oxygen. MRSA Vitas looks stable Leukocytosis improving down to 16,000, hemoglobin 11.8 Glucose controlled Remains on IV cefepime and prednisone 20 mg. 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 Patient has leukocytosis 17,000 but he is on the prednisone. Rest of labs are stable. Oxygen saturation 92% on 4 L oxygen. Patient is on cefepime to finish therapy with oral antibiotic No anticoagulation for his history of A. 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 Q24H [facility] Rx#:[id number] Oral 1080 Output: Urine 800 950 Uretheral ([place]) 100 Other: Voiding Method Indwelling Catheter Indwelling Catheter Indwelling Catheter - Exam -GENERAL: The patient is awake but confused, not in any acute distress. Well developed, well nourished. HEENT: Pupils are round and equally reacting to light. EOMI. No scleral icterus. No conjunctival pallor. Normocephalic, atraumatic. No pharyngeal erythema. No thyromegaly. CARDIOVASCULAR: S1 and S2 present. No murmurs, rubs, or gallops. -PULMONARY: Chest is clear to auscultation scattered wheezing or crepitation, especially on the left side ABDOMEN: Soft, nontender, nondistended, normoactive bowel sounds. No palpable organomegaly. MUSCULOSKELETAL: No joint swelling or deformity. EXTREMITIES: No cyanosis, clubbing, or pedal edema. NEUROLOGICAL: Gross neurological examination did not reveal any focal deficits. SKIN: No rashes. no petechiae. - Labs CBC & Chem 7: 02/20/22 08:27 02/20/22 08:27 Labs: Abnormal Lab Results - Last 24 Hours (Table) 02/19/22 02/19/22 02/20/22 Range/Units 16:37 20:54 06:35 WBC (3.8-10.6) k/uL RBC (4.30-5.90) m/uL Hgb (13.0-17.5) gm/dL Neutrophils # (Manual) (1.3-7.7) k/uL Monocytes # (Manual) (0-1.0) k/uL Eosinophils # (Manual) (0-0.7) k/uL Metamyelocytes # (Man) (0) k/uL Myelocytes # (Manual) (0) k/uL Sodium (137-145) mmol/L Chloride (98-107) mmol/L Carbon Dioxide (22-30) mmol/L BUN (9-20) mg/dL Glucose (74-99) mg/dL POC Glucose (mg/dL) 211 H 159 H 158 H (70-110) mg/dL Calcium (8.4-10.2) mg/dL 02/20/22 02/20/22 Range/Units 08:27 08:27 WBC 17.6 H (3.8-10.6) k/uL RBC 4.29 L (4.30-5.90) m/uL Hgb 12.9 L (13.0-17.5) gm/dL Neutrophils # (Manual) 12.40 H (1.3-7.7) k/uL Monocytes # (Manual) 1.23 H (0-1.0) k/uL Eosinophils # (Manual) 0.88 H (0-0.7) k/uL Metamyelocytes # (Man) 0.18 H (0) k/uL Myelocytes # (Manual) 0.18 H (0) k/uL Sodium 135 L (137-145) mmol/L Chloride 95 L (98-107) mmol/L Carbon Dioxide 38 H (22-30) mmol/L BUN 28 H (9-20) mg/dL Glucose 149 H (74-99) mg/dL POC Glucose (mg/dL) (70-110) mg/dL Calcium 8.1 L (8.4-10.2) mg/dL Microbiology - Last 24 Hours (Table) 02/14/22 13:19 Blood Culture - Preliminary Blood No Growth after 120 hours Assessment and Plan Assessment: Left lower lobe pneumonia Acute COPD exacerbation Acute hypoxemic respiratory failure Metabolic/toxic encephalopathy Alcohol abuse and risk of fall, withdrawal RSV bilateral infection A. fib and RVR, not on anticoagulation Diabetes mellitus with hyperglycemia Plan: Continue with antibiotics Continue with insulin Levemir and insulin sliding scale and developed with meals Continue on oral steroids Patient is on multiple vitamins Pulmonary team and infectious disease consult Labs and medication were reviewed.. Continue same treatment. Continue with symptomatic treatment. Resume home medication. Monitor lytes and vitals. DVT and GI prophylaxis. Further recommendations as per clinical course of the patient DVT prophylaxis: Subcutaneous heparin GI Prophylaxis: Ppi PT/OT: Pending Prognosis is guarded
[2022-02-20 11:43] LABS: Glucose,Whole Blood 190 mg/dL (70-110)
[2022-02-20] MEDS: MULTIVITAMINS, THERA 1 EACH TAB PO SCH (12:45)
[2022-02-20] MEDS: FOLIC ACID 1 MG TAB PO SCH (12:45)
--- NOTE | 2022-02-20 15:25 | P.PN ---
Subjective Progress Note Date: 02/20/22 This is a 76-year-old male patient who arrived to the emergency department yesterday at 02/12/2022 1920 PM after leaving the hospital AMA the day before. The patient presented again for shortness of breath. He was also noted to be hypoxic and hypotensive. His heart rate was tachycardic ranging between 100- 120. He was tachypneic. Ejection the patient is obese. The patient is also known to have hypertension, obstructive sleep apnea and history of bronchial asthma and hypertension. His initial presentation was essentially related to symptoms of URI and wheezing that was going on for the past 3-4 days. He denied having any chest pain. He was having some chest the for discomfort along with coughing. He was seen by Dr. Powell in the emergency department. At that time, his examination was the patient was completing a course of antibiotics that was given Tylenol patient bases in the form of Zithromax. In emergency, the patient was found to be in new onset atrial fibrillation with RVR and he was given a diagnosis of bronchitis and asthma exacerbation. He was advised to stay in the hospital he decided to leave AGAINST MEDICAL ADVICE. He came back to the hospital within 24 hours in the white cell count was elevated at 18.7 with a hemoglobin of 15.3. His blood gas showed a pH of 7.33 with a pCO2 of 44 and pO2 of 87 this was on FiO2 of 35%. Blood sugar was 302 and a sodium level was at 133 with a potassium level of 4.6 and a BUN of 39 and creatinine of 1.1. His viral screen was positive for RSV, influenza and Covid 19 testing was negative. Troponins were negative. ProBNP level was 546. TSH was at 1.4. He was given a CT angiogram that showed no evidence of any pulmonary embolism and there was a moderate-sized left-sided pleural effusion and for now, the patient remained nature fibrillation. His rate is still slightly tachycardic. The patient was receiving IV heparin and this was discontinued On today's evaluation of 02/14/2022, the patient is being seen for a follow-up. Earlier today, the patient became slightly agitated and he became restless. I ordered Precedex. The medication was not started as the patient's mentation gradually improved and agitation settled down. Note that, the patient had a traumatic bloody left-sided pleural effusion. I I attempted to do a thoracentesis and I was unable to pull any bloody effusion. The blood was well formed. A pigtail catheter was inserted. He was infused into the leftand the patient immediately had a 1 L output coming out from the left chest tube. The repeat chest x-ray from today, shows improvement in the volume status and the my motion of the left-sided pleural effusion. A second treatment will be done today. Meanwhile, the patient was transitioned to high flow oxygen and the patient is currently on 50 L an FiO2 of 75%. His pro calcitonin level is at 0.16. There is an obvious bruise over the left lateral chest area and is a traumatic pleural effusion other than Malignant. Meanwhile, the patient was started on insulin drip at 10 units an hour for that blood sugar control. The patient is on normal saline at rate of 50 mL an hour. The patient wasn't thousand 26 with a hemoglobin of 12.1 and a platelet of 206, and the patient has a sodium of 135 with a potassium level of 5 and a BUN of 32 with a creatinine of 0.6. The patient is less short of breath compared to yesterday. The patient remains on DuoNeb about treatments [id number]. The patient remains on IV cefepime. The patient remains on IV Solu-Medrol 60 mg IV push every 6 hours. on 02/15/2022, the patient is being seen for a follow-up. Overnight, the patient became progressively more agitated and intermedius. I made recommendations for this patient to be intubated. However, the patient's family decided not to and a switch the CODE STATUS to DNR/DNI. Based on that, the patient was kept on Precedex forAnd the patient was started on a BiPAP treatment. The high flow oxygen was discontinued. The patient otherwise is doing well for now. This morning, he is while sedated. The patient is on a BiPAP at a pressure of 12/5 cm of water with FiO2 of 75%. His tidal volume generated on the machine is more than 500 and his minute ventilation is around 12 L/m. His chest tube output has been only 350 mL over the past 12 hours. I reviewed the chest x-ray from today and there is no sizable left-sided pleural effusion. In fact left hemidiaphragm can be seen adequately. There is cardiomegaly. The patient also has some limited atelectatic changes in lung base bilaterally more so on the left. The patient remains on IV cefepime. The patient remains on IV Solu-Medrol 60 mg every 6 hours. The patient remains on DuoNeb nebulized treatments [id number]. The patient remains on insulin drip for blood sugar control. A follow-up blood gas was done and the patient was found to have a pH of 7.33 with a pCO2 of 56 and pO2 of 75. The white cycles of 26 with a hemoglobin of 11 and a platelet count of 203. The patient also had a sodium level of 134, potassium level of 5.8, BUN of 46 and a c reatinine of 0.88. Blood sugars at 182. Cultures are all negative for now. The patient tested positive for RSV. He is arousable. He withdraws to painful stimulation. The Precedex those will need to be tapered off . Noted the patient also received a dose of Haldol overnight. On 02/16/2022, the patient is being seen for a follow-up. This morning, the patient seems to much more comfortable. Note that yesterday, the patient was started on Precedex which is still running at 0.5 mcg/kg/h. The patient is also receiving Estrada as-needed basis. He seems to more appropriate. His current mental status is stable and the patient is following some simple commands. He remains drowsy or sleepy and the Precedex to be tapered. Meanwhile, the patient's left-sided chest tube was not draining at all and there is adequate expansion of the left lung on follow-up chest x-ray. No evidence of any ongoing issues with hemothorax. No major bronchospasm wheezing on today's evaluation. The chest x-ray showing some mild pulmonary vascular congestion. The white cell count was at 19 with a hemoglobin of 10.4 and a platelet count of 185. Sodium is at 135 and a potassium level is at 4.7 with a BUN of 35 and a creatinine of 0.6. The patient is otherwise doing better less agitated compared to yesterday. Remains on bronchodilators. Remains on steroids. Remains on IV cefepime. Cultures are negative thus far. His cardiac rhythm is atrial fibrillation with a controlled rate. The patient also is an insulin drip for blood sugar control. 02/17/2022, the patient's off Precedex and he was taken off Precedex this morning at around 1 AM. The patient was also taken off the BiPAP at around 2 AM and is currently on 6 L O2 nasal cannula. Chest x-ray shows no the recommendation of the left-sided hemothorax. He is also a 2. His calm and comfortable. He remained nature fibrillation. He remains on insulin drip at 8 units an hour. Less focused spastic and less wheezy on today's evaluation. Sitting up on a chair and is calm and comfortable. His blood work is still pending for now. Chest x-ray from today was noted. No fever. No chills. No other significant events. Chest tube was removed yesterday. 02/18/2022, the patient remains off Precedex for the past 24 hours. He is very calm and comfortable. Neurologically, he is alert and oriented 3. Is following commands appropriately. He remains weak. He is not utilizing the BiPAP in the morning. He is currently on oxygen at 3 L. His FiO2 has been gradually weaned off. The left-sided chest tube has been removed. The left- sided pneumothorax was evacuated successfully. The patient was obviously improving. He was much less bronchospastic and wheezy on yesterday's evaluation. Based on that, I made some adjustments and I took him off the IV Solu-Medrol and start the patient on a prednisone burst taper. I was hoping that this will also improve his blood sugar control. On today's evaluation, his blood sugars under better control. He is on on Levemir insulin 20 units and a sliding scale coverage. He is still on IV antibiotics, and the patient remains on IV cefepime. Cultures have been negative. Meanwhile, the white cell count is down to 20.1 and hemoglobin is at 12. He has a BUN 32 with a creatinine of 0.7 and a sodium level is at 137. No chest x-ray from today. No fever. No chills. No falls. His cardiac rhythm is atrial fibrillation. No anticoagulants for now especially with his recent fall and traumatic pneumothorax. 02/19/2022, no new complaints and the patient remains on a medical floor. He is on oxygen at 3 L. No fever. No chills. No night sweats. Remains on IV cefepime. The white cell count today's of 16.6 with a hemoglobin of 11.8 and a platelet count of 203. BUN is 29 and a creatinine of 0.7 and a sodium level is at 135. The patient is on DuoNeb about treatments [id number]. The patient is also on prednisone burst taper and the start him on 20 mg of predni sone daily basis. He is on Levemir insulin 20 units and NovoLog 4 units with meals and a sliding scale coverage. He is a bit weak and needs to gradually increase level of activity as tolerated. No other significant events overnight. He remains in atrial fibrillation. No falls. To coagulation. The patient is seen today 02/20/2022 in follow-up on the regular medical floor. He is currently sitting up in a chair at the bedside. Awake and alert in no acute distress. He is feeling quite a bit better. He is maintaining good O2 saturations in the mid 90s on 4 L/m per nasal cannula. Afebrile. Hemodynamically stable. Chest x-rays revealing no acute pulmonary process. Some elevation of the right hemidiaphragm. Blood cultures revealed no growth. Sputum culture revealed no growth. White count 17.6. Hemoglobin 12.9. Sodium 135. Potassium 4.5. Bicarb 38. BUN 28. Creatinine 0.87. Glucose 149. He is continued on cefepime, bronchodilators, prednisone taper, heparin for DVT prop hylaxis. Objective - Vital Signs Vital signs: Vital Signs Temp 98.6 F 02/20/22 14:00 Pulse 77 02/20/22 15:08 Resp 20 02/20/22 14:00 BP 108/68 02/20/22 14:00 Pulse Ox 97 02/20/22 15:08 FiO2 50 02/17/22 11:01 Intake & Output 02/19/22 02/20/22 02/20/22 18:59 06:59 18:59 Intake Total 1200 Output Total 800 950 Balance 400 -950 Weight 131.5 kg Intake: IV 120 Sodium Chloride 0.9% 1, 120 000 ml @ 10 mls/hr IV . Q24H [facility] Rx#:[id number] Oral 1080 Output: Urine 800 950 Uretheral ([place]) 100 Other: Voiding Method Indwelling Catheter Indwelling Catheter Indwelling Catheter - Exam Obese, pleasant 76-year-old male patient, currently sitting up in a chair at the bedside, on 4 L nasal cannula, calm and comfortable Head exam was generally normal. There was no scleral icterus or corneal arcus. Mucous membranes were moist. Neck was supple and without jugular venous distension, thyromegaly, or carotid bruits. Carotids were easily palpable bilaterally. There was no adenopathy. Significant crowding of the posterior pharynx and mallipatti 4 Lungs sounds are diminished in left lung base and the patient has dullness to percussion left lung base. The patient has minimal expiratory wheezes as well as lung briscoe bilaterally. There is also prolongation of the sedation phase of breathing and the patient is breathing in interrupted because of frequent cough , the patient has a left-sided chest tube has been removed Heart sounds are irregular, tachycardic, positive S1-S2, overall heart sounds are distant Abdominal exam revealed normal bowel sounds. The abdomen was soft, non-tender, a nd without masses, organomegaly, or appreciable enlargement of the abdominal aorta. Examination of the extremities revealed easily palpable radial, femoral and pedal pulses. There was no cyanosis, clubbing or edema. Examination of the skin revealed no evidence of significant rashes, suspicious appearing nevi or other concerning lesions. Neurologically, the patient is awake and alert and he is away 2 and his moldable 4 extremities without any limitation - Labs CBC & Chem 7: 02/20/22 08:27 02/20/22 08:27 Labs: Abnormal Lab Results - Last 24 Hours (Table) 02/19/22 02/19/22 02/20/22 Range/Units 16:37 20:54 06:35 WBC (3.8-10.6) k/uL RBC (4.30-5.90) m/uL Hgb (13.0-17.5) gm/dL Neutrophils # (Manual) (1.3-7.7) k/uL Monocytes # (Manual) (0-1.0) k/uL Eosinophils # (Manual) (0-0.7) k/uL Metamyelocytes # (Man) (0) k/uL Myelocytes # (Manual) (0) k/uL Sodium (137-145) mmol/L Chloride (98-107) mmol/L Carbon Dioxide (22-30) mmol/L BUN (9-20) mg/dL Glucose (74-99) mg/dL POC Glucose (mg/dL) 211 H 159 H 158 H (70-110) mg/dL Calcium (8.4-10.2) mg/dL 02/20/22 02/20/22 02/20/22 Range/Units 08:27 08:27 11:41 WBC 17.6 H (3.8-10.6) k/uL RBC 4.29 L (4.30-5.90) m/uL Hgb 12.9 L (13.0-17.5) gm/dL Neutrophils # (Manual) 12.40 H (1.3-7.7) k/uL Monocytes # (Manual) 1.23 H (0-1.0) k/uL Eosinophils # (Manual) 0.88 H (0-0.7) k/uL Metamyelocytes # (Man) 0.18 H (0) k/uL Myelocytes # (Manual) 0.18 H (0) k/uL Sodium 135 L (137-145) mmol/L Chloride 95 L (98-107) mmol/L Carbon Dioxide 38 H (22-30) mmol/L BUN 28 H (9-20) mg/dL Glucose 149 H (74-99) mg/dL POC Glucose (mg/dL) 190 H (70-110) mg/dL Calcium 8.1 L (8.4-10.2) mg/dL Microbiology - Last 24 Hours (Table) 02/14/22 13:19 Blood Culture - Preliminary Blood No Growth after 120 hours Assessment and Plan Assessment: Acute hypoxic respiratory failure, currently on oxygen at 4 L Acute traumatic left-sided bloody pleural effusion/hemothorax post pigtail catheter insertion with TPA infusion 2 with adequate evacuation a left-sided pneumothorax, recovered and the chest tube has been removed, no anticoagulants for now Encephalopathy/delirium, improved Acute lactic acidosis, improving and the patient is currently on IV fluids, improved Acute RSV infection with possible superinfection with a bacteria as the patient's presentation most consistent with an acute bacterial infection Acute asthma exacerbation secondary to above, the patient has severe persistent chronic bronchial asthma, improving Acute leukocytosis, secondary to above, improved compared to yesterday Acute atrial fibrillation with rapid ventricular response currently off anticoagulation, rate is under better control Diabetes mellitus Obesity Obstructive sleep apnea Peripheral neuropathy from diabetes mellitus Plan: The patient was seen and evaluated Medications, chest x-ray and labs reviewed Currently stable and on 4 L nasal cannula Continued on cefepime, bronchodilators Continue to titrate the FiO2 as tolerated Discharge planning in place I have personally seen and examined the patient, performed the documentation and the assessment and plan as written. Number of minutes spent on the visit: 10.
[2022-02-20 16:43] LABS: Glucose,Whole Blood 193 mg/dL (70-110)
[2022-02-20 20:38] LABS: Glucose,Whole Blood 152 mg/dL (70-110)
[2022-02-20] MEDS: ZINC SULFATE 220 MG CAP PO SCH (21:51)
[2022-02-20] MEDS: ASCORBIC ACID 500 MG TAB PO SCH (21:52)
[2022-02-20] MEDS: LOSARTAN 50 MG TAB PO SCH (21:52)
[2022-02-20] MEDS: CHOLECALCIFEROL 25 MCG (1000 IU) TABLET PO SCH (21:52)
[2022-02-20] MEDS: ASPIRIN 81 MG PO SCH (21:52)
[2022-02-20] MEDS: ATORVASTATIN 40 MG TAB PO SCH (21:52)
[2022-02-20] MEDS: SODIUM CHLORIDE 0.9% 1,000 ML IV SCH (23:46)
[2022-02-21 06:29] LABS: Glucose,Whole Blood 163 mg/dL (70-110)
[2022-02-21] MEDS: INSULIN ASPART (NovoLOG) 100 UNIT/ML VIAL SQ SCH ×7 (07:06→21:09)
[2022-02-21] MEDS: INSULIN DETEMIR (LEVEMIR) 100 UNIT/ML SYR SQ SCH (07:08)
[2022-02-21] MEDS: IPRATROPIUM-ALBUTEROL 3 ML NEB INHALATION SCH ×4 (08:44→20:39)
[2022-02-21] MEDS: GABAPENTIN 300 MG CAP PO SCH ×2 (08:51→20:15)
[2022-02-21] MEDS: METOPROLOL TARTRATE 50 MG TAB PO SCH ×3 (08:51→20:09)
[2022-02-21] MEDS: predniSONE 20 MG TAB PO SCH (08:51)
[2022-02-21] MEDS: PANTOPRAZOLE 40 MG/10 ML VIAL IV SCH (08:52)
[2022-02-21] MEDS: HEPARIN SODIUM,PORCINE/PF 5,000 UNIT/0.5 ML SYRINGE SQ SCH ×2 (08:52→20:15)
[2022-02-21] MEDS: DILTIAZEM ORAL 30 MG TAB PO SCH ×3 (08:52→21:10)
[2022-02-21 10:28] LABS: HCT 39.7 % (39.6-50.0); HGB 12.3 g/dL (13.0-17.0); MCH 28.9 pg (27.0-32.0); MCV 93.4 fL (80.0-97.0); Mean Platelet Volume 10.7 fL (9.5-12.2); NRBC Per 100 WBC 0.4 /100 WBCS (0.0-0.0); Platelet Count 244 X 10*3/uL (140-440); RBC 4.25 X 10*6/uL (4.40-5.60); RDW 14.9 % (11.5-14.5); WBC 22.37 X 10*3/uL (4.50-10.00)
[2022-02-21 10:58] LABS: African American GFR (CKD) 100.6 (60.0-200.0); Anion Gap 9.6 mmol/L (10.00-18.00); BUN/Creat Ratio 27.25 Ratio (12.00-20.00); Blood Urea Nitrogen 21.8 mg/dL (9.0-27.0); Calcium 8.9 mg/dL (8.7-10.3); Carbon Dioxide 34.4 mmol/L (20.0-27.5); Non-African American GFR(CKD) 86.8 (60.0-200.0); Potassium 4.6 mmol/L (3.5-5.5)
[2022-02-21 11:40] LABS: Glucose,Whole Blood 160 mg/dL (70-110)
[2022-02-21 12:09] LABS: Basophils # (A) 0.09 X 10*3/uL (0.00-0.10); Basophils % (A) 0.4 %; Eosinophils # (A) 0.72 X 10*3/uL (0.04-0.35); Eosinophils % (A) 3.2 %; Immature Grans, Automated 3.6 %; Lymphocytes # (A) 2.83 X 10*3/uL (0.90-5.00); Lymphocytes % (A) 12.7 %; Monocytes # (A) 1.84 X 10*3/uL (0.20-1.00); Monocytes % (A) 8.2 %; Neutrophils # (A) 16.08 X 10*3/uL (1.80-7.70); Neutrophils % (A) 71.9 %
[2022-02-21] MEDS: FOLIC ACID 1 MG TAB PO SCH (12:28)
[2022-02-21] MEDS: THIAMINE 100 MG TAB PO SCH (12:28)
[2022-02-21] MEDS: MULTIVITAMINS, THERA 1 EACH TAB PO SCH (12:28)
--- NOTE | 2022-02-21 13:59 | P.PN ---
Subjective Progress Note Date: 02/21/22 This is a 76-year-old male patient who arrived to the emergency department yesterday at 02/12/2022 1920 PM after leaving the hospital AMA the day before. The patient presented again for shortness of breath. He was also noted to be hypoxic and hypotensive. His heart rate was tachycardic ranging between 100- 120. He was tachypneic. Ejection the patient is obese. The patient is also known to have hypertension, obstructive sleep apnea and history of bronchial asthma and hypertension. His initial presentation was essentially related to symptoms of URI and wheezing that was going on for the past 3-4 days. He denied having any chest pain. He was having some chest the for discomfort along with coughing. He was seen by Dr. Powell in the emergency department. At that time, his examination was the patient was completing a course of antibiotics that was given Tylenol patient bases in the form of Zithromax. In emergency, the patient was found to be in new onset atrial fibrillation with RVR and he was given a diagnosis of bronchitis and asthma exacerbation. He was advised to stay in the hospital he decided to leave AGAINST MEDICAL ADVICE. He came back to the hospital within 24 hours in the white cell count was elevated at 18.7 with a hemoglobin of 15.3. His blood gas showed a pH of 7.33 with a pCO2 of 44 and pO2 of 87 this was on FiO2 of 35%. Blood sugar was 302 and a sodium level was at 133 with a potassium level of 4.6 and a BUN of 39 and creatinine of 1.1. His viral screen was positive for RSV, influenza and Covid 19 testing was negative. Troponins were negative. ProBNP level was 546. TSH was at 1.4. He was given a CT angiogram that showed no evidence of any pulmonary embolism and there was a moderate-sized left-sided pleural effusion and for now, the patient remained nature fibrillation. His rate is still slightly tachycardic. The patient was receiving IV heparin and this was discontinued On today's evaluation of 02/14/2022, the patient is being seen for a follow-up. Earlier today, the patient became slightly agitated and he became restless. I ordered Precedex. The medication was not started as the patient's mentation gradually improved and agitation settled down. Note that, the patient had a traumatic bloody left-sided pleural effusion. I I attempted to do a thoracentesis and I was unable to pull any bloody effusion. The blood was well formed. A pigtail catheter was inserted. He was infused into the leftand the patient immediately had a 1 L output coming out from the left chest tube. The repeat chest x-ray from today, shows improvement in the volume status and the my motion of the left-sided pleural effusion. A second treatment will be done today. Meanwhile, the patient was transitioned to high flow oxygen and the patient is currently on 50 L an FiO2 of 75%. His pro calcitonin level is at 0.16. There is an obvious bruise over the left lateral chest area and is a traumatic pleural effusion other than Malignant. Meanwhile, the patient was started on insulin drip at 10 units an hour for that blood sugar control. The patient is on normal saline at rate of 50 mL an hour. The patient wasn't thousand 26 with a hemoglobin of 12.1 and a platelet of 206, and the patient has a sodium of 135 with a potassium level of 5 and a BUN of 32 with a creatinine of 0.6. The patient is less short of breath compared to yesterday. The patient remains on DuoNeb about treatments [id number]. The patient remains on IV cefepime. The patient remains on IV Solu-Medrol 60 mg IV push every 6 hours. on 02/15/2022, the patient is being seen for a follow-up. Overnight, the patient became progressively more agitated and intermedius. I made recommendations for this patient to be intubated. However, the patient's family decided not to and a switch the CODE STATUS to DNR/DNI. Based on that, the patient was kept on Precedex forAnd the patient was started on a BiPAP treatment. The high flow oxygen was discontinued. The patient otherwise is doing well for now. This morning, he is while sedated. The patient is on a BiPAP at a pressure of 12/5 cm of water with FiO2 of 75%. His tidal volume generated on the machine is more than 500 and his minute ventilation is around 12 L/m. His chest tube output has been only 350 mL over the past 12 hours. I reviewed the chest x-ray from today and there is no sizable left-sided pleural effusion. In fact left hemidiaphragm can be seen adequately. There is cardiomegaly. The patient also has some limited atelectatic changes in lung base bilaterally more so on the left. The patient remains on IV cefepime. The patient remains on IV Solu-Medrol 60 mg every 6 hours. The patient remains on DuoNeb nebulized treatments [id number]. The patient remains on insulin drip for blood sugar control. A follow-up blood gas was done and the patient was found to have a pH of 7.33 with a pCO2 of 56 and pO2 of 75. The white cycles of 26 with a hemoglobin of 11 and a platelet count of 203. The patient also had a sodium level of 134, potassium level of 5.8, BUN of 46 and a c reatinine of 0.88. Blood sugars at 182. Cultures are all negative for now. The patient tested positive for RSV. He is arousable. He withdraws to painful stimulation. The Precedex those will need to be tapered off . Noted the patient also received a dose of Haldol overnight. On 02/16/2022, the patient is being seen for a follow-up. This morning, the patient seems to much more comfortable. Note that yesterday, the patient was started on Precedex which is still running at 0.5 mcg/kg/h. The patient is also receiving Estrada as-needed basis. He seems to more appropriate. His current mental status is stable and the patient is following some simple commands. He remains drowsy or sleepy and the Precedex to be tapered. Meanwhile, the patient's left-sided chest tube was not draining at all and there is adequate expansion of the left lung on follow-up chest x-ray. No evidence of any ongoing issues with hemothorax. No major bronchospasm wheezing on today's evaluation. The chest x-ray showing some mild pulmonary vascular congestion. The white cell count was at 19 with a hemoglobin of 10.4 and a platelet count of 185. Sodium is at 135 and a potassium level is at 4.7 with a BUN of 35 and a creatinine of 0.6. The patient is otherwise doing better less agitated compared to yesterday. Remains on bronchodilators. Remains on steroids. Remains on IV cefepime. Cultures are negative thus far. His cardiac rhythm is atrial fibrillation with a controlled rate. The patient also is an insulin drip for blood sugar control. 02/17/2022, the patient's off Precedex and he was taken off Precedex this morning at around 1 AM. The patient was also taken off the BiPAP at around 2 AM and is currently on 6 L O2 nasal cannula. Chest x-ray shows no the recommendation of the left-sided hemothorax. He is also a 2. His calm and comfortable. He remained nature fibrillation. He remains on insulin drip at 8 units an hour. Less focused spastic and less wheezy on today's evaluation. Sitting up on a chair and is calm and comfortable. His blood work is still pending for now. Chest x-ray from today was noted. No fever. No chills. No other significant events. Chest tube was removed yesterday. 02/18/2022, the patient remains off Precedex for the past 24 hours. He is very calm and comfortable. Neurologically, he is alert and oriented 3. Is following commands appropriately. He remains weak. He is not utilizing the BiPAP in the morning. He is currently on oxygen at 3 L. His FiO2 has been gradually weaned off. The left-sided chest tube has been removed. The left- sided pneumothorax was evacuated successfully. The patient was obviously improving. He was much less bronchospastic and wheezy on yesterday's evaluation. Based on that, I made some adjustments and I took him off the IV Solu-Medrol and start the patient on a prednisone burst taper. I was hoping that this will also improve his blood sugar control. On today's evaluation, his blood sugars under better control. He is on on Levemir insulin 20 units and a sliding scale coverage. He is still on IV antibiotics, and the patient remains on IV cefepime. Cultures have been negative. Meanwhile, the white cell count is down to 20.1 and hemoglobin is at 12. He has a BUN 32 with a creatinine of 0.7 and a sodium level is at 137. No chest x-ray from today. No fever. No chills. No falls. His cardiac rhythm is atrial fibrillation. No anticoagulants for now especially with his recent fall and traumatic pneumothorax. 02/19/2022, no new complaints and the patient remains on a medical floor. He is on oxygen at 3 L. No fever. No chills. No night sweats. Remains on IV cefepime. The white cell count today's of 16.6 with a hemoglobin of 11.8 and a platelet count of 203. BUN is 29 and a creatinine of 0.7 and a sodium level is at 135. The patient is on DuoNeb about treatments [id number]. The patient is also on prednisone burst taper and the start him on 20 mg of predni sone daily basis. He is on Levemir insulin 20 units and NovoLog 4 units with meals and a sliding scale coverage. He is a bit weak and needs to gradually increase level of activity as tolerated. No other significant events overnight. He remains in atrial fibrillation. No falls. To coagulation. The patient is seen today 02/20/2022 in follow-up on the regular medical floor. He is currently sitting up in a chair at the bedside. Awake and alert in no acute distress. He is feeling quite a bit better. He is maintaining good O2 saturations in the mid 90s on 4 L/m per nasal cannula. Afebrile. Hemodynamically stable. Chest x-rays revealing no acute pulmonary process. Some elevation of the right hemidiaphragm. Blood cultures revealed no growth. Sputum culture revealed no growth. White count 17.6. Hemoglobin 12.9. Sodium 135. Potassium 4.5. Bicarb 38. BUN 28. Creatinine 0.87. Glucose 149. He is continued on cefepime, bronchodilators, prednisone taper, heparin for DVT prop hylaxis. The patient is seen today 02/21/2022 in follow-up on the regular medical floor. He is awake and alert in no acute distress. Currently sitting up in a chair at the bedside. He is maintaining O2 saturations in the 90s on 4 L/m per nasal cannula. Blood and sputum cultures revealed no growth. White count 22.3. Hemoglobin 12.3. Sodium 139. Potassium 4.6. BUN 22. Creatinine 0.8. Glucose 130. Objective - Vital Signs Vital signs: Vital Signs Temp 98.5 F 02/21/22 07:56 Pulse 70 02/21/22 12:24 Resp 18 02/21/22 07:56 BP 108/66 02/21/22 07:56 Pulse Ox 93 L 02/21/22 08:44 FiO2 50 02/17/22 11:01 Intake & Output 02/20/22 02/21/22 02/21/22 18:59 06:59 18:59 Intake Total 1080 Output Total 1000 Balance 80 Intake: Oral 1080 Output: Urine 1000 Other: Voiding Method Indwelling Catheter Indwelling Catheter Indwelling Catheter # Bowel Movements 1 - Exam Obese, 76-year-old male patient, up in a chair at the bedside, on 4 L nasal cannula, calm and comfortable Head exam was generally normal. There was no scleral icterus or corneal arcus. Mucous membranes were moist. Neck was supple and without jugular venous distension, thyromegaly, or carotid bruits. Carotids were easily palpable bilaterally. There was no adenopathy. Significant crowding of the posterior pharynx and mallipatti 4 Lungs sounds are diminished in left lung base and the patient has dullness to percussion left lung base. The patient has minimal expiratory wheezes as well as lung briscoe bilaterally. There is also prolongation of the sedation phase of breathing and the patient is breathing in interrupted because of frequent cough , the patient has a left-sided chest tube has been removed Heart sounds are irregular, tachycardic, positive S1-S2, overall heart sounds are distant Abdominal exam revealed normal bowel sounds. The abdomen was soft, non-tender, and without masses, organomegaly, or appreciable enlargement of the abdominal aorta. Examination of the extremities revealed easily palpable radial, femoral and pedal pulses. There was no cyanosis, clubbing or edema. Examination of the skin revealed no evidence of significant rashes, suspicious appearing nevi or other concerning lesions. Neurologically, the patient is awake and alert and he is away 2 and his moldable 4 extremities without any limitation - Labs CBC & Chem 7: 02/21/22 06:41 02/21/22 06:41 Labs: Abnormal Lab Results - Last 24 Hours (Table) 02/20/22 02/20/22 02/21/22 Range/Units 16:42 20:37 06:27 WBC (4.50-10.00) X 10*3/uL RBC (4.40-5.60) X 10*6/uL Hgb (13.0-17.0) g/dL MCHC (32.0-37.0) g/dL RDW (11.5-14.5) % Absolute Nucleated RBC (0.00-0.00) X 10*3/uL Immature Gran # (0.00-0.04) X 10*3/uL Neutrophils # (1.80-7.70) X 10*3/uL Monocytes # (0.20-1.00) X 10*3/uL Eosinophils # (0.04-0.35) X 10*3/uL NRBC/100 WBC Diff (0.0-0.0) /100 WBCS Chloride (96-109) mmol/L Carbon Dioxide (20.0-27.5) mmol/L Anion Gap (10.00-18.00) mmol/L BUN/Creatinine Ratio (12.00-20.00) Ratio Glucose (70-110) mg/dL POC Glucose (mg/dL) 193 H 152 H 163 H (70-110) mg/dL 02/21/22 02/21/22 02/21/22 Range/Units 06:41 06:41 11:33 WBC 22.37 H (4.50-10.00) X 10*3/uL RBC 4.25 L (4.40-5.60) X 10*6/uL Hgb 12.3 L (13.0-17.0) g/dL MCHC 31.0 L (32.0-37.0) g/dL RDW 14.9 H (11.5-14.5) % Absolute Nucleated RBC 0.09 H (0.00-0.00) X 10*3/uL Immature Gran # 0.81 H (0.00-0.04) X 10*3/uL Neutrophils # 16.08 H (1.80-7.70) X 10*3/uL Monocytes # 1.84 H (0.20-1.00) X 10*3/uL Eosinophils # 0.72 H (0.04-0.35) X 10*3/uL NRBC/100 WBC Diff 0.4 H (0.0-0.0) /100 WBCS Chloride 95 L (96-109) mmol/L Carbon Dioxide 34.4 H (20.0-27.5) mmol/L Anion Gap 9.60 L (10.00-18.00) mmol/L BUN/Creatinine Ratio 27.25 H (12.00-20.00) Ratio Glucose 130 H (70-110) mg/dL POC Glucose (mg/dL) 160 H (70-110) mg/dL Microbiology - Last 24 Hours (Table) 02/14/22 13:19 Blood Culture - Final Blood No Growth after 144 hours Assessment and Plan Assessment: Acute hypoxic respiratory failure secondary to a left-sided pleural effusion and RSV infection, improved and currently on oxygen at 4 L Acute traumatic left-sided bloody pleural effusion/hemothorax post pigtail catheter insertion with TPA infusion 2 with adequate evacuation a left-sided pneumothorax, recovered and the chest tube has been removed, no anticoagulants for now Encephalopathy/delirium, improved Acute lactic acidosis, improving and the patient is currently on IV fluids, improved Acute RSV infection with possible superinfection with a bacteria as the patient's presentation most consistent with an acute bacterial infection Acute asthma exacerbation secondary to above, the patient has severe persistent chronic bronchial asthma, improving Acute leukocytosis, secondary to above Acute atrial fibrillation with rapid ventricular response currently off anticoagulation, rate is under better control Diabetes mellitus Obesity Obstructive sleep apnea Peripheral neuropathy from diabetes mellitus Plan: The patient was seen and evaluated Medications and labs reviewed Currently stable and on 4 L nasal cannula For discharge from the pulmonary standpoint Will require home oxygen Follow-up in the office in 1 week I have personally seen and examined the patient, performed the documentation and the assessment and plan as written. Number of minutes spent on the visit: 10.
[2022-02-21 16:18] LABS: Glucose,Whole Blood 504 mg/dL (70-110)
[2022-02-21] MEDS: LOSARTAN 50 MG TAB PO SCH (20:06)
[2022-02-21] MEDS: CHOLECALCIFEROL 25 MCG (1000 IU) TABLET PO SCH (20:15)
[2022-02-21] MEDS: ZINC SULFATE 220 MG CAP PO SCH (20:15)
[2022-02-21] MEDS: ASPIRIN 81 MG PO SCH (20:15)
[2022-02-21] MEDS: ASCORBIC ACID 500 MG TAB PO SCH (20:15)
[2022-02-21] MEDS: ATORVASTATIN 40 MG TAB PO SCH (20:15)
--- NOTE | 2022-02-21 20:20 | P.PN ---
Subjective This is a pleasant 76 years old male with multiple medical problems admitted with acute hypoxic respiratory failure, currently is on BiPAP and well of BiPAP he is on 8 L/m of oxygen via nasal cannula. His CT of the chest was negative for PE but showing left lower lobe infiltrate and pleural effusion, ejection fraction 60% Currently covered with cefepime and insulin drip and IV Solu-Medrol 40 mg twice daily Also he is on multiple vitamins D, vitamin C and zinc. For his arcus V bilateral infection. Patient remains on BiPAP this morning while his monitored in the ICU WBC 19,000, hemoglobin 10 02/17/2022 Patient currently feels better, less dyspneic, oxygen requirement down to 3 L/m, Slightly tachycardic Glucose more than 200, insulin drip and switched to Levemir 20 units Continue with IV cefepime and prednisone 40 mg starting today 02/18/2022 Reason status improving every day. Patient on 3 L saturating 99% Prednisone is a started at lower dose 20 mg with plan for to prepping discharge. Remains on antibiotics. Cefepime still have significant leukocytosis of 20,000. Patient starting to get up his diet we will add NovoLog 4 units with meals, continue with Levemir 20 units daily. Patient is subcutaneous heparin for DVT prophylaxis stable over several days, no whole anticoagulation per pulmonary team for recent hemothorax, patient has history of A. fib 02/19/2022 Patient breathing is quiet at rest with no significant tachypnea, he is saturating 91% on 4 L oxygen. MRSA Vitas looks stable Leukocytosis improving down to 16,000, hemoglobin 11.8 Glucose controlled Remains on IV cefepime and prednisone 20 mg. No anticoagulation per tour leader for recent history of hemothorax 02/20/2022 Patient today is awake but he looks more tired and more tachypneic this morning He tolerates that well and eating 5200% Repeat chest x-ray is negative for acute process per report. Patient has leukocytosis 17,000 but he is on the prednisone. Rest of labs are stable. Oxygen saturation 92% on 4 L oxygen. Patient is on cefepime to finish therapy with oral antibiotic No anticoagulation for his history of A. fib because he had recent hemothorax per tour leader 02/21/2022 patient still generally weak, he denies specific complaints like no chest pain or dyspnea. He is tolerating diet well and appetite gradually. He is hemodynamically stable. No fever. Blood pressure stable. We'll keep close monitoring. He has leukocytosis of 22,000 while he is on the prednisone 20 mg. His sugar is controlled He remains on cefepime Levemir 20 units in the follow-up 4 units with meals. No anticoagulation per pulmonary team for recent hemothorax Objective - Vital Signs Vital signs: Vital Signs Temp 98.9 F 02/21/22 14:00 Pulse 72 02/21/22 14:00 Resp 18 02/21/22 14:00 BP 86/53 02/21/22 14:00 Pulse Ox 92 L 02/21/22 14:00 FiO2 50 02/17/22 11:01 Intake & Output 02/21/22 02/21/22 02/22/22 06:59 18:59 06:59 Output Total 1000 Balance -1000 Output: Urine 1000 Other: Voiding Method Indwelling Catheter Indwelling Catheter - Exam -GENERAL: The patient is awake but confused, not in any acute distress. Well developed, well nourished. HEENT: Pupils are round and equally reacting to light. EOMI. No scleral icterus. No conjunctival pallor. Normocephalic, atraumatic. No pharyngeal erythema. No thyromegaly. CARDIOVASCULAR: S1 and S2 present. No murmurs, rubs, or gallops. -PULMONARY: Chest is clear to auscultation scattered wheezing or crepitation, especially on the left side ABDOMEN: Soft, nontender, nondistended, normoactive bowel sounds. No palpable organomegaly. MUSCULOSKELETAL: No joint swelling or deformity. EXTREMITIES: No cyanosis, clubbing, or pedal edema. NEUROLOGICAL: Gross neurological examination did not reveal any focal deficits. SKIN: No rashes. no petechiae. - Labs CBC & Chem 7: 02/21/22 06:41 02/21/22 06:41 Labs: Abnormal Lab Results - Last 24 Hours (Table) 02/20/22 02/21/22 02/21/22 Range/Units 20:37 06:27 06:41 WBC 22.37 H (4.50-10.00) X 10*3/uL RBC 4.25 L (4.40-5.60) X 10*6/uL Hgb 12.3 L (13.0-17.0) g/dL MCHC 31.0 L (32.0-37.0) g/dL RDW 14.9 H (11.5-14.5) % Absolute Nucleated RBC 0.09 H (0.00-0.00) X 10*3/uL Immature Gran # 0.81 H (0.00-0.04) X 10*3/uL Neutrophils # 16.08 H (1.80-7.70) X 10*3/uL Monocytes # 1.84 H (0.20-1.00) X 10*3/uL Eosinophils # 0.72 H (0.04-0.35) X 10*3/uL NRBC/100 WBC Diff 0.4 H (0.0-0.0) /100 WBCS Chloride (96-109) mmol/L Carbon Dioxide (20.0-27.5) mmol/L Anion Gap (10.00-18.00) mmol/L BUN/Creatinine Ratio (12.00-20.00) Ratio Glucose (70-110) mg/dL POC Glucose (mg/dL) 152 H 163 H (70-110) mg/dL 02/21/22 02/21/22 02/21/22 Range/Units 06:41 11:33 16:11 WBC (4.50-10.00) X 10*3/uL RBC (4.40-5.60) X 10*6/uL Hgb (13.0-17.0) g/dL MCHC (32.0-37.0) g/dL RDW (11.5-14.5) % Absolute Nucleated RBC (0.00-0.00) X 10*3/uL Immature Gran # (0.00-0.04) X 10*3/uL Neutrophils # (1.80-7.70) X 10*3/uL Monocytes # (0.20-1.00) X 10*3/uL Eosinophils # (0.04-0.35) X 10*3/uL NRBC/100 WBC Diff (0.0-0.0) /100 WBCS Chloride 95 L (96-109) mmol/L Carbon Dioxide 34.4 H (20.0-27.5) mmol/L Anion Gap 9.60 L (10.00-18.00) mmol/L BUN/Creatinine Ratio 27.25 H (12.00-20.00) Ratio Glucose 130 H (70-110) mg/dL POC Glucose (mg/dL) 160 H 504 H (70-110) mg/dL Microbiology - Last 24 Hours (Table) 02/14/22 13:19 Blood Culture - Final Blood No Growth after 144 hours Assessment and Plan Assessment: Left lower lobe pneumonia Acute COPD exacerbation Acute hypoxemic respiratory failure Metabolic/toxic encephalopathy Alcohol abuse and risk of fall, withdrawal RSV bilateral infection A. fib and RVR, not on anticoagulation Diabetes mellitus with hyperglycemia Plan: Continue with antibiotics Continue with insulin Levemir and insulin sliding scale and developed with meals Continue on oral steroids Patient is on multiple vitamins Pulmonary team and infectious disease consult Labs and medication were reviewed.. Continue same treatment. Continue with symptomatic treatment. Resume home medication. Monitor lytes and vitals. DVT and GI prophylaxis. Further recommendations as per clinical course of the patient DVT prophylaxis: Subcutaneous heparin GI Prophylaxis: Ppi PT/OT: Pending Prognosis is guarded
[2022-02-21 20:25] LABS: Glucose,Whole Blood 146 mg/dL (70-110)
[2022-02-21] MEDS: SODIUM CHLORIDE 0.9% 1,000 ML IV SCH (21:10)
[2022-02-22] MEDS: IPRATROPIUM-ALBUTEROL 3 ML NEB INHALATION SCH ×6 (00:38→21:14)
[2022-02-22 06:02] LABS: Glucose,Whole Blood 113 mg/dL (70-110)
[2022-02-22] MEDS: INSULIN ASPART (NovoLOG) 100 UNIT/ML VIAL SQ SCH ×7 (06:13→21:09)
[2022-02-22] MEDS: INSULIN DETEMIR (LEVEMIR) 100 UNIT/ML SYR SQ SCH (06:50)
--- NOTE | 2022-02-22 06:59 | P.PN ---
Subjective Progress Note Date: 02/20/22 Principal diagnosis: Pneumonia Patient is a 76-year-old male presenting to the hospital with increasing shortness of breath with new onset A. fib left-sided effusion status post chest tube mostly bloodstained secretion, the patient's chest tube has been discontinued subsequently. On today's evaluation that is 02/20/2022 patient continues to be afebrile, the patient is breathing comfortably currently on a 4 L nasal cannula, the patient did have occasional cough but no sputum production, the patient denies nausea no vomiting no abdominal pain or diarrhea, overall feeling better Objective - Vital Signs Vital signs: Vital Signs Temp 98.3 F 02/20/22 08:00 Pulse 82 02/20/22 11:28 Resp 20 02/20/22 08:00 BP 152/87 02/20/22 08:00 Pulse Ox 92 L 02/20/22 08:00 FiO2 50 02/17/22 11:01 Intake & Output 02/19/22 02/20/22 02/20/22 18:59 06:59 18:59 Intake Total 1200 Output Total 800 950 Balance 400 -950 Weight 131.5 kg Intake: IV 120 Sodium Chloride 0.9% 1, 120 000 ml @ 10 mls/hr IV . Q24H [facility] Rx#:[id number] Oral 1080 Output: Urine 800 950 Uretheral (Santana) 100 Other: Voiding Method Indwelling Catheter Indwelling Catheter Indwelling Catheter - Exam GENERAL DESCRIPTION: An elderly male lying in bed in no distress RESPIRATORY SYSTEM: Unlabored breathing , decreased breath sounds at bases HEART: S1 S2 regular rate and rhythm , ABDOMEN: Soft , no tenderness EXTREMITIES: No edema feet - Labs CBC & Chem 7: 02/21/22 06:41 02/21/22 06:41 Labs: Abnormal Lab Results - Last 24 Hours (Table) 02/19/22 02/19/22 02/20/22 Range/Units 16:37 20:54 06:35 WBC (3.8-10.6) k/uL RBC (4.30-5.90) m/uL Hgb (13.0-17.5) gm/dL Neutrophils # (Manual) (1.3-7.7) k/uL Monocytes # (Manual) (0-1.0) k/uL Eosinophils # (Manual) (0-0.7) k/uL Metamyelocytes # (Man) (0) k/uL Myelocytes # (Manual) (0) k/uL Sodium (137-145) mmol/L Chloride (98-107) mmol/L Carbon Dioxide (22-30) mmol/L BUN (9-20) mg/dL Glucose (74-99) mg/dL POC Glucose (mg/dL) 211 H 159 H 158 H (70-110) mg/dL Calcium (8.4-10.2) mg/dL 02/20/22 02/20/22 02/20/22 Range/Units 08:27 08:27 11:41 WBC 17.6 H (3.8-10.6) k/uL RBC 4.29 L (4.30-5.90) m/uL Hgb 12.9 L (13.0-17.5) gm/dL Neutrophils # (Manual) 12.40 H (1.3-7.7) k/uL Monocytes # (Manual) 1.23 H (0-1.0) k/uL Eosinophils # (Manual) 0.88 H (0-0.7) k/uL Metamyelocytes # (Man) 0.18 H (0) k/uL Myelocytes # (Manual) 0.18 H (0) k/uL Sodium 135 L (137-145) mmol/L Chloride 95 L (98-107) mmol/L Carbon Dioxide 38 H (22-30) mmol/L BUN 28 H (9-20) mg/dL Glucose 149 H (74-99) mg/dL POC Glucose (mg/dL) 190 H (70-110) mg/dL Calcium 8.1 L (8.4-10.2) mg/dL Microbiology - Last 24 Hours (Table) 02/14/22 13:19 Blood Culture - Preliminary Blood No Growth after 120 hours Assessment and Plan (1) Left lower lobe pneumonia Current Visit: Yes Status: Acute Code(s): J18.9 - PNEUMONIA, UNSPECIFIED ORGANISM SNOMED Code(s): 038632821 (2) Respiratory syncytial virus Current Visit: Yes Status: Acute Code(s): B33.8 - OTHER SPECIFIED VIRAL DISEASES SNOMED Code(s): 52449035 Plan: 1patient presented to hospital with increasing shortness of breath which is likely multifactorial in this patient noticed to have a significant left-sided pleural effusion s/p chest tube placement with evidence of mostly bloody drainage on insertion of the chest tube questionably traumatic as the patient did have a significant bruising to that area however no clear history of any fall underlying pneumonia less likely but not entirely excluded. 2 sputum for gram stain and negative for any resistant pathogen, procalcitonin level is mildly elevated at 0.16. 3Patient has shown clinical improvement and is currently being treated with cefepime the plan for finishing therapy with oral antibiotics Time with Patient: Less than 30
[2022-02-22] MEDS: HEPARIN SODIUM,PORCINE/PF 5,000 UNIT/0.5 ML SYRINGE SQ SCH ×2 (08:57→21:08)
[2022-02-22] MEDS: PANTOPRAZOLE 40 MG/10 ML VIAL IV SCH (08:57)
[2022-02-22] MEDS: CEFDINIR 300 MG CAP PO SCH ×2 (08:58→21:09)
[2022-02-22] MEDS: GABAPENTIN 300 MG CAP PO SCH ×2 (08:58→21:09)
[2022-02-22] MEDS: DILTIAZEM ORAL 30 MG TAB PO SCH ×3 (08:58→21:09)
[2022-02-22] MEDS: predniSONE 20 MG TAB PO SCH (08:58)
[2022-02-22] MEDS: METOPROLOL TARTRATE 50 MG TAB PO SCH ×2 (08:58→21:09)
[2022-02-22 10:33] LABS: Basophils # (A) 0.05 X 10*3/uL (0.00-0.10); Basophils % (A) 0.2 %; Eosinophils # (A) 0.51 X 10*3/uL (0.04-0.35); Eosinophils % (A) 2.2 %; HCT 39.2 % (39.6-50.0); HGB 12.5 g/dL (13.0-17.0); Immature Grans, Automated 2.2 %; Lymphocytes # (A) 3.14 X 10*3/uL (0.90-5.00); Lymphocytes % (A) 13.8 %; MCH 29.3 pg (27.0-32.0); MCHC 31.9 g/dL (32.0-37.0); MCV 91.8 fL (80.0-97.0); Mean Platelet Volume 10.7 fL (9.5-12.2); Monocytes # (A) 1.81 X 10*3/uL (0.20-1.00); NRBC Per 100 WBC 0.2 /100 WBCS (0.0-0.0); Neutrophils # (A) 16.66 X 10*3/uL (1.80-7.70); Neutrophils % (A) 73.6 %; Platelet Count 232 X 10*3/uL (140-440); RBC 4.27 X 10*6/uL (4.40-5.60); WBC 22.68 X 10*3/uL (4.50-10.00)
[2022-02-22 10:48] LABS: Magnesium 2.1 mg/dL (1.5-2.4)
[2022-02-22 11:12] LABS: African American GFR (CKD) 100.6 (60.0-200.0); Anion Gap 9.1 mmol/L (10.00-18.00); BUN/Creat Ratio 25.38 Ratio (12.00-20.00); Blood Urea Nitrogen 20.3 mg/dL (9.0-27.0); Calcium 8.8 mg/dL (8.7-10.3); Carbon Dioxide 32.9 mmol/L (20.0-27.5); Non-African American GFR(CKD) 86.8 (60.0-200.0); Potassium 4.3 mmol/L (3.5-5.5)
[2022-02-22 11:27] LABS: Glucose,Whole Blood 169 mg/dL (70-110)
[2022-02-22] MEDS: FOLIC ACID 1 MG TAB PO SCH (11:47)
[2022-02-22] MEDS: THIAMINE 100 MG TAB PO SCH (11:47)
[2022-02-22] MEDS: MULTIVITAMINS, THERA 1 EACH TAB PO SCH (11:47)
--- NOTE | 2022-02-22 15:08 | P.PN ---
Subjective Progress Note Date: 02/22/22 This is a 76-year-old male patient who arrived to the emergency department yesterday at 02/12/2022 1920 PM after leaving the hospital AMA the day before. The patient presented again for shortness of breath. He was also noted to be hypoxic and hypotensive. His heart rate was tachycardic ranging between 100- 120. He was tachypneic. Ejection the patient is obese. The patient is also known to have hypertension, obstructive sleep apnea and history of bronchial asthma and hypertension. His initial presentation was essentially related to symptoms of URI and wheezing that was going on for the past 3-4 days. He denied having any chest pain. He was having some chest the for discomfort along with coughing. He was seen by Dr. Powell in the emergency department. At that time, his examination was the patient was completing a course of antibiotics that was given Tylenol patient bases in the form of Zithromax. In emergency, the patient was found to be in new onset atrial fibrillation with RVR and he was given a diagnosis of bronchitis and asthma exacerbation. He was advised to stay in the hospital he decided to leave AGAINST MEDICAL ADVICE. He came back to the hospital within 24 hours in the white cell count was elevated at 18.7 with a hemoglobin of 15.3. His blood gas showed a pH of 7.33 with a pCO2 of 44 and pO2 of 87 this was on FiO2 of 35%. Blood sugar was 302 and a sodium level was at 133 with a potassium level of 4.6 and a BUN of 39 and creatinine of 1.1. His viral screen was positive for RSV, influenza and Covid 19 testing was negative. Troponins were negative. ProBNP level was 546. TSH was at 1.4. He was given a CT angiogram that showed no evidence of any pulmonary embolism and there was a moderate-sized left-sided pleural effusion and for now, the patient remained nature fibrillation. His rate is still slightly tachycardic. The patient was receiving IV heparin and this was discontinued On today's evaluation of 02/14/2022, the patient is being seen for a follow-up. Earlier today, the patient became slightly agitated and he became restless. I ordered Precedex. The medication was not started as the patient's mentation gradually improved and agitation settled down. Note that, the patient had a traumatic bloody left-sided pleural effusion. I I attempted to do a thoracentesis and I was unable to pull any bloody effusion. The blood was well formed. A pigtail catheter was inserted. He was infused into the leftand the patient immediately had a 1 L output coming out from the left chest tube. The repeat chest x-ray from today, shows improvement in the volume status and the my motion of the left-sided pleural effusion. A second treatment will be done today. Meanwhile, the patient was transitioned to high flow oxygen and the patient is currently on 50 L an FiO2 of 75%. His pro calcitonin level is at 0.16. There is an obvious bruise over the left lateral chest area and is a traumatic pleural effusion other than Malignant. Meanwhile, the patient was started on insulin drip at 10 units an hour for that blood sugar control. The patient is on normal saline at rate of 50 mL an hour. The patient wasn't thousand 26 with a hemoglobin of 12.1 and a platelet of 206, and the patient has a sodium of 135 with a potassium level of 5 and a BUN of 32 with a creatinine of 0.6. The patient is less short of breath compared to yesterday. The patient remains on DuoNeb about treatments [id number]. The patient remains on IV cefepime. The patient remains on IV Solu-Medrol 60 mg IV push every 6 hours. on 02/15/2022, the patient is being seen for a follow-up. Overnight, the patient became progressively more agitated and intermedius. I made recommendations for this patient to be intubated. However, the patient's family decided not to and a switch the CODE STATUS to DNR/DNI. Based on that, the patient was kept on Precedex forAnd the patient was started on a BiPAP treatment. The high flow oxygen was discontinued. The patient otherwise is doing well for now. This morning, he is while sedated. The patient is on a BiPAP at a pressure of 12/5 cm of water with FiO2 of 75%. His tidal volume generated on the machine is more than 500 and his minute ventilation is around 12 L/m. His chest tube output has been only 350 mL over the past 12 hours. I reviewed the chest x-ray from today and there is no sizable left-sided pleural effusion. In fact left hemidiaphragm can be seen adequately. There is cardiomegaly. The patient also has some limited atelectatic changes in lung base bilaterally more so on the left. The patient remains on IV cefepime. The patient remains on IV Solu-Medrol 60 mg every 6 hours. The patient remains on DuoNeb nebulized treatments [id number]. The patient remains on insulin drip for blood sugar control. A follow-up blood gas was done and the patient was found to have a pH of 7.33 with a pCO2 of 56 and pO2 of 75. The white cycles of 26 with a hemoglobin of 11 and a platelet count of 203. The patient also had a sodium level of 134, potassium level of 5.8, BUN of 46 and a c reatinine of 0.88. Blood sugars at 182. Cultures are all negative for now. The patient tested positive for RSV. He is arousable. He withdraws to painful stimulation. The Precedex those will need to be tapered off . Noted the patient also received a dose of Haldol overnight. On 02/16/2022, the patient is being seen for a follow-up. This morning, the patient seems to much more comfortable. Note that yesterday, the patient was started on Precedex which is still running at 0.5 mcg/kg/h. The patient is also receiving Estrada as-needed basis. He seems to more appropriate. His current mental status is stable and the patient is following some simple commands. He remains drowsy or sleepy and the Precedex to be tapered. Meanwhile, the patient's left-sided chest tube was not draining at all and there is adequate expansion of the left lung on follow-up chest x-ray. No evidence of any ongoing issues with hemothorax. No major bronchospasm wheezing on today's evaluation. The chest x-ray showing some mild pulmonary vascular congestion. The white cell count was at 19 with a hemoglobin of 10.4 and a platelet count of 185. Sodium is at 135 and a potassium level is at 4.7 with a BUN of 35 and a creatinine of 0.6. The patient is otherwise doing better less agitated compared to yesterday. Remains on bronchodilators. Remains on steroids. Remains on IV cefepime. Cultures are negative thus far. His cardiac rhythm is atrial fibrillation with a controlled rate. The patient also is an insulin drip for blood sugar control. 02/17/2022, the patient's off Precedex and he was taken off Precedex this morning at around 1 AM. The patient was also taken off the BiPAP at around 2 AM and is currently on 6 L O2 nasal cannula. Chest x-ray shows no the recommendation of the left-sided hemothorax. He is also a 2. His calm and comfortable. He remained nature fibrillation. He remains on insulin drip at 8 units an hour. Less focused spastic and less wheezy on today's evaluation. Sitting up on a chair and is calm and comfortable. His blood work is still pending for now. Chest x-ray from today was noted. No fever. No chills. No other significant events. Chest tube was removed yesterday. 02/18/2022, the patient remains off Precedex for the past 24 hours. He is very calm and comfortable. Neurologically, he is alert and oriented 3. Is following commands appropriately. He remains weak. He is not utilizing the BiPAP in the morning. He is currently on oxygen at 3 L. His FiO2 has been gradually weaned off. The left-sided chest tube has been removed. The left- sided pneumothorax was evacuated successfully. The patient was obviously improving. He was much less bronchospastic and wheezy on yesterday's evaluation. Based on that, I made some adjustments and I took him off the IV Solu-Medrol and start the patient on a prednisone burst taper. I was hoping that this will also improve his blood sugar control. On today's evaluation, his blood sugars under better control. He is on on Levemir insulin 20 units and a sliding scale coverage. He is still on IV antibiotics, and the patient remains on IV cefepime. Cultures have been negative. Meanwhile, the white cell count is down to 20.1 and hemoglobin is at 12. He has a BUN 32 with a creatinine of 0.7 and a sodium level is at 137. No chest x-ray from today. No fever. No chills. No falls. His cardiac rhythm is atrial fibrillation. No anticoagulants for now especially with his recent fall and traumatic pneumothorax. 02/19/2022, no new complaints and the patient remains on a medical floor. He is on oxygen at 3 L. No fever. No chills. No night sweats. Remains on IV cefepime. The white cell count today's of 16.6 with a hemoglobin of 11.8 and a platelet count of 203. BUN is 29 and a creatinine of 0.7 and a sodium level is at 135. The patient is on DuoNeb about treatments [id number]. The patient is also on prednisone burst taper and the start him on 20 mg of predni sone daily basis. He is on Levemir insulin 20 units and NovoLog 4 units with meals and a sliding scale coverage. He is a bit weak and needs to gradually increase level of activity as tolerated. No other significant events overnight. He remains in atrial fibrillation. No falls. To coagulation. The patient is seen today 02/20/2022 in follow-up on the regular medical floor. He is currently sitting up in a chair at the bedside. Awake and alert in no acute distress. He is feeling quite a bit better. He is maintaining good O2 saturations in the mid 90s on 4 L/m per nasal cannula. Afebrile. Hemodynamically stable. Chest x-rays revealing no acute pulmonary process. Some elevation of the right hemidiaphragm. Blood cultures revealed no growth. Sputum culture revealed no growth. White count 17.6. Hemoglobin 12.9. Sodium 135. Potassium 4.5. Bicarb 38. BUN 28. Creatinine 0.87. Glucose 149. He is continued on cefepime, bronchodilators, prednisone taper, heparin for DVT prop hylaxis. The patient is seen today 02/21/2022 in follow-up on the regular medical floor. He is awake and alert in no acute distress. Currently sitting up in a chair at the bedside. He is maintaining O2 saturations in the 90s on 4 L/m per nasal cannula. Blood and sputum cultures revealed no growth. White count 22.3. Hemoglobin 12.3. Sodium 139. Potassium 4.6. BUN 22. Creatinine 0.8. Glucose 130. The patient is seen today 02/22/2022 in follow-up on the regular medical floor. He is awake and alert in no acute distress. He sitting up in a chair at the bedside. He is maintaining O2 saturations in the 90s on 4 L nasal cannula. He is continued on bronchodilators. Antibiotics in the form of Omnicef. Heparin for DVT prophylaxis. White count 22. Hemoglobin 12.5. Specially sodium 135. Potassium 4.3. BUN 20. Creatinine 0.8. Objective - Vital Signs Vital signs: Vital Signs Temp 97.7 F 02/22/22 08:00 Pulse 74 02/22/22 09:00 Resp 16 02/22/22 09:00 BP 95/51 02/22/22 08:00 Pulse Ox 88 L 02/22/22 08:00 FiO2 50 02/17/22 11:01 Intake & Output 02/21/22 02/22/22 02/22/22 18:59 06:59 18:59 Output Total 1000 1600 650 Balance -1000 -1600 -650 Output: Urine 1000 1600 650 Uretheral (Santana) 650 Other: Voiding Method Indwelling Catheter Indwelling Catheter Indwelling Catheter - Exam Gen. appearance: Obese, 76-year-old male patient, up in a chair at the bedside, on 4 L nasal cannula, calm and comfortable Head exam was generally normal. There was no scleral icterus or corneal arcus. Mucous membranes were moist. Neck was supple and without jugular venous distension, thyromegaly, or carotid bruits. Carotids were easily palpable bilaterally. There was no adenopathy. Significant crowding of the posterior pharynx and mallipatti 4 Lungs sounds are diminished in left lung base and the patient has dullness to percussion left lung base. The patient has minimal expiratory wheezes as well as lung briscoe bilaterally. Heart sounds are irregular, tachycardic, positive S1-S2, overall heart sounds are distant Abdominal exam revealed normal bowel sounds. The abdomen was soft, non-tender, and without masses, organomegaly, or appreciable enlargement of the abdominal aorta. Examination of the extremities revealed easily palpable radial, femoral and pedal pulses. There was no cyanosis, clubbing or edema. Examination of the skin revealed no evidence of significant rashes, suspicious appearing nevi or other concerning lesions. Neurologically, the patient is awake and alert and he is away 2 and his moldable 4 extremities without any limitation - Labs CBC & Chem 7: 02/22/22 06:52 02/22/22 06:52 Labs: Abnormal Lab Results - Last 24 Hours (Table) 02/21/22 02/21/22 02/22/22 Range/Units 16:11 20:21 05:59 WBC (4.50-10.00) X 10*3/uL RBC (4.40-5.60) X 10*6/uL Hgb (13.0-17.0) g/dL Hct (39.6-50.0) % MCHC (32.0-37.0) g/dL RDW (11.5-14.5) % Absolute Nucleated RBC (0.00-0.00) X 10*3/uL Immature Gran # (0.00-0.04) X 10*3/uL Neutrophils # (1.80-7.70) X 10*3/uL Monocytes # (0.20-1.00) X 10*3/uL Eosinophils # (0.04-0.35) X 10*3/uL NRBC/100 WBC Diff (0.0-0.0) /100 WBCS Chloride (96-109) mmol/L Carbon Dioxide (20.0-27.5) mmol/L Anion Gap (10.00-18.00) mmol/L BUN/Creatinine Ratio (12.00-20.00) Ratio Glucose (70-110) mg/dL POC Glucose (mg/dL) 504 H 146 H 113 H (70-110) mg/dL 02/22/22 02/22/22 02/22/22 Range/Units 06:52 06:52 11:26 WBC 22.68 H (4.50-10.00) X 10*3/uL RBC 4.27 L (4.40-5.60) X 10*6/uL Hgb 12.5 L (13.0-17.0) g/dL Hct 39.2 L (39.6-50.0) % MCHC 31.9 L (32.0-37.0) g/dL RDW 15.0 H (11.5-14.5) % Absolute Nucleated RBC 0.04 H (0.00-0.00) X 10*3/uL Immature Gran # 0.51 H (0.00-0.04) X 10*3/uL Neutrophils # 16.66 H (1.80-7.70) X 10*3/uL Monocytes # 1.81 H (0.20-1.00) X 10*3/uL Eosinophils # 0.51 H (0.04-0.35) X 10*3/uL NRBC/100 WBC Diff 0.2 H (0.0-0.0) /100 WBCS Chloride 93 L (96-109) mmol/L Carbon Dioxide 32.9 H (20.0-27.5) mmol/L Anion Gap 9.10 L (10.00-18.00) mmol/L BUN/Creatinine Ratio 25.38 H (12.00-20.00) Ratio Glucose 120 H (70-110) mg/dL POC Glucose (mg/dL) 169 H (70-110) mg/dL Assessment and Plan Assessment: Acute hypoxic respiratory failure secondary to a left-sided pleural effusion and RSV infection, improved and currently on oxygen at 4 L Acute traumatic left-sided bloody pleural effusion/hemothorax post pigtail catheter insertion with TPA infusion 2 with adequate evacuation a left-sided pneumothorax, recovered and the chest tube has been removed, no anticoagulants for now Encephalopathy/delirium, improved Acute lactic acidosis, improving and the patient is currently on IV fluids, improved Acute RSV infection with possible superinfection with a bacteria as the patient's presentation most consistent with an acute bacterial infection Acute asthma exacerbation secondary to above, the patient has severe persistent chronic bronchial asthma, improving Acute leukocytosis, secondary to above Acute atrial fibrillation with rapid ventricular response currently off anticoagulation, rate is under better control Diabetes mellitus Obesity Obstructive sleep apnea Peripheral neuropathy from diabetes mellitus Plan: The patient was seen and evaluated Medications and labs reviewed For discharge from the pulmonary standpoint Will require home oxygen Follow-up in the office in 1 week I have personally seen and examined the patient, performed the documentation and the assessment and plan as written. Number of minutes spent on the visit: 10.
[2022-02-22 16:39] LABS: Glucose,Whole Blood 320 mg/dL (70-110)
--- NOTE | 2022-02-22 19:22 | P.PN ---
Subjective This is a pleasant 76 years old male with multiple medical problems admitted with acute hypoxic respiratory failure, currently is on BiPAP and well of BiPAP he is on 8 L/m of oxygen via nasal cannula. His CT of the chest was negative for PE but showing left lower lobe infiltrate and pleural effusion, ejection fraction 60% Currently covered with cefepime and insulin drip and IV Solu-Medrol 40 mg twice daily Also he is on multiple vitamins D, vitamin C and zinc. For his arcus V bilateral infection. Patient remains on BiPAP this morning while his monitored in the ICU WBC 19,000, hemoglobin 10 02/17/2022 Patient currently feels better, less dyspneic, oxygen requirement down to 3 L/m, Slightly tachycardic Glucose more than 200, insulin drip and switched to Levemir 20 units Continue with IV cefepime and prednisone 40 mg starting today 02/18/2022 Reason status improving every day. Patient on 3 L saturating 99% Prednisone is a started at lower dose 20 mg with plan for to prepping discharge. Remains on antibiotics. Cefepime still have significant leukocytosis of 20,000. Patient starting to get up his diet we will add NovoLog 4 units with meals, continue with Levemir 20 units daily. Patient is subcutaneous heparin for DVT prophylaxis stable over several days, no whole anticoagulation per pulmonary team for recent hemothorax, patient has history of A. fib 02/19/2022 Patient breathing is quiet at rest with no significant tachypnea, he is saturating 91% on 4 L oxygen. MRSA Vitas looks stable Leukocytosis improving down to 16,000, hemoglobin 11.8 Glucose controlled Remains on IV cefepime and prednisone 20 mg. 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 Patient has leukocytosis 17,000 but he is on the prednisone. Rest of labs are stable. Oxygen saturation 92% on 4 L oxygen. Patient is on cefepime to finish therapy with oral antibiotic No anticoagulation for his history of A. fib because he had recent hemothorax per conduit reamer operator 02/21/2022 patient still generally weak, he denies specific complaints like no chest pain or dyspnea. He is tolerating diet well and appetite gradually. He is hemodynamically stable. No fever. Blood pressure stable. We'll keep close monitoring. He has leukocytosis of 22,000 while he is on the prednisone 20 mg. His sugar is controlled He remains on cefepime Levemir 20 units in the follow-up 4 units with meals. No anticoagulation per pulmonary team for recent hemothorax 02/22/2022 Patient clinically looks the same with no new complaints, fully awake and oriented, still generally weak. Patient's vitals are stable, he is saturating 91% on 4 L oxygen via nasal c annula, blood pressure is borderline 99/62. WBC is 22,000, hemoglobin 12, glucose less than 200, His antibiotics was updated into cefdinir as per ID team Also he is on prednisone 20 mg No articulation to pulmonary for his recent history of hemothorax (patient informed and he agrees) Medically stable pending placement rehab Objective - Vital Signs Vital signs: Vital Signs Temp 97.9 F 02/22/22 14:00 Pulse 83 02/22/22 14:00 Resp 17 02/22/22 14:00 BP 99/62 02/22/22 14:00 Pulse Ox 91 L 02/22/22 14:00 FiO2 50 02/17/22 11:01 Intake & Output 02/22/22 02/22/22 02/23/22 06:59 18:59 06:59 Output Total 1600 650 Balance -1600 -650 Output: Urine 1600 650 Uretheral (Santana) 650 Other: Voiding Method Indwelling Catheter Indwelling Catheter - Exam -GENERAL: The patient is awake but confused, not in any acute distress. Well developed, well nourished. HEENT: Pupils are round and equally reacting to light. EOMI. No scleral icterus. No conjunctival pallor. Normocephalic, atraumatic. No pharyngeal erythema. No thyromegaly. CARDIOVASCULAR: S1 and S2 present. No murmurs, rubs, or gallops. -PULMONARY: Chest is clear to auscultation scattered wheezing or crepitation, especially on the left side ABDOMEN: Soft, nontender, nondistended, normoactive bowel sounds. No palpable organomegaly. MUSCULOSKELETAL: No joint swelling or deformity. EXTREMITIES: No cyanosis, clubbing, or pedal edema. NEUROLOGICAL: Gross neurological examination did not reveal any focal deficits. SKIN: No rashes. no petechiae. - Labs CBC & Chem 7: 02/22/22 06:52 02/22/22 06:52 Labs: Abnormal Lab Results - Last 24 Hours (Table) 02/21/22 02/22/22 02/22/22 Range/Units 20:21 05:59 06:52 WBC (4.50-10.00) X 10*3/uL RBC (4.40-5.60) X 10*6/uL Hgb (13.0-17.0) g/dL Hct (39.6-50.0) % MCHC (32.0-37.0) g/dL RDW (11.5-14.5) % Absolute Nucleated RBC (0.00-0.00) X 10*3/uL Immature Gran # (0.00-0.04) X 10*3/uL Neutrophils # (1.80-7.70) X 10*3/uL Monocytes # (0.20-1.00) X 10*3/uL Eosinophils # (0.04-0.35) X 10*3/uL NRBC/100 WBC Diff (0.0-0.0) /100 WBCS Chloride 93 L (96-109) mmol/L Carbon Dioxide 32.9 H (20.0-27.5) mmol/L Anion Gap 9.10 L (10.00-18.00) mmol/L BUN/Creatinine Ratio 25.38 H (12.00-20.00) Ratio Glucose 120 H (70-110) mg/dL POC Glucose (mg/dL) 146 H 113 H (70-110) mg/dL 02/22/22 02/22/22 02/22/22 Range/Units 06:52 11:26 16:37 WBC 22.68 H (4.50-10.00) X 10*3/uL RBC 4.27 L (4.40-5.60) X 10*6/uL Hgb 12.5 L (13.0-17.0) g/dL Hct 39.2 L (39.6-50.0) % MCHC 31.9 L (32.0-37.0) g/dL RDW 15.0 H (11.5-14.5) % Absolute Nucleated RBC 0.04 H (0.00-0.00) X 10*3/uL Immature Gran # 0.51 H (0.00-0.04) X 10*3/uL Neutrophils # 16.66 H (1.80-7.70) X 10*3/uL Monocytes # 1.81 H (0.20-1.00) X 10*3/uL Eosinophils # 0.51 H (0.04-0.35) X 10*3/uL NRBC/100 WBC Diff 0.2 H (0.0-0.0) /100 WBCS Chloride (96-109) mmol/L Carbon Dioxide (20.0-27.5) mmol/L Anion Gap (10.00-18.00) mmol/L BUN/Creatinine Ratio (12.00-20.00) Ratio Glucose (70-110) mg/dL POC Glucose (mg/dL) 169 H 320 H (70-110) mg/dL Assessment and Plan Assessment: Left lower lobe pneumonia Acute COPD exacerbation Acute hypoxemic respiratory failure Metabolic/toxic encephalopathy Alcohol abuse and risk of fall, withdrawal RSV bilateral infection A. fib and RVR, not on anticoagulation Diabetes mellitus with hyperglycemia Plan: Continue with antibiotics Continue with insulin Levemir and insulin sliding scale and developed with meals Continue on oral steroids Patient is on multiple vitamins Pulmonary team and infectious disease consult Labs and medication were reviewed.. Continue same treatment. Continue with symptomatic treatment. Resume home medication. Monitor lytes and vitals. DVT and GI prophylaxis. Further recommendations as per clinical course of the patient DVT prophylaxis: Subcutaneous heparin GI Prophylaxis: Ppi PT/OT: Pending Prognosis is guarded
[2022-02-22 20:46] LABS: Glucose,Whole Blood 243 mg/dL (70-110)
[2022-02-22] MEDS: LOSARTAN 50 MG TAB PO SCH (21:08)
[2022-02-22] MEDS: ASCORBIC ACID 500 MG TAB PO SCH (21:09)
[2022-02-22] MEDS: CHOLECALCIFEROL 25 MCG (1000 IU) TABLET PO SCH (21:09)
[2022-02-22] MEDS: ZINC SULFATE 220 MG CAP PO SCH (21:09)
[2022-02-22] MEDS: ASPIRIN 81 MG PO SCH (21:09)
[2022-02-22] MEDS: ATORVASTATIN 40 MG TAB PO SCH (21:09)
[2022-02-22] MEDS: SODIUM CHLORIDE 0.9% 1,000 ML IV SCH (23:04)
[2022-02-23] MEDS: IPRATROPIUM-ALBUTEROL 3 ML NEB INHALATION SCH ×5 (04:47→20:01)
[2022-02-23 05:57] LABS: Glucose,Whole Blood 172 mg/dL (70-110)
[2022-02-23] MEDS: INSULIN ASPART (NovoLOG) 100 UNIT/ML VIAL SQ SCH ×7 (06:47→21:52)
[2022-02-23] MEDS: INSULIN DETEMIR (LEVEMIR) 100 UNIT/ML SYR SQ SCH (06:48)
[2022-02-23 07:42] LABS: Glucose,Whole Blood 150 mg/dL (70-110)
[2022-02-23] MEDS: GABAPENTIN 300 MG CAP PO SCH ×2 (10:11→21:43)
[2022-02-23] MEDS: DILTIAZEM ORAL 30 MG TAB PO SCH ×3 (10:11→21:43)
[2022-02-23] MEDS: predniSONE 20 MG TAB PO SCH (10:11)
[2022-02-23] MEDS: CEFDINIR 300 MG CAP PO SCH ×2 (10:11→21:43)
[2022-02-23] MEDS: METOPROLOL TARTRATE 50 MG TAB PO SCH ×2 (10:11→21:44)
[2022-02-23] MEDS: PANTOPRAZOLE 40 MG/10 ML VIAL IV SCH (10:11)
[2022-02-23] MEDS: HEPARIN SODIUM,PORCINE/PF 5,000 UNIT/0.5 ML SYRINGE SQ SCH ×2 (10:11→21:43)
--- NOTE | 2022-02-23 11:06 | P.PN ---
Subjective Progress Note Date: 02/23/22 This is a 76-year-old male patient who arrived to the emergency department yesterday at 02/12/2022 1920 PM after leaving the hospital AMA the day before. The patient presented again for shortness of breath. He was also noted to be hypoxic and hypotensive. His heart rate was tachycardic ranging between 100- 120. He was tachypneic. Ejection the patient is obese. The patient is also known to have hypertension, obstructive sleep apnea and history of bronchial asthma and hypertension. His initial presentation was essentially related to symptoms of URI and wheezing that was going on for the past 3-4 days. He denied having any chest pain. He was having some chest the for discomfort along with coughing. He was seen by Dr. Powell in the emergency department. At that time, his examination was the patient was completing a course of antibiotics that was given Tylenol patient bases in the form of Zithromax. In emergency, the patient was found to be in new onset atrial fibrillation with RVR and he was given a diagnosis of bronchitis and asthma exacerbation. He was advised to stay in the hospital he decided to leave AGAINST MEDICAL ADVICE. He came back to the hospital within 24 hours in the white cell count was elevated at 18.7 with a hemoglobin of 15.3. His blood gas showed a pH of 7.33 with a pCO2 of 44 and pO2 of 87 this was on FiO2 of 35%. Blood sugar was 302 and a sodium level was at 133 with a potassium level of 4.6 and a BUN of 39 and creatinine of 1.1. His viral screen was positive for RSV, influenza and Covid 19 testing was negative. Troponins were negative. ProBNP level was 546. TSH was at 1.4. He was given a CT angiogram that showed no evidence of any pulmonary embolism and there was a moderate-sized left-sided pleural effusion and for now, the patient remained nature fibrillation. His rate is still slightly tachycardic. The patient was receiving IV heparin and this was discontinued On today's evaluation of 02/14/2022, the patient is being seen for a follow-up. Earlier today, the patient became slightly agitated and he became restless. I ordered Precedex. The medication was not started as the patient's mentation gradually improved and agitation settled down. Note that, the patient had a traumatic bloody left-sided pleural effusion. I I attempted to do a thoracentesis and I was unable to pull any bloody effusion. The blood was well formed. A pigtail catheter was inserted. He was infused into the leftand the patient immediately had a 1 L output coming out from the left chest tube. The repeat chest x-ray from today, shows improvement in the volume status and the my motion of the left-sided pleural effusion. A second treatment will be done today. Meanwhile, the patient was transitioned to high flow oxygen and the patient is currently on 50 L an FiO2 of 75%. His pro calcitonin level is at 0.16. There is an obvious bruise over the left lateral chest area and is a traumatic pleural effusion other than Malignant. Meanwhile, the patient was started on insulin drip at 10 units an hour for that blood sugar control. The patient is on normal saline at rate of 50 mL an hour. The patient wasn't thousand 26 with a hemoglobin of 12.1 and a platelet of 206, and the patient has a sodium of 135 with a potassium level of 5 and a BUN of 32 with a creatinine of 0.6. The patient is less short of breath compared to yesterday. The patient remains on DuoNeb about treatments [id number]. The patient remains on IV cefepime. The patient remains on IV Solu-Medrol 60 mg IV push every 6 hours. on 02/15/2022, the patient is being seen for a follow-up. Overnight, the patient became progressively more agitated and intermedius. I made recommendations for this patient to be intubated. However, the patient's family decided not to and a switch the CODE STATUS to DNR/DNI. Based on that, the patient was kept on Precedex forAnd the patient was started on a BiPAP treatment. The high flow oxygen was discontinued. The patient otherwise is doing well for now. This morning, he is while sedated. The patient is on a BiPAP at a pressure of 12/5 cm of water with FiO2 of 75%. His tidal volume generated on the machine is more than 500 and his minute ventilation is around 12 L/m. His chest tube output has been only 350 mL over the past 12 hours. I reviewed the chest x-ray from today and there is no sizable left-sided pleural effusion. In fact left hemidiaphragm can be seen adequately. There is cardiomegaly. The patient also has some limited atelectatic changes in lung base bilaterally more so on the left. The patient remains on IV cefepime. The patient remains on IV Solu-Medrol 60 mg every 6 hours. The patient remains on DuoNeb nebulized treatments [id number]. The patient remains on insulin drip for blood sugar control. A follow-up blood gas was done and the patient was found to have a pH of 7.33 with a pCO2 of 56 and pO2 of 75. The white cycles of 26 with a hemoglobin of 11 and a platelet count of 203. The patient also had a sodium level of 134, potassium level of 5.8, BUN of 46 and a c reatinine of 0.88. Blood sugars at 182. Cultures are all negative for now. The patient tested positive for RSV. He is arousable. He withdraws to painful stimulation. The Precedex those will need to be tapered off . Noted the patient also received a dose of Haldol overnight. On 02/16/2022, the patient is being seen for a follow-up. This morning, the patient seems to much more comfortable. Note that yesterday, the patient was started on Precedex which is still running at 0.5 mcg/kg/h. The patient is also receiving Estrada as-needed basis. He seems to more appropriate. His current mental status is stable and the patient is following some simple commands. He remains drowsy or sleepy and the Precedex to be tapered. Meanwhile, the patient's left-sided chest tube was not draining at all and there is adequate expansion of the left lung on follow-up chest x-ray. No evidence of any ongoing issues with hemothorax. No major bronchospasm wheezing on today's evaluation. The chest x-ray showing some mild pulmonary vascular congestion. The white cell count was at 19 with a hemoglobin of 10.4 and a platelet count of 185. Sodium is at 135 and a potassium level is at 4.7 with a BUN of 35 and a creatinine of 0.6. The patient is otherwise doing better less agitated compared to yesterday. Remains on bronchodilators. Remains on steroids. Remains on IV cefepime. Cultures are negative thus far. His cardiac rhythm is atrial fibrillation with a controlled rate. The patient also is an insulin drip for blood sugar control. 02/17/2022, the patient's off Precedex and he was taken off Precedex this morning at around 1 AM. The patient was also taken off the BiPAP at around 2 AM and is currently on 6 L O2 nasal cannula. Chest x-ray shows no the recommendation of the left-sided hemothorax. He is also a 2. His calm and comfortable. He remained nature fibrillation. He remains on insulin drip at 8 units an hour. Less focused spastic and less wheezy on today's evaluation. Sitting up on a chair and is calm and comfortable. His blood work is still pending for now. Chest x-ray from today was noted. No fever. No chills. No other significant events. Chest tube was removed yesterday. 02/18/2022, the patient remains off Precedex for the past 24 hours. He is very calm and comfortable. Neurologically, he is alert and oriented 3. Is following commands appropriately. He remains weak. He is not utilizing the BiPAP in the morning. He is currently on oxygen at 3 L. His FiO2 has been gradually weaned off. The left-sided chest tube has been removed. The left- sided pneumothorax was evacuated successfully. The patient was obviously improving. He was much less bronchospastic and wheezy on yesterday's evaluation. Based on that, I made some adjustments and I took him off the IV Solu-Medrol and start the patient on a prednisone burst taper. I was hoping that this will also improve his blood sugar control. On today's evaluation, his blood sugars under better control. He is on on Levemir insulin 20 units and a sliding scale coverage. He is still on IV antibiotics, and the patient remains on IV cefepime. Cultures have been negative. Meanwhile, the white cell count is down to 20.1 and hemoglobin is at 12. He has a BUN 32 with a creatinine of 0.7 and a sodium level is at 137. No chest x-ray from today. No fever. No chills. No falls. His cardiac rhythm is atrial fibrillation. No anticoagulants for now especially with his recent fall and traumatic pneumothorax. 02/19/2022, no new complaints and the patient remains on a medical floor. He is on oxygen at 3 L. No fever. No chills. No night sweats. Remains on IV cefepime. The white cell count today's of 16.6 with a hemoglobin of 11.8 and a platelet count of 203. BUN is 29 and a creatinine of 0.7 and a sodium level is at 135. The patient is on DuoNeb about treatments [id number]. The patient is also on prednisone burst taper and the start him on 20 mg of predni sone daily basis. He is on Levemir insulin 20 units and NovoLog 4 units with meals and a sliding scale coverage. He is a bit weak and needs to gradually increase level of activity as tolerated. No other significant events overnight. He remains in atrial fibrillation. No falls. To coagulation. The patient is seen today 02/20/2022 in follow-up on the regular medical floor. He is currently sitting up in a chair at the bedside. Awake and alert in no acute distress. He is feeling quite a bit better. He is maintaining good O2 saturations in the mid 90s on 4 L/m per nasal cannula. Afebrile. Hemodynamically stable. Chest x-rays revealing no acute pulmonary process. Some elevation of the right hemidiaphragm. Blood cultures revealed no growth. Sputum culture revealed no growth. White count 17.6. Hemoglobin 12.9. Sodium 135. Potassium 4.5. Bicarb 38. BUN 28. Creatinine 0.87. Glucose 149. He is continued on cefepime, bronchodilators, prednisone taper, heparin for DVT prop hylaxis. The patient is seen today 02/21/2022 in follow-up on the regular medical floor. He is awake and alert in no acute distress. Currently sitting up in a chair at the bedside. He is maintaining O2 saturations in the 90s on 4 L/m per nasal cannula. Blood and sputum cultures revealed no growth. White count 22.3. Hemoglobin 12.3. Sodium 139. Potassium 4.6. BUN 22. Creatinine 0.8. Glucose 130. The patient is seen today 02/22/2022 in follow-up on the regular medical floor. He is awake and alert in no acute distress. He sitting up in a chair at the bedside. He is maintaining O2 saturations in the 90s on 4 L nasal cannula. He is continued on bronchodilators. Antibiotics in the form of Omnicef. Heparin for DVT prophylaxis. White count 22. Hemoglobin 12.5. Specially sodium 135. Potassium 4.3. BUN 20. Creatinine 0.8. The patient is seen today 02/23/2022 in follow-up on the regular medical floor. He is sitting up at the bedside. Awake and alert in no acute distress. Denies any worsening shortness of breath, cough or congestion. No chest pain or palpitations. Blood cultures revealed no growth. Sputum cultures revealed no growth. Blood sugar 150. He remains on antibiotics in the form of Omnicef. Continued on bronchodilators. Heparin for DVT prophylaxis. Remains off anticoagulation due to significant ecchymosis and bruising in his lower back and left hip area from previous fall. Objective - Vital Signs Vital signs: Vital Signs Temp 98.3 F 02/23/22 08:02 Pulse 76 02/23/22 08:43 Resp 18 02/23/22 08:02 BP 109/67 02/23/22 08:02 Pulse Ox 95 02/23/22 08:32 FiO2 50 02/17/22 11:01 Intake & Output 02/22/22 02/23/22 02/23/22 18:59 06:59 18:59 Output Total 650 1550 Balance -650 -1550 Output: Urine 650 1550 Uretheral (Santana) 650 Other: Voiding Method Indwelling Catheter Indwelling Catheter Indwelling Catheter - Exam Gen. appearance: Alert, oriented, obese, 76-year-old male patient, on 4 L nasal cannula, calm and comfortable Head exam was generally normal. There was no scleral icterus or corneal arcus. Mucous membranes were moist. Neck was supple and without jugular venous distension, thyromegaly, or carotid bruits. Carotids were easily palpable bilaterally. There was no adenopathy. Significant crowding of the posterior pharynx and mallipatti 4 Lungs sounds are diminished in left lung base and the patient has dullness to percussion left lung base. The patient has minimal expiratory wheezes as well as lung briscoe bilaterally. Heart sounds are irregular, tachycardic, positive S1-S2, overall heart sounds are distant Abdominal exam revealed normal bowel sounds. The abdomen was soft, non-tender, and without masses, organomegaly, or appreciable enlargement of the abdominal aorta. Examination of the extremities revealed easily palpable radial, femoral and pedal pulses. There was no cyanosis, clubbing or edema. Examination of the skin revealed no evidence of significant rashes, suspicious appearing nevi or other concerning lesions. There is significant ecchymosis of the left lower back and hip area from previous fall. Neurologically, the patient is awake and alert , moving all 4 extremities without any limitation - Labs CBC & Chem 7: 02/22/22 06:52 02/22/22 06:52 Labs: Abnormal Lab Results - Last 24 Hours (Table) 02/22/22 02/22/22 02/22/22 Range/Units 06:52 11:26 16:37 Chloride 93 L (96-109) mmol/L Carbon Dioxide 32.9 H (20.0-27.5) mmol/L Anion Gap 9.10 L (10.00-18.00) mmol/L BUN/Creatinine Ratio 25.38 H (12.00-20.00) Ratio Glucose 120 H (70-110) mg/dL POC Glucose (mg/dL) 169 H 320 H (70-110) mg/dL 02/22/22 02/23/22 02/23/22 Range/Units 20:42 05:54 07:38 Chloride (96-109) mmol/L Carbon Dioxide (20.0-27.5) mmol/L Anion Gap (10.00-18.00) mmol/L BUN/Creatinine Ratio (12.00-20.00) Ratio Glucose (70-110) mg/dL POC Glucose (mg/dL) 243 H 172 H 150 H (70-110) mg/dL Assessment and Plan Assessment: Acute hypoxic respiratory failure secondary to a left-sided pleural effusion and RSV infection, improved and currently on oxygen at 4 L Acute traumatic left-sided bloody pleural effusion/hemothorax post pigtail catheter insertion with TPA infusion 2 with adequate evacuation a left-sided pneumothorax, recovered and the chest tube has been removed, no anticoagulants for now Extensive ecchymosis and bruising on the left lower back and hip area from fall prior to admission Encephalopathy/delirium, improved and alert and oriented Acute lactic acidosis, improving and the patient is currently on IV fluids, improved Acute RSV infection with possible superinfection with a bacteria as the patient's presentation most consistent with an acute bacterial infection Acute asthma exacerbation secondary to above, the patient has severe persistent chronic bronchial asthma, improving Acute leukocytosis, secondary to above, recovered Acute atrial fibrillation with rapid ventricular response, currently off anticoagulation, rate is under better control Diabetes mellitus Obesity Obstructive sleep apnea Peripheral neuropathy from diabetes mellitus Plan: The patient was seen and evaluated Medications reviewed Remains off anticoagulation due to his significant ecchymosis and bruising of the left back and hip area from previous fall Follow up with cardiology regarding his atrial fibrillation and anticoagulation Cleared for discharge from the pulmonary standpoint Evaluate for possible home oxygen Follow-up in the office in 1 week I have personally seen and examined the patient, performed the documentation and the assessment and plan as written. Number of minutes spent on the visit: 10.
[2022-02-23 12:14] LABS: Glucose,Whole Blood 143 mg/dL (70-110)
[2022-02-23] MEDS: THIAMINE 100 MG TAB PO SCH (13:15)
[2022-02-23] MEDS: MULTIVITAMINS, THERA 1 EACH TAB PO SCH (13:15)
[2022-02-23] MEDS: FOLIC ACID 1 MG TAB PO SCH (13:15)
[2022-02-23 17:13] LABS: Glucose,Whole Blood 209 mg/dL (70-110)
[2022-02-23 20:34] LABS: Glucose,Whole Blood 139 mg/dL (70-110)
[2022-02-23] MEDS: ASPIRIN 81 MG PO SCH (21:43)
[2022-02-23] MEDS: ASCORBIC ACID 500 MG TAB PO SCH (21:43)
[2022-02-23] MEDS: ZINC SULFATE 220 MG CAP PO SCH (21:43)
[2022-02-23] MEDS: ATORVASTATIN 40 MG TAB PO SCH (21:43)
[2022-02-23] MEDS: LOSARTAN 50 MG TAB PO SCH (21:44)
[2022-02-23] MEDS: CHOLECALCIFEROL 25 MCG (1000 IU) TABLET PO SCH (21:51)
--- NOTE | 2022-02-23 22:02 | P.PN ---
Subjective This is a pleasant 76 years old male with multiple medical problems admitted with acute hypoxic respiratory failure, currently is on BiPAP and well of BiPAP he is on 8 L/m of oxygen via nasal cannula. His CT of the chest was negative for PE but showing left lower lobe infiltrate and pleural effusion, ejection fraction 60% Currently covered with cefepime and insulin drip and IV Solu-Medrol 40 mg twice daily Also he is on multiple vitamins D, vitamin C and zinc. For his arcus V bilateral infection. Patient remains on BiPAP this morning while his monitored in the ICU WBC 19,000, hemoglobin 10 02/17/2022 Patient currently feels better, less dyspneic, oxygen requirement down to 3 L/m, Slightly tachycardic Glucose more than 200, insulin drip and switched to Levemir 20 units Continue with IV cefepime and prednisone 40 mg starting today 02/18/2022 Reason status improving every day. Patient on 3 L saturating 99% Prednisone is a started at lower dose 20 mg with plan for to prepping discharge. Remains on antibiotics. Cefepime still have significant leukocytosis of 20,000. Patient starting to get up his diet we will add NovoLog 4 units with meals, continue with Levemir 20 units daily. Patient is subcutaneous heparin for DVT prophylaxis stable over several days, no whole anticoagulation per pulmonary team for recent hemothorax, patient has history of A. fib 02/19/2022 Patient breathing is quiet at rest with no significant tachypnea, he is saturating 91% on 4 L oxygen. MRSA Vitas looks stable Leukocytosis improving down to 16,000, hemoglobin 11.8 Glucose controlled Remains on IV cefepime and prednisone 20 mg. No anticoagulation per mergers and acquisitions banker for recent history of hemothorax 02/20/2022 Patient today is awake but he looks more tired and more tachypneic this morning He tolerates that well and eating 5200% Repeat chest x-ray is negative for acute process per report. Patient has leukocytosis 17,000 but he is on the prednisone. Rest of labs are stable. Oxygen saturation 92% on 4 L oxygen. Patient is on cefepime to finish therapy with oral antibiotic No anticoagulation for his history of A. fib because he had recent hemothorax per mergers and acquisitions banker 02/21/2022 patient still generally weak, he denies specific complaints like no chest pain or dyspnea. He is tolerating diet well and appetite gradually. He is hemodynamically stable. No fever. Blood pressure stable. We'll keep close monitoring. He has leukocytosis of 22,000 while he is on the prednisone 20 mg. His sugar is controlled He remains on cefepime Levemir 20 units in the follow-up 4 units with meals. No anticoagulation per pulmonary team for recent hemothorax 02/22/2022 Patient clinically looks the same with no new complaints, fully awake and oriented, still generally weak. Patient's vitals are stable, he is saturating 91% on 4 L oxygen via nasal c annula, blood pressure is borderline 99/62. WBC is 22,000, hemoglobin 12, glucose less than 200, His antibiotics was updated into cefdinir as per ID team Also he is on prednisone 20 mg No articulation to pulmonary for his recent history of hemothorax (patient informed and he agrees) Medically stable pending placement rehab 02/23/2021 Patient clinically stable, he denies any specific symptoms, no chest pain or dyspnea. Hemodynamically stable, he is on 4 L oxygen via nasal cannula Pulmonary team already cleared him for discharge while he is on oral Cefdinir , and an oral prednisone. Santana catheter discontinuance upon patient and request, discussed with staff to check bladder scan. Patient informed about the need for pulmonary and cardiology team follow-up as an outpatient and he verbalized understanding and acceptance. Discussed with social secretary/employment evaluator/case manager today, catheterization is not available for discharge, otherwise patient is medically stable. We'll ask cardiology for follow-up tomorrow regarding his A. fib. NovoLog increased 4 units up to 5 unit Objective - Vital Signs Vital signs: Vital Signs Temp 98.3 F 02/23/22 08:02 Pulse 76 02/23/22 12:36 Resp 18 02/23/22 08:02 BP 109/67 02/23/22 08:02 Pulse Ox 95 02/23/22 08:32 FiO2 50 02/17/22 11:01 Intake & Output 02/22/22 02/23/22 02/23/22 18:59 06:59 18:59 Output Total 650 1550 Balance -650 -1550 Output: Urine 650 1550 Uretheral (Santana) 650 Other: Voiding Method Indwelling Catheter Indwelling Catheter Indwelling Catheter - Exam -GENERAL: The patient is awake but confused, not in any acute distress. Well developed, well nourished. HEENT: Pupils are round and equally reacting to light. EOMI. No scleral icterus. No conjunctival pallor. Normocephalic, atraumatic. No pharyngeal erythema. No thyromegaly. CARDIOVASCULAR: S1 and S2 present. No murmurs, rubs, or gallops. -PULMONARY: Chest is clear to auscultation scattered wheezing or crepitation, especially on the left side ABDOMEN: Soft, nontender, nondistended, normoactive bowel sounds. No palpable organomegaly. MUSCULOSKELETAL: No joint swelling or deformity. EXTREMITIES: No cyanosis, clubbing, or pedal edema. NEUROLOGICAL: Gross neurological examination did not reveal any focal deficits. SKIN: No rashes. no petechiae. - Labs CBC & Chem 7: 02/22/22 06:52 02/22/22 06:52 Labs: Abnormal Lab Results - Last 24 Hours (Table) 02/22/22 02/22/22 02/23/22 Range/Units 16:37 20:42 05:54 POC Glucose (mg/dL) 320 H 243 H 172 H (70-110) mg/dL 02/23/22 02/23/22 Range/Units 07:38 12:09 POC Glucose (mg/dL) 150 H 143 H (70-110) mg/dL Assessment and Plan Assessment: Left lower lobe pneumonia Acute COPD exacerbation Acute hypoxemic respiratory failure Metabolic/toxic encephalopathy Alcohol abuse and risk of fall, withdrawal RSV bilateral infection A. fib and RVR, not on anticoagulation Diabetes mellitus with hyperglycemia Plan: Continue with antibiotics Continue with insulin Levemir and insulin sliding scale and developed with meals Continue on oral steroids Patient is on multiple vitamins Pulmonary team and infectious disease consult after the patient for discharge. Cardiology evaluation requested Labs and medication were reviewed.. Continue same treatment. Continue with symptomatic treatment. Resume home medication. Monitor lytes and vitals. DVT and GI prophylaxis. Further recommendations as per clinical course of the patient DVT prophylaxis: Subcutaneous heparin GI Prophylaxis: Ppi PT/OT: Pending Prognosis is guarded
[2022-02-23] MEDS: SODIUM CHLORIDE 0.9% 1,000 ML IV SCH (23:23)
[2022-02-24 06:08] LABS: Glucose,Whole Blood 147 mg/dL (70-110)
[2022-02-24] MEDS: INSULIN ASPART (NovoLOG) 100 UNIT/ML VIAL SQ SCH ×4 (06:47→11:38)
[2022-02-24] MEDS: INSULIN DETEMIR (LEVEMIR) 100 UNIT/ML SYR SQ SCH (06:47)
[2022-02-24] MEDS: HEPARIN SODIUM,PORCINE/PF 5,000 UNIT/0.5 ML SYRINGE SQ SCH (08:11)
[2022-02-24] MEDS: CEFDINIR 300 MG CAP PO SCH (08:11)
[2022-02-24] MEDS: DILTIAZEM ORAL 30 MG TAB PO SCH (08:11)
[2022-02-24] MEDS: GABAPENTIN 300 MG CAP PO SCH (08:11)
[2022-02-24] MEDS: predniSONE 20 MG TAB PO SCH (08:11)
[2022-02-24] MEDS: METOPROLOL TARTRATE 50 MG TAB PO SCH (08:11)
[2022-02-24] MEDS: IPRATROPIUM-ALBUTEROL 3 ML NEB INHALATION SCH (09:22)
[2022-02-24] MEDS: PANTOPRAZOLE 40 MG/10 ML VIAL IV SCH (09:58)
--- NOTE | 2022-02-24 10:00 | P.PN ---
Subjective This is a 76-year-old male with a past medical history of hypertension, dyslipidemia, former tobacco use, ascending aortic aneurysm, mild aortic regu rgitation, normal coronary arteries by cardiac catheterization in 01/2016, struck a sleep apnea, asthma, type 2 diabetes. He follows in the office with Dr. Pena. We were initially consulted for A. fib with RVR and anticoagulation management. Patient initially came to the hospital 02/13/2022 hypoxic, hypotensive, found to be in A fib with RVR. He had a traumatic fall at home. He was diagnosed with Acute RSV infection and a left sided pleural effusion/hemothorax. Thoracentesis was attempted, however unsuccessful, he underwent pigtail catheter insertion with TPA infusion and adequate drainage of the left sided pleural effusion. He was managed in the ICU. Transferred to yesterday. His echocardiogram revealed an EF of 60%, mild tricuspid regurgitation. He is seen and examined at bedside, no acute distress. He denies any shortness of breath or chest pain. His vital signs are stable. He continues to be atrial fibrillation with his heart rate controlled in the 60s-70s. Does have some back ecchymosis present. No other signs of bleeding. His anticoagulation has been on hold. GENERAL: Well-appearing, well-nourished and in no acute distress. NECK: Supple without JVD or thyromegaly. LUNGS: Breath sounds diminished to auscultation bilaterally. Respiration equal and unlabored. No wheezes, rales or rhonchi. HEART: Irregular rate and rhythm without murmurs, rubs or gallops. S1 and S2 heard. EXTREMITIES: Normal range of motion, no edema. No clubbing or cyanosis. Peripheral pulses intact. ASSESSMENT Paroxysmal atrial fibrillation with RVR, [id number] score 3 Acute hypoxic respiratory failure secondary to a left-sided pleural effusion and RSV infection Acute traumatic left-sided bloody pleural effusion/hemothorax post pigtail catheter insertion with TPA infusion 2 with adequate evacuation a left-sided pneumothorax Ecchymosis and bruising on the left lower back and hip area RSV infection Asthma exacerbation Type 2 Diabetes Obstructive sleep apnea PLAN Recommend re-starting anticoagulation with Eliquis 5mg BID Case management consulted for coverage Monitor CBC as an outpatient Continue cardizem and beta montez at this time Close follow up outpatient with Dr. Pena, patient with follow up on 03/09/2022 Discharge per clearance from primary and other consultants Please reach out with any further questions or concerns. Nurse Practitioner note has been reviewed, I agree with a documented findings and plan of care. Patient was seen and examined. Objective - Vital Signs Vital signs: Vital Signs Temp 97.5 F L 02/24/22 01:25 Pulse 76 02/24/22 09:33 Resp 20 02/24/22 01:25 BP 122/78 02/24/22 01:25 Pulse Ox 95 02/24/22 01:25 FiO2 50 02/17/22 11:01 Intake & Output 02/23/22 02/24/22 02/24/22 18:59 06:59 18:59 Intake Total 830 Output Total 1200 Balance 830 -1200 Intake: IV 80 Sodium Chloride 0.9% 1, 80 000 ml @ 10 mls/hr IV . Q24H [facility] Rx#:[id number] Oral 750 Output: Urine 200 Post Void Residual 1000 Other: Voiding Method Indwelling Catheter Urinal - Labs CBC & Chem 7: 02/22/22 06:52 02/22/22 06:52 Labs: Abnormal Lab Results - Last 24 Hours (Table) 02/23/22 02/23/22 02/23/22 Range/Units 12:09 17:05 20:31 POC Glucose (mg/dL) 143 H 209 H 139 H (70-110) mg/dL 02/24/22 Range/Units 06:06 POC Glucose (mg/dL) 147 H (70-110) mg/dL
[2022-02-24] MEDS ORDERED: TAMSULOSIN 0.4 MG CAP.ER.24H PO SCH (11:00)
--- NOTE | 2022-02-24 11:11 | P.DS ---
Providers Date of admission: 02/13/22 00:29 Attending physician: Kinga Morillo Consults: 02/12/22 23:51 Consult Physician Stat Consulting Provider: Tommy Thomas Consult Reason/Comments: Septic shock, pneumonia, acute kidney injury, RSV, new onset atrial fib Do you want consulting provider notified?: Already Contacted 02/13/22 12:44 Consult Physician Stat Consulting Provider: Kiki Maxwell Consult Reason/Comments: Pneumonia Do you want consulting provider notified?: Yes 02/13/22 12:50 Consult Physician Stat Consulting Provider: Joel Melton Consult Reason/Comments: Hemothoroax Do you want consulting provider notified?: Already Contacted 02/23/22 21:21 Consult Physician Routine Consulting Provider: Domingo Mars Consult Reason/Comments: anticagulation management for a fib Do you want consulting provider notified?: Yes, Notify in am Primary care physician: Jaylan Santiago [place] [facility] Course: Diagnoses: Left lower lobe pneumonia Acute COPD exacerbation Acute hypoxemic respiratory failure Metabolic/toxic encephalopathy, resolved Alcohol abuse and risk of fall, withdrawal RSV bilateral infection A. fib and RVR, on Eliquis blood thinner Diabetes mellitus with hyperglycemia Acute urinary retention requiring Santana catheter placement Hospital course: This is a pleasant 76 years old male with multiple medical problems admitted with acute hypoxic respiratory failure, found to have pneumonia and COPD exacerbation he was in the ICU monitored closely and then transferred to the general medical floor with more stabilization. Currently his breathing easier on 4 L oxygen via nasal cannula saturating in the mid 90s. On going home he will need home oxygen evaluation for pulmonary team recommendation, however today he is going to subacute rehab for strengthening treatment and he'll be discharged on oxygen via nasal cannula to keep saturation more than 90% . Other than that his breathing quietly, no chest pain, no abdominal pain tolerates diet well, no diarrhea, no urinary complaints. Santana catheter was discontinued and postvoid residual checked wa more than 600 and 300 twice overnight, Santana catheter was replaced in and patient agrees. Flomax is a started with recommendation for him to follow up outpatient with urologist like Dr. Thompson with contact information provided for him and he agrees to call and make appointment. Electric Furnace Operator also evaluated the patient, upon recommendation he is started on liquids, risks and benefits of bleeding are explained for him Also he is on metoprolol. He has appointment with Dr. Basurto on 03/09 this month and patient informed and he agrees stating he will follow-up. Glucose is controlled on Levemir 20 units and 5 units with meals. We stopped his oral hypoglycemic medication. Metformin and Januvia. Continue with monitoring of glucose. Patient today improved significantly and his back close to his baseline however his generally weak and he will benefit from subacute rehab Patient will be discharged on 5 more days of oral antibiotics and oral prednisone. Patient was cleared for discharge by all consultants including infectious disease team, school laboratory technician and diaper machine tender. Problems and management plan were discussed with the patient and he verbalized understanding and acceptance Patient was found stable and can be discharged to [facility] in guarded prognosis however he needs follow-up as an outpatient. Patient was instructed to follow up with PCP Dr. recinos within one week and patient agrees Patient was instructed to follow-up with diaper machine tender Dr. Boyce/Dr. Thomas in one week and he agrees. And follow-up with Dr. Basurto on 03/09 as above and neurologist Dr. Sanchez in 1-2 weeks and he agrees Physical exam -Gen: patient is a AAOx3, no distress. Generally weak CVS: S1-S2, RRR, no murmur -Lungs: B/L CTA, no wheezing. On nasal cannula oxygen Abdomen: soft, no distention, no tenderness, positive bowel sounds Extremity: no leg edema or induration Time spent more than 35 minutes Patient Condition at Discharge: Critical Plan - Discharge Summary New Discharge Prescriptions: New Apixaban [Eliquis] 5 mg PO BID #60 tab Folic Acid 1 mg PO DAILY@1200 tab Insulin Detemir (Levemir) [Levemir] 20 unit SQ DAILY@0700 each Multivitamins, Thera [Multivitamin (formulary)] 1 each PO DAILY@1200 tab INSULIN ASPART (NovoLOG) [NovoLOG (formulary)] 5 unit SQ AC-TID each Cefdinir [Omnicef] 300 mg PO BID 4 Days #14 cap Acetaminophen Tab [Tylenol] 325 mg PO Q4HR PRN tab PRN Reason: Fever And/Or Mild Pain Thiamine [Vitamin B-1] 100 mg PO DAILY@1200 tab Diltiazem Oral [Cardizem*] 30 mg PO TID tab Metoprolol Tartrate [Lopressor] 50 mg PO BID tab INSULIN ASPART (NovoLOG) [NovoLOG (formulary)] 0 unit SQ ACHS each Omeprazole 20 mg PO BID #60 tab predniSONE 10 mg PO DAILY 5 Days #5 tab Continue Cholecalciferol [Vitamin D3 (25 Mcg = 1000 Iu)] 50 mcg PO HS Zinc 50 mg PO HS Ascorbic Acid [Vitamin C] 1,000 mg PO HS Losartan [Cozaar] 50 mg PO HS Albuterol Sulfate [Proair Respiclick] 1 puff INHALATION RT-Q6H PRN PRN Reason: Shortness Of Breath Atorvastatin [Lipitor] 40 mg PO HS Gabapentin 600 mg PO BID #20 cap Discontinued [place]-3 Fatty Acids/Fish Oil [Fish Oil 1,000 mg Softgel] 1 cap PO HS Aspirin [Adult Low Dose Aspirin EC] 81 mg PO HS sitaGLIPtin [Januvia] 100 mg PO HS metFORMIN HCL ER [Glucophage XR] 500 mg PO BID methylPREDNISolone [Medrol Dose Pack] See Taper PO DIRECTED Azithromycin [Zithromax Z Pack] See Taper PO DAILY No Action Ubidecarenone [Co Q-10] 300 mg PO HS Discharge Medication List Ascorbic Acid [Vitamin C] 1,000 mg PO HS 01/21/16 [History] Cholecalciferol [Vitamin D3 (25 Mcg = 1000 Iu)] 50 mcg PO HS 01/21/16 [History] Ubidecarenone [Co Q-10] 300 mg PO HS 01/21/16 [History] Zinc 50 mg PO HS 01/21/16 [History] Albuterol Sulfate [Proair Respiclick] 1 puff INHALATION RT-Q6H PRN 02/12/22 [History] Atorvastatin [Lipitor] 40 mg PO HS 02/12/22 [History] Losartan [Cozaar] 50 mg PO HS 02/12/22 [History] Acetaminophen Tab [Tylenol] 325 mg PO Q4HR PRN tab 02/24/22 [Rx] Apixaban [Eliquis] 5 mg PO BID #60 tab 02/24/22 [Rx] Cefdinir [Omnicef] 300 mg PO BID 4 Days #14 cap 02/24/22 [Rx] Diltiazem Oral [Cardizem*] 30 mg PO TID tab 02/24/22 [Rx] Folic Acid 1 mg PO DAILY@1200 tab 02/24/22 [Rx] Gabapentin 600 mg PO BID #20 cap 02/24/22 [Rx] INSULIN ASPART (NovoLOG) [NovoLOG (formulary)] 0 unit SQ ACHS each 02/24/22 [Rx] INSULIN ASPART (NovoLOG) [NovoLOG (formulary)] 5 unit SQ AC-TID each 02/24/22 [Rx] Insulin Detemir (Levemir) [Levemir] 20 unit SQ DAILY@0700 each 02/24/22 [Rx] Metoprolol Tartrate [Lopressor] 50 mg PO BID tab 02/24/22 [Rx] Multivitamins, Thera [Multivitamin (formulary)] 1 each PO DAILY@1200 tab 02/24/22 [Rx] Omeprazole 20 mg PO BID #60 tab 02/24/22 [Rx] Thiamine [Vitamin B-1] 100 mg PO DAILY@1200 tab 02/24/22 [Rx] predniSONE 10 mg PO DAILY 5 Days #5 tab 02/24/22 [Rx] Follow up Appointment(s)/Referral(s): Sameer Pena MD [STAFF PHYSICIAN] - 03/09/22 1:00 pm ([facility] [place] [address]) [facility] [NON-STAFF] - As Needed Tommy Thomas DO [Doctor of Osteopathic Medicine] - 1 Week Jaylan Recinos MD [Primary Care Provider] - 1-2 days Patient Instructions/Handouts: Apixaban (By mouth), A-fib (Atrial Fibrillation) (GEN)
[2022-02-24 11:14] LABS: Glucose,Whole Blood 179 mg/dL (70-110)
[2022-02-24] MEDS: MULTIVITAMINS, THERA 1 EACH TAB PO SCH (11:38)
[2022-02-24] MEDS: FOLIC ACID 1 MG TAB PO SCH (11:38)
[2022-02-24] MEDS: THIAMINE 100 MG TAB PO SCH (11:39)
[2022-02-24 12:46] VITALS: BP 92/61; PULSE 67; RESP 16; TEMP 98.1
[2022-02-24] MEDS ORDERED: APIXABAN 5 MG TAB PO SCH (21:00)
== END 2022-02-24 13:20 | DRG 871 ==
LOC: EC 19:14 → 2SICU 02-13 00:29 → 4SSUR 02-18 21:49
PROVIDERS: ADMIT Hospitalist; ATTEND Hospitalist
PROC: 5A09357 Assistance with Respiratory Ventilation, Less than 24 Consecutive Hours, Continuous Positive Airway Pressure (ICD-10-PCS; principal; 2022-02-12)
PROC: 0W9B30Z Drainage of Left Pleural Cavity with Drainage Device, Percutaneous Approach (ICD-10-PCS; 2022-02-13)
PROC: 0W9B3ZX Drainage of Left Pleural Cavity, Percutaneous Approach, Diagnostic (ICD-10-PCS; 2022-02-13)
PROC: 3E0L3GC Introduction of Other Therapeutic Substance into Pleural Cavity, Percutaneous Approach (ICD-10-PCS; 2022-02-14)
PROC: 05HF33Z Insertion of Infusion Device into Left Cephalic Vein, Percutaneous Approach (ICD-10-PCS; 2022-02-14)
PROC: 5A0945A Assistance with Respiratory Ventilation, 24-96 Consecutive Hours, High Flow/Velocity Cannula (ICD-10-PCS; 2022-02-14)
DX: A41.9 Sepsis, unspecified organism (principal); G92.8 Other toxic encephalopathy; J96.01 Acute respiratory failure with hypoxia; R65.21 Severe sepsis with septic shock; S27.2XXA Traumatic hemopneumothorax, initial encounter; J12.1 Respiratory syncytial virus pneumonia; N17.9 Acute kidney failure, unspecified; E87.21 Acute metabolic acidosis; J91.8 Pleural effusion in other conditions classified elsewhere; J44.1 Chronic obstructive pulmonary disease with (acute) exacerbation; J45.51 Severe persistent asthma with (acute) exacerbation; J44.0 Chronic obstructive pulmonary disease with (acute) lower respiratory infection; J98.11 Atelectasis; E11.42 Type 2 diabetes mellitus with diabetic polyneuropathy; E66.9 Obesity, unspecified; Z68.39 Body mass index [BMI] 39.0-39.9, adult; I10 Essential (primary) hypertension; E11.65 Type 2 diabetes mellitus with hyperglycemia; F10.10 Alcohol abuse, uncomplicated; Z66 Do not resuscitate; I08.2 Rheumatic disorders of both aortic and tricuspid valves; I71.21 Aneurysm of the ascending aorta, without rupture; Z20.822 Contact with and (suspected) exposure to COVID-19; I48.0 Paroxysmal atrial fibrillation; R33.9 Retention of urine, unspecified; G47.33 Obstructive sleep apnea (adult) (pediatric); Z96.652 Presence of left artificial knee joint; E78.5 Hyperlipidemia, unspecified; L30.9 Dermatitis, unspecified; W19.XXXA Unspecified fall, initial encounter; Y92.009 Unspecified place in unspecified non-institutional (private) residence as the place of occurrence of the external cause; S30.0XXA Contusion of lower back and pelvis, initial encounter; S70.02XA Contusion of left hip, initial encounter; Z87.891 Personal history of nicotine dependence; Z79.899 Other long term (current) drug therapy; Z91.011 Allergy to milk products; Z79.4 Long term (current) use of insulin; Z79.84 Long term (current) use of oral hypoglycemic drugs; Z79.82 Long term (current) use of aspirin
CPT/HCPCS: 32551; 36410; 36415; 36600; 71045; 71275; 76937; 80048; 80053; 81003; 82272; 82805; 83036; 83605; 83735; 83880; 84100; 84132; 84145; 84443; 84484; 85025; 85610; 85730; 87040; 87070; 87205; 87449; 87636; 93005; 93306; 94640; 94660; 94760; 96361; 96365; 96366; 96368; 96375; 99291

== ENCOUNTER 2022-03-15 19:37 | Inpatient (IN) | payer MEDICARE ==
[2022-03-15 20:13] LABS: Basophils # (A) 0.1 k/uL (0-0.2); Basophils % (A) 1 %; Eosinophils # (A) 0.4 k/uL (0-0.7); Eosinophils % (A) 4 %; HGB 13.2 gm/dL (13.0-17.5); Hypochromasia Moderate; Lymphocytes # (A) 1.2 k/uL (1.0-4.8); Lymphocytes % (A) 12 %; MCH 30.2 pg (25.0-35.0); MCHC 31.4 g/dL (31.0-37.0); MCV 96.2 fL (80.0-100.0); Mean Platelet Volume 8.5; Monocytes # (A) 0.6 k/uL (0-1.0); Monocytes % (A) 6 %; Neutrophils # (A) 7.8 k/uL (1.3-7.7); Neutrophils % (A) 76 %; Platelet Count 273 k/uL (150-450); RBC 4.36 m/uL (4.30-5.90); RDW 14.6 % (11.5-15.5); WBC 10.3 k/uL (3.8-10.6)
[2022-03-15 20:30] LABS: Partial Thromboplastin Time 26.2 sec (22.0-30.0); Prothrombin Time 10.8 sec (9.0-12.0)
[2022-03-15 20:34] LABS: ALT 28 U/L (4-49); AST 28 U/L (17-59); African American GFR (CKD) >90 (>60 ml/min/1.73 sqM); Albumin 3.7 g/dL (3.5-5.0); Alkaline Phosphatase 78 U/L (38-126); Anion Gap 4 mmol/L; Blood Urea Nitrogen 19 mg/dL (9-20); Carbon Dioxide 34 mmol/L (22-30); Chloride 103 mmol/L (98-107); Glucose 201 mg/dL (74-99); Non-African American GFR(CKD) 90 (>60 ml/min/1.73 sqM); Potassium 4.3 mmol/L (3.5-5.1); Sodium 141 mmol/L (137-145); Total Protein 6.3 g/dL (6.3-8.2)
--- NOTE | 2022-03-15 20:43 | XR ---
EXAMINATION TYPE: XR chest 2V DATE OF EXAM: 03/15/2022 8:32 PM COMPARISON: Chest radiographs from 02/20/2022. TECHNIQUE: XR chest 2V Frontal and lateral views of the chest. CLINICAL INDICATION:Male, 76 years old with history of difficulty breathing; FINDINGS: Lungs/Pleura: Perihilar airspace opacities in the right which are new from 02/12/2022. There is no ev idence of pleural effusion, or pneumothorax. Pulmonary vascularity: Unremarkable. Heart/mediastinum: Cardiomediastinal silhouette is unremarkable. Musculoskeletal: No acute osseous pathology. IMPRESSION: Right perihilar opacities concerning for pneumonia.
[2022-03-15] MEDS ORDERED: AZITHROMYCIN 500 MG TAB PO STA (21:03)
[2022-03-15] MEDS ORDERED: IPRATROPIUM-ALBUTEROL 3 ML NEB INHALATION STA (21:31)
[2022-03-15] MEDS ORDERED: PNEUMONIA PROTOCOL UTILIZED 1 EACH MISC PO PRN (21:32)
[2022-03-15] MEDS ORDERED: ALBUTEROL NEBULIZED 2.5 MG/3 ML INHALATION PRN (21:32)
[2022-03-15] MEDS ORDERED: SODIUM CHLORIDE 0.9% 1,000 ML IV SCH (21:45)
[2022-03-16] MEDS ORDERED: ACETAMINOPHEN TAB 325 MG TAB PO PRN (01:00)
[2022-03-16] MEDS ORDERED: APIXABAN 5 MG TAB PO SCH (01:00)
[2022-03-16] MEDS ORDERED: DEXTROSE 50% SYRINGE 50 ML IVP PRN ×2 (01:01)
--- NOTE | 2022-03-16 01:05 | ED ---
SOB HPI - General Chief Complaint: Shortness of Breath Stated Complaint: low oxygen Time Seen by Provider: 03/15/22 19:57 Source: patient Mode of arrival: ambulatory Limitations: no limitations - History of Present Illness Initial Comments: This patient is 76-year-old man who presents with complaint increasing shortness of breath and a little bit of cough. The patient had been admitted in the hospital little approximately one month ago after having had pneumonia and was found to have what hemothorax requiring thoracentesis with drainage placement on February 14. The patient had been discharged February 24 and was briefly feeling better and then started to have increasing shortness of breath and cough. Patient is denying chest pain. He has not noted definite fevers at home though possible chills. Family reportedly had been checking pulse oximetry readings at home and today they could not get his oxygen readings above 90%. Patient states there is some thick sputum. MD Complaint: shortness of breath, cough Onset/Timin -: days(s) Severity scale (1-10): 0 Improves With: upright position Worsens With: lying flat Known History Of: other (Recent hemothorax) Associated Symptoms: denies other symptoms Treatments Prior to Arrival: none - Related Data Home Medications Medication Instructions Recorded Confirmed Ubidecarenone [Co Q-10] 300 mg PO HS 01/21/16 03/15/22 Atorvastatin [Lipitor] 40 mg PO HS 02/12/22 03/15/22 Acetaminophen Tab [Tylenol] 650 mg PO Q4HR PRN 03/15/22 03/15/22 Ascorbic Acid [Vitamin C] 500 mg PO HS 03/15/22 03/15/22 Cholecalciferol [Vitamin D3 (25 50 mcg PO DAILY 03/15/22 03/15/22 Mcg = 1000 Iu)] Furosemide [Lasix] 40 mg PO DAILY 03/15/22 03/15/22 Gabapentin 300 mg PO BID 03/15/22 03/15/22 Insulin Aspart [NovoLOG Flexpen] See Protocol SQ AC-TID 03/15/22 03/15/22 Tamsulosin [Flomax] 0.4 mg PO HS 03/15/22 03/15/22 busPIRone HCL 7.5 mg PO BID 03/15/22 03/15/22 Previous Rx's Medication Instructions Recorded Apixaban [Eliquis] 5 mg PO BID #60 tab 02/24/22 Diltiazem Oral [Cardizem*] 30 mg PO TID tab 02/24/22 Metoprolol Tartrate [Lopressor] 50 mg PO BID tab 02/24/22 Allergies Allergy/AdvReac Type Severity Reaction Status Date / Time Milk Containing Products Allergy Congestion/ Verified 03/15/22 19:43 [Dairy] Cough Review of Systems ROS Statement: Those systems with pertinent positive or pertinent negative responses have been documented in the HPI. ROS Other: All systems not noted in ROS Statement are negative. Constitutional: Reports: chills Respiratory: Reports: cough, dyspnea. Denies: wheezes, hemoptysis Cardiovascular: Reports: palpitations, orthopnea, edema. Denies: chest pain, syncope Gastrointestinal: Denies: abdominal pain, nausea, vomiting, diarrhea Genitourinary: Denies: dysuria, hematuria Musculoskeletal: Denies: back pain Skin: Denies: rash Neurological: Denies: headache, weakness, numbness Past Medical History Past Medical History: Asthma, COPD, Diabetes Mellitus, GERD/Reflux, Hypertension, Sleep Apnea/CPAP/BIPAP Additional Past Medical History / Comment(s): SOB w/exertion, supposed to use CPAP, peripheral neuropathy; atrial fibrillation, at home o2 History of Any Multi-Drug Resistant Organisms: None Reported Past Surgical History: Joint Replacement, Orthopedic Surgery Additional Past Surgical History / Comment(s): cataract surg., rotator cuff repair, left knee replaced, benign fatty tumor removed, broke back without surgery Past Anesthesia/Blood Transfusion Reactions: Previous Problems w/ Anesthesia Additional Past Anesthesia/Blood Transfusion Reaction / Comment(s): developed vertigo few days after surg. Past Psychological History: Anxiety Smoking Status: Former smoker Past Alcohol Use History: Rare Additional Past Alcohol Use History / Comment(s): quit smoking 40 yrs. ago, smoked for 7-8 yrs. Past Drug Use History: None Reported - Past Family History Mother Family Medical History: Cancer Father Family Medical History: CVA/TIA General Exam Limitations: no limitations General appearance: alert, in distress (Mild respiratory distress, patient is tachypneic) Head exam: Present: atraumatic, normocephalic Eye exam: Present: normal appearance ENT exam: Present: normal oropharynx Neck exam: Present: normal inspection. Absent: tenderness, meningismus Respiratory exam: Present: respiratory distress, wheezes, rhonchi. Absent: rale s, stridor, chest wall tenderness, accessory muscle use Cardiovascular Exam: Present: regular rate, normal rhythm, normal heart sounds. Absent: systolic murmur, diastolic murmur, rubs, gallop GI/Abdominal exam: Present: soft. Absent: distended, tenderness, guarding, rebound, rigid, mass Extremities exam: Present: normal inspection, normal capillary refill, pedal edema (Mild left leg swelling reported to be chronic). Absent: calf tenderness Back exam: Present: normal inspection. Absent: CVA tenderness (R), CVA tenderness (L) Neurological exam: Present: alert Skin exam: Present: warm, dry, intact, normal color. Absent: rash Course Vital Signs 03/15/22 03/15/22 03/15/22 19:40 21:00 21:55 Temperature 97.9 F Pulse Rate 95 81 76 Respiratory 28 H 20 Rate Blood Pressure 147/76 150/73 O2 Sat by Pulse 88 L 91 L Oximetry 03/15/22 03/15/22 03/15/22 22:07 23:04 23:32 Temperature Pulse Rate 76 2 L 70 Respiratory 17 24 Rate Blood Pressure 141/88 130/82 O2 Sat by Pulse 93 L 89 L 92 L Oximetry 03/15/22 03/15/22 23:37 23:45 Temperature Pulse Rate 70 70 Respiratory 24 Rate Blood Pressure 130/82 O2 Sat by Pulse 92 L Oximetry Medical Decision Making - Medical Decision Making Patient is 76-year-old man who presents with worsening shortness of breath or past few days and now low pulse oximetry readings. Chest x-ray here shows what appears to be a right-sided infiltrate and patient started on healthcare associated pneumonia antibiotics. There is possibility of small left pleural effusion. With these diagnoses, will admit patient and have pulmonology consultation to ensure that he is not require a repeat thoracentesis patient reports some improvement following nebulized treatment Case discussed with hospitalist group, covering for his physician. - Lab Data Result diagrams: 03/23/22 06:27 03/23/22 06:27 Lab Results 03/15/22 03/15/22 03/15/22 Range/Units 19:53 19:53 19:53 WBC 10.3 (3.8-10.6) k/uL RBC 4.36 (4.30-5.90) m/uL Hgb 13.2 (13.0-17.5) gm/dL Hct 42.0 (39.0-53.0) % MCV 96.2 (80.0-100.0) fL MCH 30.2 (25.0-35.0) pg MCHC 31.4 (31.0-37.0) g/dL RDW 14.6 (11.5-15.5) % Plt Count 273 (150-450) k/uL MPV 8.5 Neutrophils % 76 % Lymphocytes % 12 % Monocytes % 6 % Eosinophils % 4 % Basophils % 1 % Neutrophils # 7.8 H (1.3-7.7) k/uL Lymphocytes # 1.2 (1.0-4.8) k/uL Monocytes # 0.6 (0-1.0) k/uL Eosinophils # 0.4 (0-0.7) k/uL Basophils # 0.1 (0-0.2) k/uL Hypochromasia Moderate PT 10.8 (9.0-12.0) sec INR 1.0 (<1.2) APTT 26.2 (22.0-30.0) sec D-Dimer 0.46 (<0.60) mg/L FEU Sodium 141 (137-145) mmol/L Potassium 4.3 (3.5-5.1) mmol/L Chloride 103 (98-107) mmol/L Carbon Dioxide 34 H (22-30) mmol/L Anion Gap 4 mmol/L BUN 19 (9-20) mg/dL Creatinine 0.74 (0.66-1.25) mg/dL Est GFR (CKD-EPI)AfAm >90 (>60 ml/min/1.73 sqM) Est GFR (CKD-EPI)NonAf 90 (>60 ml/min/1.73 sqM) Glucose 201 H (74-99) mg/dL Plasma Lactic Acid Robles (0.7-2.0) mmol/L Calcium 9.0 (8.4-10.2) mg/dL Magnesium 2.0 (1.6-2.3) mg/dL Total Bilirubin 1.0 (0.2-1.3) mg/dL AST 28 (17-59) U/L ALT 28 (4-49) U/L Alkaline Phosphatase 78 (38-126) U/L Troponin I (0.000-0.034) ng/mL NT-Pro-B Natriuret Pep pg/mL Total Protein 6.3 (6.3-8.2) g/dL Albumin 3.7 (3.5-5.0) g/dL Coronavirus (PCR) (Not Detectd) Influenza Type A RNA (Not Detectd) Influenza Type B (PCR) (Not Detectd) 03/15/22 03/15/22 03/15/22 Range/Units 19:53 19:53 20:08 WBC (3.8-10.6) k/uL RBC (4.30-5.90) m/uL Hgb (13.0-17.5) gm/dL Hct (39.0-53.0) % MCV (80.0-100.0) fL MCH (25.0-35.0) pg MCHC (31.0-37.0) g/dL RDW (11.5-15.5) % Plt Count (150-450) k/uL MPV Neutrophils % % Lymphocytes % % Monocytes % % Eosinophils % % Basophils % % Neutrophils # (1.3-7.7) k/uL Lymphocytes # (1.0-4.8) k/uL Monocytes # (0-1.0) k/uL Eosinophils # (0-0.7) k/uL Basophils # (0-0.2) k/uL Hypochromasia PT (9.0-12.0) sec INR (<1.2) APTT (22.0-30.0) sec D-Dimer (<0.60) mg/L FEU Sodium (137-145) mmol/L Potassium (3.5-5.1) mmol/L Chloride (98-107) mmol/L Carbon Dioxide (22-30) mmol/L Anion Gap mmol/L BUN (9-20) mg/dL Creatinine (0.66-1.25) mg/dL Est GFR (CKD-EPI)AfAm (>60 ml/min/1.73 sqM) Est GFR (CKD-EPI)NonAf (>60 ml/min/1.73 sqM) Glucose (74-99) mg/dL Plasma Lactic Acid Robles 1.6 (0.7-2.0) mmol/L Calcium (8.4-10.2) mg/dL Magnesium (1.6-2.3) mg/dL Total Bilirubin (0.2-1.3) mg/dL AST (17-59) U/L ALT (4-49) U/L Alkaline Phosphatase (38-126) U/L Troponin I <0.012 (0.000-0.034) ng/mL NT-Pro-B Natriuret Pep 841 pg/mL Total Protein (6.3-8.2) g/dL Albumin (3.5-5.0) g/dL Coronavirus (PCR) (Not Detectd) Influenza Type A RNA (Not Detectd) Influenza Type B (PCR) (Not Detectd) 03/15/22 03/15/22 Range/Units 20:22 20:22 WBC (3.8-10.6) k/uL RBC (4.30-5.90) m/uL Hgb (13.0-17.5) gm/dL Hct (39.0-53.0) % MCV (80.0-100.0) fL MCH (25.0-35.0) pg MCHC (31.0-37.0) g/dL RDW (11.5-15.5) % Plt Count (150-450) k/uL MPV Neutrophils % % Lymphocytes % % Monocytes % % Eosinophils % % Basophils % % Neutrophils # (1.3-7.7) k/uL Lymphocytes # (1.0-4.8) k/uL Monocytes # (0-1.0) k/uL Eosinophils # (0-0.7) k/uL Basophils # (0-0.2) k/uL Hypochromasia PT (9.0-12.0) sec INR (<1.2) APTT (22.0-30.0) sec D-Dimer (<0.60) mg/L FEU Sodium (137-145) mmol/L Potassium (3.5-5.1) mmol/L Chloride (98-107) mmol/L Carbon Dioxide (22-30) mmol/L Anion Gap mmol/L BUN (9-20) mg/dL Creatinine (0.66-1.25) mg/dL Est GFR (CKD-EPI)AfAm (>60 ml/min/1.73 sqM) Est GFR (CKD-EPI)NonAf (>60 ml/min/1.73 sqM) Glucose (74-99) mg/dL Plasma Lactic Acid Robles (0.7-2.0) mmol/L Calcium (8.4-10.2) mg/dL Magnesium (1.6-2.3) mg/dL Total Bilirubin (0.2-1.3) mg/dL AST (17-59) U/L ALT (4-49) U/L Alkaline Phosphatase (38-126) U/L Troponin I (0.000-0.034) ng/mL NT-Pro-B Natriuret Pep pg/mL Total Protein (6.3-8.2) g/dL Albumin (3.5-5.0) g/dL Coronavirus (PCR) Not Detected (Not Detectd) Influenza Type A RNA Not Detected (Not Detectd) Influenza Type B (PCR) Not Detected (Not Detectd) Disposition Clinical Impression: Pneumonia, Atrial fibrillation, Hyperglycemia Disposition: ADMITTED IP TO THIS HOSP Condition: Fair Is patient prescribed a controlled substance at d/c from ED?: No
[2022-03-16 05:54] LABS: Glucose,Whole Blood 168 mg/dL (70-110)
[2022-03-16] MEDS: INSULIN ASPART (NovoLOG) 100 UNIT/ML VIAL SQ SCH ×4 (06:36→23:32)
[2022-03-16] MEDS: IPRATROPIUM-ALBUTEROL 3 ML NEB INHALATION SCH ×4 (07:46→20:06)
[2022-03-16] MEDS: busPIRone HCl 5 MG TAB PO SCH ×2 (08:27→23:31)
[2022-03-16] MEDS: APIXABAN 5 MG TAB PO SCH ×2 (08:27→23:30)
[2022-03-16] MEDS: CHOLECALCIFEROL 25 MCG (1000 IU) TABLET PO SCH (08:28)
[2022-03-16] MEDS: DILTIAZEM ORAL 30 MG TAB PO SCH ×3 (08:28→23:31)
[2022-03-16] MEDS: GABAPENTIN 300 MG CAP PO SCH ×2 (08:28→23:33)
[2022-03-16] MEDS: METOPROLOL TARTRATE 50 MG TAB PO SCH ×2 (08:28→23:31)
[2022-03-16] MEDS ORDERED: AZITHROMYCIN 500 MG TAB PO SCH (09:00)
[2022-03-16] MEDS ORDERED: FUROSEMIDE 40 MG TAB PO SCH (09:00)
--- NOTE | 2022-03-16 10:30 | CT ---
EXAMINATION TYPE: CT angio chest DATE OF EXAM: 03/16/2022 COMPARISON: 02/12/2022 HISTORY: Pneumonia, r/o PE CT DLP: 745.2 mGycm CONTRAST: CT chest with contrast and 3D reconstruction with MIP imaging is performed with IV Contrast, patient injected with 300 mL of Isovue 370. Contrast-enhanced CT of the chest was performed through the course of the pulmonary arteries with claudy g and mediastinal window settings submitted. 3D reconstruction with MIP imaging was also performed. PULMONARY ARTERIES: The pulmonary arteries and their major tributaries are patent. I do not see jaskaran dence for sizable filling defect to suggest pulmonary embolic process. LUNGS: Persistent left-sided pleural effusion although smaller in size. New right-sided pleural effus ion with AP dimension of 5.7 cm. On the left the maximal AP dimension is 4.5 cm. There is right upper lobe infiltrate with developing air bronchograms. Groundglass density left upper lobe. Basilar atele ctasis. MEDIASTINUM: Thoracic aorta is of normal caliber. The heart is mildly enlarged. No evidence for med iastinal mass. No mediastinal lymph nodes greater than 1cm. HILAR STRUCTURES: No evidence for mass. No hilar lymph nodes greater than 1 cm. UPPER ABDOMEN: No significant abnormality is seen. IMPRESSION: 1. No evidence for Pulmonary embolism at this time. 2. Bilateral pleural effusions and right upper lobe infiltrate.
--- NOTE | 2022-03-16 10:34 | XR ---
EXAMINATION TYPE: XR chest 2V DATE OF EXAM: 03/16/2022 COMPARISON: 03/15/2022 HISTORY: Shortness of breath TECHNIQUE: Frontal and lateral views of the chest are obtained. FINDINGS: Scattered senescent parenchymal changes noted. Hyperinflation compatible with COPD. Right perihilar infiltrate persists and may be slightly improved. Left perihilar infiltrate appears m uch improved and has nearly resolved. Trace effusions suspected. Heart size is stable. Mediastinal structures are stable and grossly unremarkable. No evidence for hilar prominence. Degenerative changes dorsal spine. IMPRESSION: 1. Persistent but improving features of pneumonia.
[2022-03-16] MEDS: FUROSEMIDE 10 MG/ML 4 ML VIAL IV SCH ×2 (11:04→23:31)
[2022-03-16 11:20] LABS: African American GFR (CKD) 102.1 (60.0-200.0); Anion Gap 9.6 mmol/L (10.00-18.00); BUN/Creat Ratio 18.29 Ratio (12.00-20.00); Blood Urea Nitrogen 14.1 mg/dL (9.0-27.0); Calcium 8.7 mg/dL (8.7-10.3); Carbon Dioxide 31.2 mmol/L (20.0-27.5); Non-African American GFR(CKD) 88.1 (60.0-200.0); Potassium 4.3 mmol/L (3.5-5.5)
[2022-03-16 11:25] LABS: ABG Base Excess 8.4 mmol/L; ABG HCO3 33 mmol/L (21-25); ABG Oxygen Saturation 91.5 % (94-97); ABG PCO2 49 mmHg (35-45); ABG PH 7.43 (7.35-7.45); ABG TCO2 34 mmol/L (19-24); Allen Test Performed? Yes
[2022-03-16 11:28] LABS: ABG PO2 59 mmHg (83-108)
[2022-03-16 11:30] LABS: Basophils # (A) 0.06 X 10*3/uL (0.00-0.10); Basophils % (A) 0.6 %; Eosinophils # (A) 0.39 X 10*3/uL (0.04-0.35); Eosinophils % (A) 3.7 %; HCT 41.8 % (39.6-50.0); HGB 12.3 g/dL (13.0-17.0); Immature Grans, Automated 0.7 %; Lymphocytes # (A) 1.46 X 10*3/uL (0.90-5.00); Lymphocytes % (A) 13.9 %; MCH 29.5 pg (27.0-32.0); MCHC 29.4 g/dL (32.0-37.0); MCV 100.2 fL (80.0-97.0); Mean Platelet Volume 10.5 fL (9.5-12.2); Monocytes # (A) 1.21 X 10*3/uL (0.20-1.00); Monocytes % (A) 11.5 %; NRBC Per 100 WBC 0 /100 WBCS (0.0-0.0); Neutrophils # (A) 7.31 X 10*3/uL (1.80-7.70); Neutrophils % (A) 69.6 %; Platelet Count 280 X 10*3/uL (140-440); RBC 4.17 X 10*6/uL (4.40-5.60); RDW 15.3 % (11.5-14.5)
[2022-03-16 11:37] LABS: Glucose,Whole Blood 178 mg/dL (70-110)
--- NOTE | 2022-03-16 12:04 | P.CNPUL ---
History of Present Illness Consult date: 03/16/22 Requesting physician: Kinga Morillo Reason for consult: dyspnea Chief complaint: Shortness of breath History of present illness: This is 76 year old male patient with a known history of diabetes mellitus with peripheral neuropathy, hypertension, hyperlipidemia, obstructive sleep apnea, obesity, diabetes mellitus, atrial fibrillation anticoagulated with Eliquis, who was recently admitted for an RSV infection and had at that time noted to have left-sided trauma from a fall prior to his arrival. He had developed significant left-sided hemothorax. Initial attempts at thoracentesis revealed that thick blood and clotting in a ultrasound-guided pigtail catheter was placed. He was subsequently discharged on 02/24/2022. He represented to the emergency room here early this morning with worsening shortness of breath. The patient is somewhat of a poor historian. He is remembering that he had fallen and thought he was here for recurrent fall. No family is present. He is short of breath. He is currently regular maintain O2 saturations in the 90s on 8 L high flow nasal cannula. Chest x-rays revealing a persistent right perihilar infiltrate. Left perihilar infiltrate had improved and is nearly resolved. CT angiogram ruled out pulmonary embolism. There is noted bilateral pleural e ffusions and a right upper lobe infiltrate. White count 10.5. Hemoglobin 12.3. Platelets 280. Sodium 141. Potassium 4.3. BUN 14. Creatinine 0.8. Glucose 174. ProBNP 685. Pro-calcitonin 0.06. Chronic virus not detected. Influenza screen negative. Arterial blood gases on 44% FiO2 revealed a PaO2 of 59, pH 7.43, pCO2 of 49. He is seen today in consultation on the regular medical floor. He is currently sitting up in a chair at the bedside. Awake and alert. He knows he is in the hospital. Unsure of the year. States he will was a previous smoker. Denies any daily alcohol use. Review of Systems REVIEW OF SYSTEMS: CONSTITUTIONAL: Denies any recent significant weight loss or weight gain. EYES: Denies change in vision. EARS, NOSE, MOUTH, THROAT: Denies headaches, denies sore throat. CARDIOVASCULAR: Denies chest pain, palpitations or syncopal episodes. RESPIRATORY: Positive for shortness of breath, cough, congestion no hemoptysis. GASTROINTESTINAL: Denies change in appetite, denies abdominal pain GENITOURINARY: Denies hematuria, denies infections. MUSKULOSKELETAL: Denies pain, denies swelling. INTEGUMENTARY: Denies rash, denies eczema. NEUROLOGICAL: Denies recent memory loss, no recent seizure activity. PSYCHIATRIC: Denies anxiety, denies depression. HEMATOLOGIC/LYMPHATIC: Denies anemia, denies enlarged lymph nodes. Past Medical History Past Medical History: Asthma, COPD, Diabetes Mellitus, GERD/Reflux, Hypertension, Sleep Apnea/CPAP/BIPAP Additional Past Medical History / Comment(s): SOB w/exertion, supposed to use CPAP, peripheral neuropathy; atrial fibrillation, at home o2 History of Any Multi-Drug Resistant Organisms: None Reported Past Surgical History: Joint Replacement, Orthopedic Surgery Additional Past Surgical History / Comment(s): cataract surg., rotator cuff repair, left knee replaced, benign fatty tumor removed, broke back without surgery Past Anesthesia/Blood Transfusion Reactions: Previous Problems w/ Anesthesia Additional Past Anesthesia/Blood Transfusion Reaction / Comment(s): developed vertigo few days after surg. Past Psychological History: Anxiety Smoking Status: Former smoker Past Alcohol Use History: Rare Additional Past Alcohol Use History / Comment(s): quit smoking 40 yrs. ago, smoked for 7-8 yrs. Past Drug Use History: None Reported - Past Family History Mother Family Medical History: Cancer Father Family Medical History: CVA/TIA Medications and Allergies Home Medications Medication Instructions Recorded Confirmed Type Ubidecarenone [Co Q-10] 300 mg PO HS 01/21/16 03/15/22 History Atorvastatin [Lipitor] 40 mg PO HS 02/12/22 03/15/22 History Losartan [Cozaar] 50 mg PO HS 02/12/22 03/15/22 History Apixaban [Eliquis] 5 mg PO BID #60 tab 02/24/22 03/15/22 Rx Diltiazem Oral [Cardizem*] 30 mg PO TID tab 02/24/22 03/15/22 Rx Metoprolol Tartrate [Lopressor] 50 mg PO BID tab 02/24/22 03/15/22 Rx Acetaminophen Tab [Tylenol] 650 mg PO Q4HR PRN 03/15/22 03/15/22 History Ascorbic Acid [Vitamin C] 500 mg PO HS 03/15/22 03/15/22 History Cholecalciferol [Vitamin D3 (25 50 mcg PO DAILY 03/15/22 03/15/22 History Mcg = 1000 Iu)] Furosemide [Lasix] 40 mg PO DAILY 03/15/22 03/15/22 History Gabapentin 300 mg PO BID 03/15/22 03/15/22 History Insulin Aspart [NovoLOG Flexpen] See Protocol SQ AC-TID 03/15/22 03/15/22 Hi story Tamsulosin [Flomax] 0.4 mg PO HS 03/15/22 03/15/22 History busPIRone HCL 7.5 mg PO BID 03/15/22 03/15/22 History Allergies Allergy/AdvReac Type Severity Reaction Status Date / Time Milk Containing Products Allergy Congestion/ Verified 03/15/22 19:43 [Dairy] Cough Physical Exam Vitals: Vital Signs Temp Pulse Pulse Resp BP BP Pulse Ox 03/16/22 11:42 94 L 03/16/22 11:33 70 03/16/22 11:20 61 03/16/22 11:17 03/16/22 10:58 03/16/22 09:11 94 L 03/16/22 08:01 84 03/16/22 08:00 97.4 F L 84 20 125/76 84 L 03/16/22 07:51 86 90 L 03/16/22 00:25 98 F 95 22 134/77 92 L 03/15/22 23:45 70 24 130/82 92 L 03/15/22 23:37 70 03/15/22 23:32 70 92 L 03/15/22 23:04 2 L 24 130/82 89 L 03/15/22 22:07 76 17 141/88 93 L 03/15/22 21:55 76 03/15/22 21:00 81 20 150/73 91 L 03/15/22 19:40 97.9 F 95 28 H 147/76 88 L FiO2 03/16/22 11:42 03/16/22 11:33 03/16/22 11:20 03/16/22 11:17 50 03/16/22 10:58 50 03/16/22 09:11 03/16/22 08:01 03/16/22 08:00 03/16/22 07:51 03/16/22 00:25 03/15/22 23:45 03/15/22 23:37 03/15/22 23:32 03/15/22 23:04 03/15/22 22:07 03/15/22 21:55 03/15/22 21:00 03/15/22 19:40 Intake and Output 03/15/22 03/16/22 03/16/22 22:59 06:59 14:59 Output Total 525 1 Balance -525 -1 Output: Urine 525 Stool 1 Other: Voiding Method Urinal # Bowel Movements 1 Weight 134.263 kg 134.263 kg GENERAL EXAM: Alert, slightly confused, pleasant 76-year-old male, on 8 L high flow nasal cannula, up in a chair at the bedside, comfortable in no apparent distress. HEAD: Normocephalic. EYES: Normal reaction of pupils, equal size. NOSE: Clear with pink turbinates. THROAT: No erythema or exudates. NECK: No masses, no JVD. CHEST: No chest wall deformity. LUNGS: Equal air entry with few scattered rhonchi, crackles in the right lung. CVS: S1 and S2 normal with no audible murmur, regular rhythm. ABDOMEN: No hepatosplenomegaly, normal bowel sounds, no guarding or rigidity. SPINE: No scoliosis or deformity SKIN: No rashes CENTRAL NERVOUS SYSTEM: No focal deficits, tone is normal in all 4 extremities. EXTREMITIES: There is no peripheral edema. No clubbing, no cyanosis. Periph eral pulses are intact. Results - Laboratory Findings CBC and BMP: 03/16/22 06:27 03/16/22 06:27 ABG ABG pH 7.43 (7.35-7.45) 03/16/22 11:19 ABG pCO2 49 mmHg (35-45) H 03/16/22 11:19 ABG pO2 59 mmHg (83-108) L* 03/16/22 11:19 ABG O2 Saturation 91.5 % (94-97) L 03/16/22 11:19 PT/INR, D-dimer PT 10.8 sec (9.0-12.0) 03/15/22 19:53 INR 1.0 (<1.2) 03/15/22 19:53 D-Dimer 0.46 mg/L FEU (<0.60) 03/15/22 19:53 Abnormal lab findings: Abnormal Labs 03/15/22 03/15/22 03/16/22 19:53 19:53 05:52 WBC RBC Hgb MCV MCHC RDW Immature Gran # Neutrophils # 7.8 H Monocytes # Eosinophils # ABG pCO2 ABG pO2 ABG HCO3 ABG Total CO2 ABG O2 Saturation Carbon Dioxide 34 H Anion Gap Glucose 201 H POC Glucose (mg/dL) 168 H 03/16/22 03/16/22 03/16/22 06:27 06:27 11:19 WBC 10.50 H RBC 4.17 L Hgb 12.3 L MCV 100.2 H MCHC 29.4 L RDW 15.3 H Immature Gran # 0.07 H Neutrophils # Monocytes # 1.21 H Eosinophils # 0.39 H ABG pCO2 49 H ABG pO2 59 L* ABG HCO3 33 H ABG Total CO2 34 H ABG O2 Saturation 91.5 L Carbon Dioxide 31.2 H Anion Gap 9.60 L Glucose 174 H POC Glucose (mg/dL) 03/16/22 11:36 WBC RBC Hgb MCV MCHC RDW Immature Gran # Neutrophils # Monocytes # Eosinophils # ABG pCO2 ABG pO2 ABG HCO3 ABG Total CO2 ABG O2 Saturation Carbon Dioxide Anion Gap Glucose POC Glucose (mg/dL) 178 H - Diagnostic Findings Chest x-ray: image reviewed CT scan - chest: image reviewed Assessment and Plan Assessment: Acute on chronic hypoxemic respiratory failure secondary to bilateral pleural effusions, improved on the left increased on the right, right upper lobe infiltrate. Basilar atelectasis. Pro-calcitonin 0.06. Recent hospitalization for fall and trauma with large ecchymosis of the left hip and back, left-sided hemothorax requiring chest tube placement and subsequent removal Recent hospitalization for RSV infection Previous history of encephalopathy/delirium History of severe persistent chronic bronchial asthma Atrial fibrillation, anticoagulated with Eliquis Diabetes mellitus Diabetic neuropathy Obesity Sleep apnea Plan: The patient was seen and evaluated Chest x-ray, ABGs, labs and medications reviewed CT angiogram ordered, negative PE Titrate the FiO2 as tolerated May require BiPAP support Continue bronchodilators Continue diuretics We will continue to follow and make further recommendations based on his clinical status I have personally seen and examined the patient, performed the documentation and the assessment and plan as written. Number of minutes spent on the visit: 20.
--- NOTE | 2022-03-16 12:17 | P.HPIM ---
History of Present Illness 76-year-old pleasant male was recently treated for respiratory syncytial virus infection and it, in the fall on the left side and had left-sided pneumothorax, came in with complaints of increasing shortness of breath patient is on BiPAP. During his previous hospitalization patient had thoracentesis which showed thick blood and clotting an ultrasound guided pigtail catheter was placed patient was discharged earlier this month patient came in with complaints of increasing shortness of breath and apparently patient has been falling at home patient is saturating 90s on 5 high flow nasal cannula oxygen because of which patient was placed on BiPAP ABG was done unsure this was done on BiPAP, patient is mostly acute hypoxic respiratory failure with pH of 7.43 pCO2 49 and pO2 of 59. Patient does have bilateral pleural effusions patient has a stable condition or failure chronic diastolic dysfunction patient is on oral Lasix at home. Patient was evaluated by pulmonology and patient had a CT of the chest showed bilateral pleural effusions and patient does have and sedation with a bronchogram in the right upper to middle lobes although his pro calcitonin is normal with only mildly elevated white blood cell count and no fever patient was not complaining of cough with sputum production. Patient also is on antibiotics Rocephin and azithromycin. Patient BNP is on Lasix 40 but patient is obese with BMI of 40. There is no pulmonary embolism and the CT PA patient is with previous of oxygen at home REVIEW OF SYSTEMS: Unable to do much of the history from the patient patient also is alert oriented 3 as per the nursing staff patient is bit confused and delirious PHYSICAL EXAMINATION: GENERAL: The patient is alert and oriented x3, not in any acute distress. Obese HEENT: Pupils are round and equally reacting to light. EOMI. No scleral icterus. No conjunctival pallor. Normocephalic, atraumatic. No pharyngeal erythema. No thyromegaly. CARDIOVASCULAR: S1 and S2 present. No murmurs, rubs, or gallops. BiPAP in place PULMONARY: Chest is clear to auscultation, no wheezing or crackles. Mildly diminished air entry into bilateral lung briscoe no wheezing was appreciated ABDOMEN: Soft, nontender, nondistended, normoactive bowel sounds. No palpable organomegaly. MUSCULOSKELETAL: No joint swelling or deformity. EXTREMITIES: No cyanosis, clubbing, 2+ pitting pedal edema in bilateral lower extremities NEUROLOGICAL: Gross neurological examination did not reveal any focal deficits. SKIN: No rashes. Assessment and plan -Acute on chronic hypoxic respiratory failure: Probably secondary to congestive heart failure exacerbation patient is with bilateral pleural effusions patient may have chronic diastolic dysfunction. Patient will be started on IV Lasix at this can you oral Lasix strict I's and O's patient may need a Santana catheter may be retaining urine. Patient does have infiltrated with a bronchogram although pro calcitonin is within normal limits I cannot completely rule out right Middle lobe pneumonia, continue with antibiotics. Pulmonology is following the patient -Toxic encephalopathy probably from infection -Leukocytosis either secondary to pneumonia or reactive -Obesity possibility of her sleep apnea -Chronic or severe persistent asthma patient is physically not in acute exacerbation may not need any steroids at this time -Atrial fibrillation paroxysmal patient is anticoagulated with Eliquis -Type 2 diabetes mellitus with diabetic peripheral neuropathy DVT prophylaxis: On anti-correlation which was resumed Past Medical History Past Medical History: Asthma, COPD, Diabetes Mellitus, GERD/Reflux, Hypertension, Sleep Apnea/CPAP/BIPAP Additional Past Medical History / Comment(s): SOB w/exertion, supposed to use CPAP, peripheral neuropathy; atrial fibrillation, at home o2 History of Any Multi-Drug Resistant Organisms: None Reported Past Surgical History: Joint Replacement, Orthopedic Surgery Additional Past Surgical History / Comment(s): cataract surg., rotator cuff repair, left knee replaced, benign fatty tumor removed, broke back without surgery Past Anesthesia/Blood Transfusion Reactions: Previous Problems w/ Anesthesia Additional Past Anesthesia/Blood Transfusion Reaction / Comment(s): developed vertigo few days after surg. Past Psychological History: Anxiety Smoking Status: Former smoker Past Alcohol Use History: Rare Additional Past Alcohol Use History / Comment(s): quit smoking 40 yrs. ago, smoked for 7-8 yrs. Past Drug Use History: None Reported - Past Family History Mother Family Medical History: Cancer Father Family Medical History: CVA/TIA Medications and Allergies Home Medications Medication Instructions Recorded Confirmed Type Ubidecarenone [Co Q-10] 300 mg PO HS 01/21/16 03/15/22 History Atorvastatin [Lipitor] 40 mg PO HS 02/12/22 03/15/22 History Losartan [Cozaar] 50 mg PO HS 02/12/22 03/15/22 History Apixaban [Eliquis] 5 mg PO BID #60 tab 02/24/22 03/15/22 Rx Diltiazem Oral [Cardizem*] 30 mg PO TID tab 02/24/22 03/15/22 Rx Metoprolol Tartrate [Lopressor] 50 mg PO BID tab 02/24/22 03/15/22 Rx Acetaminophen Tab [Tylenol] 650 mg PO Q4HR PRN 03/15/22 03/15/22 History Ascorbic Acid [Vitamin C] 500 mg PO HS 03/15/22 03/15/22 History Cholecalciferol [Vitamin D3 (25 50 mcg PO DAILY 03/15/22 03/15/22 History Mcg = 1000 Iu)] Furosemide [Lasix] 40 mg PO DAILY 03/15/22 03/15/22 History Gabapentin 300 mg PO BID 03/15/22 03/15/22 History Insulin Aspart [NovoLOG Flexpen] See Protocol SQ AC-TID 03/15/22 03/15/22 History Tamsulosin [Flomax] 0.4 mg PO HS 03/15/22 03/15/22 History busPIRone HCL 7.5 mg PO BID 03/15/22 03/15/22 History Allergies Allergy/AdvReac Type Severity Reaction Status Date / Time Milk Containing Products Allergy Congestion/ Verified 03/15/22 19:43 [Dairy] Cough Physical Exam Vitals: Vital Signs Temp Pulse Pulse Resp BP BP Pulse Ox 03/16/22 11:42 94 L 03/16/22 11:33 70 03/16/22 11:20 61 03/16/22 11:17 03/16/22 10:58 03/16/22 09:11 94 L 03/16/22 08:01 84 03/16/22 08:00 97.4 F L 84 20 125/76 84 L 03/16/22 07:51 86 90 L 03/16/22 00:25 98 F 95 22 134/77 92 L 03/15/22 23:45 70 24 130/82 92 L 03/15/22 23:37 70 03/15/22 23:32 70 92 L 03/15/22 23:04 2 L 24 130/82 89 L 03/15/22 22:07 76 17 141/88 93 L 03/15/22 21:55 76 03/15/22 21:00 81 20 150/73 91 L 03/15/22 19:40 97.9 F 95 28 H 147/76 88 L FiO2 03/16/22 11:42 03/16/22 11:33 03/16/22 11:20 03/16/22 11:17 50 03/16/22 10:58 50 03/16/22 09:11 03/16/22 08:01 03/16/22 08:00 03/16/22 07:51 03/16/22 00:25 03/15/22 23:45 03/15/22 23:37 03/15/22 23:32 03/15/22 23:04 03/15/22 22:07 03/15/22 21:55 03/15/22 21:00 03/15/22 19:40 Intake and Output 03/15/22 03/16/22 03/16/22 22:59 06:59 14:59 Output Total 525 1 Balance -525 -1 Output: Urine 525 Stool 1 Other: Voiding Method Urinal # Bowel Movements 1 Weight 134.263 kg 134.263 kg Results CBC & Chem 7: 03/16/22 06:27 03/16/22 06:27 Labs: Abnormal Lab Results - Last 24 Hours (Table) 03/15/22 03/15/22 03/16/22 Range/Units 19:53 19:53 05:52 WBC (4.50-10.00) X 10*3/uL RBC (4.40-5.60) X 10*6/uL Hgb (13.0-17.0) g/dL MCV (80.0-97.0) fL MCHC (32.0-37.0) g/dL RDW (11.5-14.5) % Immature Gran # (0.00-0.04) X 10*3/uL Neutrophils # 7.8 H (1.3-7.7) k/uL Monocytes # (0.20-1.00) X 10*3/uL Eosinophils # (0.04-0.35) X 10*3/uL ABG pCO2 (35-45) mmHg ABG pO2 (83-108) mmHg ABG HCO3 (21-25) mmol/L ABG Total CO2 (19-24) mmol/L ABG O2 Saturation (94-97) % Carbon Dioxide 34 H (22-30) mmol/L Anion Gap (10.00-18.00) mmol/L Glucose 201 H (74-99) mg/dL POC Glucose (mg/dL) 168 H (70-110) mg/dL 03/16/22 03/16/22 03/16/22 Range/Units 06:27 06:27 11:19 WBC 10.50 H (4.50-10.00) X 10*3/uL RBC 4.17 L (4.40-5.60) X 10*6/uL Hgb 12.3 L (13.0-17.0) g/dL MCV 100.2 H (80.0-97.0) fL MCHC 29.4 L (32.0-37.0) g/dL RDW 15.3 H (11.5-14.5) % Immature Gran # 0.07 H (0.00-0.04) X 10*3/uL Neutrophils # (1.3-7.7) k/uL Monocytes # 1.21 H (0.20-1.00) X 10*3/uL Eosinophils # 0.39 H (0.04-0.35) X 10*3/uL ABG pCO2 49 H (35-45) mmHg ABG pO2 59 L* (83-108) mmHg ABG HCO3 33 H (21-25) mmol/L ABG Total CO2 34 H (19-24) mmol/L ABG O2 Saturation 91.5 L (94-97) % Carbon Dioxide 31.2 H (22-30) mmol/L Anion Gap 9.60 L (10.00-18.00) mmol/L Glucose 174 H (74-99) mg/dL POC Glucose (mg/dL) (70-110) mg/dL 03/16/22 Range/Units 11:36 WBC (4.50-10.00) X 10*3/uL RBC (4.40-5.60) X 10*6/uL Hgb (13.0-17.0) g/dL MCV (80.0-97.0) fL MCHC (32.0-37.0) g/dL RDW (11.5-14.5) % Immature Gran # (0.00-0.04) X 10*3/uL Neutrophils # (1.3-7.7) k/uL Monocytes # (0.20-1.00) X 10*3/uL Eosinophils # (0.04-0.35) X 10*3/uL ABG pCO2 (35-45) mmHg ABG pO2 (83-108) mmHg ABG HCO3 (21-25) mmol/L ABG Total CO2 (19-24) mmol/L ABG O2 Saturation (94-97) % Carbon Dioxide (22-30) mmol/L Anion Gap (10.00-18.00) mmol/L Glucose (74-99) mg/dL POC Glucose (mg/dL) 178 H (70-110) mg/dL Thrombosis Risk Factor Assmnt - Choose All That Apply Any of the Below Risk Factors Present?: Yes Each Factor Represents 1 point: Abnormal pulmonary function (COPD) Other Risk Factors: Yes Each Risk Factor Represents 3 Points: Age 75 years or older Thrombosis Risk Factor Assessment Total Risk Factor Score: 4 Thrombosis Risk Factor Assessment Level: Moderate Risk
[2022-03-16 16:48] LABS: Glucose,Whole Blood 178 mg/dL (70-110)
[2022-03-16 20:22] LABS: Glucose,Whole Blood 155 mg/dL (70-110)
[2022-03-16] MEDS: TAMSULOSIN 0.4 MG CAP.ER.24H PO SCH (23:31)
[2022-03-16] MEDS: ATORVASTATIN 40 MG TAB PO SCH (23:31)
[2022-03-16] MEDS: ASCORBIC ACID 500 MG TAB PO SCH (23:31)
[2022-03-17] MEDS: FUROSEMIDE 10 MG/ML 4 ML VIAL IV SCH ×3 (00:56→21:13)
[2022-03-17 05:56] LABS: Glucose,Whole Blood 168 mg/dL (70-110)
[2022-03-17] MEDS: INSULIN ASPART (NovoLOG) 100 UNIT/ML VIAL SQ SCH ×4 (06:38→21:13)
[2022-03-17 07:56] LABS: African American GFR (CKD) >90 (>60 ml/min/1.73 sqM); Anion Gap 5 mmol/L; Blood Urea Nitrogen 14 mg/dL (9-20); Calcium 8.2 mg/dL (8.4-10.2); Carbon Dioxide 34 mmol/L (22-30); Chloride 98 mmol/L (98-107); Glucose 176 mg/dL (74-99); Magnesium 1.9 mg/dL (1.6-2.3); Non-African American GFR(CKD) >90 (>60 ml/min/1.73 sqM); Potassium 3.9 mmol/L (3.5-5.1); Sodium 137 mmol/L (137-145)
[2022-03-17 08:06] LABS: HCT 39.4 % (39.0-53.0); HGB 12.4 gm/dL (13.0-17.5); Hypochromasia Marked; MCH 30.4 pg (25.0-35.0); MCHC 31.6 g/dL (31.0-37.0); MCV 96.3 fL (80.0-100.0); Mean Platelet Volume 8.3; Platelet Count 286 k/uL (150-450); RBC 4.09 m/uL (4.30-5.90); RDW 14.1 % (11.5-15.5); WBC 9.7 k/uL (3.8-10.6)
--- NOTE | 2022-03-17 08:30 | XR ---
EXAMINATION TYPE: XR chest 1V portable DATE OF EXAM: 03/17/2022 HISTORY: Shortness of breath. COMPARISON: 03/16/2022 TECHNIQUE: Single view of the chest is submitted. FINDINGS: Demonstrated are scattered senescent parenchymal change. Right perihilar infiltrate persists although slightly improved. Mild patchy density left lower lobe a nd small effusions. The heart is stable. Hilar and mediastinal structures are within normal limits. Degenerative changes are seen of the dorsal spine. IMPRESSION: 1. Right perihilar infiltrate persists although slightly improved. Mild patchy density left lower lo be and small effusions.
[2022-03-17] MEDS: GABAPENTIN 300 MG CAP PO SCH ×2 (09:30→21:14)
[2022-03-17] MEDS: APIXABAN 5 MG TAB PO SCH ×2 (09:30→21:14)
[2022-03-17] MEDS: busPIRone HCl 5 MG TAB PO SCH ×2 (09:30→21:14)
[2022-03-17] MEDS: METOPROLOL TARTRATE 50 MG TAB PO SCH ×2 (09:30→21:14)
[2022-03-17] MEDS: CHOLECALCIFEROL 25 MCG (1000 IU) TABLET PO SCH (09:30)
[2022-03-17] MEDS: DILTIAZEM ORAL 30 MG TAB PO SCH ×3 (09:30→23:17)
[2022-03-17] MEDS: IPRATROPIUM-ALBUTEROL 3 ML NEB INHALATION SCH ×4 (09:50→20:20)
[2022-03-17 11:25] LABS: Glucose,Whole Blood 166 mg/dL (70-110)
--- NOTE | 2022-03-17 11:49 | P.PN ---
Subjective Progress Note Date: 03/17/22 This is 76 year old male patient with a known history of diabetes mellitus with peripheral neuropathy, hypertension, hyperlipidemia, obstructive sleep apnea, obesity, diabetes mellitus, atrial fibrillation anticoagulated with Eliquis, who was recently admitted for an RSV infection and had at that time noted to have left-sided trauma from a fall prior to his arrival. He had developed significant left-sided hemothorax. Initial attempts at thoracentesis revealed that thick blood and clotting in a ultrasound-guided pigtail catheter was placed. He was subsequently discharged on 02/24/2022. He represented to the emergency room here early this morning with worsening shortness of breath. The patient is somewhat of a poor historian. He is remembering that he had fallen and thought he was here for recurrent fall. No family is present. He is short of breath. He is currently regular maintain O2 saturations in the 90s on 8 L high flow nasal cannula. Chest x-rays revealing a persistent right perihilar infiltrate. Left perihilar infiltrate had improved and is nearly resolved. CT angiogram ruled out pulmonary embolism. There is noted bilateral pleural effusions and a right upper lobe infiltrate. White count 10.5. Hemoglobin 12.3. Platelets 280. Sodium 141. Potassium 4.3. BUN 14. Creatinine 0.8. Glucose 174. ProBNP 685. Pro-calcitonin 0.06. Chronic virus not detected. Influenza screen negative. Arterial blood gases on 44% FiO2 revealed a PaO2 of 59, pH 7.43, pCO2 of 49. He is seen today in consultation on the regular medical floor. He is currently sitting up in a chair at the bedside. Awake and alert. He knows he is in the hospital. Unsure of the year. States he will was a previous smoker. Denies any daily alcohol use. The patient is seen today 03/17/2022 in follow-up on the regular medical floor. He is currently sitting up at the bedside. Awake and alert in no acute distress. Chest x-ray reveals right perihilar infiltrate persisting though slightly improved. Mild patchy density in the left lower lobe and small effusions. Blood cultures revealed no growth. White count 9.7. Hemoglobin 12.4. Sodium 137. Potassium 3.3. Bicarb 34. BUN 14. Creatinine 0.70. Glucose 176. He is continued on bronchodilators. Continue IV diuretics. Diuresing well. Currently in a -3.9 L balance. Anticoagulated with Eliquis. Objective - Vital Signs Vital signs: Vital Signs Temp 99.2 F 03/17/22 08:00 Pulse 78 03/17/22 10:00 Resp 22 03/17/22 08:00 BP 129/73 03/17/22 08:00 Pulse Ox 92 L 03/17/22 09:53 FiO2 50 03/17/22 00:24 Intake & Output 03/16/22 03/17/22 03/17/22 18:59 06:59 18:59 Output Total 2301 1625 Balance -2301 -1625 Output: Urine 2300 1625 Stool 1 Other: # Bowel Movements 1 - Exam GENERAL EXAM: Alert, slightly confused, 76-year-old male, on 8 L high flow nasal cannula, comfortable in no apparent distress. HEAD: Normocephalic. EYES: Normal reaction of pupils, equal size. NOSE: Clear with pink turbinates. THROAT: No erythema or exudates. NECK: No masses, no JVD. CHEST: No chest wall deformity. LUNGS: Equal air entry with few scattered rhonchi. CVS: S1 and S2 normal with no audible murmur, regular rhythm. ABDOMEN: No hepatosplenomegaly, normal bowel sounds, no guarding or rigidity. SPINE: No scoliosis or deformity SKIN: No rashes CENTRAL NERVOUS SYSTEM: No focal deficits, tone is normal in all 4 extremities. EXTREMITIES: There is no peripheral edema. No clubbing, no cyanosis. Peripheral pulses are intact. - Labs CBC & Chem 7: 03/17/22 05:40 03/17/22 05:40 Labs: Abnormal Lab Results - Last 24 Hours (Table) 03/16/22 03/16/22 03/16/22 Range/Units 06:27 11:36 16:46 RBC (4.30-5.90) m/uL Hgb (13.0-17.5) gm/dL Carbon Dioxide (22-30) mmol/L Glucose (74-99) mg/dL POC Glucose (mg/dL) 178 H 178 H (70-110) mg/dL Hemoglobin A1c 7.5 H (0.0-6.0) % Calcium (8.4-10.2) mg/dL 03/16/22 03/17/22 03/17/22 Range/Units 20:20 05:40 05:40 RBC 4.09 L (4.30-5.90) m/uL Hgb 12.4 L (13.0-17.5) gm/dL Carbon Dioxide 34 H (22-30) mmol/L Glucose 176 H (74-99) mg/dL POC Glucose (mg/dL) 155 H (70-110) mg/dL Hemoglobin A1c (0.0-6.0) % Calcium 8.2 L (8.4-10.2) mg/dL 03/17/22 03/17/22 Range/Units 05:54 11:23 RBC (4.30-5.90) m/uL Hgb (13.0-17.5) gm/dL Carbon Dioxide (22-30) mmol/L Glucose (74-99) mg/dL POC Glucose (mg/dL) 168 H 166 H (70-110) mg/dL Hemoglobin A1c (0.0-6.0) % Calcium (8.4-10.2) mg/dL Microbiology - Last 24 Hours (Table) 03/15/22 21:19 Blood Culture - Preliminary Blood No Growth after 24 hours 03/15/22 21:00 Blood Culture - Preliminary Blood No Growth after 24 hours Assessment and Plan Assessment: Acute on chronic hypoxemic respiratory failure secondary to bilateral pleural effusions, improved on the left increased on the right, right upper lobe infiltrate. Basilar atelectasis. Pro-calcitonin 0.06. Recent hospitalization for fall and trauma with large ecchymosis of the left hip and back, left-sided hemothorax requiring chest tube placement and subsequent removal Recent hospitalization for RSV infection Previous history of encephalopathy/delirium History of severe persistent chronic bronchial asthma Atrial fibrillation, anticoagulated with Eliquis Diabetes mellitus Diabetic neuropathy Obesity Sleep apnea Plan: The patient was seen and evaluated Labs and medications reviewed Titrate the FiO2 as tolerated Continue bronchodilators, diuretics We will continue to follow I have personally seen and examined the patient, performed the documentation and the assessment and plan as written. Number of minutes spent on the visit: 10.
[2022-03-17] MEDS ORDERED: QUEtiapine 25 MG TAB PO STA (16:12)
[2022-03-17] MEDS ORDERED: LORazepam 2 MG/ML INJ IV STA (16:12)
[2022-03-17 20:24] LABS: Glucose,Whole Blood 218 mg/dL (70-110)
[2022-03-17] MEDS: TAMSULOSIN 0.4 MG CAP.ER.24H PO SCH (21:14)
[2022-03-17] MEDS: QUEtiapine 25 MG TAB PO SCH (21:14)
[2022-03-17] MEDS: ATORVASTATIN 40 MG TAB PO SCH (21:14)
[2022-03-17] MEDS: ASCORBIC ACID 500 MG TAB PO SCH (21:15)
[2022-03-18 06:09] LABS: Glucose,Whole Blood 163 mg/dL (70-110)
[2022-03-18] MEDS: INSULIN ASPART (NovoLOG) 100 UNIT/ML VIAL SQ SCH ×4 (06:16→20:58)
--- NOTE | 2022-03-18 07:34 | XR ---
EXAMINATION TYPE: XR chest 1V portable DATE OF EXAM: 03/18/2022 CLINICAL HISTORY: Difficulty breathing progress study. TECHNIQUE: Single AP portable upright view of the chest is obtained. COMPARISON: Chest x-ray from one day earlier and older studies. FINDINGS: Increasing central right lung opacity is present. There is worsening left lower lung incre ased opacity. Cardiac silhouette size upper limits of normal. Osseous structures are intact. IMPRESSION: Worsening central right lung edema and/or infiltrates. Worsening left lower lung acute in filtrate and/or atelectasis. Worsening small left pleural effusion. Progress study advised.
[2022-03-18] MEDS: IPRATROPIUM-ALBUTEROL 3 ML NEB INHALATION SCH ×4 (08:26→20:16)
[2022-03-18] MEDS: METOPROLOL TARTRATE 50 MG TAB PO SCH ×2 (08:51→21:00)
[2022-03-18] MEDS: busPIRone HCl 5 MG TAB PO SCH ×2 (08:51→21:00)
[2022-03-18] MEDS: APIXABAN 5 MG TAB PO SCH ×2 (08:51→20:59)
[2022-03-18] MEDS: DILTIAZEM ORAL 30 MG TAB PO SCH ×3 (08:51→20:59)
[2022-03-18] MEDS: FUROSEMIDE 10 MG/ML 4 ML VIAL IV SCH ×2 (08:53→20:59)
[2022-03-18] MEDS: GABAPENTIN 300 MG CAP PO SCH ×2 (08:53→20:59)
[2022-03-18] MEDS: CHOLECALCIFEROL 25 MCG (1000 IU) TABLET PO SCH (08:53)
[2022-03-18 11:24] LABS: Glucose,Whole Blood 187 mg/dL (70-110)
--- NOTE | 2022-03-18 13:28 | P.PN ---
Subjective Progress Note Date: 03/18/22 This is 76 year old male patient with a known history of diabetes mellitus with peripheral neuropathy, hypertension, hyperlipidemia, obstructive sleep apnea, obesity, diabetes mellitus, atrial fibrillation anticoagulated with Eliquis, who was recently admitted for an RSV infection and had at that time noted to have left-sided trauma from a fall prior to his arrival. He had developed significant left-sided hemothorax. Initial attempts at thoracentesis revealed that thick blood and clotting in a ultrasound-guided pigtail catheter was placed. He was subsequently discharged on 02/24/2022. He represented to the emergency room here early this morning with worsening shortness of breath. The patient is somewhat of a poor historian. He is remembering that he had fallen and thought he was here for recurrent fall. No family is present. He is short of breath. He is currently regular maintain O2 saturations in the 90s on 8 L high flow nasal cannula. Chest x-rays revealing a persistent right perihilar infiltrate. Left perihilar infiltrate had improved and is nearly resolved. CT angiogram ruled out pulmonary embolism. There is noted bilateral pleural effusions and a right upper lobe infiltrate. White count 10.5. Hemoglobin 12.3. Platelets 280. Sodium 141. Potassium 4.3. BUN 14. Creatinine 0.8. Glucose 174. ProBNP 685. Pro-calcitonin 0.06. Chronic virus not detected. Influenza screen negative. Arterial blood gases on 44% FiO2 revealed a PaO2 of 59, pH 7.43, pCO2 of 49. He is seen today in consultation on the regular medical floor. He is currently sitting up in a chair at the bedside. Awake and alert. He knows he is in the hospital. Unsure of the year. States he will was a previous smoker. Denies any daily alcohol use. The patient is seen today 03/17/2022 in follow-up on the regular medical floor. He is currently sitting up at the bedside. Awake and alert in no acute distress. Chest x-ray reveals right perihilar infiltrate persisting though slightly improved. Mild patchy density in the left lower lobe and small effusions. Blood cultures revealed no growth. White count 9.7. Hemoglobin 12.4. Sodium 137. Potassium 3.3. Bicarb 34. BUN 14. Creatinine 0.70. Glucose 176. He is continued on bronchodilators. Continue IV diuretics. Diuresing well. Currently in a -3.9 L balance. Anticoagulated with Eliquis. The patient is seen today 03/18/2022 in follow-up on the regular medical floor. Awake and alert in no acute distress. Sitting up in a chair at the bedside. Maintaining O2 saturations in the 90s on 8 L high flow nasal cannula. He is alternating with BiPAP 12/5 and 50% FiO2. Chest x-ray continues to show central right lung edema and/or infiltrates. Worsening left lower lung infiltrate. Small left pleural effusion. He remains in a -3.6 L balance. Continued on IV diuretics. Remains on bronchodilators. Anticoagulated with Eliquis. Blood glucose 187. Pro-calcitonin was 0.06. Previous echocardiogram from January 2022 revealed preserved left ventricle systolic function with ejection fraction of 60%. Objective - Vital Signs Vital signs: Vital Signs Temp 97.5 F L 03/18/22 08:00 Pulse 78 03/18/22 11:51 Resp 18 03/18/22 08:00 BP 127/69 03/18/22 08:00 Pulse Ox 92 L 03/18/22 08:26 FiO2 50 03/17/22 16:34 Intake & Output 03/17/22 03/18/22 03/18/22 18:59 06:59 18:59 Intake Total 300 Output Total 1600 2325 200 Balance -1599 Intake: Oral 300 Output: Urine 1600 2325 200 Other: Voiding Method Indwelling Catheter - Exam GENERAL EXAM: Alert, slightly confused, morbidly obese, 76-year-old male, on 8 L high flow nasal cannula, comfortable in no apparent distress. HEAD: Normocephalic. EYES: Normal reaction of pupils, equal size. NOSE: Clear with pink turbinates. THROAT: No erythema or exudates. NECK: No masses, no JVD. CHEST: No chest wall deformity. LUNGS: Equal air entry with few scattered rhonchi bilaterally and faint crackles in the posterior bases. CVS: S1 and S2 normal with no audible murmur, regular rhythm. ABDOMEN: No hepatosplenomegaly, normal bowel sounds, no guarding or rigidity. SPINE: No scoliosis or deformity SKIN: No rashes CENTRAL NERVOUS SYSTEM: No focal deficits, tone is normal in all 4 extremities. EXTREMITIES: There is 1+ peripheral edema. No clubbing, no cyanosis. Peripheral pulses are intact. - Labs CBC & Chem 7: 03/17/22 05:40 03/17/22 05:40 Labs: Abnormal Lab Results - Last 24 Hours (Table) 03/17/22 03/18/22 03/18/22 Range/Units 20:22 06:07 11:22 POC Glucose (mg/dL) 218 H 163 H 187 H (70-110) mg/dL Microbiology - Last 24 Hours (Table) 03/15/22 21:19 Blood Culture - Preliminary Blood No Growth after 48 hours 03/15/22 21:00 Blood Culture - Preliminary Blood No Growth after 48 hours Assessment and Plan Assessment: Acute on chronic hypoxemic respiratory failure secondary to bilateral pleural effusions, suspect diastolic congestive heart failure. Pro-calcitonin 0.06. Currently on 8 L high flow nasal cannula. Alternating with BiPAP 12/5 and 50% FiO2. Remains in a -3.6 L balance. Continued on IV diuretics. Recent hospitalization for fall and trauma with large ecchymosis of the left hip and back, left-sided hemothorax requiring chest tube placement and subsequent removal Recent hospitalization for RSV infection Previous history of encephalopathy/delirium History of severe persistent chronic bronchial asthma Atrial fibrillation, anticoagulated with Eliquis Diabetes mellitus Diabetic neuropathy Obesity Sleep apnea Plan: The patient was seen and evaluated Chest x-ray and medications reviewed Titrate the FiO2 as tolerated Continue bronchodilators, IV diuretics Anticoagulated with Eliquis We will continue to follow I have personally seen and examined the patient, performed the documentation and the assessment and plan as written. Number of minutes spent on the visit: 10.
[2022-03-18 16:36] LABS: Glucose,Whole Blood 192 mg/dL (70-110)
[2022-03-18 20:36] LABS: Glucose,Whole Blood 211 mg/dL (70-110)
[2022-03-18] MEDS: ASCORBIC ACID 500 MG TAB PO SCH (20:59)
[2022-03-18] MEDS: QUEtiapine 25 MG TAB PO SCH (20:59)
[2022-03-18] MEDS: TAMSULOSIN 0.4 MG CAP.ER.24H PO SCH (20:59)
[2022-03-18] MEDS: ATORVASTATIN 40 MG TAB PO SCH (20:59)
[2022-03-19 06:07] LABS: Glucose,Whole Blood 179 mg/dL (70-110)
[2022-03-19] MEDS: INSULIN ASPART (NovoLOG) 100 UNIT/ML VIAL SQ SCH ×4 (06:12→21:32)
[2022-03-19] MEDS: IPRATROPIUM-ALBUTEROL 3 ML NEB INHALATION SCH ×4 (08:35→20:33)
[2022-03-19] MEDS: busPIRone HCl 5 MG TAB PO SCH (08:45)
[2022-03-19] MEDS: FUROSEMIDE 10 MG/ML 4 ML VIAL IV SCH ×2 (08:45→21:30)
[2022-03-19] MEDS: DILTIAZEM ORAL 30 MG TAB PO SCH ×3 (08:46→21:37)
[2022-03-19] MEDS: CHOLECALCIFEROL 25 MCG (1000 IU) TABLET PO SCH (08:46)
[2022-03-19] MEDS: METOPROLOL TARTRATE 50 MG TAB PO SCH ×2 (08:46→21:32)
[2022-03-19] MEDS: APIXABAN 5 MG TAB PO SCH ×2 (08:46→21:31)
[2022-03-19] MEDS: GABAPENTIN 300 MG CAP PO SCH ×2 (08:46→21:32)
[2022-03-19 11:03] LABS: Glucose,Whole Blood 289 mg/dL (70-110)
--- NOTE | 2022-03-19 13:07 | P.PN ---
Subjective Progress Note Date: 03/19/22 Principal diagnosis: Acute on chronic hypoxic respiratory failure This is 76 year old male patient with a known history of diabetes mellitus with peripheral neuropathy, hypertension, hyperlipidemia, obstructive sleep apnea, obesity, diabetes mellitus, atrial fibrillation anticoagulated with Eliquis, who was recently admitted for an RSV infection and had at that time noted to have left-sided trauma from a fall prior to his arrival. He had developed significant left-sided hemothorax. Initial attempts at thoracentesis revealed that thick blood and clotting in a ultrasound-guided pigtail catheter was placed. He was subsequently discharged on 02/24/2022. He represented to the emergency room here early this morning with worsening shortness of breath. The patient is somewhat of a poor historian. He is remembering that he had fallen and thought he was here for recurrent fall. No family is present. He is short of breath. He is currently regular maintain O2 saturations in the 90s on 8 L high flow nasal cannula. Chest x-rays revealing a persistent right perihilar infiltrate. Left perihilar infiltrate had improved and is nearly resolved. CT angiogram ruled out pulmonary embolism. There is noted bilateral pleural effusions and a right upper lobe infiltrate. White count 10.5. Hemoglobin 12.3. Platelets 280. Sodium 141. Potassium 4.3. BUN 14. Creatinine 0.8. Glucose 174. ProBNP 685. Pro-calcitonin 0.06. Chronic virus not detected. Influenza screen negative. Arterial blood gases on 44% FiO2 revealed a PaO2 of 59, pH 7.43, pCO2 of 49. He is seen today in consultation on the regular medical floor. He is currently sitting up in a chair at the bedside. Awake and alert. He knows he is in the hospital. Unsure of the year. States he will was a previous smoker. Denies any daily alcohol use. The patient is seen today 03/17/2022 in follow-up on the regular medical floor. He is currently sitting up at the bedside. Awake and alert in no acute distress. Chest x-ray reveals right perihilar infiltrate persisting though slightly improved. Mild patchy density in the left lower lobe and small effusions. Blood cultures revealed no growth. White count 9.7. Hemoglobin 12.4. Sodium 137. Potassium 3.3. Bicarb 34. BUN 14. Creatinine 0.70. Glucose 176. He is continued on bronchodilators. Continue IV diuretics. Diuresing well. Currently in a -3.9 L balance. Anticoagulated with Eliquis. The patient is seen today 03/18/2022 in follow-up on the regular medical floor. Awake and alert in no acute distress. Sitting up in a chair at the bedside. Maintaining O2 saturations in the 90s on 8 L high flow nasal cannula. He is a lternating with BiPAP 12/5 and 50% FiO2. Chest x-ray continues to show central right lung edema and/or infiltrates. Worsening left lower lung infiltrate. Small left pleural effusion. He remains in a -3.6 L balance. Continued on IV diuretics. Remains on bronchodilators. Anticoagulated with Eliquis. Blood glucose 187. Pro-calcitonin was 0.06. Previous echocardiogram from January 2022 revealed preserved left ventricle systolic function with ejection fraction of 60%. Reevaluated today on 03/19/22, patient is basically about the same. Remains on 8 L high flow nasal cannula, O2 saturation is marginal. Remains on diuretics, remains on bronchodilators, not much of a change noted in the last 24 hours, patient remains marginal at best. Last ABG few days ago showed a pO2 of 59 pCO2 49 pH of 7.43. Patient tested negative for COVID-19 infection negative for influenza A and negative for influenza B. Chest x-ray continues to show worsening edema and/or infiltrate Objective - Vital Signs Vital signs: Vital Signs Temp 97.4 F L 03/19/22 08:00 Pulse 74 03/19/22 12:01 Resp 26 H 03/18/22 20:00 BP 119/69 03/19/22 08:00 Pulse Ox 90 L 03/19/22 08:39 FiO2 50 03/17/22 16:34 Intake & Output 03/18/22 03/19/22 03/19/22 18:59 06:59 18:59 Intake Total 500 Output Total 2400 Balance -2400 500 Intake: Oral 500 Output: Urine 2400 Other: Voiding Method Indwelling Catheter Indwelling Catheter # Bowel Movements 1 - Exam Physical Exam: Revealed 76-year-old white male on 8 L high flow nasal cannula, in no distress. Head: Atraumatic, normocephalic. HEENT:[Neck is supple.] [No neck masses.] [No thyromegaly.] [No JVD.] Chest: Diminished breath sound bilaterally some wheezing and crackles on forced expiratory maneuver. Cardiac Exam: [Normal S1 and S2, no S3 gallop, no murmur.] Abdomen: [Soft, nontender, no megaly, no rebound, no guarding, normal bowel sounds.] Extremities: [No clubbing, no edema, no cyanosis.] Neurological Exam: [No focal neurologic deficit.] TF: Normal mood, flat affect, normal mental status examination. But the patient seems to be very slow - Labs CBC & Chem 7: 03/17/22 05:40 03/17/22 05:40 Labs: Abnormal Lab Results - Last 24 Hours (Table) 03/18/22 03/18/22 03/19/22 Range/Units 16:35 20:35 06:05 POC Glucose (mg/dL) 192 H 211 H 179 H (70-110) mg/dL 03/19/22 Range/Units 11:02 POC Glucose (mg/dL) 289 H (70-110) mg/dL Microbiology - Last 24 Hours (Table) 03/15/22 21:00 Blood Culture - Preliminary Blood No Growth after 72 hours 03/15/22 21:19 Blood Culture - Preliminary Blood No Growth after 72 hours Assessment and Plan Assessment: Impression: Acute on chronic hypoxic respiratory failure, multifactorial but mostly suspect acute on chronic diastolic congestive heart failure, patient is relatively normal pro-calcitonin on admission remains on diuretics. Recent history of RSV infection Recent history of fall and trauma with ecchymosis to left hip and left side of the chest with left hemothorax History of Metabolic encephalopathy Severe persistent asthma Chronic atrial fibrillation Type 2 diabetes Obstructive sleep apnea syndrome Morbid obesity Recommendation: Continue diuretics and bronchodilators Continue eliquis Continue O2 and titrate accordingly Not quite ready for discharge planning We will continue to follow Time with Patient: Less than 30
[2022-03-19 20:29] LABS: Glucose,Whole Blood 159 mg/dL (70-110)
[2022-03-19] MEDS: ATORVASTATIN 40 MG TAB PO SCH (21:31)
[2022-03-19] MEDS: busPIRone HCl 10 MG TAB PO SCH (21:32)
[2022-03-19] MEDS: QUEtiapine 25 MG TAB PO SCH (21:32)
[2022-03-19] MEDS: TAMSULOSIN 0.4 MG CAP.ER.24H PO SCH (21:32)
[2022-03-19] MEDS: ASCORBIC ACID 500 MG TAB PO SCH (21:32)
--- NOTE | 2022-03-19 23:57 | P.PN ---
Subjective Progress Note Date: 03/17/22 76-year-old pleasant male was recently treated for respiratory syncytial virus infection and it, in the fall on the left side and had left-sided pneumothorax, came in with complaints of increasing shortness of breath patient is on BiPAP. During his previous hospitalization patient had thoracentesis which showed thick blood and clotting an ultrasound guided pigtail catheter was placed patient was discharged earlier this month patient came in with complaints of increasing shortness of breath and apparently patient has been falling at home patient is saturating 90s on 5 high flow nasal cannula oxygen because of which patient was placed on BiPAP ABG was done unsure this was done on BiPAP, patient is mostly acute hypoxic respiratory failure with pH of 7.43 pCO2 49 and pO2 of 59. Patient does have bilateral pleural effusions patient has a stable condition or failure chronic diastolic dysfunction patient is on oral Lasix at home. Patient was evaluated by pulmonology and patient had a CT of the chest showed bilateral pleural effusions and patient does have and sedation with a bronchogram in the right upper to middle lobes although his pro calcitonin is normal with only mildly elevated white blood cell count and no fever patient was not complaining of cough with sputum production. Patient also is on antibiotics Rocephin and azithromycin. Patient BNP is on Lasix 40 but patient is obese with BMI of 40. There is no pulmonary embolism and the CT PA patient is with previous of oxygen at home 03/17/2022 Patient is currently lying in bed. Awake alert and in no acute distress. Requiring high flow oxygen. Chest x-ray today showed right perihilar infiltrate versus lower lobe slightly improved. Mild patchy density left lower lobe and small effusions. Patient has been afebrile. Currently being continued on Lasix 40 mg twice daily. Patient was agitated this morning. Continued on duo nebs and pulmonary is on board. Current medications reviewed. REVIEW OF SYSTEMS: Unable to do much of the history from the patient patient also is alert oriented 3 as per the nursing staff patient is bit confused and delirious PHYSICAL EXAMINATION: GENERAL: The patient is alert and oriented x2-3, not in any acute distress. Obese HEENT: Pupils are round and equally reacting to light. EOMI. No scleral icterus. No conjunctival pallor. Normocephalic, atraumatic. No pharyngeal erythema. No thyromegaly. CARDIOVASCULAR: S1 and S2 present. No murmurs, rubs, or gallops. BiPAP in place PULMONARY: Chest is clear to auscultation, no wheezing or crackles. Mildly diminished air entry into bilateral lung briscoe no wheezing was appreciated ABDOMEN: Soft, nontender, nondistended, normoactive bowel sounds. No palpable organomegaly. MUSCULOSKELETAL: No joint swelling or deformity. EXTREMITIES: No cyanosis, clubbing, 2+ pitting pedal edema in bilateral lower extremities NEUROLOGICAL: Gross neurological examination did not reveal any focal deficits. SKIN: No rashes. Assessment and plan -Acute on chronic hypoxic respiratory failure: Probably secondary to congestive heart failure exacerbation patient is with bilateral pleural effusions patient may have chronic diastolic dysfunction. Patient was started on IV Lasix at , strict I's and O's patient may need a Santana catheter may be retaining urine. Patient does have infiltrated with a bronchogram although pro calcitonin is within normal limits . dced antibiotics. Pulmonology is following the patient -Toxic encephalopathy probably from infection -Leukocytosis either secondary to pneumonia or reactive -Obesity possibility of her sleep apnea -Chronic or severe persistent asthma patient is physically not in acute exacerbation may not need any steroids at this time -Atrial fibrillation paroxysmal patient is anticoagulated with Eliquis -Type 2 diabetes mellitus with diabetic peripheral neuropathy DVT prophylaxis: On anti-coagulation which was resumed Objective - Vital Signs Vital signs: Vital Signs Temp 98.0 F 03/17/22 19:26 Pulse 92 03/17/22 20:31 Resp 18 03/17/22 20:31 BP 118/71 03/17/22 19:26 Pulse Ox 92 L 03/17/22 19:26 FiO2 50 03/17/22 16:34 Intake & Output 03/17/22 03/17/22 03/18/22 06:59 18:59 06:59 Output Total 1625 1600 Balance -1625 -1600 Output: Urine 1625 1600 - Labs CBC & Chem 7: 03/17/22 05:40 03/17/22 05:40 Labs: Abnormal Lab Results - Last 24 Hours (Table) 03/17/22 03/17/22 03/17/22 Range/Units 05:40 05:40 05:54 RBC 4.09 L (4.30-5.90) m/uL Hgb 12.4 L (13.0-17.5) gm/dL Carbon Dioxide 34 H (22-30) mmol/L Glucose 176 H (74-99) mg/dL POC Glucose (mg/dL) 168 H (70-110) mg/dL Calcium 8.2 L (8.4-10.2) mg/dL 03/17/22 03/17/22 Range/Units 11:23 20:22 RBC (4.30-5.90) m/uL Hgb (13.0-17.5) gm/dL Carbon Dioxide (22-30) mmol/L Glucose (74-99) mg/dL POC Glucose (mg/dL) 166 H 218 H (70-110) mg/dL Calcium (8.4-10.2) mg/dL Microbiology - Last 24 Hours (Table) 03/15/22 21:19 Blood Culture - Preliminary Blood No Growth after 24 hours 03/15/22 21:00 Blood Culture - Preliminary Blood No Growth after 24 hours
--- NOTE | 2022-03-20 | P.PN ---
Subjective Progress Note Date: 03/18/22 76-year-old pleasant male was recently treated for respiratory syncytial virus infection and it, in the fall on the left side and had left-sided pneumothorax, came in with complaints of increasing shortness of breath patient is on BiPAP. During his previous hospitalization patient had thoracentesis which showed thick blood and clotting an ultrasound guided pigtail catheter was placed patient was discharged earlier this month patient came in with complaints of increasing shortness of breath and apparently patient has been falling at home patient is saturating 90s on 5 high flow nasal cannula oxygen because of which patient was placed on BiPAP ABG was done unsure this was done on BiPAP, patient is mostly acute hypoxic respiratory failure with pH of 7.43 pCO2 49 and pO2 of 59. Patient does have bilateral pleural effusions patient has a stable condition or failure chronic diastolic dysfunction patient is on oral Lasix at home. Patient was evaluated by pulmonology and patient had a CT of the chest showed bilateral pleural effusions and patient does have and sedation with a bronchogram in the right upper to middle lobes although his pro calcitonin is normal with only mildly elevated white blood cell count and no fever patient was not complaining of cough with sputum production. Patient also is on antibiotics Rocephin and azithromycin. Patient BNP is on Lasix 40 but patient is obese with BMI of 40. There is no pulmonary embolism and the CT PA patient is with previous of oxygen at home 03/17/2022 Patient is currently lying in bed. Awake alert and in no acute distress. Requiring high flow oxygen. Chest x-ray today showed right perihilar infiltrate versus lower lobe slightly improved. Mild patchy density left lower lobe and small effusions. Patient has been afebrile. Currently being continued on Lasix 40 mg twice daily. Patient was agitated this morning. Continued on duo nebs and pulmonary is on board. 03/18/2022 Patient is awake alert and oriented. Sitting in the chair. Currently requiring high flow oxygen at 8 L via nasal cannula. Patient was on BiPAP intermittently. Chest x-ray showed worsening central right lung edema and infiltrates. Worsening left lower lung acute infiltrate/atelectasis. Worsening small left pleural effusion. Patient is being current bronchodilators and Lasix 40 mg twice daily. Heart rate is controlled with Cardizem. Continue on bronchodilators and anticoagulation with Eliquis. Pulmonary is on board. Current medications reviewed. REVIEW OF SYSTEMS: Unable to do much of the history from the patient patient also is alert oriented 3 as per the nursing staff patient is bit confused and delirious PHYSICAL EXAMINATION: GENERAL: The patient is alert and oriented x2-3, not in any acute distress. Obese HEENT: Pupils are round and equally reacting to light. EOMI. No scleral icterus. No conjunctival pallor. Normocephalic, atraumatic. No pharyngeal erythema. No thyromegaly. CARDIOVASCULAR: S1 and S2 present. No murmurs, rubs, or gallops. BiPAP in place PULMONARY: Chest is clear to auscultation, no wheezing or crackles. Mildly diminished air entry into bilateral lung briscoe no wheezing was appreciated ABDOMEN: Soft, nontender, nondistended, normoactive bowel sounds. No palpable organomegaly. MUSCULOSKELETAL: No joint swelling or deformity. EXTREMITIES: No cyanosis, clubbing, 2+ pitting pedal edema in bilateral lower extremities NEUROLOGICAL: Gross neurological examination did not reveal any focal deficits. SKIN: No rashes. Assessment and plan -Acute on chronic hypoxic respiratory failure: Probably secondary to congestive heart failure exacerbation patient is with bilateral pleural effusions patient m ay have chronic diastolic dysfunction. Patient was started on IV Lasix at , strict I's and O's patient may need a Santana catheter may be retaining urine. Patient does have infiltrated with a bronchogram although pro calcitonin is within normal limits . dced antibiotics. Pulmonology is following the patient -Toxic encephalopathy probably from infection -Leukocytosis either secondary to pneumonia or reactive -Obesity possibility of her sleep apnea -Chronic or severe persistent asthma patient is physically not in acute exacerbation may not need any steroids at this time -Atrial fibrillation paroxysmal patient is anticoagulated with Eliquis -Type 2 diabetes mellitus with diabetic peripheral neuropathy DVT prophylaxis: On anti-coagulation which was resumed Objective - Vital Signs Vital signs: Vital Signs Temp 98.3 F 03/18/22 14:00 Pulse 80 03/18/22 20:27 Resp 18 03/18/22 14:00 BP 137/81 03/18/22 14:00 Pulse Ox 94 L 03/18/22 14:00 FiO2 50 03/17/22 16:34 Intake & Output 03/18/22 03/18/22 03/19/22 06:59 18:59 06:59 Intake Total 300 Output Total 4748 2400 Balance -2025 -2400 Intake: Oral 300 Output: Urine 2848 2400 Other: Voiding Method Indwelling Catheter - Labs CBC & Chem 7: 03/17/22 05:40 03/17/22 05:40 Labs: Abnormal Lab Results - Last 24 Hours (Table) 03/18/22 03/18/22 03/18/22 Range/Units 06:07 11:22 16:35 POC Glucose (mg/dL) 163 H 187 H 192 H (70-110) mg/dL 03/18/22 Range/Units 20:35 POC Glucose (mg/dL) 211 H (70-110) mg/dL Microbiology - Last 24 Hours (Table) 03/15/22 21:19 Blood Culture - Preliminary Blood No Growth after 48 hours 03/15/22 21:00 Blood Culture - Preliminary Blood No Growth after 48 hours
--- NOTE | 2022-03-20 00:02 | P.PN ---
Subjective Progress Note Date: 03/19/22 76-year-old pleasant male was recently treated for respiratory syncytial virus infection and it, in the fall on the left side and had left-sided pneumothorax, came in with complaints of increasing shortness of breath patient is on BiPAP. During his previous hospitalization patient had thoracentesis which showed thick blood and clotting an ultrasound guided pigtail catheter was placed patient was discharged earlier this month patient came in with complaints of increasing shortness of breath and apparently patient has been falling at home patient is saturating 90s on 5 high flow nasal cannula oxygen because of which patient was placed on BiPAP ABG was done unsure this was done on BiPAP, patient is mostly acute hypoxic respiratory failure with pH of 7.43 pCO2 49 and pO2 of 59. Patient does have bilateral pleural effusions patient has a stable condition or failure chronic diastolic dysfunction patient is on oral Lasix at home. Patient was evaluated by pulmonology and patient had a CT of the chest showed bilateral pleural effusions and patient does have and sedation with a bronchogram in the right upper to middle lobes although his pro calcitonin is normal with only mildly elevated white blood cell count and no fever patient was not complaining of cough with sputum production. Patient also is on antibiotics Rocephin and azithromycin. Patient BNP is on Lasix 40 but patient is obese with BMI of 40. There is no pulmonary embolism and the CT PA patient is with previous of oxygen at home 03/17/2022 Patient is currently lying in bed. Awake alert and in no acute distress. Requiring high flow oxygen. Chest x-ray today showed right perihilar infiltrate versus lower lobe slightly improved. Mild patchy density left lower lobe and small effusions. Patient has been afebrile. Currently being continued on Lasix 40 mg twice daily. Patient was agitated this morning. Continued on duo nebs and pulmonary is on board. 03/18/2022 Patient is awake alert and oriented. Sitting in the chair. Currently requiring high flow oxygen at 8 L via nasal cannula. Patient was on BiPAP intermittently. Chest x-ray showed worsening central right lung edema and infiltrates. Worsening left lower lung acute infiltrate/atelectasis. Worsening small left pleural effusion. Patient is being current bronchodilators and Lasix 40 mg twice daily. Heart rate is controlled with Cardizem. Continue on bronchodilators and anticoagulation with Eliquis. Pulmonary is on board. 03/19/2022 Patient remains on 8 L oxygen high flow via nasal cannula. Currently on IV diuretics, and duo nebs. Patient is currently resting in the bed. Awake alert and oriented. Continues to cough without any sputum production. No nausea vomiting abdominal pain or diarrhea. Currently on anticoagulation with Eliquis. Heart rate is controlled. Pulmonary is on board. Current medications reviewed. REVIEW OF SYSTEMS: Unable to do much of the history from the patient patient also is alert oriented 3 as per the nursing staff patient is bit confused and delirious PHYSICAL EXAMINATION: GENERAL: The patient is alert and oriented x2-3, not in any acute distress. Obese HEENT: Pupils are round and equally reacting to light. EOMI. No scleral icterus. No conjunctival pallor. Normocephalic, atraumatic. No pharyngeal erythema. No thyromegaly. CARDIOVASCULAR: S1 and S2 present. No murmurs, rubs, or gallops. BiPAP in place PULMONARY: Chest is clear to auscultation, no wheezing or crackles. Mildly diminished air entry into bilateral lung briscoe no wheezing was appreciated ABDOMEN: Soft, nontender, nondistended, normoactive bowel sounds. No palpable organomegaly. MUSCULOSKELETAL: No joint swelling or deformity. EXTREMITIES: No cyanosis, clubbing, 2+ pitting pedal edema in bilateral lower extremities NEUROLOGICAL: Gross neurological examination did not reveal any focal deficits. SKIN: No rashes. Assessment and plan -Acute on chronic hypoxic respiratory failure: Probably secondary to congestive heart failure exacerbation patient is with bilateral pleural effusions patient may have chronic diastolic dysfunction. Patient was started on IV Lasix at , strict I's and O's patient may need a Santana catheter may be retaining urine. Patient still requiring 8 L oxygen via nasal cannula. Patient does have infiltrated with a bronchogram although pro calcitonin is within normal limits . dced antibiotics. Pulmonology is following the patient -Toxic encephalopathy probably from infection, improving -Leukocytosis either secondary to pneumonia or reactive Resolved. -Obesity possibility of her sleep apnea -Chronic or severe persistent asthma patient is physically not in acute exacerbation may not need any steroids at this time -Atrial fibrillation paroxysmal patient is anticoagulated with Eliquis -Type 2 diabetes mellitus with diabetic peripheral neuropathy DVT prophylaxis: On anti-coagulation which was resumed Objective - Vital Signs Vital signs: Vital Signs Temp 98 F 03/19/22 18:55 Pulse 76 12/25/22 18:55 Resp 20 03/19/22 18:55 BP 103/61 03/19/22 18:55 Pulse Ox 90 L 03/19/22 18:55 FiO2 50 03/17/22 16:34 Intake & Output 03/19/22 03/19/22 03/20/22 06:59 18:59 06:59 Intake Total 500 Balance 500 Intake: Oral 500 Other: Voiding Method Indwelling Catheter # Bowel Movements 1 - Labs CBC & Chem 7: 03/17/22 05:40 03/17/22 05:40 Labs: Abnormal Lab Results - Last 24 Hours (Table) 03/19/22 03/19/22 03/19/22 Range/Units 06:05 11:02 20:27 POC Glucose (mg/dL) 179 H 289 H 159 H (70-110) mg/dL Microbiology - Last 24 Hours (Table) 03/19/22 08:39 Sputum Culture - Preliminary Sputum 03/15/22 21:00 Blood Culture - Preliminary Blood No Growth after 72 hours 03/15/22 21:19 Blood Culture - Preliminary Blood No Growth after 72 hours
--- NOTE | 2022-03-20 02:45 | CONS ---
DATE OF SERVICE 03/19/2022 CONSULTATION PURPOSE FOR CONSULTATION: Evaluate for mood difficulties and irritability. HISTORY OF PRESENTING ILLNESS: The patient did not provide much if any reliable information in regard to any mental health or current behavioral concerns. I did have a telephone conversation with the patient's . The patient was admitted to the medical floor for respiratory difficulties. He also has concurrent cardiac issues. In regard to mental health concerns, he has apparently recently been prescribed BuSpar 7.5 mg twice a day as his only psychotropic medication. He is on one other psychoactive medication, namely gabapentin 300 mg twice a day. The indication for that is unclear. Currently he is receiving the gabapentin and BuSpar. In addition, he is on Seroquel 25 mg at bedtime. His current situation is that he has had ups and downs in his behavior with periods of considerable irritability and anger. He has had struggles at least over the last couple days. Apparently 2 days ago, he was in a very distressed state. Nursing described that he has had behaviors such as throwing the phone in his room when his called. He was described yesterday as having a fairly good day early in the day, though about 3 or 4 in the afternoon, he started to get quite irritable. He had some anger outbursts. He was swearing and using profane language toward Nursing. Nursing noted that at one point when she came to the room and called out his name several times, he appeared nonresponsive, though just as she was making an effort to do a sternal rub, he opened his eyes and was clearly responsive. Her assessment was that there seemed to be a behavioral component in these actions. When I had a telephone contact with the patient's , Aurora, we talked in the room on a conference call with the patient able to hear. The indicated that the patient has struggled pretty much lifelong with irritability and anger problems. She described that his current situation mainly relates to the fact that he is back in the hospital. She believes that if he could be released from the hospital soon that that would significantly change his mood and outlook. He apparently has had some recent hospitalizations and then an admission to a rehab program. Apparently he just returned home a few days ago and then had to be readmitted to the hospital. She said this readmission seems to have been the main factor to set off a lot of distress. She indicated that in fact, she came to the hospital today to visit, though elected not to go into the room to talk with the patient because he was in quite an upset situation. She said that just recently he was started on BuSpar. She believed that he seemed to show some improvement in his mood and had a calmer manner after getting on BuSpar. She did not identify any side effects or negative problems relating to BuSpar. She did not give much information about what extent he may have had past mental health issues. The best I was able to tell, he has not been on any psychotropics to any great extent over the years. MENTAL STATUS EXAM: The patient was lying in bed with his head slightly up. He gave fairly good eye contact. He talked in a soft voice. He did have a cough. At times, it was difficult to understand what he was saying. He answered questions with brief responses. Most of the information he gave was fairly vague. When I described the observations that people had made, he was somewhat vague about whether he was aware of those behaviors. He did say at one point that he was angry at one nurse, believing that that nurse had a bad attitude towards him. His affect was somewhat constricted. He had a reserved manner. It was difficult to say if he was depressed. He did not present in any significant distressed state when I talked to him, though he did tend to minimize any issues that had been reported including stating that he was not aware that he threw a phone or believe that he actually threw a phone. There was no indication of thought disorder. He voiced no thoughts of harm. He did not make an effort to respond to formal cognitive questions. He was not able to give an accurate telephone number for his . ASSESSMENT: This 76-year-old male is diagnosed with adjustment disorder with depressed mood relating to multiple health interventions over the last several weeks that have been draining on his emotional functioning. He does appear to have some long-term emotional issues with difficulties controlling anger. Neither the patient nor was able to provide any insights into that aspect to the patient's functioning. At this point, I would increase BuSpar to 10 mg twice a day. It is noted that he is on intravenous therapy, so is not likely to be discharged in the near term until he is off the intravenous medications. The did express concerns that she has in regard to not having a very clear understanding or guidance to the pathway for the patient's health issues and recovery. Hopefully, physicians can help her coordinate especially with Ambrocio's primary health care provider to have clarification about short-term and longer- term expectations. At this point, it is not clear that continued psychiatric followup is needed. Please re-contact the psychiatric unit if further needs arise. MMODL / IJN: [id number] / NEHEMIAH
[2022-03-20 06:07] LABS: Glucose,Whole Blood 181 mg/dL (70-110)
[2022-03-20] MEDS: INSULIN ASPART (NovoLOG) 100 UNIT/ML VIAL SQ SCH ×4 (06:12→22:35)
--- NOTE | 2022-03-20 07:30 | XR ---
EXAMINATION TYPE: XR chest 1V portable DATE OF EXAM: 03/20/2022 6:37 AM COMPARISON: Chest radiograph from two days prior. TECHNIQUE: XR chest 1V portable Portable AP radiograph of the chest. CLINICAL INDICATION:Male, 76 years old with history of chf; FINDINGS: Lungs/Pleura: Improved aeration of lungs on today's exam with persistent airspace opacities scattered throughout the lungs. No evidence of pneumothorax. There is trace left pleural effusion. Pulmonary vascularity: Unremarkable. Heart/mediastinum: Cardiomediastinal silhouette is unremarkable. Musculoskeletal: No acute osseous pathology. IMPRESSION: Improved aeration of the lungs with persistent multifocal airspace opacities.
[2022-03-20] MEDS: busPIRone HCl 10 MG TAB PO SCH ×2 (09:13→22:35)
[2022-03-20] MEDS: METOPROLOL TARTRATE 50 MG TAB PO SCH ×2 (09:13→22:34)
[2022-03-20] MEDS: DILTIAZEM ORAL 30 MG TAB PO SCH ×3 (09:13→22:40)
[2022-03-20] MEDS: APIXABAN 5 MG TAB PO SCH ×2 (09:13→22:34)
[2022-03-20] MEDS: GABAPENTIN 300 MG CAP PO SCH ×2 (09:14→22:34)
[2022-03-20] MEDS: CHOLECALCIFEROL 25 MCG (1000 IU) TABLET PO SCH (09:14)
[2022-03-20 09:16] LABS: Basophils # (A) 0.08 X 10*3/uL (0.00-0.10); Basophils % (A) 0.7 %; Eosinophils # (A) 0.32 X 10*3/uL (0.04-0.35); Eosinophils % (A) 2.7 %; HGB 13.8 g/dL (13.0-17.0); Immature Grans, Automated 0.6 %; Lymphocytes # (A) 1.65 X 10*3/uL (0.90-5.00); Lymphocytes % (A) 13.8 %; MCH 28.9 pg (27.0-32.0); MCHC 29.4 g/dL (32.0-37.0); MCV 98.5 fL (80.0-97.0); Mean Platelet Volume 10.8 fL (9.5-12.2); Monocytes # (A) 1.23 X 10*3/uL (0.20-1.00); Monocytes % (A) 10.3 %; NRBC Per 100 WBC 0 /100 WBCS (0.0-0.0); Neutrophils # (A) 8.65 X 10*3/uL (1.80-7.70); Neutrophils % (A) 71.9 %; Platelet Count 264 X 10*3/uL (140-440); RBC 4.77 X 10*6/uL (4.40-5.60); RDW 14.1 % (11.5-14.5)
[2022-03-20] MEDS: FUROSEMIDE 10 MG/ML 4 ML VIAL IV SCH (09:17)
[2022-03-20 09:22] LABS: African American GFR (CKD) 96.2 (60.0-200.0); Anion Gap 10.4 mmol/L (10.00-18.00); BUN/Creat Ratio 20.18 Ratio (12.00-20.00); Calcium 9.3 mg/dL (8.7-10.3); Carbon Dioxide 36.7 mmol/L (20.0-27.5); Potassium 4.3 mmol/L (3.5-5.5)
[2022-03-20] MEDS: IPRATROPIUM-ALBUTEROL 3 ML NEB INHALATION SCH ×4 (09:33→20:37)
[2022-03-20 11:41] LABS: Glucose,Whole Blood 243 mg/dL (70-110)
[2022-03-20] MEDS: FUROSEMIDE 40 MG TAB PO SCH (12:29)
--- NOTE | 2022-03-20 13:20 | P.PN ---
Subjective Progress Note Date: 03/20/22 This is 76 year old male patient with a known history of diabetes mellitus with peripheral neuropathy, hypertension, hyperlipidemia, obstructive sleep apnea, obesity, diabetes mellitus, atrial fibrillation anticoagulated with Eliquis, who was recently admitted for an RSV infection and had at that time noted to have left-sided trauma from a fall prior to his arrival. He had developed significant left-sided hemothorax. Initial attempts at thoracentesis revealed that thick blood and clotting in a ultrasound-guided pigtail catheter was placed. He was subsequently discharged on 02/24/2022. He represented to the emergency room here early this morning with worsening shortness of breath. The patient is somewhat of a poor historian. He is remembering that he had fallen and thought he was here for recurrent fall. No family is present. He is short of breath. He is currently regular maintain O2 saturations in the 90s on 8 L high flow nasal cannula. Chest x-rays revealing a persistent right perihilar infiltrate. Left perihilar infiltrate had improved and is nearly resolved. CT angiogram ruled out pulmonary embolism. There is noted bilateral pleural effusions and a right upper lobe infiltrate. White count 10.5. Hemoglobin 12.3. Platelets 280. Sodium 141. Potassium 4.3. BUN 14. Creatinine 0.8. Glucose 174. ProBNP 685. Pro-calcitonin 0.06. Chronic virus not detected. Influenza screen negative. Arterial blood gases on 44% FiO2 revealed a PaO2 of 59, pH 7.43, pCO2 of 49. He is seen today in consultation on the regular medical floor. He is currently sitting up in a chair at the bedside. Awake and alert. He knows he is in the hospital. Unsure of the year. States he will was a previous smoker. Denies any daily alcohol use. The patient is seen today 03/17/2022 in follow-up on the regular medical floor. He is currently sitting up at the bedside. Awake and alert in no acute distress. Chest x-ray reveals right perihilar infiltrate persisting though slightly improved. Mild patchy density in the left lower lobe and small effusions. Blood cultures revealed no growth. White count 9.7. Hemoglobin 12.4. Sodium 137. Potassium 3.3. Bicarb 34. BUN 14. Creatinine 0.70. Glucose 176. He is continued on bronchodilators. Continue IV diuretics. Diuresing well. Currently in a -3.9 L balance. Anticoagulated with Eliquis. The patient is seen today 03/18/2022 in follow-up on the regular medical floor. Awake and alert in no acute distress. Sitting up in a chair at the bedside. Maintaining O2 saturations in the 90s on 8 L high flow nasal cannula. He is alternating with BiPAP 12/5 and 50% FiO2. Chest x-ray continues to show central right lung edema and/or infiltrates. Worsening left lower lung infiltrate. Small left pleural effusion. He remains in a -3.6 L balance. Continued on IV diuretics. Remains on bronchodilators. Anticoagulated with Eliquis. Blood glucose 187. Pro-calcitonin was 0.06. Previous echocardiogram from January 2022 revealed preserved left ventricle systolic function with ejection fraction of 60%. The patient is seen today 03/20/2022 in follow-up on the regular medical floor. He is currently sitting up in bed. Awake and alert in no acute distress. Still requiring 8 L high flow nasal cannula to maintain O2 saturations in the 90s. Follow-up chest x-ray showing improved aeration bilaterally. Blood cultures reveal no growth. Sputum culture pending. White count 12.0. Hemoglobin 13.8. Platelets 264. Sodium 141. Potassium 5.3. BUN 18. Creatinine 0.9. Glucose 183. He is continued on bronchodilators. Anticoagulated with Eliquis. IV diuretics. Currently in a -2.6 L balance. Objective - Vital Signs Vital signs: Vital Signs Temp 97.5 F L 03/20/22 07:23 Pulse 62 03/20/22 13:08 Resp 18 03/20/22 07:23 BP 120/81 03/20/22 07:23 Pulse Ox 92 L 03/20/22 09:34 FiO2 50 03/17/22 16:34 Intake & Output 03/19/22 03/20/22 03/20/22 18:59 06:59 18:59 Output Total 3231 700 Balance -2674 -700 Weight 121 kg Output: Urine 2675 700 Other: Voiding Method Indwelling Catheter Indwelling Catheter Indwelling Catheter # Bowel Movements 1 - Exam GENERAL EXAM: Alert, morbidly obese, 76-year-old male, on 8 L high flow nasal cannula, comfortable in no apparent distress. HEAD: Normocephalic. EYES: Normal reaction of pupils, equal size. NOSE: Clear with pink turbinates. THROAT: No erythema or exudates. NECK: No masses, no JVD. CHEST: No chest wall deformity. LUNGS: Equal air entry with few scattered rhonchi bilaterally and faint crackles in the posterior bases. CVS: S1 and S2 normal with no audible murmur, regular rhythm. ABDOMEN: No hepatosplenomegaly, normal bowel sounds, no guarding or rigidity. SPINE: No scoliosis or deformity SKIN: No rashes CENTRAL NERVOUS SYSTEM: No focal deficits, tone is normal in all 4 extremities. EXTREMITIES: There is 1+ peripheral edema. No clubbing, no cyanosis. Peripheral pulses are intact. - Labs CBC & Chem 7: 03/20/22 02:53 03/20/22 02:53 Labs: Abnormal Lab Results - Last 24 Hours (Table) 03/19/22 03/20/22 03/20/22 Range/Units 20:27 02:53 02:53 WBC 12.00 H (4.50-10.00) X 10*3/uL MCV 98.5 H (80.0-97.0) fL MCHC 29.4 L (32.0-37.0) g/dL Immature Gran # 0.07 H (0.00-0.04) X 10*3/uL Neutrophils # 8.65 H (1.80-7.70) X 10*3/uL Monocytes # 1.23 H (0.20-1.00) X 10*3/uL Chloride 94 L (96-109) mmol/L Carbon Dioxide 36.7 H (20.0-27.5) mmol/L BUN/Creatinine Ratio 20.18 H (12.00-20.00) Ratio Glucose 183 H (70-110) mg/dL POC Glucose (mg/dL) 159 H (70-110) mg/dL 03/20/22 03/20/22 Range/Units 06:05 11:36 WBC (4.50-10.00) X 10*3/uL MCV (80.0-97.0) fL MCHC (32.0-37.0) g/dL Immature Gran # (0.00-0.04) X 10*3/uL Neutrophils # (1.80-7.70) X 10*3/uL Monocytes # (0.20-1.00) X 10*3/uL Chloride (96-109) mmol/L Carbon Dioxide (20.0-27.5) mmol/L BUN/Creatinine Ratio (12.00-20.00) Ratio Glucose (70-110) mg/dL POC Glucose (mg/dL) 181 H 243 H (70-110) mg/dL Microbiology - Last 24 Hours (Table) 03/19/22 08:39 Gram Stain - Preliminary Sputum Sputum Culture - Preliminary 03/15/22 21:19 Blood Culture - Preliminary Blood No Growth after 96 hours 03/15/22 21:00 Blood Culture - Preliminary Blood No Growth after 96 hours Assessment and Plan Assessment: Acute on chronic hypoxemic respiratory failure secondary to bilateral pleural effusions, suspect diastolic congestive heart failure. Pro-calcitonin 0.06. Currently on 8 L high flow nasal cannula. Remains in a -2.6 L balance. Cont inued on IV diuretics. Recent hospitalization for fall and trauma with large ecchymosis of the left hip and back, left-sided hemothorax requiring chest tube placement and subsequent removal Recent hospitalization for RSV infection Previous history of encephalopathy/delirium History of severe persistent chronic bronchial asthma Atrial fibrillation, anticoagulated with Eliquis Diabetes mellitus Diabetic neuropathy Obesity Sleep apnea Plan: The patient was seen and evaluated Chest x-ray, labs and medications reviewed Titrate the FiO2 as tolerated Continue bronchodilators Transitioned to oral diuretics Anticoagulated with Eliquis Dr. Vela did speak with the patient's today Home once we can get oxygen levels below 5 L/m We will continue to follow I have personally seen and examined the patient, performed the documentation and the assessment and plan as written. Number of minutes spent on the visit: 10.
[2022-03-20 16:41] LABS: Glucose,Whole Blood 270 mg/dL (70-110)
[2022-03-20 20:37] LABS: Glucose,Whole Blood 228 mg/dL (70-110)
[2022-03-20] MEDS: TAMSULOSIN 0.4 MG CAP.ER.24H PO SCH (22:34)
[2022-03-20] MEDS: ATORVASTATIN 40 MG TAB PO SCH (22:34)
[2022-03-20] MEDS: ASCORBIC ACID 500 MG TAB PO SCH (22:34)
[2022-03-20] MEDS: QUEtiapine 25 MG TAB PO SCH (22:35)
[2022-03-21 05:52] LABS: Glucose,Whole Blood 252 mg/dL (70-110)
[2022-03-21 06:02] LABS: Glucose,Whole Blood 184 mg/dL (70-110)
[2022-03-21] MEDS: INSULIN ASPART (NovoLOG) 100 UNIT/ML VIAL SQ SCH ×4 (07:09→20:38)
[2022-03-21] MEDS: FUROSEMIDE 40 MG TAB PO SCH (08:08)
[2022-03-21] MEDS: busPIRone HCl 10 MG TAB PO SCH ×2 (08:08→20:37)
[2022-03-21] MEDS: GABAPENTIN 300 MG CAP PO SCH ×2 (08:08→20:37)
[2022-03-21] MEDS: CHOLECALCIFEROL 25 MCG (1000 IU) TABLET PO SCH (08:08)
[2022-03-21] MEDS: APIXABAN 5 MG TAB PO SCH ×2 (08:08→20:37)
[2022-03-21] MEDS: METOPROLOL TARTRATE 50 MG TAB PO SCH ×2 (08:08→20:37)
[2022-03-21] MEDS: DILTIAZEM ORAL 30 MG TAB PO SCH ×2 (08:09→15:03)
[2022-03-21] MEDS: IPRATROPIUM-ALBUTEROL 3 ML NEB INHALATION SCH ×4 (08:25→19:30)
[2022-03-21 08:52] LABS: Basophils # (A) 0.09 X 10*3/uL (0.00-0.10); Basophils % (A) 0.8 %; Eosinophils # (A) 0.26 X 10*3/uL (0.04-0.35); Eosinophils % (A) 2.3 %; HCT 48.7 % (39.6-50.0); HGB 14.5 g/dL (13.0-17.0); Immature Grans, Automated 0.5 %; Lymphocytes # (A) 1.59 X 10*3/uL (0.90-5.00); Lymphocytes % (A) 13.9 %; MCH 29.1 pg (27.0-32.0); MCHC 29.8 g/dL (32.0-37.0); MCV 97.8 fL (80.0-97.0); Mean Platelet Volume 10.6 fL (9.5-12.2); Monocytes # (A) 1.12 X 10*3/uL (0.20-1.00); Monocytes % (A) 9.8 %; NRBC Per 100 WBC 0 /100 WBCS (0.0-0.0); Neutrophils # (A) 8.34 X 10*3/uL (1.80-7.70); Neutrophils % (A) 72.7 %; Platelet Count 336 X 10*3/uL (140-440); RBC 4.98 X 10*6/uL (4.40-5.60); WBC 11.46 X 10*3/uL (4.50-10.00)
[2022-03-21 09:09] LABS: African American GFR (CKD) 95.8 (60.0-200.0); Anion Gap 11.9 mmol/L (10.00-18.00); BUN/Creat Ratio 19.22 Ratio (12.00-20.00); Blood Urea Nitrogen 17.3 mg/dL (9.0-27.0); Calcium 9.1 mg/dL (8.7-10.3); Carbon Dioxide 34.1 mmol/L (20.0-27.5); Non-African American GFR(CKD) 82.7 (60.0-200.0)
[2022-03-21 11:39] LABS: Glucose,Whole Blood 227 mg/dL (70-110)
[2022-03-21 13:45] VITALS: BMI 36.4
--- NOTE | 2022-03-21 14:34 | P.PN ---
Subjective Progress Note Date: 03/21/22 This is 76 year old male patient with a known history of diabetes mellitus with peripheral neuropathy, hypertension, hyperlipidemia, obstructive sleep apnea, obesity, diabetes mellitus, atrial fibrillation anticoagulated with Eliquis, who was recently admitted for an RSV infection and had at that time noted to have left-sided trauma from a fall prior to his arrival. He had developed significant left-sided hemothorax. Initial attempts at thoracentesis revealed that thick blood and clotting in a ultrasound-guided pigtail catheter was placed. He was subsequently discharged on 02/24/2022. He represented to the emergency room here early this morning with worsening shortness of breath. The patient is somewhat of a poor historian. He is remembering that he had fallen and thought he was here for recurrent fall. No family is present. He is short of breath. He is currently regular maintain O2 saturations in the 90s on 8 L high flow nasal cannula. Chest x-rays revealing a persistent right perihilar infiltrate. Left perihilar infiltrate had improved and is nearly resolved. CT angiogram ruled out pulmonary embolism. There is noted bilateral pleural effusions and a right upper lobe infiltrate. White count 10.5. Hemoglobin 12.3. Platelets 280. Sodium 141. Potassium 4.3. BUN 14. Creatinine 0.8. Glucose 174. ProBNP 685. Pro-calcitonin 0.06. Chronic virus not detected. Influenza screen negative. Arterial blood gases on 44% FiO2 revealed a PaO2 of 59, pH 7.43, pCO2 of 49. He is seen today in consultation on the regular medical floor. He is currently sitting up in a chair at the bedside. Awake and alert. He knows he is in the hospital. Unsure of the year. States he will was a previous smoker. Denies any daily alcohol use. The patient is seen today 03/17/2022 in follow-up on the regular medical floor. He is currently sitting up at the bedside. Awake and alert in no acute distress. Chest x-ray reveals right perihilar infiltrate persisting though slightly improved. Mild patchy density in the left lower lobe and small effusions. Blood cultures revealed no growth. White count 9.7. Hemoglobin 12.4. Sodium 137. Potassium 3.3. Bicarb 34. BUN 14. Creatinine 0.70. Glucose 176. He is continued on bronchodilators. Continue IV diuretics. Diuresing well. Currently in a -3.9 L balance. Anticoagulated with Eliquis. The patient is seen today 03/18/2022 in follow-up on the regular medical floor. Awake and alert in no acute distress. Sitting up in a chair at the bedside. Maintaining O2 saturations in the 90s on 8 L high flow nasal cannula. He is alternating with BiPAP 12/5 and 50% FiO2. Chest x-ray continues to show central right lung edema and/or infiltrates. Worsening left lower lung infiltrate. Small left pleural effusion. He remains in a -3.6 L balance. Continued on IV diuretics. Remains on bronchodilators. Anticoagulated with Eliquis. Blood glucose 187. Pro-calcitonin was 0.06. Previous echocardiogram from January 2022 revealed preserved left ventricle systolic function with ejection fraction of 60%. The patient is seen today 03/20/2022 in follow-up on the regular medical floor. He is currently sitting up in bed. Awake and alert in no acute distress. Still requiring 8 L high flow nasal cannula to maintain O2 saturations in the 90s. Follow-up chest x-ray showing improved aeration bilaterally. Blood cultures reveal no growth. Sputum culture pending. White count 12.0. Hemoglobin 13.8. Platelets 264. Sodium 141. Potassium 5.3. BUN 18. Creatinine 0.9. Glucose 183. He is continued on bronchodilators. Anticoagulated with Eliquis. IV diuretics. Currently in a -2.6 L balance. The patient is seen today 03/21/2022 in follow-up on the regular medical floor. He is currently sitting up in bed. Awake and alert in no acute distress. He denies any worsening shortness of breath, cough or congestion. He's been titrated down to oxygen at 4 L/m per nasal cannula. Most recent chest x-ray had reviewed improved aeration. Sputum culture revealed no growth. Blood cultures revealed no growth. White count 11.4. Hemoglobin 14.5. Sodium 137. Potassium 4.0. BUN 17. Creatinine 0.9. Glucose 227. Remains on DuoNeb inhalations. Anticoagulated with Eliquis. Oral diuretics. Remains in a -2.6 L balance. Objective - Vital Signs Vital signs: Vital Signs Temp 97.4 F L 03/21/22 14:19 Pulse 76 03/21/22 14:19 Resp 15 03/21/22 14:19 BP 100/64 03/21/22 14:19 Pulse Ox 92 L 03/21/22 14:19 FiO2 50 03/17/22 16:34 Intake & Output 03/20/22 03/21/22 03/21/22 18:59 06:59 18:59 Output Total 1350 725 Balance -1350 -725 Weight 122 kg 122 kg Output: Urine 1350 725 Other: Voiding Method Indwelling Catheter Indwelling Catheter Indwelling Catheter # Voids 1 - Exam GENERAL EXAM: Alert, morbidly obese, 76-year-old male, on 4 L nasal cannula, comfortable in no apparent distress. HEAD: Normocephalic. EYES: Normal reaction of pupils, equal size. NOSE: Clear with pink turbinates. THROAT: No erythema or exudates. NECK: No masses, no JVD. CHEST: No chest wall deformity. LUNGS: Equal air entry with few scattered rhonchi bilaterally and faint crackles in the posterior bases. CVS: S1 and S2 normal with no audible murmur, regular rhythm. ABDOMEN: No hepatosplenomegaly, normal bowel sounds, no guarding or rigidity. SPINE: No scoliosis or deformity SKIN: No rashes CENTRAL NERVOUS SYSTEM: No focal deficits, tone is normal in all 4 extremities. EXTREMITIES: There is 1+ peripheral edema. No clubbing, no cyanosis. Peripheral pulses are intact. - Labs CBC & Chem 7: 03/21/22 04:41 03/21/22 04:41 Labs: Abnormal Lab Results - Last 24 Hours (Table) 03/19/22 03/20/22 03/20/22 Range/Units 16:29 16:39 20:35 WBC (4.50-10.00) X 10*3/uL MCV (80.0-97.0) fL MCHC (32.0-37.0) g/dL Immature Gran # (0.00-0.04) X 10*3/uL Neutrophils # (1.80-7.70) X 10*3/uL Monocytes # (0.20-1.00) X 10*3/uL Chloride (96-109) mmol/L Carbon Dioxide (20.0-27.5) mmol/L Glucose (70-110) mg/dL POC Glucose (mg/dL) 184 H 270 H 228 H (70-110) mg/dL 03/21/22 03/21/22 03/21/22 Range/Units 04:41 04:41 05:50 WBC 11.46 H (4.50-10.00) X 10*3/uL MCV 97.8 H (80.0-97.0) fL MCHC 29.8 L (32.0-37.0) g/dL Immature Gran # 0.06 H (0.00-0.04) X 10*3/uL Neutrophils # 8.34 H (1.80-7.70) X 10*3/uL Monocytes # 1.12 H (0.20-1.00) X 10*3/uL Chloride 91 L (96-109) mmol/L Carbon Dioxide 34.1 H (20.0-27.5) mmol/L Glucose 227 H (70-110) mg/dL POC Glucose (mg/dL) 252 H (70-110) mg/dL 03/21/22 Range/Units 11:38 WBC (4.50-10.00) X 10*3/uL MCV (80.0-97.0) fL MCHC (32.0-37.0) g/dL Immature Gran # (0.00-0.04) X 10*3/uL Neutrophils # (1.80-7.70) X 10*3/uL Monocytes # (0.20-1.00) X 10*3/uL Chloride (96-109) mmol/L Carbon Dioxide (20.0-27.5) mmol/L Glucose (70-110) mg/dL POC Glucose (mg/dL) 227 H (70-110) mg/dL Microbiology - Last 24 Hours (Table) 03/19/22 08:39 Gram Stain - Final Sputum Sputum Culture - Final 03/15/22 21:19 Blood Culture - Preliminary Blood No Growth after 120 hours 03/15/22 21:00 Blood Culture - Preliminary Blood No Growth after 120 hours Assessment and Plan Assessment: Acute on chronic hypoxemic respiratory failure secondary to bilateral pleural effusions, suspect diastolic congestive heart failure. Pro-calcitonin 0.06. Currently on 4 L high flow nasal cannula. Remains in a -2.6 L balance. Continued on oral diuretics. Recent hospitalization for fall and trauma with large ecchymosis of the left hip and back, left-sided hemothorax requiring chest tube placement and subsequent removal Recent hospitalization for RSV infection Previous history of encephalopathy/delirium History of severe persistent chronic bronchial asthma Atrial fibrillation, anticoagulated with Eliquis Diabetes mellitus Diabetic neuropathy Obesity Sleep apnea Plan: The patient was seen and evaluated Labs and medications reviewed Cleared for discharge from the pulmonary standpoint Plan for home oxygen and bronchodilators Continue bronchodilators Continue diuretics Anticoagulated with Eliquis Follow-up in the office in 1 week I have personally seen and examined the patient, performed the documentation and the assessment and plan as written. Number of minutes spent on the visit: 10.
[2022-03-21 16:34] LABS: Glucose,Whole Blood 210 mg/dL (70-110)
[2022-03-21 19:50] LABS: Glucose,Whole Blood 188 mg/dL (70-110)
[2022-03-21] MEDS: QUEtiapine 25 MG TAB PO SCH (20:37)
[2022-03-21] MEDS: TAMSULOSIN 0.4 MG CAP.ER.24H PO SCH (20:37)
[2022-03-21] MEDS: ATORVASTATIN 40 MG TAB PO SCH (20:37)
[2022-03-21] MEDS: ASCORBIC ACID 500 MG TAB PO SCH (20:37)
[2022-03-21] MEDS: DILTIAZEM ORAL 60 MG TAB PO SCH (20:41)
[2022-03-22 06:06] LABS: Glucose,Whole Blood 193 mg/dL (70-110)
[2022-03-22] MEDS: INSULIN ASPART (NovoLOG) 100 UNIT/ML VIAL SQ SCH ×4 (07:43→22:23)
[2022-03-22 08:57] LABS: Eosinophils # (A) 0.19 X 10*3/uL (0.04-0.35); Eosinophils % (A) 1.9 %; HCT 47.5 % (39.6-50.0); HGB 14.4 g/dL (13.0-17.0); Immature Grans, Automated 0.6 %; Lymphocytes # (A) 1.64 X 10*3/uL (0.90-5.00); Lymphocytes % (A) 16.1 %; MCH 29.3 pg (27.0-32.0); MCHC 30.3 g/dL (32.0-37.0); MCV 96.7 fL (80.0-97.0); Mean Platelet Volume 10.6 fL (9.5-12.2); Monocytes # (A) 1.02 X 10*3/uL (0.20-1.00); NRBC Per 100 WBC 0 /100 WBCS (0.0-0.0); Neutrophils # (A) 7.15 X 10*3/uL (1.80-7.70); Neutrophils % (A) 70.4 %; Platelet Count 318 X 10*3/uL (140-440); RBC 4.91 X 10*6/uL (4.40-5.60); RDW 14.2 % (11.5-14.5); WBC 10.16 X 10*3/uL (4.50-10.00)
[2022-03-22] MEDS: METOPROLOL TARTRATE 50 MG TAB PO SCH ×2 (09:21→20:27)
[2022-03-22] MEDS: DILTIAZEM ORAL 60 MG TAB PO SCH ×3 (09:21→22:24)
[2022-03-22 09:22] LABS: African American GFR (CKD) 95.8 (60.0-200.0); Anion Gap 11.8 mmol/L (10.00-18.00); BUN/Creat Ratio 21.56 Ratio (12.00-20.00); Blood Urea Nitrogen 19.4 mg/dL (9.0-27.0); Calcium 9.1 mg/dL (8.7-10.3); Carbon Dioxide 31.2 mmol/L (20.0-27.5); Non-African American GFR(CKD) 82.7 (60.0-200.0); Potassium 4.3 mmol/L (3.5-5.5)
[2022-03-22] MEDS: IPRATROPIUM-ALBUTEROL 3 ML NEB INHALATION SCH ×4 (09:38→20:28)
[2022-03-22] MEDS: CHOLECALCIFEROL 25 MCG (1000 IU) TABLET PO SCH (09:39)
[2022-03-22] MEDS: FUROSEMIDE 40 MG TAB PO SCH (09:39)
[2022-03-22] MEDS: busPIRone HCl 10 MG TAB PO SCH ×2 (09:39→20:27)
[2022-03-22] MEDS: GABAPENTIN 300 MG CAP PO SCH ×2 (09:39→20:25)
[2022-03-22] MEDS: APIXABAN 5 MG TAB PO SCH ×2 (09:39→20:27)
[2022-03-22 11:19] LABS: Glucose,Whole Blood 183 mg/dL (70-110)
--- NOTE | 2022-03-22 14:23 | P.PN ---
Subjective Progress Note Date: 03/22/22 Principal diagnosis: Shortness of breath. The patient is seen today 03/20/2022 in follow-up on the regular medical floor. He is currently sitting up in bed. Awake and alert in no acute distress. Still requiring 8 L high flow nasal cannula to maintain O2 saturations in the 90s. Follow-up chest x-ray showing improved aeration bilaterally. Blood cultures reveal no growth. Sputum culture pending. White count 12.0. Hemoglobin 13.8. Platelets 264. Sodium 141. Potassium 5.3. BUN 18. Creatinine 0.9. Glucose 183. He is continued on bronchodilators. Anticoagulated with Eliquis. IV diuretics. Currently in a -2.6 L balance. The patient is seen today 03/21/2022 in follow-up on the regular medical floor. He is currently sitting up in bed. Awake and alert in no acute distress. He denies any worsening shortness of breath, cough or congestion. He's been titrated down to oxygen at 4 L/m per nasal cannula. Most recent chest x-ray had reviewed improved aeration. Sputum culture revealed no growth. Blood cultures revealed no growth. White count 11.4. Hemoglobin 14.5. Sodium 137. Potassium 4.0. BUN 17. Creatinine 0.9. Glucose 227. Remains on DuoNeb inhalations. Anticoagulated with Eliquis. Oral diuretics. Remains in a -2.6 L balance. Progress note dated 03/22/2022. The patient is seen today on the general medical floor. He is seen in room 457. He is currently laying in bed. He is on oxygen at 5 L. He's not receiving any IV he's hoping to be discharged soon. He is awake and alert, and in no acute distress. He denies any worsening shortness of breath, cough, or congestion. White count 10.2, hemoglobin 14.4, hematocrit 47.5, and platelet count 318,000. Sodium 141, potassium 4.3, chlorides 98, CO2 31, anion gap 12, BUN 19, creati nine 0.9. Calcium 9.1. Chest x-ray from March 20 was reviewed. Objective - Vital Signs Vital signs: Vital Signs Temp 98.2 F 03/22/22 08:00 Pulse 76 03/22/22 09:20 Resp 17 03/22/22 08:00 BP 120/55 12/28/22 09:20 Pulse Ox 84 L 03/22/22 09:20 FiO2 50 03/17/22 16:34 Intake & Output 03/21/22 03/22/22 03/22/22 18:59 06:59 18:59 Output Total 600 700 200 Balance -600 -700 -200 Weight 122 kg 154 kg Output: Urine 600 700 200 Other: Voiding Method Indwelling Catheter Indwelling Catheter - Exam No acute distress, oriented 3. Currently on 5 L of oxygen by nasal cannula. No conversational dyspnea or use of accessory muscles. HEENT examination is grossly unremarkable. Mucous membranes are moist. No oral lesions. Neck supple. Full range of motion. No adenopathy thyromegaly or neck vein distention. Cardiovascular examination reveals regular rhythm rate. S1-S2 normal. No S3 or S4. No discernible murmur noted. Heart rate 79 bpm. Lungs reveal scattered rhonchi and a few scattered crackles. Breath sounds equal bilaterally. Saturations are 96%. Abdomen soft bowel sounds are heard. No masses or tenderness. Extremities are intact. No cyanosis clubbing or edema. Skin is without rash or lesion. Neurologic examination is brief but nonfocal. - Labs CBC & Chem 7: 03/22/22 04:52 03/22/22 04:52 Labs: Abnormal Lab Results - Last 24 Hours (Table) 03/21/22 03/21/22 03/22/22 Range/Units 16:33 19:49 04:52 WBC 10.16 H (4.50-10.00) X 10*3/uL MCHC 30.3 L (32.0-37.0) g/dL Immature Gran # 0.06 H (0.00-0.04) X 10*3/uL Monocytes # 1.02 H (0.20-1.00) X 10*3/uL Carbon Dioxide (20.0-27.5) mmol/L BUN/Creatinine Ratio (12.00-20.00) Ratio Glucose (70-110) mg/dL POC Glucose (mg/dL) 210 H 188 H (70-110) mg/dL 03/22/22 03/22/22 03/22/22 Range/Units 04:52 06:04 11:18 WBC (4.50-10.00) X 10*3/uL MCHC (32.0-37.0) g/dL Immature Gran # (0.00-0.04) X 10*3/uL Monocytes # (0.20-1.00) X 10*3/uL Carbon Dioxide 31.2 H (20.0-27.5) mmol/L BUN/Creatinine Ratio 21.56 H (12.00-20.00) Ratio Glucose 159 H (70-110) mg/dL POC Glucose (mg/dL) 193 H 183 H (70-110) mg/dL Microbiology - Last 24 Hours (Table) 03/15/22 21:00 Blood Culture - Final Blood No Growth after 144 hours 03/15/22 21:19 Blood Culture - Final Blood No Growth after 144 hours 03/19/22 08:39 Gram Stain - Final Sputum Sputum Culture - Final Assessment and Plan Assessment: Acute on chronic hypoxemic respiratory failure secondary to bilateral pleural effusions, suspect diastolic congestive heart failure. Pro-calcitonin 0.06. Currently on 5 L high flow nasal cannula. Recent hospitalization for fall and trauma with large ecchymosis of the left hip and back, left-sided hemothorax requiring chest tube placement and subsequent removal. Recent hospitalization for RSV infection. Previous history of encephalopathy/delirium. History of severe persistent chronic bronchial asthma. Atrial fibrillation. Diabetes mellitus. Diabetic neuropathy. Obesity. Sleep apnea. Plan: Plan dated 03/22/2022. The patient is seen and examined. Labs, x-rays, and medications are reviewed. The patient is stable for potential discharge from the pulmonary standpoint. The patient should continue on current medications. The patient will follow-up in the office in 7-10 days. No additional recommendations are made. Prognosis is guarded. Time with Patient: Less than 30
[2022-03-22 16:05] LABS: Glucose,Whole Blood 142 mg/dL (70-110)
[2022-03-22] MEDS: QUEtiapine 25 MG TAB PO SCH (20:25)
[2022-03-22] MEDS: TAMSULOSIN 0.4 MG CAP.ER.24H PO SCH (20:25)
[2022-03-22] MEDS: ASCORBIC ACID 500 MG TAB PO SCH (20:25)
[2022-03-22] MEDS: ATORVASTATIN 40 MG TAB PO SCH (20:27)
[2022-03-22 20:48] LABS: Glucose,Whole Blood 221 mg/dL (70-110)
[2022-03-23 06:23] LABS: Glucose,Whole Blood 141 mg/dL (70-110)
[2022-03-23] MEDS: INSULIN ASPART (NovoLOG) 100 UNIT/ML VIAL SQ SCH ×2 (06:51→11:58)
[2022-03-23] MEDS: IPRATROPIUM-ALBUTEROL 3 ML NEB INHALATION SCH ×2 (07:28→11:13)
[2022-03-23] MEDS: APIXABAN 5 MG TAB PO SCH (08:44)
[2022-03-23] MEDS: METOPROLOL TARTRATE 50 MG TAB PO SCH (08:44)
[2022-03-23] MEDS: GABAPENTIN 300 MG CAP PO SCH (08:44)
[2022-03-23] MEDS: busPIRone HCl 10 MG TAB PO SCH (08:44)
[2022-03-23] MEDS: FUROSEMIDE 40 MG TAB PO SCH (08:44)
[2022-03-23] MEDS: DILTIAZEM ORAL 60 MG TAB PO SCH ×2 (08:45→16:01)
[2022-03-23] MEDS: CHOLECALCIFEROL 25 MCG (1000 IU) TABLET PO SCH (08:45)
[2022-03-23 10:35] LABS: Basophils # (A) 0.09 X 10*3/uL (0.00-0.10); Eosinophils # (A) 0.15 X 10*3/uL (0.04-0.35); Eosinophils % (A) 1.6 %; HCT 47.1 % (39.6-50.0); HGB 14.3 g/dL (13.0-17.0); Immature Grans, Automated 0.8 %; Lymphocytes # (A) 1.83 X 10*3/uL (0.90-5.00); Lymphocytes % (A) 19.7 %; MCH 29.4 pg (27.0-32.0); MCHC 30.4 g/dL (32.0-37.0); MCV 96.9 fL (80.0-97.0); Mean Platelet Volume 10.8 fL (9.5-12.2); Monocytes % (A) 9.7 %; NRBC Per 100 WBC 0 /100 WBCS (0.0-0.0); Neutrophils # (A) 6.26 X 10*3/uL (1.80-7.70); Neutrophils % (A) 67.2 %; Platelet Count 302 X 10*3/uL (140-440); RBC 4.86 X 10*6/uL (4.40-5.60)
[2022-03-23 10:51] LABS: African American GFR (CKD) 95.8 (60.0-200.0); Anion Gap 10.9 mmol/L (10.00-18.00); BUN/Creat Ratio 18.56 Ratio (12.00-20.00); Blood Urea Nitrogen 16.7 mg/dL (9.0-27.0); Calcium 9.4 mg/dL (8.7-10.3); Carbon Dioxide 30.1 mmol/L (20.0-27.5); Non-African American GFR(CKD) 82.7 (60.0-200.0); Potassium 4.3 mmol/L (3.5-5.5)
[2022-03-23 11:25] LABS: Glucose,Whole Blood 176 mg/dL (70-110)
--- NOTE | 2022-03-23 11:25 | P.PN ---
Subjective Progress Note Date: 03/20/22 76-year-old pleasant male was recently treated for respiratory syncytial virus infection and it, in the fall on the left side and had left-sided pneumothorax, came in with complaints of increasing shortness of breath patient is on BiPAP. During his previous hospitalization patient had thoracentesis which showed thick blood and clotting an ultrasound guided pigtail catheter was placed patient was discharged earlier this month patient came in with complaints of increasing shortness of breath and apparently patient has been falling at home patient is saturating 90s on 5 high flow nasal cannula oxygen because of which patient was placed on BiPAP ABG was done unsure this was done on BiPAP, patient is mostly acute hypoxic respiratory failure with pH of 7.43 pCO2 49 and pO2 of 59. Patient does have bilateral pleural effusions patient has a stable condition or failure chronic diastolic dysfunction patient is on oral Lasix at home. Patient was evaluated by pulmonology and patient had a CT of the chest showed bilateral pleural effusions and patient does have and sedation with a bronchogram in the right upper to middle lobes although his pro calcitonin is normal with only mildly elevated white blood cell count and no fever patient was not complaining of cough with sputum production. Patient also is on antibiotics Rocephin and azithromycin. Patient BNP is on Lasix 40 but patient is obese with BMI of 40. There is no pulmonary embolism and the CT PA patient is with previous of oxygen at home 03/17/2022 Patient is currently lying in bed. Awake alert and in no acute distress. Requiring high flow oxygen. Chest x-ray today showed right perihilar infiltrate versus lower lobe slightly improved. Mild patchy density left lower lobe and small effusions. Patient has been afebrile. Currently being continued on Lasix 40 mg twice daily. Patient was agitated this morning. Continued on duo nebs and pulmonary is on board. 03/18/2022 Patient is awake alert and oriented. Sitting in the chair. Currently requiring high flow oxygen at 8 L via nasal cannula. Patient was on BiPAP intermittently. Chest x-ray showed worsening central right lung edema and infiltrates. Worsening left lower lung acute infiltrate/atelectasis. Worsening small left pleural effusion. Patient is being current bronchodilators and Lasix 40 mg twice daily. Heart rate is controlled with Cardizem. Continue on bronchodilators and anticoagulation with Eliquis. Pulmonary is on board. 03/19/2022 Patient remains on 8 L oxygen high flow via nasal cannula. Currently on IV diuretics, and duo nebs. Patient is currently resting in the bed. Awake alert and oriented. Continues to cough without any sputum production. No nausea vomiting abdominal pain or diarrhea. Currently on anticoagulation with Eliquis. Heart rate is controlled. Pulmonary is on board. 03/20/2022 Patient is currently sitting up in the bed. Awake alert and oriented 3. Still requiring high flow oxygen at 8 L via nasal cannula. Next and chest x-ray showed improved aeration bilaterally. Continue on IV Lasix. Cultures have been negative. Laboratory data showed sodium 141 potassium 4.3 chloride 94 bicarb is 36.7 BUN 18 and creatinine 0.9 and blood sugar is 183. Pulmonary is on board. Current medications reviewed. REVIEW OF SYSTEMS: Unable to do much of the history from the patient patient also is alert oriented 3 as per the nursing staff patient is bit confused and delirious PHYSICAL EXAMINATION: GENERAL: The patient is alert and oriented x2-3, not in any acute distress. Obese HEENT: Pupils are round and equally reacting to light. EOMI. No scleral icterus. No conjunctival pallor. Normocephalic, atraumatic. No pharyngeal erythema. No thyromegaly. CARDIOVASCULAR: S1 and S2 present. No murmurs, rubs, or gallops. BiPAP in place PULMONARY: Chest is clear to auscultation, no wheezing or crackles. Mildly diminished air entry into bilateral lung briscoe no wheezing was appreciated ABDOMEN: Soft, nontender, nondistended, normoactive bowel sounds. No palpable organomegaly. MUSCULOSKELETAL: No joint swelling or deformity. EXTREMITIES: No cyanosis, clubbing, 2+ pitting pedal edema in bilateral lower extremities NEUROLOGICAL: Gross neurological examination did not reveal any focal deficits. SKIN: No rashes. Assessment and plan -Acute on chronic hypoxic respiratory failure: Probably secondary to congestive heart failure exacerbation patient is with bilateral pleural effusions patient may have chronic diastolic dysfunction. Patient was started on IV Lasix at , strict I's and O's patient may need a Santana catheter may be retaining urine. Patient still requiring 8 L oxygen via nasal cannula. Patient does have infiltrated with a bronchogram although pro calcitonin is within normal limits . dced antibiotics. Pulmonology is following the patient -Toxic encephalopathy probably from infection, improving -Leukocytosis either secondary to pneumonia or reactive Resolved. -Obesity possibility of her sleep apnea -Chronic or severe persistent asthma patient is physically not in acute exacerbation may not need any steroids at this time -Atrial fibrillation paroxysmal patient is anticoagulated with Eliquis -Type 2 diabetes mellitus with diabetic peripheral neuropathy DVT prophylaxis: On anti-coagulation which was resumed Objective - Vital Signs Vital signs: Vital Signs Temp 98.5 F 03/20/22 18:53 Pulse 70 03/20/22 20:51 Resp 20 03/20/22 18:53 BP 130/75 03/20/22 18:53 Pulse Ox 92 L 03/20/22 18:53 FiO2 50 03/17/22 16:34 Intake & Output 03/20/22 03/20/22 03/21/22 06:59 18:59 06:59 Output Total 2670 1350 Balance -2675 -1350 Weight 121 kg Output: Urine 2675 1350 Other: Voiding Method Indwelling Catheter Indwelling Catheter # Voids 1 - Labs CBC & Chem 7: 03/23/22 06:27 03/23/22 06:27 Labs: Abnormal Lab Results - Last 24 Hours (Table) 03/20/22 03/20/22 03/20/22 Range/Units 02:53 02:53 06:05 WBC 12.00 H (4.50-10.00) X 10*3/uL MCV 98.5 H (80.0-97.0) fL MCHC 29.4 L (32.0-37.0) g/dL Immature Gran # 0.07 H (0.00-0.04) X 10*3/uL Neutrophils # 8.65 H (1.80-7.70) X 10*3/uL Monocytes # 1.23 H (0.20-1.00) X 10*3/uL Chloride 94 L (96-109) mmol/L Carbon Dioxide 36.7 H (20.0-27.5) mmol/L BUN/Creatinine Ratio 20.18 H (12.00-20.00) Ratio Glucose 183 H (70-110) mg/dL POC Glucose (mg/dL) 181 H (70-110) mg/dL 03/20/22 03/20/22 03/20/22 Range/Units 11:36 16:39 20:35 WBC (4.50-10.00) X 10*3/uL MCV (80.0-97.0) fL MCHC (32.0-37.0) g/dL Immature Gran # (0.00-0.04) X 10*3/uL Neutrophils # (1.80-7.70) X 10*3/uL Monocytes # (0.20-1.00) X 10*3/uL Chloride (96-109) mmol/L Carbon Dioxide (20.0-27.5) mmol/L BUN/Creatinine Ratio (12.00-20.00) Ratio Glucose (70-110) mg/dL POC Glucose (mg/dL) 243 H 270 H 228 H (70-110) mg/dL Microbiology - Last 24 Hours (Table) 03/19/22 08:39 Gram Stain - Preliminary Sputum Sputum Culture - Preliminary 03/15/22 21:19 Blood Culture - Preliminary Blood No Growth after 96 hours 03/15/22 21:00 Blood Culture - Preliminary Blood No Growth after 96 hours
--- NOTE | 2022-03-23 11:27 | P.PN ---
Subjective Progress Note Date: 03/21/22 76-year-old pleasant male was recently treated for respiratory syncytial virus infection and it, in the fall on the left side and had left-sided pneumothorax, came in with complaints of increasing shortness of breath patient is on BiPAP. During his previous hospitalization patient had thoracentesis which showed thick blood and clotting an ultrasound guided pigtail catheter was placed patient was discharged earlier this month patient came in with complaints of increasing shortness of breath and apparently patient has been falling at home patient is saturating 90s on 5 high flow nasal cannula oxygen because of which patient was placed on BiPAP ABG was done unsure this was done on BiPAP, patient is mostly acute hypoxic respiratory failure with pH of 7.43 pCO2 49 and pO2 of 59. Patient does have bilateral pleural effusions patient has a stable condition or failure chronic diastolic dysfunction patient is on oral Lasix at home. Patient was evaluated by pulmonology and patient had a CT of the chest showed bilateral pleural effusions and patient does have and sedation with a bronchogram in the right upper to middle lobes although his pro calcitonin is normal with only mildly elevated white blood cell count and no fever patient was not complaining of cough with sputum production. Patient also is on antibiotics Rocephin and azithromycin. Patient BNP is on Lasix 40 but patient is obese with BMI of 40. There is no pulmonary embolism and the CT PA patient is with previous of oxygen at home 03/17/2022 Patient is currently lying in bed. Awake alert and in no acute distress. Requiring high flow oxygen. Chest x-ray today showed right perihilar infiltrate versus lower lobe slightly improved. Mild patchy density left lower lobe and small effusions. Patient has been afebrile. Currently being continued on Lasix 40 mg twice daily. Patient was agitated this morning. Continued on duo nebs and pulmonary is on board. 03/18/2022 Patient is awake alert and oriented. Sitting in the chair. Currently requiring high flow oxygen at 8 L via nasal cannula. Patient was on BiPAP intermittently. Chest x-ray showed worsening central right lung edema and infiltrates. Worsening left lower lung acute infiltrate/atelectasis. Worsening small left pleural effusion. Patient is being current bronchodilators and Lasix 40 mg twice daily. Heart rate is controlled with Cardizem. Continue on bronchodilators and anticoagulation with Eliquis. Pulmonary is on board. 03/19/2022 Patient remains on 8 L oxygen high flow via nasal cannula. Currently on IV diuretics, and duo nebs. Patient is currently resting in the bed. Awake alert and oriented. Continues to cough without any sputum production. No nausea vomiting abdominal pain or diarrhea. Currently on anticoagulation with Eliquis. Heart rate is controlled. Pulmonary is on board. 03/20/2022 Patient is currently sitting up in the bed. Awake alert and oriented 3. Still requiring high flow oxygen at 8 L via nasal cannula. Next and chest x-ray showed improved aeration bilaterally. Continue on IV Lasix. Cultures have been negative. Laboratory data showed sodium 141 potassium 4.3 chloride 94 bicarb is 36.7 BUN 18 and creatinine 0.9 and blood sugar is 183. Pulmonary is on board. 03/21/2022 Patient is currently resting in bed. Awake alert and oriented 3. Breathing status is better today. Oxygen current came down to 4 L via nasal cannula. Controlled on IV diuresis. Cultures have been negative. Patient wanted replaced with the liquids. Laboratory data showed WBC 11.4 hemoglobin 14.5 and platelets 236, sodium 137 p otassium 4.0 chloride 91 bicarb is 34.1 BUN 17.3 and creatinine 0.9 and blood sugar is 227 Current medications reviewed. REVIEW OF SYSTEMS: Unable to do much of the history from the patient patient also is alert oriented 3 as per the nursing staff patient is bit confused and delirious PHYSICAL EXAMINATION: GENERAL: The patient is alert and oriented x2-3, not in any acute distress. Obese HEENT: Pupils are round and equally reacting to light. EOMI. No scleral icterus. No conjunctival pallor. Normocephalic, atraumatic. No pharyngeal erythema. No thyromegaly. CARDIOVASCULAR: S1 and S2 present. No murmurs, rubs, or gallops. BiPAP in place PULMONARY: Chest is clear to auscultation, no wheezing or crackles. Mildly diminished air entry into bilateral lung briscoe no wheezing was appreciated ABDOMEN: Soft, nontender, nondistended, normoactive bowel sounds. No palpable organomegaly. MUSCULOSKELETAL: No joint swelling or deformity. EXTREMITIES: No cyanosis, clubbing, 2+ pitting pedal edema in bilateral lower extremities NEUROLOGICAL: Gross neurological examination did not reveal any focal deficits. SKIN: No rashes. Assessment and plan -Acute on chronic hypoxic respiratory failure: Probably secondary to congestive heart failure exacerbation patient is with bilateral pleural effusions patient may have chronic diastolic dysfunction. Patient was started on IV Lasix at , strict I's and O's patient may need a Santana catheter may be retaining urine. Patient still requiring 8 L oxygen via nasal cannula. Patient does have infiltrated with a bronchogram although pro calcitonin is within normal limits . Repeat chest x-ray showed improved aeration. dced antibiotics. Pulmonology is following the patient -Toxic encephalopathy probably from infection, improved. -Leukocytosis either secondary to pneumonia or reactive Resolved. -Obesity possibility of her sleep apnea -Chronic or severe persistent asthma patient is physically not in acute exacerbation may not need any steroids at this time -Atrial fibrillation paroxysmal patient is anticoagulated with Eliquis -Type 2 diabetes mellitus with diabetic peripheral neuropathy DVT prophylaxis: On anti-coagulation which was resumed Objective - Vital Signs Vital signs: Vital Signs Temp 97.7 F 03/21/22 20:00 Pulse 52 L 03/21/22 20:00 Resp 15 03/21/22 20:00 BP 110/61 03/21/22 20:00 Pulse Ox 90 L 03/21/22 20:00 FiO2 50 03/17/22 16:34 Intake & Output 03/21/22 03/21/22 03/22/22 06:59 18:59 06:59 Output Total 725 600 Balance -725 -600 Weight 122 kg 122 kg Output: Urine 725 600 Other: Voiding Method Indwelling Catheter Indwelling Catheter - Labs CBC & Chem 7: 03/23/22 06:27 03/23/22 06:27 Labs: Abnormal Lab Results - Last 24 Hours (Table) 03/19/22 03/21/22 03/21/22 Range/Units 16:29 04:41 04:41 WBC 11.46 H (4.50-10.00) X 10*3/uL MCV 97.8 H (80.0-97.0) fL MCHC 29.8 L (32.0-37.0) g/dL Immature Gran # 0.06 H (0.00-0.04) X 10*3/uL Neutrophils # 8.34 H (1.80-7.70) X 10*3/uL Monocytes # 1.12 H (0.20-1.00) X 10*3/uL Chloride 91 L (96-109) mmol/L Carbon Dioxide 34.1 H (20.0-27.5) mmol/L Glucose 227 H (70-110) mg/dL POC Glucose (mg/dL) 184 H (70-110) mg/dL 03/21/22 03/21/22 03/21/22 Range/Units 05:50 11:38 16:33 WBC (4.50-10.00) X 10*3/uL MCV (80.0-97.0) fL MCHC (32.0-37.0) g/dL Immature Gran # (0.00-0.04) X 10*3/uL Neutrophils # (1.80-7.70) X 10*3/uL Monocytes # (0.20-1.00) X 10*3/uL Chloride (96-109) mmol/L Carbon Dioxide (20.0-27.5) mmol/L Glucose (70-110) mg/dL POC Glucose (mg/dL) 252 H 227 H 210 H (70-110) mg/dL 03/21/22 Range/Units 19:49 WBC (4.50-10.00) X 10*3/uL MCV (80.0-97.0) fL MCHC (32.0-37.0) g/dL Immature Gran # (0.00-0.04) X 10*3/uL Neutrophils # (1.80-7.70) X 10*3/uL Monocytes # (0.20-1.00) X 10*3/uL Chloride (96-109) mmol/L Carbon Dioxide (20.0-27.5) mmol/L Glucose (70-110) mg/dL POC Glucose (mg/dL) 188 H (70-110) mg/dL Microbiology - Last 24 Hours (Table) 03/19/22 08:39 Gram Stain - Final Sputum Sputum Culture - Final 03/15/22 21:19 Blood Culture - Preliminary Blood No Growth after 120 hours 03/15/22 21:00 Blood Culture - Preliminary Blood No Growth after 120 hours
--- NOTE | 2022-03-23 11:29 | P.PN ---
Subjective Progress Note Date: 03/22/22 76-year-old pleasant male was recently treated for respiratory syncytial virus infection and it, in the fall on the left side and had left-sided pneumothorax, came in with complaints of increasing shortness of breath patient is on BiPAP. During his previous hospitalization patient had thoracentesis which showed thick blood and clotting an ultrasound guided pigtail catheter was placed patient was discharged earlier this month patient came in with complaints of increasing shortness of breath and apparently patient has been falling at home patient is saturating 90s on 5 high flow nasal cannula oxygen because of which patient was placed on BiPAP ABG was done unsure this was done on BiPAP, patient is mostly acute hypoxic respiratory failure with pH of 7.43 pCO2 49 and pO2 of 59. Patient does have bilateral pleural effusions patient has a stable condition or failure chronic diastolic dysfunction patient is on oral Lasix at home. Patient was evaluated by pulmonology and patient had a CT of the chest showed bilateral pleural effusions and patient does have and sedation with a bronchogram in the right upper to middle lobes although his pro calcitonin is normal with only mildly elevated white blood cell count and no fever patient was not complaining of cough with sputum production. Patient also is on antibiotics Rocephin and azithromycin. Patient BNP is on Lasix 40 but patient is obese with BMI of 40. There is no pulmonary embolism and the CT PA patient is with previous of oxygen at home 03/17/2022 Patient is currently lying in bed. Awake alert and in no acute distress. Requiring high flow oxygen. Chest x-ray today showed right perihilar infiltrate versus lower lobe slightly improved. Mild patchy density left lower lobe and small effusions. Patient has been afebrile. Currently being continued on Lasix 40 mg twice daily. Patient was agitated this morning. Continued on duo nebs and pulmonary is on board. 03/18/2022 Patient is awake alert and oriented. Sitting in the chair. Currently requiring high flow oxygen at 8 L via nasal cannula. Patient was on BiPAP intermittently. Chest x-ray showed worsening central right lung edema and infiltrates. Worsening left lower lung acute infiltrate/atelectasis. Worsening small left pleural effusion. Patient is being current bronchodilators and Lasix 40 mg twice daily. Heart rate is controlled with Cardizem. Continue on bronchodilators and anticoagulation with Eliquis. Pulmonary is on board. 03/19/2022 Patient remains on 8 L oxygen high flow via nasal cannula. Currently on IV diuretics, and duo nebs. Patient is currently resting in the bed. Awake alert and oriented. Continues to cough without any sputum production. No nausea vomiting abdominal pain or diarrhea. Currently on anticoagulation with Eliquis. Heart rate is controlled. Pulmonary is on board. 03/20/2022 Patient is currently sitting up in the bed. Awake alert and oriented 3. Still requiring high flow oxygen at 8 L via nasal cannula. Next and chest x-ray showed improved aeration bilaterally. Continue on IV Lasix. Cultures have been negative. Laboratory data showed sodium 141 potassium 4.3 chloride 94 bicarb is 36.7 BUN 18 and creatinine 0.9 and blood sugar is 183. Pulmonary is on board. 03/21/2022 Patient is currently resting in bed. Awake alert and oriented 3. Breathing status is better today. Oxygen current came down to 4 L via nasal cannula. Controlled on IV diuresis. Cultures have been negative. Patient wanted replaced with the liquids. Laboratory data showed WBC 11.4 hemoglobin 14.5 and platelets 236, sodium 137 p otassium 4.0 chloride 91 bicarb is 34.1 BUN 17.3 and creatinine 0.9 and blood sugar is 227 03/22/2022 Patient is currently resting in the bed. Awake alert and oriented 3. No complaints of chest pain or worsening shortness of breath. Currently requiring 4-5 L via nasal cannula. Continued on Lasix changed to 40 mg daily. Otherwise patient has been afebrile. No cough or sputum production. No headache or dizziness or lightheadedness. No chest pain. No dysuria or hematuria. Patient is on Santana catheter. Continue with Flomax as well. Pulmonary is on board. Current medications reviewed. REVIEW OF SYSTEMS: Unable to do much of the history from the patient patient also is alert oriented 3 as per the nursing staff patient is bit confused and delirious PHYSICAL EXAMINATION: GENERAL: The patient is alert and oriented x2-3, not in any acute distress. Obese HEENT: Pupils are round and equally reacting to light. EOMI. No scleral icterus. No conjunctival pallor. Normocephalic, atraumatic. No pharyngeal erythema. No thyromegaly. CARDIOVASCULAR: S1 and S2 present. No murmurs, rubs, or gallops. BiPAP in place PULMONARY: Chest is clear to auscultation, no wheezing or crackles. Mildly diminished air entry into bilateral lung briscoe no wheezing was appreciated ABDOMEN: Soft, nontender, nondistended, normoactive bowel sounds. No palpable organomegaly. MUSCULOSKELETAL: No joint swelling or deformity. EXTREMITIES: No cyanosis, clubbing, 2+ pitting pedal edema in bilateral lower extremities NEUROLOGICAL: Gross neurological examination did not reveal any focal deficits. SKIN: No rashes. Assessment and plan -Acute on chronic hypoxic respiratory failure: Probably secondary to congestive heart failure exacerbation patient is with bilateral pleural effusions patient may have chronic diastolic dysfunction. Patient was started on IV Lasix at , strict I's and O's patient may need a Santana catheter may be retaining urine. Patient still requiring 8 L oxygen via nasal cannula. Patient does have infiltrated with a bronchogram although pro calcitonin is within normal limits . Repeat chest x-ray showed improved aeration. dced antibiotics. Pulmonology is following the patient -Toxic encephalopathy probably from infection, improved. -Leukocytosis either secondary to pneumonia or reactive Resolved. -Obesity possibility of her sleep apnea -Chronic or severe persistent asthma patient is physically not in acute exacerbation may not need any steroids at this time -Atrial fibrillation paroxysmal patient is anticoagulated with Eliquis -Type 2 diabetes mellitus with diabetic peripheral neuropathy DVT prophylaxis: On anti-coagulation which was resumed Objective - Vital Signs Vital signs: Vital Signs Temp 98.5 F 03/22/22 19:15 Pulse 80 03/22/22 20:43 Resp 19 03/22/22 19:15 BP 115/72 03/22/22 19:15 Pulse Ox 91 L 03/22/22 19:15 FiO2 50 03/17/22 16:34 Intake & Output 03/22/22 03/22/22 03/23/22 06:59 18:59 06:59 Output Total 700 1100 Balance -700 -1100 Weight 154 kg Output: Urine 700 1100 Other: Voiding Method Indwelling Catheter - Labs CBC & Chem 7: 03/23/22 06:27 03/23/22 06:27 Labs: Abnormal Lab Results - Last 24 Hours (Table) 03/22/22 03/22/22 03/22/22 Range/Units 04:52 04:52 06:04 WBC 10.16 H (4.50-10.00) X 10*3/uL MCHC 30.3 L (32.0-37.0) g/dL Immature Gran # 0.06 H (0.00-0.04) X 10*3/uL Monocytes # 1.02 H (0.20-1.00) X 10*3/uL Carbon Dioxide 31.2 H (20.0-27.5) mmol/L BUN/Creatinine Ratio 21.56 H (12.00-20.00) Ratio Glucose 159 H (70-110) mg/dL POC Glucose (mg/dL) 193 H (70-110) mg/dL 03/22/22 03/22/22 03/22/22 Range/Units 11:18 16:02 20:47 WBC (4.50-10.00) X 10*3/uL MCHC (32.0-37.0) g/dL Immature Gran # (0.00-0.04) X 10*3/uL Monocytes # (0.20-1.00) X 10*3/uL Carbon Dioxide (20.0-27.5) mmol/L BUN/Creatinine Ratio (12.00-20.00) Ratio Glucose (70-110) mg/dL POC Glucose (mg/dL) 183 H 142 H 221 H (70-110) mg/dL Microbiology - Last 24 Hours (Table) 03/15/22 21:00 Blood Culture - Final Blood No Growth after 144 hours 03/15/22 21:19 Blood Culture - Final Blood No Growth after 144 hours
[2022-03-23 14:23] VITALS: BP 116/74; PULSE 61; RESP 18; TEMP 97.4
--- NOTE | 2022-03-23 15:30 | P.PN ---
Subjective Progress Note Date: 03/23/22 Principal diagnosis: Shortness of breath The patient is seen today 03/20/2022 in follow-up on the regular medical floor. He is currently sitting up in bed. Awake and alert in no acute distress. Still requiring 8 L high flow nasal cannula to maintain O2 saturations in the 90s. Follow-up chest x-ray showing improved aeration bilaterally. Blood cultures reveal no growth. Sputum culture pending. White count 12.0. Hemoglobin 13.8. Platelets 264. Sodium 141. Potassium 5.3. BUN 18. Creatinine 0.9. Glucose 183. He is continued on bronchodilators. Anticoagulated with Eliquis. IV diuretics. Currently in a -2.6 L balance. The patient is seen today 03/21/2022 in follow-up on the regular medical floor. He is currently sitting up in bed. Awake and alert in no acute distress. He denies any worsening shortness of breath, cough or congestion. He's been titrated down to oxygen at 4 L/m per nasal cannula. Most recent chest x-ray had reviewed improved aeration. Sputum culture revealed no growth. Blood cultures revealed no growth. White count 11.4. Hemoglobin 14.5. Sodium 137. Potassium 4.0. BUN 17. Creatinine 0.9. Glucose 227. Remains on DuoNeb inhalations. Anticoagulated with Eliquis. Oral diuretics. Remains in a -2.6 L balance. Progress note dated 03/22/2022. The patient is seen today on the general medical floor. He is seen in room 457. He is currently laying in bed. He is on oxygen at 5 L. He's not receiving any IV he's hoping to be discharged soon. He is awake and alert, and in no acute distress. He denies any worsening shortness of breath, cough, or congestion. White count 10.2, hemoglobin 14.4, hematocrit 47.5, and platelet count 318,000. Sodium 141, potassium 4.3, chlorides 98, CO2 31, anion gap 12, BUN 19, creatini ne 0.9. Calcium 9.1. Chest x-ray from March 20 was reviewed. I'm reevaluating this patient today 03/23/2022 on a general medical floor. He is currently resting comfortably in bed, on 4 L nasal cannula. Denies any significant shortness breath, cough, fever, chest pain. CBC shows no leukocy tosis with a WBC count 9.3, hemoglobin 14, hematocrit 47, platelets 302,000. BMP is also stable with a sodium of 138, potassium 4.3, chloride 97, serum CO2 30, BUN 17, creatinine 0.9, glucose 158. He is maintained on DuoNeb inhalation. He is receiving his home dose of Lasix and no IV fluids are infusing, . Vital signs remained stable. Objective - Vital Signs Vital signs: Vital Signs Temp 97.4 F L 03/23/22 14:00 Pulse 61 03/23/22 14:00 Resp 18 03/23/22 14:00 BP 116/74 03/23/22 14:00 Pulse Ox 92 L 03/23/22 14:00 FiO2 50 03/17/22 16:34 Intake & Output 03/22/22 03/23/22 03/23/22 18:59 06:59 18:59 Output Total 1100 625 725 Balance -1100 -625 725 Weight 120.5 kg Output: Urine 1100 625 725 Other: Voiding Method Indwelling Catheter Indwelling Catheter - Exam No acute distress, oriented 3. Currently on 4 L of oxygen by nasal cannula. No conversational dyspnea or use of accessory muscles. HEENT examination is grossly unremarkable. Mucous membranes are moist. No oral lesions. Neck supple. Full range of motion. No adenopathy thyromegaly or neck vein distention. Cardiovascular examination reveals regular rhythm rate. S1-S2 normal. No S3 or S4. No discernible murmur noted. Heart rate 79 bpm. Lungs reveal scattered rhonchi and a few bibasilar scattered crackles. Breath sounds equal bilaterally. Saturations are 96% on 4 L nasal cannula. Abdomen soft bowel sounds are heard. No masses or tenderness. Extremities are intact. No cyanosis clubbing or edema. Skin is without rash or lesion. Neurologic examination is brief but nonfocal. - Labs CBC & Chem 7: 03/23/22 06:27 03/23/22 06:27 Labs: Abnormal Lab Results - Last 24 Hours (Table) 03/22/22 03/22/22 03/23/22 Range/Units 16:02 20:47 06:22 MCHC (32.0-37.0) g/dL Immature Gran # (0.00-0.04) X 10*3/uL Carbon Dioxide (20.0-27.5) mmol/L Glucose (70-110) mg/dL POC Glucose (mg/dL) 142 H 221 H 141 H (70-110) mg/dL 03/23/22 03/23/22 03/23/22 Range/Units 06:27 06:27 11:24 MCHC 30.4 L (32.0-37.0) g/dL Immature Gran # 0.07 H (0.00-0.04) X 10*3/uL Carbon Dioxide 30.1 H (20.0-27.5) mmol/L Glucose 158 H (70-110) mg/dL POC Glucose (mg/dL) 176 H (70-110) mg/dL Assessment and Plan Assessment: Acute on chronic hypoxemic respiratory failure secondary to bilateral pleural effusions, suspect diastolic congestive heart failure. Pro-calcitonin 0.06. Currently on 4 L high flow nasal cannula. Recent hospitalization for fall and trauma with large ecchymosis of the left hip and back, left-sided hemothorax requiring chest tube placement and subsequent removal. Recent hospitalization for RSV infection. Previous history of encephalopathy/delirium. History of severe persistent chronic bronchial asthma. Atrial fibrillation. Diabetes mellitus. Diabetic neuropathy. Obesity. Sleep apnea. Plan: Labs and medications reviewed Continue supplemental oxygen to maintain oxygen saturations of 92% or greater. Continue current medication regimen Patient is cleared for discharge from a pulmonary standpoint Patient already has home 02 Patient to follow up in office in 7-10 days post discharge. I have personally seen and examined the patient, performed the documentation and the assessment and plan as written. Number of minutes spent on the visit: 10.
--- NOTE | 2022-03-27 18:59 | CDI ---
Documentation Clarification Form Date: 03/27/2022 06:45:44 PM From: Chantelle Lopez Phone: Admit Date: 03/15/2022 09:33:00 PM Patient Name: Ambrocio Govea Visit Number: [id number] Discharge Date: 03/23/2022 04:17:00 PM ATTENTION: The Clinical Documentation Specialists (CDI) and [facility] Coding Staff appreciate your assistance in clarifying documentation. Please respond to the clarification below the line at the bottom and electronically sign. The CDI & [facility] Coding staff will review the response and follow-up if needed. Please note: Queries are made part of the Legal Health Record. If you have any questions, please contact the author of this message via ITS. Dr. Kinga Morillo Conflicting documentation has been found in the medical record. As attending physician, please provide clarification. Atrial fibrillation paroxysmal H&P and multi Progress Notes Chronic atrial fibrillation Progress Note Date: 03/19/22 History/Risk Factors: 76yo M, ACHRF, Alcides pleural effusions, DCHF, home O2, COPD, severe persistent chronic bronchial asthma, A Fib, DMII w neuropath, obesity, HERMES Clinical Indicators: Shortness of Breath, palpitations, orthopnea, edema. Denies: chest pain, syncope. Treatment: Patient is anticoagulated with Eliquis Please clarify which diagnosis is most appropriate: [ ] Paroxysmal Atrial fibrillation [ ] Chronic atrial fibrillation [ ] Other (please specify) [ ] Unable to determine (Template Last Revised: May 2020) Paroxysmal Atrial fibrillation MTDD
--- NOTE | 2022-04-05 14:33 | P.DS ---
Providers Date of admission: 03/15/22 21:33 Expected date of discharge: 03/23/22 Attending physician: Kinga Morillo Consults: 03/15/22 21:43 Consult Physician Routine Consulting Provider: Himanshu Vela Consult Reason/Comments: dyspnea. Pneumonia. Posible pleural effusion Do you want consulting provider notified?: Yes 03/17/22 16:40 Consult Physician Routine Consulting Provider: Mike Garcia Consult Reason/Comments: severe agitation, possible medication adjustment. Do you want consulting provider notified?: Already Contacted Primary care physician: Jaylan Desir [facility] Course: Discharge diagnosis -Acute on chronic hypoxic respiratory failure: Probably secondary to congestive heart failure exacerbation patient is with bilateral pleural effusions patient may have chronic diastolic dysfunction. Patient was started on IV Lasix at , strict I's and O's . was on bipap-> high flow o2 titrated down to 4 L oxygen via nasal cannula. Patient does have infiltrated with a bronchogram although pro calcitonin is within normal limits . Repeat chest x-ray showed improved aeration. dced antibiotics. Pulmonology is following the patient -Toxic encephalopathy probably from infection, improved. -Leukocytosis either secondary to pneumonia or reactive Resolved. -Obesity possibility of her sleep apnea -Chronic or severe persistent asthma patient is physically not in acute exacerbation may not need any steroids at this time -Atrial fibrillation paroxysmal patient is anticoagulated with Eliquis -Type 2 diabetes mellitus with diabetic peripheral neuropathy Hospital course 76-year-old pleasant male was recently treated for respiratory syncytial virus infection and it, in the fall on the left side and had left-sided pneumothorax, came in with complaints of increasing shortness of breath patient is on BiPAP. During his previous hospitalization patient had thoracentesis which showed thick blood and clotting an ultrasound guided pigtail catheter was placed patient was discharged earlier this month patient came in with complaints of increasing shortness of breath and apparently patient has been falling at home patient is saturating 90s on 5 high flow nasal cannula oxygen because of which patient was placed on BiPAP ABG was done unsure this was done on BiPAP, patient is mostly acute hypoxic respiratory failure with pH of 7.43 pCO2 49 and pO2 of 59. Patient does have bilateral pleural effusions patient has a stable condition or failure chronic diastolic dysfunction patient is on oral Lasix at home. Patient was evaluated by pulmonology and patient had a CT of the chest showed bilateral pleural effusions and patient does have and sedation with a bronchogram in the right upper to middle lobes although his pro calcitonin is normal with only mildly elevated white blood cell count and no fever patient was not complaining of cough with sputum production. Patient also is on antibiotics Rocephin and azithromycin. Patient BNP is on Lasix 40 but patient is obese with BMI of 40. There is no pulmonary embolism and the CT PA patient is with previous of oxygen at home 03/17/2022 Patient is currently lying in bed. Awake alert and in no acute distress. Requiring high flow oxygen. Chest x-ray today showed right perihilar infiltrate versus lower lobe slightly improved. Mild patchy density left lower lobe and small effusions. Patient has been afebrile. Currently being continued on Lasix 40 mg twice daily. Patient was agitated this morning. Continued on duo nebs and pulmonary is on board. 03/18/2022 Patient is awake alert and oriented. Sitting in the chair. Currently requiring high flow oxygen at 8 L via nasal cannula. Patient was on BiPAP intermittently. Chest x-ray showed worsening central right lung edema and infiltrates. Worsening left lower lung acute infiltrate/atelectasis. Worsening small left pleural effusion. Patient is being current bronchodilators and Lasix 40 mg twice daily. Heart rate is controlled with Cardizem. Continue on bronchodilators and anticoagulation with Eliquis. Pulmonary is on board. 03/19/2022 Patient remains on 8 L oxygen high flow via nasal cannula. Currently on IV diuretics, and duo nebs. Patient is currently resting in the bed. Awake alert and oriented. Continues to cough without any sputum production. No nausea vomiting abdominal pain or diarrhea. Currently on anticoagulation with Eliquis. Heart rate is controlled. Pulmonary is on board. 03/20/2022 Patient is currently sitting up in the bed. Awake alert and oriented 3. Still requiring high flow oxygen at 8 L via nasal cannula. Next and chest x-ray showed improved aeration bilaterally. Continue on IV Lasix. Cultures have been negative. Laboratory data showed sodium 141 potassium 4.3 chloride 94 bicarb is 36.7 BUN 18 and creatinine 0.9 and blood sugar is 183. Pulmonary is on board. 03/21/2022 Patient is currently resting in bed. Awake alert and oriented 3. Breathing status is better today. Oxygen current came down to 4 L via nasal cannula. Controlled on IV diuresis. Cultures have been negative. Patient wanted replaced with the liquids. Laboratory data showed WBC 11.4 hemoglobin 14.5 and platelets 236, sodium 137 potassium 4.0 chloride 91 bicarb is 34.1 BUN 17.3 and creatinine 0.9 and blood sugar is 227 03/22/2022 Patient is currently resting in the bed. Awake alert and oriented 3. No complaints of chest pain or worsening shortness of breath. Currently requiring 4-5 L via nasal cannula. Continued on Lasix changed to 40 mg daily. Otherwise patient has been afebrile. No cough or sputum production. No headache or dizziness or lightheadedness. No chest pain. No dysuria or hematuria. Patient is on Santana catheter. Continue with Flomax as well. Pulmonary is on board. 03/23/2022 Patient is currently resting in bed. Breathing status is better. Oxygen titrated down to 4 L via nasal cannula. Denied any complaints of worsening shortness of breath. No fever no chills. No chest pain or tightness. No nausea vomiting abdominal diarrhea. Patient is tolerating oral diet. Patient is being currently on IV diuresis and is being changed to by mouth. Laboratory data showed WBC 9.3 hemoglobin 14.3 and platelets 302 sodium 138 potassium 4.3 chloride 97 bicarb is 30.1 and creatinine 0.9. Blood sugar is controlled. Patient is cleared from pulmonary and is being discharged home with home health care services. PHYSICAL EXAMINATION: GENERAL: The patient is alert and oriented x2-3, not in any acute distress. Obese HEENT: Pupils are round and equally reacting to light. EOMI. No scleral icterus. No conjunctival pallor. Normocephalic, atraumatic. No pharyngeal erythema. No thyromegaly. CARDIOVASCULAR: S1 and S2 present. No murmurs, rubs, or gallops. PULMONARY: Chest is clear to auscultation, no wheezing or crackles. Mildly diminished air entry into bilateral lung briscoe no wheezing was appreciated ABDOMEN: Soft, nontender, nondistended, normoactive bowel sounds. No palpable organomegaly. MUSCULOSKELETAL: No joint swelling or deformity. EXTREMITIES: No cyanosis, clubbing, 2+ pitting pedal edema in bilateral lower extremities NEUROLOGICAL: Gross neurological examination did not reveal any focal deficits. SKIN: No rashes. Vital signs: Vital Signs Temp 97.4 F L 03/23/22 14:00 Pulse 61 03/23/22 14:00 Resp 18 03/23/22 14:00 BP 116/74 03/23/22 14:00 Pulse Ox 92 L 03/23/22 14:00 FiO2 50 03/17/22 16:34 Intake & Output 03/22/22 03/23/22 03/23/22 18:59 06:59 18:59 Output Total 1100 675 725 Balance -6536 -757 -725 Weight 120.5 kg Output: Urine 1100 625 725 Other: Voiding Method Indwelling Catheter Indwelling Catheter Time taking greater than 35 minutes. Patient Condition at Discharge: Fair Plan - Discharge Summary Discharge Rx Participant: No New Discharge Prescriptions: Continue Ubidecarenone [Co Q-10] 300 mg PO HS Apixaban [Eliquis] 5 mg PO BID #60 tab Cholecalciferol [Vitamin D3 (25 Mcg = 1000 Iu)] 50 mcg PO DAILY Insulin Aspart [NovoLOG Flexpen] See Protocol SQ AC-TID Gabapentin 300 mg PO BID Acetaminophen Tab [Tylenol] 650 mg PO Q4HR PRN PRN Reason: Fever And/Or Mild Pain Atorvastatin [Lipitor] 40 mg PO HS Diltiazem Oral [Cardizem*] 30 mg PO TID tab Metoprolol Tartrate [Lopressor] 50 mg PO BID tab busPIRone HCL 7.5 mg PO BID Tamsulosin [Flomax] 0.4 mg PO HS Ascorbic Acid [Vitamin C] 500 mg PO HS Furosemide [Lasix] 40 mg PO DAILY Discontinued Losartan [Cozaar] 50 mg PO HS Discharge Medication List Ubidecarenone [Co Q-10] 300 mg PO HS 01/21/16 [History] Atorvastatin [Lipitor] 40 mg PO HS 02/12/22 [History] Apixaban [Eliquis] 5 mg PO BID #60 tab 02/24/22 [Rx] Diltiazem Oral [Cardizem*] 30 mg PO TID tab 02/24/22 [Rx] Metoprolol Tartrate [Lopressor] 50 mg PO BID tab 02/24/22 [Rx] Acetaminophen Tab [Tylenol] 650 mg PO Q4HR PRN 03/15/22 [History] Ascorbic Acid [Vitamin C] 500 mg PO HS 03/15/22 [History] Cholecalciferol [Vitamin D3 (25 Mcg = 1000 Iu)] 50 mcg PO DAILY 03/15/22 [History] Furosemide [Lasix] 40 mg PO DAILY 03/15/22 [History] Gabapentin 300 mg PO BID 03/15/22 [History] Insulin Aspart [NovoLOG Flexpen] See Protocol SQ AC-TID 03/15/22 [History] Tamsulosin [Flomax] 0.4 mg PO HS 03/15/22 [History] busPIRone HCL 7.5 mg PO BID 03/15/22 [History] Follow up Appointment(s)/Referral(s): Tommy Thomas DO [Doctor of Osteopathic Medicine] - 03/31/22 10:15 am Jaylan Desir MD [Primary Care Provider] - 03/30/22 10:30 am [facility] [[facility]-STAFF] - 1-2 Days Patient Instructions/Handouts: Heart Failure (DC), Pleural Effusion (DC) Activity/Diet/Wound Care/Special Instructions: Updated oxygen order faxed to [facility]. Discharge Disposition: HOME WITH HOME HEALTH SERVICES
== END 2022-03-23 16:17 | disposition home health service (06) | DRG 291 ==
LOC: EC 19:37 → 4SSUR 21:33
PROVIDERS: ADMIT Hospitalist; ATTEND Hospitalist
PROC: 5A0955A Assistance with Respiratory Ventilation, Greater than 96 Consecutive Hours, High Flow/Velocity Cannula (ICD-10-PCS; principal; 2022-03-16)
DX: I11.0 Hypertensive heart disease with heart failure (principal); G92.9 Unspecified toxic encephalopathy; J96.21 Acute and chronic respiratory failure with hypoxia; J18.9 Pneumonia, unspecified organism; I50.33 Acute on chronic diastolic (congestive) heart failure; J44.0 Chronic obstructive pulmonary disease with (acute) lower respiratory infection; J98.11 Atelectasis; Z68.41 Body mass index [BMI] 40.0-44.9, adult; E11.42 Type 2 diabetes mellitus with diabetic polyneuropathy; Z79.01 Long term (current) use of anticoagulants; Z99.81 Dependence on supplemental oxygen; I48.0 Paroxysmal atrial fibrillation; E11.65 Type 2 diabetes mellitus with hyperglycemia; E66.01 Morbid (severe) obesity due to excess calories; J45.50 Severe persistent asthma, uncomplicated; E78.5 Hyperlipidemia, unspecified; W19.XXXA Unspecified fall, initial encounter; R29.6 Repeated falls; Y92.009 Unspecified place in unspecified non-institutional (private) residence as the place of occurrence of the external cause; G47.33 Obstructive sleep apnea (adult) (pediatric); F43.21 Adjustment disorder with depressed mood; Y95 Nosocomial condition; Z20.822 Contact with and (suspected) exposure to COVID-19; Z96.652 Presence of left artificial knee joint; Z87.01 Personal history of pneumonia (recurrent); Z79.899 Other long term (current) drug therapy; Z79.4 Long term (current) use of insulin; Z91.011 Allergy to milk products; Z87.891 Personal history of nicotine dependence; Z91.81 History of falling
CPT/HCPCS: 36415; 36600; 71045; 71046; 71275; 80048; 80053; 82805; 83036; 83605; 83735; 83880; 84145; 84484; 85025; 85027; 85379; 85610; 85730; 87040; 87070; 87205; 87502; 87635; 93005; 94640; 94660; 94760; 96361; 96365; 99285

== ENCOUNTER → 2022-07-17 | Outpatient (CLI) | payer MEDICARE | END | disposition home or self-care (01) | LOC: LABWHC1 12:01 | PROVIDERS: ATTEND Family Medicine | DX: E11.65 Type 2 diabetes mellitus with hyperglycemia (principal) | CPT/HCPCS: 36415; 83036 ==

== ENCOUNTER 2023-12-14 01:18 | Inpatient (IN) | payer MEDICARE ==
[2023-12-14] MEDS: SODIUM CHLORIDE 0.9% 500 ML 500 ML IV ONE ×2 (01:45→04:49)
[2023-12-14 01:48] LABS: Basophils # (A) 0.1 k/uL (0-0.2); Basophils % (A) 0 %; Eosinophils # (A) 0.1 k/uL (0-0.7); Eosinophils % (A) 1 %; HCT 42.4 % (39.0-53.0); HGB 13.4 gm/dL (13.0-17.5); Hypochromasia Slight; Lymphocytes # (A) 1.3 k/uL (1.0-4.8); Lymphocytes % (A) 9 %; MCH 29.5 pg (25.0-35.0); MCHC 31.5 g/dL (31.0-37.0); MCV 93.6 fL (80.0-100.0); Mean Platelet Volume 8.1; Monocytes # (A) 0.7 k/uL (0-1.0); Monocytes % (A) 5 %; Neutrophils # (A) 12.6 k/uL (1.3-7.7); Neutrophils % (A) 85 %; Platelet Count 284 k/uL (150-450); RBC 4.53 m/uL (4.30-5.90); RDW 12.9 % (11.5-15.5); WBC 14.8 k/uL (3.8-10.6)
[2023-12-14 01:56] LABS: Glucose,Whole Blood 507 mg/dL (70-110)
[2023-12-14 02:02] LABS: Chloride 94 mmol/L (98-107); Potassium 3.6 mmol/L (3.5-5.1); Sodium 127 mmol/L (137-145)
[2023-12-14 02:15] LABS: ALT 38 U/L (4-49); AST 40 U/L (17-59); African American GFR (CKD) 66 (>60 ml/min/1.73 sqM); Albumin 3.2 g/dL (3.5-5.0); Alkaline Phosphatase 85 U/L (38-126); Anion Gap 11 mmol/L; Blood Urea Nitrogen 29 mg/dL (9-20); Calcium 8.6 mg/dL (8.4-10.2); Carbon Dioxide 22 mmol/L (22-30); Non-African American GFR(CKD) 57 (>60 ml/min/1.73 sqM); Total Protein 5.9 g/dL (6.3-8.2)
[2023-12-14 02:22] LABS: Partial Thromboplastin Time 25.2 sec (22.0-30.0); Prothrombin Time 11.2 sec (10.0-12.5)
[2023-12-14 02:24] LABS: NT-Pro-B-Type Natriuretic Pept 1260 pg/mL
[2023-12-14 02:26] LABS: Glucose 540 mg/dL (74-99)
[2023-12-14 03:59] LABS: Amorphous Sediment,Urine Occasional /hpf; Appearance,Urine Clear (Clear); Bacteria,Urine Occasional /hpf; Bilirubin,Urine Negative (Negative); Blood,Urine Small (Negative); Color,Urine Colorless; Glucose,Urine (UA) 4+ (Negative); Ketones,Urine Negative (Negative); Leukocyte Esterase,Urine Large (Negative); Mucus,Urine Occasional /hpf; Nitrite,Urine Negative (Negative); PH, Urine 5.5 (5.0-8.0); Protein,Urine Negative (Negative); RBC,Urine 24 /hpf (0-5); Squamous Epithelial Cell,Urine 1 /hpf (0-4); Urobilinogen,Urine <2.0 mg/dL (<2.0); WBC,Urine 88 /hpf (0-5)
[2023-12-14] MEDS: CEFEPIME 2 GM in SODIUM CHLORIDE 0.9% 100 ML IVPB STA (04:47)
--- NOTE | 2023-12-14 05:01 | XR ---
EXAMINATION TYPE: XR chest 2V DATE OF EXAM: 12/14/2023 COMPARISON: Chest x-ray March 20, 2022 HISTORY: Hypoxia. TECHNIQUE: Frontal and lateral views of the chest are obtained. FINDINGS: Low lung volumes redemonstrated. There is no focal air space opacity, pleural effusion, or pneumothorax seen. Mild cardiomegaly again seen. Degenerative change bilateral glenohumeral joints re demonstrated. IMPRESSION: Low lung volumes and mild cardiomegaly without suspicious acute pulmonary infiltrate. [facility], , 12/14/2023 4:59 AM
--- NOTE | 2023-12-14 05:40 | ED ---
General Adult HPI - General Chief complaint: Altered Mental Status Stated complaint: Altered Mental Time Seen by Provider: 12/14/23 01:28 Source: family, EMS Mode of arrival: EMS Limitations: no limitations - History of Present Illness Initial comments: Patient is a 78-year-old gentleman presenting with his for generalized weakness. This afternoon patient had a large episode of watery diarrhea. No blood or black color to diarrhea. No abdominal pain. Patient's took him into the shower to help clean him up and upon try to get him out of the shower he was too weak to stand to get him out of the shower so his called 911. Pt denies syncope, dizziness, [place], changes in vision, chest pain, abdominal pain, shortness of breath. No recent fevers. - Related Data Previous Rx's Medication Instructions Recorded Acetaminophen Tab [Tylenol] 650 mg PO Q6HR PRN tab 12/19/23 Ciprofloxacin HCl [Cipro] 500 mg PO Q12HR 10 Days #20 tab 12/19/23 INSULIN ASPART (NovoLOG) [NovoLOG 0 unit SQ ACHS each 12/19/23 (formulary)] Insulin Glargine,Hum.rec.anlog 40 units SQ DAILY 30 Days #3 each 12/19/23 [Lantus Solostar Pen] Melatonin 6 mg PO HS PRN #60 tab 12/19/23 Pantoprazole [Protonix] 40 mg PO AC-BRKFST 14 Days #14 tab 12/19/23 QUEtiapine [SEROquel] 25 mg PO BID 30 Days #60 tab 12/19/23 Tamsulosin [Flomax] 0.4 mg PO PC-BRKFST 30 Days #30 cap 12/19/23 amLODIPine [Norvasc] 5 mg PO DAILY #30 tab 12/19/23 Allergies Allergy/AdvReac Type Severity Reaction Status Date / Time No Known Allergies Allergy Verified 12/14/23 10:55 Review of Systems ROS Statement: Those systems with pertinent positive or pertinent negative responses have been documented in the HPI. ROS Other: All systems not noted in ROS Statement are negative. Constitutional: Denies: fever, chills Respiratory: Denies: cough, dyspnea Cardiovascular: Denies: chest pain, dyspnea on exertion, syncope Gastrointestinal: Reports: diarrhea. Denies: abdominal pain, nausea, vomiting, melena, hematochezia Neurological: Denies: headache, vertigo Past Medical History Past Medical History: Asthma, COPD, Diabetes Mellitus, GERD/Reflux, Hypertensio n, Sleep Apnea/CPAP/BIPAP Additional Past Medical History / Comment(s): SOB w/exertion, supposed to use CPAP, peripheral neuropathy; atrial fibrillation, at home o2 History of Any Multi-Drug Resistant Organisms: None Reported Past Surgical History: Joint Replacement, Orthopedic Surgery Additional Past Surgical History / Comment(s): cataract surg., rotator cuff repair, left knee replaced, benign fatty tumor removed, broke back without surgery Past Anesthesia/Blood Transfusion Reactions: Previous Problems w/ Anesthesia Additional Past Anesthesia/Blood Transfusion Reaction / Comment(s): developed vertigo few days after surg. Past Psychological History: Anxiety Smoking Status: Former smoker Past Alcohol Use History: Rare Past Drug Use History: None Reported - Past Family History Mother Family Medical History: Cancer Father Family Medical History: CVA/TIA General Exam - General Exam Comments Initial Comments: PE: CONSTITUTIONAL: No apparent distress, ill-appearing, awake and alert SKIN: Warm, dry, no jaundice, hives or petechiae EYES: Pupils are equally round, extraocular movements intact without nystagmus, clear conjunctiva, non-icteric sclera HENT: Normocephalic, atraumatic, moist mucus membranes, oropharynx clear without exudates NECK: , Full range of motion, normal appearance PULMONARY: Clear to auscultation without wheezes, rhonchi, or rales, normal excursion, no accessory muscle use and no stridor CARDIOVASCULAR: Regular rate, rhythm, normal S1 and S2. No appreciated murmurs, rubs or gallops. Strong radial pulses with intact distal perfusion. No lower extremity edema GASTROINTESTINAL: Soft, non-tender, non-distended, no palpable masses, no rebound or guarding. No hepatosplenomegaly MUSCULOSKELETAL: Extremities have no gross deformity, no edema, redness, or swelling. No calf swelling NEUROLOGIC:_a/o x 3, GCS 15, normal mentation and speech. Moves all extremities x 4 without motor or sensory deficit PSYCHIATRIC:_normal mood and affect, thought process is clear and linear Limitations: no limitations Course Vital Signs 12/14/23 12/14/23 12/14/23 01:19 03:05 04:23 Temperature 97.3 F L Pulse Rate 98 92 92 Pulse Rate [ Pulse Oximetery ] Respiratory 16 14 16 Rate Blood Pressure 112/63 127/80 133/97 Blood Pressure [Left Arm Supine] O2 Sat by Pulse 92 L 95 93 L Oximetry 12/14/23 12/14/23 12/14/23 06:05 07:30 10:15 Temperature 97.2 F L Pulse Rate 93 90 Pulse Rate [ Pulse Oximetery ] Respiratory 20 18 Rate Blood Pressure 127/71 141/94 Blood Pressure [Left Arm Supine] O2 Sat by Pulse 91 L 95 Oximetry 12/14/23 12/14/23 12/14/23 11:07 15:40 18:42 Temperature Pulse Rate 85 86 90 Pulse Rate [ Pulse Oximetery ] Respiratory 18 18 18 Rate Blood Pressure 165/99 147/92 110/60 Blood Pressure [Left Arm Supine] O2 Sat by Pulse 97 95 90 L Oximetry 12/14/23 12/14/23 19:49 20:25 Temperature 97.9 F Pulse Rate 89 Pulse Rate [ 87 Pulse Oximetery ] Respiratory 20 20 Rate Blood Pressure 114/71 Blood Pressure 137/78 [Left Arm Supine] O2 Sat by Pulse 92 L 96 Oximetry EKG Findings - EKG Comments: EKG Findings:: Sinus rhythm with first-degree AV block, rate 99 bpm, NJ interval 214 ms, QRS duration 170 ms, QT/QTc 397/453 ms, left axis deviation no ST elevations or depressions Medical Decision Making - Medical Decision Making Was pt. sent in by a medical professional or institution (, PA, CRA OFFICER, urgent care, hospital, or detention...) When possible be specific @ -No Did you speak to anyone other than the patient for history (EMS, parent, family, police, friend...)? What history was obtained from this source @ -Spoke with patient's at bedside Did you review nursing and triage notes (agree or disagree)? Why? @ -I reviewed and agree with nursing and triage notes with exception that patient is AO x 4 currently, without complaints, here for generalized weakness after bout of diarrhea, noted to be hypoxic, 86% on room air Were old charts reviewed (outside hosp., previous admission, EMS record, old EKG, old radiological studies, urgent care reports/EKG's, detention records)? Report findings @ -Reviewed sleep study from 04/25/2022, discussed visit patient was hospitalized for acute hypoxemic respiratory failure due to diastolic heart failure and during his hospitalization had obvious features of HERMES. Differential Diagnosis (chest pain, altered mental status, abdominal pain women, abdominal pain men, vaginal bleeding, weakness, fever, dyspnea, syncope, headache, dizziness, GI bleed, back pain, seizure, CVA, palpatations, mental health, musculoskeletal)? @Differential diagnosis remains broad however top considerations include sepsis, hyponatremia, anemia, infection, ACS, adverse medication reaction, this is not all-inclusive list EKG interpreted by me (3pts min.). @ -As above X-rays interpreted by me (1pt min.). @ -Cardiomegaly without obvious consolidations CT interpreted by me (1pt min.). @ -None done U/S interpreted by me (1pt. min.). @ -None done What testing was considered but not performed or refused? (CT, X-rays, U/S, labs )? Why? @ -Considered CT Abdo pelvis however patient's abdomen was soft nontender, active bowel sounds, nondistended, benign abdominal exam What meds were considered but not given or refused? Why? @ -None Did you discuss the management of the patient with other professionals (professionals i.e. , PA, CRA OFFICER, lab, RT, psych nurse, social service liaison, pierogi maker, teacher, campus security officer, nurse case manager)? Give summary @ -No Was smoking cessation discussed for >3mins.? @ -No Was critical care preformed (if so, how long)? @ -No Were there social determinants of health that impacted care today? How? (Homelessness, low income, unemployed, alcoholism, drug addiction, transportation, low edu. Level, literacy, decrease access to med. care, intermediate, rehab)? @ -No Was there de-escalation of care discussed even if they declined (Discuss DNR or withdrawal of care, Hospice)? @ -No What co-morbidities impacted this encounter? (DM, HTN, Smoking, COPD, CAD, Cancer, CVA, ARF, Chemo, Hep., AIDS, mental health diagnosis, sleep apnea, morbid obesity)? @ -Diabetes, CHF Was patient admitted / discharged? Hospital course, mention meds given and route, prescriptions, significant lab abnormalities, going to OR and other pertinent info. @ -Hospital course admitted Patient is a pleasant 78-year-old gentleman past medical history diabetes, HERMES, CHF presenting today for generalized weakness. Seen and assessed immediately upon arrival. Awake and alert, is hypoxic to 86% on room air denies any difficulty in breathing. Placed on 2 L oxygen nasal cannula, lungs clear to auscultation bilaterally. Pt currently without complaints, AO x4. Comprehensive labs, UA, CXR, EKG ordered. Suspect hypovolemia may be at play 2/2 diahrrhea however will gradually fluid resuscitate 2/2 hx CHF. Labs reviewed, significant for mild leukocytosis white blood cell count 14.8, hyponatremia 127, glucose 540, lactic 3.1, urinalysis with 4+ glucose, negative ketones, small amount of blood, large leukocyte esterase 24 red blood cells, 88 white blood cells, 1 squamous cell and occasional bacteria. Suspect elevated lactic secondary to sepsis vs diarrhea vs volume depletion. Will recheck. Ordered cefepime for UTI. Plan for admission due to symptomatic hyponatremia and UTI. Case discussed with Dr. Reaves, [facility]. Kindly accepts for admission. Patient admitted in stable condition. Undiagnosed new problem with uncertain prognosis? @ -No Drug Therapy requiring intensive monitoring for toxicity (Heparin, Nitro, Insulin, Cardizem)? @ -No Were any procedures done? @ -No Diagnosis/symptom? @Generalized weakness, hyponatremia, UTI Acute, or Chronic, or Acute on Chronic? @ -Acute Uncomplicated (without systemic symptoms) or Complicated (systemic symptoms)? @Complicated Side effects of treatment? @ -No Exacerbation, Progression, or Severe Exacerbation? @ -No Poses a threat to life or bodily function? How? (Chest pain, USA, AR, pneumonia, PE, COPD, DKA, ARF, appy, cholecystitis, CVA, Diverticulitis, Homicidal, Suicidal, threat to staff... and all critical care pts) @ -Yes, potentially - Lab Data Result diagrams: 12/17/23 06:44 12/17/23 06:44 Lab Results 12/14/23 12/14/23 12/14/23 Range/Units 01:37 01:37 01:37 WBC 14.8 H (3.8-10.6) k/uL RBC 4.53 (4.30-5.90) m/uL Hgb 13.4 (13.0-17.5) gm/dL Hct 42.4 (39.0-53.0) % MCV 93.6 (80.0-100.0) fL MCH 29.5 (25.0-35.0) pg MCHC 31.5 (31.0-37.0) g/dL RDW 12.9 (11.5-15.5) % Plt Count 284 (150-450) k/uL MPV 8.1 Neutrophils % 85 % Lymphocytes % 9 % Monocytes % 5 % Eosinophils % 1 % Basophils % 0 % Neutrophils # 12.6 H (1.3-7.7) k/uL Lymphocytes # 1.3 (1.0-4.8) k/uL Monocytes # 0.7 (0-1.0) k/uL Eosinophils # 0.1 (0-0.7) k/uL Basophils # 0.1 (0-0.2) k/uL Hypochromasia Slight PT 11.2 (10.0-12.5) sec INR 1.0 (<1.2) APTT 25.2 (22.0-30.0) sec D-Dimer 0.46 (<0.60) mg/L FEU VBG pH (7.31-7.41) VBG pCO2 (37-51) mmHg VBG HCO3 (24-28) mmol/L Sodium 127 L (137-145) mmol/L Potassium 3.6 (3.5-5.1) mmol/L Chloride 94 L (98-107) mmol/L Carbon Dioxide 22 (22-30) mmol/L Anion Gap 11 mmol/L BUN 29 H (9-20) mg/dL Creatinine 1.22 (0.66-1.25) mg/dL Est GFR (CKD-EPI)AfAm 66 (>60 ml/min/1.73 sqM) Est GFR (CKD-EPI)NonAf 57 (>60 ml/min/1.73 sqM) Glucose 540 H* (74-99) mg/dL POC Glucose (mg/dL) (70-110) mg/dL POC Glu Thinner Sprayer ID Lactic Ac Sepsis Rflx Plasma Lactic Acid [place] (0.7-2.0) mmol/L Calcium 8.6 (8.4-10.2) mg/dL Total Bilirubin 1.0 (0.2-1.3) mg/dL AST 40 (17-59) U/L ALT 38 (4-49) U/L Alkaline Phosphatase 85 (38-126) U/L Troponin I (0.000-0.034) ng/mL NT-Pro-B Natriuret Pep 1260 pg/mL Total Protein 5.9 L (6.3-8.2) g/dL Albumin 3.2 L (3.5-5.0) g/dL TSH 1.730 (0.465-4.680) mIU/L Urine Color Urine Appearance (Clear) Urine pH (5.0-8.0) Ur Specific [place] (1.001-1.035) Urine Protein (Negative) Urine Glucose (UA) (Negative) Urine Ketones (Negative) Urine Blood (Negative) Urine Nitrite (Negative) Urine Bilirubin (Negative) Urine Urobilinogen (<2.0) mg/dL Ur Leukocyte Esterase (Negative) Urine RBC (0-5) /hpf Urine WBC (0-5) /hpf Ur Squamous Epith Cells (0-4) /hpf Amorphous Sediment (None) /hpf Urine Bacteria (None) /hpf Urine Mucus (None) /hpf Acetone, Qual (Negative) Influenza Type A (PCR) (Not Detectd) Influenza Type B (PCR) (Not Detectd) RSV (PCR) (Not Detectd) SARS-CoV-2 (PCR) (Not Detectd) 12/14/23 12/14/23 12/14/23 Range/Units 01:37 01:37 01:37 WBC (3.8-10.6) k/uL RBC (4.30-5.90) m/uL Hgb (13.0-17.5) gm/dL Hct (39.0-53.0) % MCV (80.0-100.0) fL MCH (25.0-35.0) pg MCHC (31.0-37.0) g/dL RDW (11.5-15.5) % Plt Count (150-450) k/uL MPV Neutrophils % % Lymphocytes % % Monocytes % % Eosinophils % % Basophils % % Neutrophils # (1.3-7.7) k/uL Lymphocytes # (1.0-4.8) k/uL Monocytes # (0-1.0) k/uL Eosinophils # (0-0.7) k/uL Basophils # (0-0.2) k/uL Hypochromasia PT (10.0-12.5) sec INR (<1.2) APTT (22.0-30.0) sec D-Dimer (<0.60) mg/L FEU VBG pH (7.31-7.41) VBG pCO2 (37-51) mmHg VBG HCO3 (24-28) mmol/L Sodium (137-145) mmol/L Potassium (3.5-5.1) mmol/L Chloride (98-107) mmol/L Carbon Dioxide (22-30) mmol/L Anion Gap mmol/L BUN (9-20) mg/dL Creatinine (0.66-1.25) mg/dL Est GFR (CKD-EPI)AfAm (>60 ml/min/1.73 sqM) Est GFR (CKD-EPI)NonAf (>60 ml/min/1.73 sqM) Glucose (74-99) mg/dL POC Glucose (mg/dL) (70-110) mg/dL POC Glu Thinner Sprayer ID Lactic Ac Sepsis Rflx Plasma Lactic Acid [place] 3.1 H* (0.7-2.0) mmol/L Calcium (8.4-10.2) mg/dL Total Bilirubin (0.2-1.3) mg/dL AST (17-59) U/L ALT (4-49) U/L Alkaline Phosphatase (38-126) U/L Troponin I 0.019 (0.000-0.034) ng/mL NT-Pro-B Natriuret Pep pg/mL Total Protein (6.3-8.2) g/dL Albumin (3.5-5.0) g/dL TSH (0.465-4.680) mIU/L Urine Color Urine Appearance (Clear) Urine pH (5.0-8.0) Ur Specific [place] (1.001-1.035) Urine Protein (Negative) Urine Glucose (UA) (Negative) Urine Ketones (Negative) Urine Blood (Negative) Urine Nitrite (Negative) Urine Bilirubin (Negative) Urine Urobilinogen (<2.0) mg/dL Ur Leukocyte Esterase (Negative) Urine RBC (0-5) /hpf Urine WBC (0-5) /hpf Ur Squamous Epith Cells (0-4) /hpf Amorphous Sediment (None) /hpf Urine Bacteria (None) /hpf Urine Mucus (None) /hpf Acetone, Qual (Negative) Influenza Type A (PCR) Not Detected (Not Detectd) Influenza Type B (PCR) Not Detected (Not Detectd) RSV (PCR) Not Detected (Not Detectd) SARS-CoV-2 (PCR) Not Detected (Not Detectd) 12/14/23 12/14/23 12/14/23 Range/Units 01:55 02:26 02:57 WBC (3.8-10.6) k/uL RBC (4.30-5.90) m/uL Hgb (13.0-17.5) gm/dL Hct (39.0-53.0) % MCV (80.0-100.0) fL MCH (25.0-35.0) pg MCHC (31.0-37.0) g/dL RDW (11.5-15.5) % Plt Count (150-450) k/uL MPV Neutrophils % % Lymphocytes % % Monocytes % % Eosinophils % % Basophils % % Neutrophils # (1.3-7.7) k/uL Lymphocytes # (1.0-4.8) k/uL Monocytes # (0-1.0) k/uL Eosinophils # (0-0.7) k/uL Basophils # (0-0.2) k/uL Hypochromasia PT (10.0-12.5) sec INR (<1.2) APTT (22.0-30.0) sec D-Dimer (<0.60) mg/L FEU VBG pH (7.31-7.41) VBG pCO2 (37-51) mmHg VBG HCO3 (24-28) mmol/L Sodium (137-145) mmol/L Potassium (3.5-5.1) mmol/L Chloride (98-107) mmol/L Carbon Dioxide (22-30) mmol/L Anion Gap mmol/L BUN (9-20) mg/dL Creatinine (0.66-1.25) mg/dL Est GFR (CKD-EPI)AfAm (>60 ml/min/1.73 sqM) Est GFR (CKD-EPI)NonAf (>60 ml/min/1.73 sqM) Glucose (74-99) mg/dL POC Glucose (mg/dL) 507 H* (70-110) mg/dL POC Glu Thinner Sprayer ID Janene Pavon Lactic Ac Sepsis Rflx Y Plasma Lactic Acid [place] (0.7-2.0) mmol/L Calcium (8.4-10.2) mg/dL Total Bilirubin (0.2-1.3) mg/dL AST (17-59) U/L ALT (4-49) U/L Alkaline Phosphatase (38-126) U/L Troponin I (0.000-0.034) ng/mL NT-Pro-B Natriuret Pep pg/mL Total Protein (6.3-8.2) g/dL Albumin (3.5-5.0) g/dL TSH (0.465-4.680) mIU/L Urine Color Colorless Urine Appearance Clear (Clear) Urine pH 5.5 (5.0-8.0) Ur Specific [place] 1.010 (1.001-1.035) Urine Protein Negative (Negative) Urine Glucose (UA) 4+ H (Negative) Urine Ketones Negative (Negative) Urine Blood Small H (Negative) Urine Nitrite Negative (Negative) Urine Bilirubin Negative (Negative) Urine Urobilinogen <2.0 (<2.0) mg/dL Ur Leukocyte Esterase Large H (Negative) Urine RBC 24 H (0-5) /hpf Urine WBC 88 H (0-5) /hpf Ur Squamous Epith Cells 1 (0-4) /hpf Amorphous Sediment Occasional H (None) /hpf Urine Bacteria Occasional H (None) /hpf Urine Mucus Occasional H (None) /hpf Acetone, Qual (Negative) Influenza Type A (PCR) (Not Detectd) Influenza Type B (PCR) (Not Detectd) RSV (PCR) (Not Detectd) SARS-CoV-2 (PCR) (Not Detectd) 12/14/23 12/14/23 12/14/23 Range/Units 04:15 05:20 05:48 WBC (3.8-10.6) k/uL RBC (4.30-5.90) m/uL Hgb (13.0-17.5) gm/dL Hct (39.0-53.0) % MCV (80.0-100.0) fL MCH (25.0-35.0) pg MCHC (31.0-37.0) g/dL RDW (11.5-15.5) % Plt Count (150-450) k/uL MPV Neutrophils % % Lymphocytes % % Monocytes % % Eosinophils % % Basophils % % Neutrophils # (1.3-7.7) k/uL Lymphocytes # (1.0-4.8) k/uL Monocytes # (0-1.0) k/uL Eosinophils # (0-0.7) k/uL Basophils # (0-0.2) k/uL Hypochromasia PT (10.0-12.5) sec INR (<1.2) APTT (22.0-30.0) sec D-Dimer (<0.60) mg/L FEU VBG pH (7.31-7.41) VBG pCO2 (37-51) mmHg VBG HCO3 (24-28) mmol/L Sodium (137-145) mmol/L Potassium (3.5-5.1) mmol/L Chloride (98-107) mmol/L Carbon Dioxide (22-30) mmol/L Anion Gap mmol/L BUN (9-20) mg/dL Creatinine (0.66-1.25) mg/dL Est GFR (CKD-EPI)AfAm (>60 ml/min/1.73 sqM) Est GFR (CKD-EPI)NonAf (>60 ml/min/1.73 sqM) Glucose (74-99) mg/dL POC Glucose (mg/dL) 443 H (70-110) mg/dL POC Glu Thinner Sprayer ID [place] Lactic Ac Sepsis Rflx Plasma Lactic Acid [place] 1.4 (0.7-2.0) mmol/L Calcium (8.4-10.2) mg/dL Total Bilirubin (0.2-1.3) mg/dL AST (17-59) U/L ALT (4-49) U/L Alkaline Phosphatase (38-126) U/L Troponin I (0.000-0.034) ng/mL NT-Pro-B Natriuret Pep pg/mL Total Protein (6.3-8.2) g/dL Albumin (3.5-5.0) g/dL TSH (0.465-4.680) mIU/L Urine Color Urine Appearance (Clear) Urine pH (5.0-8.0) Ur Specific [place] (1.001-1.035) Urine Protein (Negative) Urine Glucose (UA) (Negative) Urine Ketones (Negative) Urine Blood (Negative) Urine Nitrite (Negative) Urine Bilirubin (Negative) Urine Urobilinogen (<2.0) mg/dL Ur Leukocyte Esterase (Negative) Urine RBC (0-5) /hpf Urine WBC (0-5) /hpf Ur Squamous Epith Cells (0-4) /hpf Amorphous Sediment (None) /hpf Urine Bacteria (None) /hpf Urine Mucus (None) /hpf Acetone, Qual Negative (Negative) Influenza Type A (PCR) (Not Detectd) Influenza Type B (PCR) (Not Detectd) RSV (PCR) (Not Detectd) SARS-CoV-2 (PCR) (Not Detectd) 12/14/23 Range/Units 06:24 WBC (3.8-10.6) k/uL RBC (4.30-5.90) m/uL Hgb (13.0-17.5) gm/dL Hct (39.0-53.0) % MCV (80.0-100.0) fL MCH (25.0-35.0) pg MCHC (31.0-37.0) g/dL RDW (11.5-15.5) % Plt Count (150-450) k/uL MPV Neutrophils % % Lymphocytes % % Monocytes % % Eosinophils % % Basophils % % Neutrophils # (1.3-7.7) k/uL Lymphocytes # (1.0-4.8) k/uL Monocytes # (0-1.0) k/uL Eosinophils # (0-0.7) k/uL Basophils # (0-0.2) k/uL Hypochromasia PT (10.0-12.5) sec INR (<1.2) APTT (22.0-30.0) sec D-Dimer (<0.60) mg/L FEU VBG pH 7.34 (7.31-7.41) VBG pCO2 50 (37-51) mmHg VBG HCO3 27 (24-28) mmol/L Sodium (137-145) mmol/L Potassium (3.5-5.1) mmol/L Chloride (98-107) mmol/L Carbon Dioxide (22-30) mmol/L Anion Gap mmol/L BUN (9-20) mg/dL Creatinine (0.66-1.25) mg/dL Est GFR (CKD-EPI)AfAm (>60 ml/min/1.73 sqM) Est GFR (CKD-EPI)NonAf (>60 ml/min/1.73 sqM) Glucose (74-99) mg/dL POC Glucose (mg/dL) (70-110) mg/dL POC Glu Thinner Sprayer ID Lactic Ac Sepsis Rflx Plasma Lactic Acid [place] (0.7-2.0) mmol/L Calcium (8.4-10.2) mg/dL Total Bilirubin (0.2-1.3) mg/dL AST (17-59) U/L ALT (4-49) U/L Alkaline Phosphatase (38-126) U/L Troponin I (0.000-0.034) ng/mL NT-Pro-B Natriuret Pep pg/mL Total Protein (6.3-8.2) g/dL Albumin (3.5-5.0) g/dL TSH (0.465-4.680) mIU/L Urine Color Urine Appearance (Clear) Urine pH (5.0-8.0) Ur Specific [place] (1.001-1.035) Urine Protein (Negative) Urine Glucose (UA) (Negative) Urine Ketones (Negative) Urine Blood (Negative) Urine Nitrite (Negative) Urine Bilirubin (Negative) Urine Urobilinogen (<2.0) mg/dL Ur Leukocyte Esterase (Negative) Urine RBC (0-5) /hpf Urine WBC (0-5) /hpf Ur Squamous Epith Cells (0-4) /hpf Amorphous Sediment (None) /hpf Urine Bacteria (None) /hpf Urine Mucus (None) /hpf Acetone, Qual (Negative) Influenza Type A (PCR) (Not Detectd) Influenza Type B (PCR) (Not Detectd) RSV (PCR) (Not Detectd) SARS-CoV-2 (PCR) (Not Detectd) Disposition Clinical Impression: Generalized weakness, Urinary tract infection Disposition: ADMITTED IP TO THIS HOSP Condition: Good
[2023-12-14 05:52] LABS: Glucose,Whole Blood 443 mg/dL (70-110)
[2023-12-14] MEDS ORDERED: NALOXONE 0.4 MG/ML 1 ML VIAL IV PRN (06:56)
[2023-12-14] MEDS ORDERED: ACETAMINOPHEN TAB 325 MG TAB PO PRN (06:56)
[2023-12-14 06:58] LABS: VBG PH 7.34 (7.31-7.41)
[2023-12-14 09:32] LABS: Glucose,Whole Blood 528 mg/dL (70-110)
[2023-12-14] MEDS ORDERED: DEXTROSE 50% SYRINGE 50 ML IVP PRN ×2 (09:38)
[2023-12-14] MEDS: INSULIN ASPART (NovoLOG) 100 UNIT/ML VIAL SQ SCH ×2 (09:48→13:37)
[2023-12-14] MEDS: CEFEPIME 2 GM in SODIUM CHLORIDE 0.9% 100 ML IVPB SCH (10:13)
[2023-12-14] MEDS: INSULIN DETEMIR (LEVEMIR) 100 UNIT/ML SYR SQ SCH (10:17)
[2023-12-14] MEDS ORDERED: CEFEPIME 2 GM in SODIUM CHLORIDE 0.9% 100 ML IVPB SCH (12:00)
[2023-12-14 12:15] LABS: Basophils % (A) 0 %; Eosinophils # (A) 0.1 k/uL (0-0.7); Eosinophils % (A) 1 %; HCT 44.1 % (39.0-53.0); HGB 13.7 gm/dL (13.0-17.5); Hypochromasia Moderate; Lymphocytes # (A) 1.1 k/uL (1.0-4.8); Lymphocytes % (A) 9 %; MCH 29.7 pg (25.0-35.0); MCHC 31.2 g/dL (31.0-37.0); MCV 95.4 fL (80.0-100.0); Mean Platelet Volume 8.5; Monocytes # (A) 0.5 k/uL (0-1.0); Monocytes % (A) 4 %; Neutrophils % (A) 85 %; Platelet Count 294 k/uL (150-450); RBC 4.62 m/uL (4.30-5.90); RDW 12.8 % (11.5-15.5); WBC 11.8 k/uL (3.8-10.6)
[2023-12-14 12:16] LABS: Glucose,Whole Blood 519 mg/dL (70-110)
[2023-12-14 12:37] LABS: ALT 40 U/L (4-49); AST 40 U/L (17-59); African American GFR (CKD) 69 (>60 ml/min/1.73 sqM); Albumin 3.1 g/dL (3.5-5.0); Alkaline Phosphatase 75 U/L (38-126); Anion Gap 7 mmol/L; Blood Urea Nitrogen 24 mg/dL (9-20); Calcium 8.5 mg/dL (8.4-10.2); Carbon Dioxide 31 mmol/L (22-30); Chloride 96 mmol/L (98-107); Magnesium 1.8 mg/dL (1.6-2.3); Non-African American GFR(CKD) 59 (>60 ml/min/1.73 sqM); Potassium 3.6 mmol/L (3.5-5.1); Sodium 134 mmol/L (137-145); Total Protein 5.9 g/dL (6.3-8.2)
[2023-12-14 12:49] LABS: Glucose 553 mg/dL (74-99)
--- NOTE | 2023-12-14 13:25 | HP ---
HISTORY AND PHYSICAL CHIEF COMPLAINT: Change in mental status. HISTORY OF PRESENT ILLNESS: This is a 78-year-old gentleman with a past medical history of multiple medical problems including asthma, COPD, was admitted with change in mental status. The patient apparently had an episode of diarrhea and after getting out of the shower, the patient was too weak to stand and the patient was admitted for further evaluation and treatment. The white count is elevated. The patient's blood sugar is also significantly elevated. The patient also had features of possible UTI with sepsis. The patient was admitted for further evaluation and treatment. The patient has urinary symptoms, but still confused, unable to elucidate the exact issues with urination at this time. PAST MEDICAL HISTORY: Reviewed include asthma, COPD. Rest of the history and rest of the chart is also reviewed. HOME MEDICATIONS: Reviewed and not confirmed yet. Flomax and rest of medications reviewed. ALLERGIES: None. Family history, social history, review of systems could not be taken because the patient is still confused. PHYSICAL EXAMINATION: VITAL SIGNS: Pulse is 93, blood pressure 127/70, respirations 20. HEENT: Conjunctivae normal. Oral mucosa dry. NECK: No JVD. CARDIOVASCULAR: S1, S2. RESPIRATIONS: Breath sounds are diminished at the bases. A few rhonchi and crackles. ABDOMEN: Soft, obese, nontender. No mass palpable. LEGS: No edema. NERVOUS SYSTEM: Diffusely weak. SKIN: No ulcer, rash, bleeding. JOINTS: No active deforming arthropathy. LABORATORY DATA: WBC 7.8. ASSESSMENT: 1. Urinary tract infection with possible sepsis present on admission. 2. Diabetes mellitus, type 2, uncontrolled with hyperosmolar state without any evidence of ketosis. 3. Diarrhea. 4. Asthma, chronic obstructive pulmonary disease. 5. Diabetes mellitus, type 2. 6. Hypertension. 7. Sleep apnea. 8. Multiple medical issues. RECOMMENDATIONS AND DISCUSSION: This is a 78-year-old gentleman presented with multiple complex medical issues, we will monitor the patient closely. I would recommend broad-spectrum IV antibiotics, cultures, and Infectious Disease evaluation. Otherwise, I would also recommend the patient is started on cefepime at this time. The viral titers are negative. Also recommend CT scan of the brain to complete the workup. Home medications will be continued once they are confirmed. Prognosis guarded because of multiple complex medical issues. Further recommendations to follow. See orders for further details. MMODL / IJN: [id number] /
[2023-12-14] MEDS: INSULIN ASPART (NovoLOG) 100 UNIT/ML VIAL SQ ONE (13:36)
[2023-12-14] MEDS: HEPARIN SODIUM,PORCINE 5,000 UNIT/ML 1 ML VIAL SQ SCH (13:40)
[2023-12-14] MEDS: PANTOPRAZOLE 40 MG/10 ML VIAL IVP SCH (13:42)
--- NOTE | 2023-12-14 14:38 | CT ---
EXAMINATION TYPE: CT brain wo con DATE OF EXAM: 12/14/2023 COMPARISON: None HISTORY: 78-year-old male confusion, AMS r/O stroke TECHNIQUE: Examination was done in axial plane without intravenous contrast. Coronal and sagittal r econstructions performed. CT DLP: 1164.4 mGycm Automated exposure control for dose reduction was used. FINDINGS: There is no evidence of acute intracranial hemorrhage, acute ischemic changes, mass, mass-effect, or extra-axial fluid collection. There is no effacement of cerebral sulci or basal subarachnoid cister ns. There is no hydrocephalus. There is no midline shift. Leone-white matter distinction is preserv ed. Mild age-related generalized supratentorial volume loss. Trace mucosal thickening ethmoid air cells. Rightward nasal septal deviation. Mastoid air cells are w ell pneumatized. The globes are intact. IMPRESSION: Mild age-related cerebral atrophy. No acute intracranial abnormality seen. [facility], , 12/14/2023 2:36 PM
[2023-12-14 18:06] LABS: Glucose,Whole Blood 124 mg/dL (70-110)
[2023-12-14 21:27] LABS: Glucose,Whole Blood 150 mg/dL (70-110)
--- NOTE | 2023-12-14 23:15 | P.CONS ---
History of Present Illness - Reason for Consult Consult date: 12/14/23 Sepsis, question AMS Requesting physician: Amber Patrick - Chief Complaint Mental status changes difficulty urination x few days - History of Present Illness Patient is a 78-year-old male with a past medical history significant for diabetes mellitus reflux hypertension sleep apnea COPD and asthma patient was brought into the hospital for evaluation of generalized weakness apparently the patient have a large episode of watery diarrhea no blood or mucus in the stool the took the patient to the shower to clean him up and the patient seem to have been significantly weak unable to stand up EMS was called and the patient has been brought to the hospital on arrival to the ER patient was afebrile and no fever have recorded subsequently patient was not tachycardic hypotensive he is mildly hypoxic currently on 4 L nasal cannula oxygen patient did have white count of 11.8 with a left shift creatinine has been normal did have elevated blood sugar electrolytes has been normal liver enzymes are normal patient did have a positive UA with large leukocyte esterase 88 WBC influenza RSV COVID testing has been negative patient did have a chest x-ray that was low lung volumes some mild cardiomegaly patient has been started on cefepime infectious he was consulted for further management of antibiotic to be patient at this time he denies having any headache or URI symptoms no chest pain shortness of breath or cough no nausea vomiting he did complain of difficulty urination some burning but no suprapubic or flank pain Review of Systems Positive point and negatives has been mentioned in the HPI, complete review of systems was performed and all other systems are negative Past Medical History Past Medical History: Asthma, COPD, Diabetes Mellitus, GERD/Reflux, Hypertension, Sleep Apnea/CPAP/BIPAP Additional Past Medical History / Comment(s): SOB w/exertion, supposed to use CPAP, peripheral neuropathy; atrial fibrillation, at home o2 History of Any Multi-Drug Resistant Organisms: None Reported Past Surgical History: Joint Replacement, Orthopedic Surgery Additional Past Surgical History / Comment(s): cataract surg., rotator cuff repair, left knee replaced, benign fatty tumor removed, broke back without surgery Past Anesthesia/Blood Transfusion Reactions: Previous Problems w/ Anesthesia Additional Past Anesthesia/Blood Transfusion Reaction / Comm: developed vertigo few days after surg. Past Psychological History: Anxiety Smoking Status: Former smoker Past Alcohol Use History: Rare Past Drug Use History: None Reported - Past Family History Mother Family Medical History: Cancer Father Family Medical History: CVA/TIA Medications and Allergies Home Medications Medication Instructions Recorded Confirmed Type Unable To Assess [Unable to Assess] 12/14/23 12/14/23 History Allergies Allergy/AdvReac Type Severity Reaction Status Date / Time No Known Allergies Allergy Verified 12/14/23 10:55 Physical Exam Vitals: Vital Signs Temp Pulse Resp BP Pulse Ox 12/14/23 10:15 90 18 141/94 95 12/14/23 07:30 93 20 127/71 91 L 12/14/23 06:05 97.2 F L 12/14/23 04:23 92 16 133/97 93 L 12/14/23 03:05 92 14 127/80 95 12/14/23 01:19 97.3 F L 98 16 112/63 92 L Intake and Output 12/13/23 12/14/23 12/14/23 22:59 06:59 14:59 Other: Weight 117.934 kg GENERAL DESCRIPTION: Elderly male lying in bed, no distress. No tachypnea or accessory muscle of respiration use. HEENT: Shows Pallor , no scleral icterus. Oral mucous membrane is dry. No pharyngeal erythema or thrush NECK: Trachea central, no thyromegaly. LUNGS: Unlabored breathing. Clear to auscultation anteriorly. No wheeze or crackle. HEART: S1, S2, regular rate and rhythm. No loud murmur ABDOMEN: Soft, no tenderness , guarding or rigidity, no organomegaly EXTREMITIES: No edema of feet. SKIN: No rash, no masses palpable. NEUROLOGICAL: The patient is awake, alert, oriented x3, mood and affect normal. Results CBC & Chem 7: 12/14/23 12:03 12/14/23 12:03 Labs: Abnormal Lab Results - Last 24 Hours (Table) 12/14/23 12/14/23 12/14/23 Range/Units 01:37 01:37 01:37 WBC 14.8 H (3.8-10.6) k/uL Neutrophils # 12.6 H (1.3-7.7) k/uL Sodium 127 L (137-145) mmol/L Chloride 94 L (98-107) mmol/L BUN 29 H (9-20) mg/dL Glucose 540 H* (74-99) mg/dL POC Glucose (mg/dL) (70-110) mg/dL Plasma Lactic Acid Robles 3.1 H* (0.7-2.0) mmol/L Total Protein 5.9 L (6.3-8.2) g/dL Albumin 3.2 L (3.5-5.0) g/dL Urine Glucose (UA) (Negative) Urine Blood (Negative) Ur Leukocyte Esterase (Negative) Urine RBC (0-5) /hpf Urine WBC (0-5) /hpf Amorphous Sediment (None) /hpf Urine Bacteria (None) /hpf Urine Mucus (None) /hpf 12/14/23 12/14/23 12/14/23 Range/Units 01:55 02:57 05:48 WBC (3.8-10.6) k/uL Neutrophils # (1.3-7.7) k/uL Sodium (137-145) mmol/L Chloride (98-107) mmol/L BUN (9-20) mg/dL Glucose (74-99) mg/dL POC Glucose (mg/dL) 507 H* 443 H (70-110) mg/dL Plasma Lactic Acid Orbles (0.7-2.0) mmol/L Total Protein (6.3-8.2) g/dL Albumin (3.5-5.0) g/dL Urine Glucose (UA) 4+ H (Negative) Urine Blood Small H (Negative) Ur Leukocyte Esterase Large H (Negative) Urine RBC 24 H (0-5) /hpf Urine WBC 88 H (0-5) /hpf Amorphous Sediment Occasional H (None) /hpf Urine Bacteria Occasional H (None) /hpf Urine Mucus Occasional H (None) /hpf 12/14/23 Range/Units 09:31 WBC (3.8-10.6) k/uL Neutrophils # (1.3-7.7) k/uL Sodium (137-145) mmol/L Chloride (98-107) mmol/L BUN (9-20) mg/dL Glucose (74-99) mg/dL POC Glucose (mg/dL) 528 H* (70-110) mg/dL Plasma Lactic Acid Robles (0.7-2.0) mmol/L Total Protein (6.3-8.2) g/dL Albumin (3.5-5.0) g/dL Urine Glucose (UA) (Negative) Urine Blood (Negative) Ur Leukocyte Esterase (Negative) Urine RBC (0-5) /hpf Urine WBC (0-5) /hpf Amorphous Sediment (None) /hpf Urine Bacteria (None) /hpf Urine Mucus (None) /hpf Assessment and Plan (1) Urinary tract infection Current Visit: Yes Status: Acute Code(s): N39.0 - URINARY TRACT INFECTION, SITE NOT SPECIFIED SNOMED Code(s): 12675329 Plan: 1patient presented to hospital with generalized weakness did have episode of diarrhea did have difficulty urination with burning positive UA concerning for symptomatic urinary infection likely from UTI gram-negative pathogen. 2we will wait for the urine culture to finalize. 3continue cefepime 2 g every 12 hours we will follow on clinical condition and cultures to further adjust medication if needed Thank you for this consultation we will follow the patient along with you Dictation was produced using [employer] dictation software. please excuse any grammatical, word or spelling errors. Time with Patient: Greater than 30
[2023-12-15 06:27] LABS: Glucose,Whole Blood 206 mg/dL (70-110)
[2023-12-15 06:45] LABS: Basophils # (A) 0.1 k/uL (0-0.2); Basophils % (A) 0 %; Eosinophils # (A) 0.3 k/uL (0-0.7); Eosinophils % (A) 3 %; HCT 42.5 % (39.0-53.0); HGB 13.7 gm/dL (13.0-17.5); Lymphocytes # (A) 1.5 k/uL (1.0-4.8); Lymphocytes % (A) 14 %; MCH 29.9 pg (25.0-35.0); MCHC 32.2 g/dL (31.0-37.0); MCV 92.8 fL (80.0-100.0); Mean Platelet Volume 8.4; Monocytes # (A) 0.5 k/uL (0-1.0); Monocytes % (A) 5 %; Neutrophils # (A) 8.4 k/uL (1.3-7.7); Neutrophils % (A) 77 %; Platelet Count 278 k/uL (150-450); RBC 4.57 m/uL (4.30-5.90); RDW 13.2 % (11.5-15.5); WBC 10.9 k/uL (3.8-10.6)
[2023-12-15 07:07] LABS: ALT 34 U/L (4-49); AST 31 U/L (17-59); African American GFR (CKD) 71 (>60 ml/min/1.73 sqM); Alkaline Phosphatase 62 U/L (38-126); Anion Gap 0 mmol/L; Blood Urea Nitrogen 19 mg/dL (9-20); Calcium 8.8 mg/dL (8.4-10.2); Carbon Dioxide 33 mmol/L (22-30); Chloride 100 mmol/L (98-107); Glucose 222 mg/dL (74-99); Non-African American GFR(CKD) 62 (>60 ml/min/1.73 sqM); Potassium 3.4 mmol/L (3.5-5.1); Sodium 133 mmol/L (137-145); Total Bilirubin 0.6 mg/dL (0.2-1.3); Total Protein 5.7 g/dL (6.3-8.2)
[2023-12-15 11:29] LABS: Glucose,Whole Blood 277 mg/dL (70-110)
[2023-12-15 11:56] VITALS: BMI 35.2
--- NOTE | 2023-12-15 15:36 | P.PN ---
Subjective Progress Note Date: 12/15/23 Principal diagnosis: Reason for follow-up is urinary tract infection Patient is a 78-year-old male with a past medical history significant for diabetes mellitus reflux hypertension sleep apnea COPD and asthma patient was brought into the hospital for evaluation of generalized weakness, did have difficulty urination burning has been diagnosed with the symptomatic intake infection. On today's evaluation that is 12/15/2023, Patient is afebrile patient is currently on room air and denies having any shortness of breath, the patient denies any chest pain or cough, the patient denies any nausea vomiting did not have any abdominal pain and no diarrhea. The patient white count is down to 10.9, creatinine is 1.14 urine is growing gram-negative blood cultures are pending Objective - Vital Signs Vital signs: Vital Signs Temp 97.6 F 12/15/23 08:00 Pulse 80 12/15/23 12:00 Resp 20 12/15/23 08:00 BP 123/77 12/15/23 12:00 Pulse Ox 94 L 12/15/23 12:00 FiO2 Intake & Output 12/14/23 12/15/23 12/15/23 18:59 06:59 18:59 Intake Total 460 Output Total 450 Balance -450 460 Weight 117.934 kg 117.934 kg Intake: Intake, IV Titration 100 Amount Cefepime 2 gm In Sodium 100 Chloride 0.9% 100 ml @ 200 mls/hr IVPB Q12HR [facility] Rx#:[id number] Oral 360 Output: Urine 450 Other: Voiding Method External Catheter External Catheter # Voids 1 1 - Exam GENERAL DESCRIPTION: An elderly male lying in bed in no distress RESPIRATORY SYSTEM: Unlabored breathing , decreased breath sounds at bases HEART: S1 S2 regular rate and rhythm , ABDOMEN: Soft , no tenderness EXTREMITIES: No edema feet - Labs CBC & Chem 7: 12/15/23 06:23 12/15/23 06:23 Labs: Abnormal Lab Results - Last 24 Hours (Table) 12/14/23 12/14/23 12/14/23 Range/Units 12:03 18:04 21:26 WBC (3.8-10.6) k/uL Neutrophils # (1.3-7.7) k/uL Sodium (137-145) mmol/L Potassium (3.5-5.1) mmol/L Carbon Dioxide (22-30) mmol/L Glucose (74-99) mg/dL POC Glucose (mg/dL) 124 H 150 H (70-110) mg/dL Hemoglobin A1c 14.8 H (<=6.0) % Total Protein (6.3-8.2) g/dL Albumin (3.5-5.0) g/dL 12/15/23 12/15/23 12/15/23 Range/Units 06:23 06:23 06:25 WBC 10.9 H (3.8-10.6) k/uL Neutrophils # 8.4 H (1.3-7.7) k/uL Sodium 133 L (137-145) mmol/L Potassium 3.4 L (3.5-5.1) mmol/L Carbon Dioxide 33 H (22-30) mmol/L Glucose 222 H (74-99) mg/dL POC Glucose (mg/dL) 206 H (70-110) mg/dL Hemoglobin A1c (<=6.0) % Total Protein 5.7 L (6.3-8.2) g/dL Albumin 3.0 L (3.5-5.0) g/dL 12/15/23 Range/Units 11:25 WBC (3.8-10.6) k/uL Neutrophils # (1.3-7.7) k/uL Sodium (137-145) mmol/L Potassium (3.5-5.1) mmol/L Carbon Dioxide (22-30) mmol/L Glucose (74-99) mg/dL POC Glucose (mg/dL) 277 H (70-110) mg/dL Hemoglobin A1c (<=6.0) % Total Protein (6.3-8.2) g/dL Albumin (3.5-5.0) g/dL Microbiology - Last 24 Hours (Table) 12/14/23 04:30 Blood Culture - Preliminary Blood 12/14/23 02:57 Urine Culture - Preliminary Urine,Voided Gram Neg Bacilli Assessment and Plan (1) Urinary tract infection Current Visit: Yes Status: Acute Code(s): N39.0 - URINARY TRACT INFECTION, SITE NOT SPECIFIED SNOMED Code(s): 29709974 Plan: 1patient presented to hospital with generalized weakness did have episode of diarrhea did have difficulty urination with burning positive UA concerning for symptomatic urinary infection likely from UTI gram-negative pathogen. 2patient urine is currently growing gram-negative blood culture has been negative so far, patient will continue cefepime 2 g every 12 hours while waiting for the culture to finalize Daughter at the bedside question concern answered Dictation was produced using [employer] dictation software. please excuse any grammatical, word or spelling errors. Time with Patient: Less than 30
[2023-12-15 16:19] LABS: Glucose,Whole Blood 275 mg/dL (70-110)
[2023-12-15 20:04] LABS: Glucose,Whole Blood 246 mg/dL (70-110)
--- NOTE | 2023-12-15 20:10 | PN ---
PROGRESS NOTE DATE OF SERVICE: 12/15/2023 SUBJECTIVE: This is a 78-year-old gentleman admitted with UTI with possible sepsis, is being closely monitored. No chest pain. No palpitations. No fever. OBJECTIVE: VITAL SIGNS: Pulse is 84, blood pressure 140/90, respirations 20. CHEST: Clear to auscultation. CARDIOVASCULAR: S1, S2. ABDOMEN: Soft. NERVOUS SYSTEM: Nonfocal. LABORATORY DATA: Sodium 130, potassium 3.4. ASSESSMENT: 1. Urinary tract infection with possible sepsis present on admission. 2. Diabetes mellitus, type 2, uncontrolled with hyperosmolar state without any ketosis. 3. Diarrhea, improved. 4. Asthma, chronic obstructive pulmonary disease. 5. Diabetes mellitus, type 2. 6. Multiple medical issues. RECOMMENDATIONS AND DISCUSSION: Recommend to continue current management and continue symptomatic treatment. Continue with antibiotics. Cultures are showing gram-negative bacilli. We will closely follow with Infectious Disease, PT, OT evaluation. Further recommendations to follow. MMODL / IJN: [id number] /
[2023-12-16 02:12] LABS: Glucose,Whole Blood 168 mg/dL (70-110)
[2023-12-16 06:19] LABS: Glucose,Whole Blood 163 mg/dL (70-110)
[2023-12-16 08:15] LABS: Basophils % (A) 0 %; Eosinophils # (A) 0.2 k/uL (0-0.7); Eosinophils % (A) 2 %; HCT 43.5 % (39.0-53.0); HGB 13.6 gm/dL (13.0-17.5); Lymphocytes # (A) 1.5 k/uL (1.0-4.8); Lymphocytes % (A) 13 %; MCHC 31.3 g/dL (31.0-37.0); MCV 92.7 fL (80.0-100.0); Mean Platelet Volume 7.7; Monocytes # (A) 0.6 k/uL (0-1.0); Monocytes % (A) 5 %; Neutrophils # (A) 8.8 k/uL (1.3-7.7); Neutrophils % (A) 78 %; Platelet Count 293 k/uL (150-450); RDW 12.8 % (11.5-15.5); WBC 11.3 k/uL (3.8-10.6)
[2023-12-16 08:37] LABS: African American GFR (CKD) 80 (>60 ml/min/1.73 sqM); Anion Gap 6 mmol/L; Blood Urea Nitrogen 15 mg/dL (9-20); Calcium 8.9 mg/dL (8.4-10.2); Carbon Dioxide 30 mmol/L (22-30); Chloride 103 mmol/L (98-107); Glucose 176 mg/dL (74-99); Non-African American GFR(CKD) 69 (>60 ml/min/1.73 sqM); Potassium 3.2 mmol/L (3.5-5.1); Sodium 139 mmol/L (137-145)
[2023-12-16 11:52] LABS: Glucose,Whole Blood 215 mg/dL (70-110)
[2023-12-16] MEDS ORDERED: Potassium Replacement Protocol 1 EACH MISC MISCELLANE PRN (12:10)
[2023-12-16] MEDS: POTASSIUM CHLORIDE ER 20 MEQ TAB.ER PO SCH (12:45)
[2023-12-16] MEDS ORDERED: Magnesium Replacement Protocol 1 EACH MISC MISCELLANE PRN (13:08)
--- NOTE | 2023-12-16 16:07 | P.PN ---
Subjective Progress Note Date: 12/16/23 Principal diagnosis: Reason for follow-up is urinary tract infection Patient is a 78-year-old male with a past medical history significant for diabetes mellitus reflux hypertension sleep apnea COPD and asthma patient was brought into the hospital for evaluation of generalized weakness, did have difficulty urination burning has been diagnosed with the symptomatic intake infection. On today's evaluation that is 12/16/2023, patient has been afebrile, patient is breathing comfortably and is currently on room air, patient denies having any significant cough no chest pain shortness of breath, patient denies nausea vomiting or diarrhea and no abdominal pain, mention improvement in the urinary symptoms. Patient white count is 11.3, creatinine 1.04 urine with a gram-negative ID pending blood cultures so far negative Objective - Vital Signs Vital signs: Vital Signs Temp 97.8 F 12/16/23 08:00 Pulse 90 12/16/23 12:00 Resp 18 12/16/23 08:00 BP 159/90 12/16/23 12:00 Pulse Ox 92 L 12/16/23 12:00 FiO2 Intake & Output 12/15/23 12/16/23 12/16/23 18:59 06:59 18:59 Intake Total 940 1090 550 Output Total 1800 2850 1200 Balance -860 -1760 -650 Weight 117.934 kg 110.1 kg Intake: IV 10 Invasive Line 3 10 Intake, IV Titration 100 100 Amount Cefepime 2 gm In Sodium 100 100 Chloride 0.9% 100 ml @ 200 mls/hr IVPB Q12HR [facility] Rx#:[id number] Oral 840 1080 450 Output: Urine 1800 2850 1200 Straight 1200 Other: Voiding Method External Catheter External Catheter External Catheter # Voids 1 2 - Exam GENERAL DESCRIPTION: An elderly male lying in bed in no distress RESPIRATORY SYSTEM: Unlabored breathing , decreased breath sounds at bases HEART: S1 S2 regular rate and rhythm , ABDOMEN: Soft , no tenderness EXTREMITIES: No edema feet - Labs CBC & Chem 7: 12/16/23 07:31 12/16/23 07:31 Labs: Abnormal Lab Results - Last 24 Hours (Table) 12/15/23 12/15/23 12/16/23 Range/Units 16:17 20:03 02:10 WBC (3.8-10.6) k/uL Neutrophils # (1.3-7.7) k/uL Potassium (3.5-5.1) mmol/L Glucose (74-99) mg/dL POC Glucose (mg/dL) 275 H 246 H 168 H (70-110) mg/dL 12/16/23 12/16/23 12/16/23 Range/Units 06:18 07:31 07:31 WBC 11.3 H (3.8-10.6) k/uL Neutrophils # 8.8 H (1.3-7.7) k/uL Potassium 3.2 L (3.5-5.1) mmol/L Glucose 176 H (74-99) mg/dL POC Glucose (mg/dL) 163 H (70-110) mg/dL 12/16/23 Range/Units 11:52 WBC (3.8-10.6) k/uL Neutrophils # (1.3-7.7) k/uL Potassium (3.5-5.1) mmol/L Glucose (74-99) mg/dL POC Glucose (mg/dL) 215 H (70-110) mg/dL Microbiology - Last 24 Hours (Table) 12/14/23 04:30 Blood Culture - Preliminary Blood Assessment and Plan (1) Urinary tract infection Current Visit: Yes Status: Acute Code(s): N39.0 - URINARY TRACT INFECTION, SITE NOT SPECIFIED SNOMED Code(s): 92952764 Plan: 1patient presented to hospital with generalized weakness did have episode of diarrhea did have difficulty urination with burning positive UA concerning for symptomatic urinary infection likely from UTI gram-negative pathogen. 2patient urine is currently growing gram-negative with ID sensitivities still pending, blood culture has been negative so far 3patient will continue cefepime 2 g every 12 hours while waiting for the culture to finalize Dictation was produced using [employer] dictation software. please excuse any grammatical, word or spelling errors. Time with Patient: Less than 30
[2023-12-16] MEDS: CEFEPIME 2 GM in SODIUM CHLORIDE 0.9% 100 ML IVPB SCH (16:19)
[2023-12-16] MEDS: amLODIPine 5 MG TAB PO SCH (16:19)
[2023-12-16] MEDS: MAGNESIUM SULFATE-D5W PMX 1 GM in DEXTROSE/WATER 1 100ML.BAG IVPB ONE (16:32)
[2023-12-16 17:07] LABS: Glucose,Whole Blood 313 mg/dL (70-110)
[2023-12-16 20:19] LABS: Glucose,Whole Blood 286 mg/dL (70-110)
--- NOTE | 2023-12-16 22:27 | PN ---
PROGRESS NOTE DATE OF SERVICE: 12/16/2023 SUBJECTIVE: This is a 78-year-old gentleman, who was admitted with UTI with possible sepsis, also had diabetes mellitus. No chest pain. No palpitation. OBJECTIVE: VITAL SIGNS: Pulse is 94, blood pressure 158/70, respirations 18. CHEST: A few scattered rhonchi. ABDOMEN: Soft. NERVOUS SYSTEM: Nonfocal. LABORATORY DATA: Reviewed. ASSESSMENT: 1. Urinary tract infection with possible sepsis present on admission. 2. Diabetes mellitus, type 2, uncontrolled with hyperosmolar state without any ketosis. 3. Diarrhea, improved. 4. Hypertension. 5. Asthma, chronic obstructive pulmonary disease. 6. Multiple medical issues. RECOMMENDATIONS: Recommend to continue current medications, continue symptomatic treatment. Urine culture showed possibly gram-negative bacilli. Otherwise, continue with Infectious Disease. We will add Norvasc to the current regimen. Further recommendations to follow. Monitor blood sugars closely. MMODL / IJN: [id number] /
[2023-12-17] MEDS: MELATONIN 3 MG TABLET PO PRN (00:25)
[2023-12-17 02:00] LABS: Glucose,Whole Blood 254 mg/dL (70-110)
[2023-12-17 06:01] LABS: Glucose,Whole Blood 246 mg/dL (70-110)
[2023-12-17 07:43] LABS: Basophils # (A) 0.1 k/uL (0-0.2); Basophils % (A) 1 %; Eosinophils # (A) 0.2 k/uL (0-0.7); Eosinophils % (A) 2 %; HCT 46.7 % (39.0-53.0); HGB 14.2 gm/dL (13.0-17.5); Hypochromasia Slight; Lymphocytes # (A) 1.1 k/uL (1.0-4.8); Lymphocytes % (A) 12 %; MCH 28.6 pg (25.0-35.0); MCHC 30.3 g/dL (31.0-37.0); MCV 94.2 fL (80.0-100.0); Mean Platelet Volume 7.8; Monocytes # (A) 0.5 k/uL (0-1.0); Monocytes % (A) 5 %; Neutrophils # (A) 7.5 k/uL (1.3-7.7); Neutrophils % (A) 79 %; Platelet Count 327 k/uL (150-450); RBC 4.96 m/uL (4.30-5.90); RDW 12.9 % (11.5-15.5); WBC 9.5 k/uL (3.8-10.6)
[2023-12-17 08:03] LABS: African American GFR (CKD) >90 (>60 ml/min/1.73 sqM); Anion Gap 8 mmol/L; Blood Urea Nitrogen 14 mg/dL (9-20); Calcium 9.5 mg/dL (8.4-10.2); Carbon Dioxide 33 mmol/L (22-30); Chloride 100 mmol/L (98-107); Glucose 278 mg/dL (74-99); Magnesium 1.7 mg/dL (1.6-2.3); Non-African American GFR(CKD) 81 (>60 ml/min/1.73 sqM); Potassium 3.8 mmol/L (3.5-5.1); Sodium 141 mmol/L (137-145)
[2023-12-17 11:40] LABS: Glucose,Whole Blood 274 mg/dL (70-110)
[2023-12-17] MEDS: TAMSULOSIN 0.4 MG CAP.ER.24H PO STA (15:07)
[2023-12-17 16:23] LABS: Glucose,Whole Blood 330 mg/dL (70-110)
--- NOTE | 2023-12-17 16:44 | US ---
EXAMINATION TYPE: US kidneys/renal and bladder DATE OF EXAM: 12/17/2023 COMPARISON: NONE CLINICAL INDICATION: Male, 78 years old with history of uti, retention; UTI, retention EXAM MEASUREMENTS: Right Kidney: 14.0 x 6.8 x 5.4 cm Left Kidney: 13.1 x 6.9 x 5.2 cm Right Kidney: slightly dilated collecting system Left Kidney: slightly dilated collecting system Bladder: thickened wall. Santana catheter No nephrolithiasis is seen. IMPRESSION: 1. Markedly thickened urinary bladder wall with Santana catheter 2. Mild bilateral hydronephrosis with no renal calcification or solid renal mass. Further evaluation the urinary bladder is warranted. [facility], , 12/17/2023 4:42 PM
--- NOTE | 2023-12-17 20:07 | PN ---
PROGRESS NOTE DATE OF SERVICE: 12/17/2023 SUBJECTIVE: This is a 78-year-old gentleman who was admitted with UTI with possible sepsis. He is being closely monitored. No chest pain. No palpitations. No fever. OBJECTIVE: VITAL SIGNS: Pulse 88, blood pressure 130/80, respirations 20. CHEST: Clear to auscultation. CARDIOVASCULAR: S1, S2. ABDOMEN: Soft. NERVOUS SYSTEM: Nonfocal. LABORATORY DATA: Accu-Cheks 274. ASSESSMENT: 1. Urinary tract infection with possible sepsis present on admission. 2. Diabetes mellitus, type 2 uncontrolled with hyperosmolar state without any ketosis. 3. Diarrhea, improved. 4. Hypertension. 5. Asthma. 6. Multiple medical issues. RECOMMENDATIONS: Recommend to continue current management and continue symptomatic treatment. We will adjust the Lantus further. Otherwise, continue to monitor. Guarded prognosis. Further recommendations to follow. MMODL / IJN: [id number] /
[2023-12-17 20:17] LABS: Glucose,Whole Blood 291 mg/dL (70-110)
[2023-12-17] MEDS: QUEtiapine 25 MG TAB PO SCH (20:35)
[2023-12-17] MEDS: INSULIN DETEMIR (LEVEMIR) 100 UNIT/ML SYR SQ SCH (20:35)
--- NOTE | 2023-12-17 22:51 | P.PN ---
Subjective Progress Note Date: 12/17/23 Principal diagnosis: Reason for follow-up is urinary tract infection Patient is a 78-year-old male with a past medical history significant for diabetes mellitus reflux hypertension sleep apnea COPD and asthma patient was brought into the hospital for evaluation of generalized weakness, did have difficulty urination burning has been diagnosed with the symptomatic intake infection. On today's evaluation that is 12/17/2023, Patient is afebrile this morning patient denies having any chest pain shortness of breath or cough, the patient is breathing comfortably on room air, patient denies any abdominal pain no diarrhea no nausea no vomiting, patient mention feeling better. Patient urine is growing gram-negative with ID sensitivities pending patient did have white count 9.5, creatinine 0.91 Objective - Vital Signs Vital signs: Vital Signs Temp 98.2 F 12/17/23 08:00 Pulse 84 12/17/23 08:00 Resp 20 12/17/23 08:00 BP 136/74 12/17/23 08:00 Pulse Ox 92 L 12/17/23 08:00 FiO2 Intake & Output 12/16/23 12/17/23 12/17/23 18:59 06:59 18:59 Intake Total 1318 1496 Output Total 1200 5725 800 Balance 118 4225 -800 Weight 104.9 kg Intake: Intake, IV Titration 100 Amount Cefepime 2 gm In Sodium 100 Chloride 0.9% 100 ml @ 200 mls/hr IVPB Q12HR [facility] Rx#:[id number] Oral 1218 1496 Output: Urine 1200 5725 800 Straight 1200 1600 Uretheral (Santana) 1550 Other: Voiding Method External Catheter Indwelling Catheter Indwelling Catheter # Voids 2 - Exam GENERAL DESCRIPTION: An elderly male lying in bed in no distress RESPIRATORY SYSTEM: Unlabored breathing , decreased breath sounds at bases HEART: S1 S2 regular rate and rhythm , ABDOMEN: Soft , no tenderness EXTREMITIES: No edema feet - Labs CBC & Chem 7: 12/17/23 06:44 12/17/23 06:44 Labs: Abnormal Lab Results - Last 24 Hours (Table) 12/16/23 12/16/23 12/16/23 Range/Units 11:52 17:06 20:18 MCHC (31.0-37.0) g/dL Carbon Dioxide (22-30) mmol/L Glucose (74-99) mg/dL POC Glucose (mg/dL) 215 H 313 H 286 H (70-110) mg/dL 12/17/23 12/17/23 12/17/23 Range/Units 01:57 05:59 06:44 MCHC (31.0-37.0) g/dL Carbon Dioxide 33 H (22-30) mmol/L Glucose 278 H (74-99) mg/dL POC Glucose (mg/dL) 254 H 246 H (70-110) mg/dL 12/17/23 Range/Units 06:44 MCHC 30.3 L (31.0-37.0) g/dL Carbon Dioxide (22-30) mmol/L Glucose (74-99) mg/dL POC Glucose (mg/dL) (70-110) mg/dL Microbiology - Last 24 Hours (Table) 12/14/23 04:30 Blood Culture - Preliminary Blood Assessment and Plan (1) Urinary tract infection Current Visit: Yes Status: Acute Code(s): N39.0 - URINARY TRACT INFECTION, SITE NOT SPECIFIED SNOMED Code(s): 60007097 Plan: 1patient presented to hospital with generalized weakness did have episode of diarrhea did have difficulty urination with burning positive UA concerning for symptomatic urinary infection likely from UTI gram-negative pathogen. 2patient urine is currently growing gram-negative with ID sensitivities still pending, blood culture has been negative so far 3patient did have normalization of his white count we are still waiting for the urine culture to be finalized determine discharge antibiotics for now continue with the cefepime. Question concern answered Dictation was produced using [employer] dictation software. please excuse any grammatical, word or spelling errors. Time with Patient: Less than 30
[2023-12-18 02:30] LABS: Glucose,Whole Blood 184 mg/dL (70-110)
[2023-12-18 06:17] LABS: Glucose,Whole Blood 141 mg/dL (70-110)
[2023-12-18] MEDS: PANTOPRAZOLE 40 MG TABLET PO SCH (06:28)
[2023-12-18] MEDS: TAMSULOSIN 0.4 MG CAP.ER.24H PO SCH (09:23)
[2023-12-18 11:51] LABS: Glucose,Whole Blood 203 mg/dL (70-110)
[2023-12-18 16:47] LABS: Glucose,Whole Blood 260 mg/dL (70-110)
[2023-12-18 20:19] LABS: Glucose,Whole Blood 285 mg/dL (70-110)
--- NOTE | 2023-12-19 05:59 | P.PN ---
Subjective Progress Note Date: 12/18/23 This is a 78-year-old male who was recently admitted with altered mentation and urinary tract infection with sepsis. Urine cultures finalized with Klebsiella oxytoca with infectious disease following maintained on antibiotics and will discuss further regarding discharge planning. Patient continues with indwelling Santana catheter as patient was having retention and also underwent ultrasound of the kidneys with some mild bladder thickening and mild hydronephrosis noted. Kidney functions are improving and would recommend outpatient follow-up with urology and trial void. Patient was started on Flomax and will continue. Patient is afebrile with no reports of chest pain or shortness of breath. Dawood renteria would like to go home and family making arrangements on moving the patient to [place] near other family members that can help. Case management following working on discharge planning. Review of systems: Constitutional: No reports of fatigue, fever, or chills Cardiovascular: No reports of chest pain or palpitations Respiratory: No reports of shortness of breath or cough GI: No reports of nausea, no reports of vomiting, no diarrhea : No reports of dysuria or retention status post Santana Neurovascular: reports of generalized weakness All medications have been reviewed PHYSICAL EXAMINATION: GENERAL: The patient is alert and oriented x2, baseline well developed, elderly appearing, ill-appearing, obese HEENT: Pupils are round and equally reacting to light. EOMI. no scleral icterus. No conjunctival pallor. Normocephalic, atraumatic. No pharyngeal erythema. No thyromegaly. CARDIOVASCULAR: S1 and S2 muffled PULMONARY: diminished breath sounds bilaterally with no wheezing or rhonchi noted. ABDOMEN: soft. Nontender on exam. obese. non-distended, normoactive bowel sounds. No palpable organomegaly. MUSCULOSKELETAL: No joint swelling or deformity. EXTREMITIES: No cyanosis, clubbing, or pedal edema. NEUROLOGICAL: Gross neurological examination did not reveal any focal deficits. Diffuse weakness SKIN: No rashes. Assessment: Urinary tract infection with sepsis, present on admission, cultures finalized as Klebsiella oxytoca Urinary retention requiring indwelling Santana catheter with mild hydronephrosis noted on imaging Diabetes mellitus, type II uncontrolled with hyperosmolar state without any ketosis History of diarrhea recently, resolved History of hypertension History of asthma, not in exacerbation Obesity with a BMI 31.4 GI prophylaxis DVT prophylaxis Full code Plan: Recommend to continue with current medications and management with infectious disease following. Patient maintained on IV antibiotics and cultures have finalized with Klebsiella oxytoca and will transition to oral Cipro twice daily for 10-day course on discharge Continue indwelling Santana catheter and have initiated Flomax as patient was retaining. Renal ultrasound showed some mild hydronephrosis and bladder wall thickening and will have patient follow-up with urology outpatient Per social work/case management, family is arranging for patient to be moved closer to another family member in [place] for support Will discuss further with case management regarding discharge planning. Likely discharge in the next 24 hours The impression and plan of care has been dictated by Amber Patrick, nurse practitioner as directed. Dr. Ilia MD I have performed a history and examination and MDM of this patient, discussed the same with the dictator, and agree with the dictator's assessment and plan as written ,documented as a scribe. Based on total visit time, I have performed more than 50% of the visit. Any additional findings or plans will be noted. Objective - Vital Signs Vital signs: Vital Signs Temp 97.6 F 12/18/23 11:36 Pulse 78 12/18/23 11:36 Resp 18 12/18/23 11:36 BP 126/84 12/18/23 11:36 Pulse Ox 92 L 12/18/23 11:36 FiO2 Intake & Output 12/17/23 12/18/23 12/18/23 18:59 06:59 18:59 Intake Total 3660 1000 Output Total 2450 2125 1150 Balance 1210 -2125 -150 Intake: Oral 3180 1000 Blood Product 480 Output: Urine 2450 2125 1150 Other: Voiding Method Indwelling Catheter Indwelling Catheter Indwelling Catheter - Labs CBC & Chem 7: 12/17/23 06:44 12/17/23 06:44 Labs: Abnormal Lab Results - Last 24 Hours (Table) 12/17/23 12/17/23 12/18/23 Range/Units 16:21 20:15 02:28 POC Glucose (mg/dL) 330 H 291 H 184 H (70-110) mg/dL 12/18/23 12/18/23 Range/Units 06:15 11:49 POC Glucose (mg/dL) 141 H 203 H (70-110) mg/dL Microbiology - Last 24 Hours (Table) 12/14/23 02:57 Urine Culture - Final Urine,Voided Klebsiella oxytoca 12/14/23 04:30 Blood Culture - Preliminary Blood
[2023-12-19 06:10] LABS: Glucose,Whole Blood 210 mg/dL (70-110)
--- NOTE | 2023-12-19 08:37 | P.PN ---
Subjective Progress Note Date: 12/18/23 Principal diagnosis: Reason for follow-up is urinary tract infection Patient is a 78-year-old male with a past medical history significant for diabetes mellitus reflux hypertension sleep apnea COPD and asthma patient was brought into the hospital for evaluation of generalized weakness, did have difficulty urination burning has been diagnosed with the symptomatic intake infection. On today's evaluation that is 12/18/2023,the patient continues to be afebrile he noticed to have significant mental status changes and did have a sitter at the bedside patient himself denies having any chest pain or shortness of breath or cough he is currently on a 3 L nasal cannula oxygen no vomiting or diarrhea has been reported. No new lab has been drawn, urine has been finalized with Klebsiella Objective - Vital Signs Vital signs: Vital Signs Temp 97.6 F 12/18/23 11:36 Pulse 78 12/18/23 11:36 Resp 18 12/18/23 11:36 BP 126/84 12/18/23 11:36 Pulse Ox 92 L 12/18/23 11:36 FiO2 Intake & Output 12/17/23 12/18/23 12/18/23 18:59 06:59 18:59 Intake Total 3660 Output Total 2450 2125 850 Balance 1210 2125 -850 Intake: Oral 3180 Blood Product 480 Output: Urine 2450 2125 850 Other: Voiding Method Indwelling Catheter Indwelling Catheter Indwelling Catheter - Exam GENERAL DESCRIPTION: An elderly male lying in bed in no distress RESPIRATORY SYSTEM: Unlabored breathing , decreased breath sounds at bases HEART: S1 S2 regular rate and rhythm , ABDOMEN: Soft , no tenderness EXTREMITIES: No edema feet - Labs CBC & Chem 7: 12/17/23 06:44 12/17/23 06:44 Labs: Abnormal Lab Results - Last 24 Hours (Table) 12/17/23 12/17/23 12/17/23 Range/Units 11:35 16:21 20:15 POC Glucose (mg/dL) 274 H 330 H 291 H (70-110) mg/dL 12/18/23 12/18/23 Range/Units 02:28 06:15 POC Glucose (mg/dL) 184 H 141 H (70-110) mg/dL Microbiology - Last 24 Hours (Table) 12/14/23 02:57 Urine Culture - Final Urine,Voided Klebsiella oxytoca 12/14/23 04:30 Blood Culture - Preliminary Blood Assessment and Plan (1) Urinary tract infection Current Visit: Yes Status: Acute Code(s): N39.0 - URINARY TRACT INFECTION, SITE NOT SPECIFIED SNOMED Code(s): 46009651 Plan: 1patient presented to hospital with generalized weakness did have episode of diarrhea did have difficulty urination with burning positive UA concerning for symptomatic urinary infection likely from UTI gram-negative pathogen. 2patient urine is currently growing gram-negative with ID sensitivities still pending, blood culture has been negative so far 3patient did have normalization of his white count urine has been finalized with Klebsiella patient did have significant mental status changes questionable related to cefepime which will be discontinued antibiotic switched to Rocephin 2 g daily as patient is on medication that is interacting with the Cipro will recommend oral Ceftin on discharge if he continues to improve Dictation was produced using [employer] dictation software. please excuse any grammatical, word or spelling errors. Time with Patient: Less than 30
[2023-12-19 09:21] VITALS: TEMP 98.1
[2023-12-19 11:43] LABS: Glucose,Whole Blood 285 mg/dL (70-110)
[2023-12-19 12:18] VITALS: BP 111/72; PULSE 74; RESP 17
--- NOTE | 2023-12-20 15:12 | P.PN ---
Subjective Progress Note Date: 12/19/23 Principal diagnosis: Reason for follow-up is urinary tract infection Patient is a 78-year-old male with a past medical history significant for diabetes mellitus reflux hypertension sleep apnea COPD and asthma patient was brought into the hospital for evaluation of generalized weakness, did have difficulty urination burning has been diagnosed with the symptomatic intake infection. On today's evaluation that is 12/19/2023,the patient remains to be afebrile, patient is on 3 L nasal cannula supplemental oxygen, the patient is more awake alert today and denies any shortness of breath no chest pain or cough.Patient denies having any nausea or vomiting, no abdominal pain and no diarrhea has been reported. No new lab has been obtained today Objective - Vital Signs Vital signs: Vital Signs Temp 98.1 F 12/19/23 07:38 Pulse 74 12/19/23 12:12 Resp 17 12/19/23 12:12 BP 111/72 12/19/23 12:12 Pulse Ox 92 L 12/19/23 12:12 FiO2 Intake & Output 12/18/23 12/19/23 12/19/23 18:59 06:59 18:59 Intake Total 1450 600 Output Total 1725 1100 700 Balance -275 -1100 -100 Weight 105.1 kg Intake: Oral 1450 600 Output: Urine 1725 1100 700 Other: Voiding Method Indwelling Catheter Indwelling Catheter Indwelling Catheter # Voids 1 - Exam GENERAL DESCRIPTION: An elderly male lying in bed in no distress RESPIRATORY SYSTEM: Unlabored breathing , decreased breath sounds at bases HEART: S1 S2 regular rate and rhythm , ABDOMEN: Soft , no tenderness EXTREMITIES: No edema feet - Labs CBC & Chem 7: 12/17/23 06:44 12/17/23 06:44 Labs: Abnormal Lab Results - Last 24 Hours (Table) 12/18/23 12/18/23 12/19/23 Range/Units 16:45 20:17 06:09 POC Glucose (mg/dL) 260 H 285 H 210 H (70-110) mg/dL 12/19/23 Range/Units 11:42 POC Glucose (mg/dL) 285 H (70-110) mg/dL Microbiology - Last 24 Hours (Table) 12/14/23 04:30 Blood Culture - Final Blood Assessment and Plan (1) Urinary tract infection Status: Acute Code(s): N39.0 - URINARY TRACT INFECTION, SITE NOT SPECIFIED SNOMED Code(s): 07875044 Plan: 1patient presented to hospital with generalized weakness did have episode of diarrhea did have difficulty urination with burning positive UA concerning for symptomatic urinary infection likely from UTI gram-negative pathogen. 2patient urine is currently growing Klebsiella that is sensitive to Rocephin, blood culture has been negative so far 3patient did have improvement in his mentation after antibiotic has been switched over to Rocephin as we cannot use oral Cipro because of drug interaction he will finish therapy with oral Ceftin on discharge and close outpatient follow-up Dictation was produced using [employer] dictation software. please excuse any grammatical, word or spelling errors. Time with Patient: Less than 30
--- NOTE | 2023-12-21 13:20 | P.DS ---
Providers Date of admission: 12/14/23 06:56 Expected date of discharge: 12/19/23 Attending physician: Mason Reaves MD Consults: 12/14/23 09:40 Consult Physician Urgent Consulting Provider: Kiki Maxwell Consult Reason/Comments: sepsis? ams Do you want consulting provider notified?: Yes Primary care physician: Jaylan Desir Hospital Course: Final diagnosis Urinary tract infection with sepsis, present on admission, cultures finalized as Klebsiella oxytoca Urinary retention requiring indwelling Santana catheter with mild hydronephrosis noted on imaging Diabetes mellitus, type II uncontrolled with hyperosmolar state without any ketosis History of diarrhea recently, resolved History of hypertension History of asthma, not in exacerbation Obesity with a BMI 31.4 Noncompliance to medication and follow-up Possible dementia with memory impairment, per family has been ongoing for years and progressively getting worse GI prophylaxis DVT prophylaxis Full code Discharge disposition Patient is being discharged in a stable condition with guarded prognosis to home with home care. Patient will follow-up with Dr. Desir in the outpatient setting upon discharge. Patient is to continue with hemodialysis as scheduled. Total time taken is greater than 35 minutes. Hospital course This is a 78-year-old male who was recently admitted with urinary tract infection, present on admission with sepsis and cultures that finalized with Klebsiella oxytoca maintained on IV antibiotics with infectious disease following. Patient also had an ultrasound done showing mild bilateral hydronephrosis and also urinary retention requiring indwelling Santana catheter. Attempted trial void although patient was unable to void and was started on Flomax and indwelling Santana catheter was placed recommending outpatient follow- up with urology. Patient will continue on oral Cipro twice daily for the next 10 days per ID recommendations. Family has been working on moving them closer to [place] where there are other family members to help care for them as well as being placed in possible assisted living. Patient most likely has dementia although never diagnosed and is extremely noncompliant per family with all medications including insulins and frequent glucose monitoring. Patient is not compliant with his diet and has not followed up with any primary care providers in years and has been recently hospitalized more frequently. Family also discussing hospice and will discuss in the outpatient setting if patient clinically deteriorates. Please refer to other consultation notes for further HPI. Patient will be discharged home and home care is being arranged. Family did not want patient going to a custodial. Currently no reports of chest pain, shortness of breath, or palpitations. Patient is afebrile. No reports of nausea or vomiting and patient is tolerating diet. Patient will be discharged home today. Guarded prognosis and high risk for readmissions given patient's noncompliance and significant comorbidities. Physical exam: Gen: This is a 78-year-old male who is awake, alert oriented x 1-2, baseline, elderly appearing, ill-appearing, obese HEENT: Head is atraumatic, normocephalic. Pupils equal, round. Sclerae is anicteric. NECK: Supple. No JVD. No lymphadenopathy. No thyromegaly. LUNGS: Diminished breath sounds bilaterally otherwise clear to auscultation. No wheezes or rhonchi. No intercostal retractions. HEART: Regular rate and rhythm. No murmur. ABDOMEN: Soft. Obese. Bowel sounds are present. No masses. No tenderness. EXTREMITIES: No pedal edema. No calf tenderness. NEUROLOGICAL: Patient is awake, alert and oriented x 12.. Cranial nerves 2 through 12 are grossly intact. Diffusely weak Please refer to medication reconciliation sheet for a list of medications. The impression and plan of care has been dictated by Amber Patrick, Nurse Practitioner as directed. Dr. Ilia MD I have performed a history and examination and MDM of this patient, discussed the same with the dictator, and agree with the dictator's assessment and plan as written ,documented as a scribe. Based on total visit time, I have performed more than 50% of the visit. Patient Condition at Discharge: Good Plan - Discharge Summary Discharge Rx Participant: No New Discharge Prescriptions: New Ciprofloxacin HCl [Cipro] 500 mg PO Q12HR 10 Days #20 tab Tamsulosin [Flomax] 0.4 mg PO PC-BRKFST 30 Days #30 cap Melatonin 6 mg PO HS PRN #60 tab PRN Reason: Insomnia INSULIN ASPART (NovoLOG) [NovoLOG (formulary)] 0 unit SQ ACHS each QUEtiapine [SEROquel] 25 mg PO BID 30 Days #60 tab Insulin Glargine,Hum.rec.anlog [Lantus Solostar Pen] 40 units SQ DAILY 30 Days #3 each amLODIPine [Norvasc] 5 mg PO DAILY #30 tab Pantoprazole [Protonix] 40 mg PO AC-BRKFST 14 Days #14 tab Acetaminophen Tab [Tylenol] 650 mg PO Q6HR PRN tab PRN Reason: Mild Pain Or Fever > 100.5 Discharge Medication List Acetaminophen Tab [Tylenol] 650 mg PO Q6HR PRN tab 12/19/23 [Rx] Ciprofloxacin HCl [Cipro] 500 mg PO Q12HR 10 Days #20 tab 12/19/23 [Rx] INSULIN ASPART (NovoLOG) [NovoLOG (formulary)] 0 unit SQ ACHS each 12/19/23 [Rx] Insulin Glargine,Hum.rec.anlog [Lantus Solostar Pen] 40 units SQ DAILY 30 Days #3 each 12/19/23 [Rx] Melatonin 6 mg PO HS PRN #60 tab 12/19/23 [Rx] Pantoprazole [Protonix] 40 mg PO AC-BRKFST 14 Days #14 tab 12/19/23 [Rx] QUEtiapine [SEROquel] 25 mg PO BID 30 Days #60 tab 12/19/23 [Rx] Tamsulosin [Flomax] 0.4 mg PO PC-BRKFST 30 Days #30 cap 12/19/23 [Rx] amLODIPine [Norvasc] 5 mg PO DAILY #30 tab 12/19/23 [Rx] Follow up Appointment(s)/Referral(s): Jaylan Desir [Primary Care Provider] - 1-2 days (Spoke with office, office stated daughter called yesterday and does not want a follow up appointment here. ) [facility] [NON-STAFF] - Kiki Maxwell MD [STAFF PHYSICIAN] - 12/26/23 2:00 pm Patient Instructions/Handouts: Urinary Tract Infection in Men (DC), Weakness (DC) Activity/Diet/Wound Care/Special Instructions: Activity limited until follow-up Follow-up with [facility] care provider [facility] to establish Follow-up with infectious disease outpatient Continue with antibiotics for 10 days Continue monitoring blood sugars before meals and at bedtime and use sliding scale along with long-acting Continue consistent carb diet Continue with indwelling Santana catheter for now as well as Flomax and trial void outpatient Discharge/Stand Alone Forms: Who Do I Call?, Adult Foster Residential List, Assisted Living Facilities, Help In The Home Discharge Disposition: HOME WITH HOME HEALTH SERVICES
== END 2023-12-19 16:52 | disposition home health service (06) | DRG 871 ==
LOC: EC 01:18 → 3SCARD 06:56
PROVIDERS: ADMIT Internal Medicine; ATTEND Internal Medicine
DX: A41.59 Other Gram-negative sepsis (principal); E11.00 Type 2 diabetes mellitus with hyperosmolarity without nonketotic hyperglycemic-hyperosmolar coma (NKHHC); N13.6 Pyonephrosis; I10 Essential (primary) hypertension; G47.30 Sleep apnea, unspecified; J44.9 Chronic obstructive pulmonary disease, unspecified; E66.9 Obesity, unspecified; R19.7 Diarrhea, unspecified; R33.8 Other retention of urine; F03.90 Unspecified dementia, unspecified severity, without behavioral disturbance, psychotic disturbance, mood disturbance, and anxiety; I48.91 Unspecified atrial fibrillation; Z68.31 Body mass index [BMI] 31.0-31.9, adult; Z79.4 Long term (current) use of insulin; Z87.891 Personal history of nicotine dependence; Z91.119 Patient's noncompliance with dietary regimen due to unspecified reason; Z91.148 Patient's other noncompliance with medication regimen for other reason; Z91.199 Patient's noncompliance with other medical treatment and regimen due to unspecified reason; Z79.899 Other long term (current) drug therapy; E11.42 Type 2 diabetes mellitus with diabetic polyneuropathy; Z96.652 Presence of left artificial knee joint; Z98.42 Cataract extraction status, left eye; Z98.41 Cataract extraction status, right eye; Z99.81 Dependence on supplemental oxygen
CPT/HCPCS: 36415; 70450; 71046; 76770; 80048; 80053; 81001; 82009; 82803; 83036; 83605; 83735; 83880; 84145; 84443; 84484; 85025; 85379; 85610; 85730; 87040; 87077; 87086; 87186; 87636; 93005; 94760; 96365; 96366; 96372; 96375; 99285